=== PATIENT | female | born 1930 | race Hispanic/Latino ===

== ENCOUNTER 2021-02-09 14:31 | Inpatient (IN) | payer MEDICARE ==
--- NOTE | 2021-02-09 15:27 | Emergency Department Report ---
HPI - General Chief Complaint: Dyspnea/Respdistress Time Seen by Provider: 02/09/21 14:58 - HPI HPI: 89-year-old female with past medical history significant for hypertension, diabetes mellitus, CAD, CHF, CKD, and recent pacemaker placement (unknown when), is brought in by EMS from home because she was feeling short of breath today. The patient was recently discharged from rehab and came home. She was prescribed lorazepam which she takes intermittently but today after taking the lorazepam she became very tired and somnolent and reported shortness of breath. The patient claims that she feels short of breath today that there are no aggravating or alleviating factors. She denies cough and says this is her only issue. She is very somnolent although she is arousable to voice and can answer questions appropriately. She is slightly confused but able to participate in the exam and review of systems. Further details of the HPI are limited due to the patient's clinical condition. ED Past Medical Hx - Past Medical History Previous Medical History?: Yes Hx Hypertension: Yes Hx Heart Attack/AMI: Yes Hx Congestive Heart Failure: Yes Hx Diabetes: Yes - Social History Smoking Status: Unknown if ever smoked - Medications Home Medications: Home Medications Medication Instructions Recorded Confirmed Last Taken Type Cyproheptadine HCl 4 mg PO Q8HR 02/09/21 02/09/21 Unknown History Furosemide [Lasix] 20 mg PO QDAY 02/09/21 02/09/21 Unknown History Hydromorphone HCl/0.9% NaCl/Pf 1 mg PO Q2HR PRN 02/09/21 02/09/21 Unknown History [Hydromorphone 1 mg/ml-Ns Syrng] Hyoscyamine Subl [Levsin Sl 0.125 0.125 mg SL Q6HR 02/09/21 02/09/21 Unknown History TAB] LORazepam [Ativan] 0.5 mg PO Q6H PRN 02/09/21 02/09/21 Unknown History Levothyroxine [Synthroid] 100 mcg PO QAM 02/09/21 02/09/21 Unknown History Loratadine 10 mg PO QAM 02/09/21 02/09/21 Unknown History Metoprolol Tartrate [Lopressor] 100 mg PO BID 02/09/21 02/09/21 Unknown History Ondansetron [Zofran Odt] 4 mg PO Q4HR PRN 02/09/21 02/09/21 Unknown History Pantoprazole Sodium 40 mg PO QAM 02/09/21 02/09/21 Unknown History Rivaroxaban [Xarelto] 15 mg PO QHS 02/09/21 02/09/21 Unknown History bisacodyL [Dulcolax suppos] 10 mg NE QDAY 02/09/21 02/09/21 Unknown History busPIRone [Buspar] 5 mg PO BID 02/09/21 02/09/21 Unknown History dilTIAZem CD [Cardizem Cd] 120 mg PO DAILY 02/09/21 02/09/21 Unknown History traMADoL [Ultram] 50 mg PO Q6HR PRN 02/09/21 02/09/21 Unknown History ED Review of Systems ROS: Stated complaint: SOB Other details as noted in HPI Constitutional: denies: chills, fever Eyes: denies: eye pain, vision change ENT: denies: throat pain, congestion Respiratory: shortness of breath. denies: cough, wheezing Cardiovascular: denies: chest pain, palpitations, syncope Gastrointestinal: denies: abdominal pain, nausea, vomiting Genitourinary: denies: dysuria, frequency Musculoskeletal: denies: back pain, myalgia Skin: denies: rash Neurological: denies: headache, weakness, numbness Physical Exam - Physical Exam Physical Exam: GENERAL: Well developed and well nourished. Extremely somnolent but arousable to very loud voice or touch HEENT: Normocephalic. No obvious signs of trauma. Slightly dry mucous memb ranes. Very poor oral dentition without discrete drainable apical abscess EYES: Extraocular movements are intact. Pupils are equal round and reactive to light bilaterally NECK: Supple. Trachea is midline. from LUNGS: Nonlabored breathing. Equal chest rise bilaterally. There are bibasilar rales but the remainder of the lung fallon are clear to auscultation HEART/CARDIOVASCULAR: Slightly tachycardic with regular rhythm. No murmurs or rubs. VASCULAR: Cap refill < 2 seconds. 2+ pitting edema of the bilateral lower extremities ABDOMEN: Abdomen is soft and nondistended. There is no significant tenderness, guarding or rebound. SKIN: Skin is warm and dry NEURO: Patient is extremely somnolent but arousable to loud voice or touch. She is oriented to self, place, and situation but not to time parent partner II-XII grossly intact. No focal deficits. Normal motor and sensory exam throughout. Normal speech. MUSCULOSKELETAL: No obvious deformities. No significant tenderness. Normal ROM throughout. BACK/SPINE: No midline tenderness or step-offs of the C/T/L spine. No costovertebral angle tenderness. ED Medical Decision Making - Lab Data Result diagrams: 02/09/21 15:50 02/09/21 15:50 Lab Results 02/09/21 02/09/21 02/09/21 Range/Units 15:50 15:50 15:50 WBC 10.7 (4.5-11.0) K/mm3 RBC 4.02 (3.65-5.03) M/mm3 Hgb 12.5 (10.1-14.3) gm/dl Hct 37.2 (30.3-42.9) % MCV 93 (79-97) fl MCH 31 (28-32) pg MCHC 34 (30-34) % RDW 20.0 H (13.2-15.2) % Plt Count 196 (140-440) K/mm3 Lymph % (Auto) 15.6 (13.4-35.0) % [place] % (Auto) 11.6 H (0.0-7.3) % Eos % (Auto) 1.4 (0.0-4.3) % Baso % (Auto) 0.4 (0.0-1.8) % Lymph # (Auto) 1.7 (1.2-5.4) K/mm3 [place] # (Auto) 1.2 H (0.0-0.8) K/mm3 Eos # (Auto) 0.1 (0.0-0.4) K/mm3 Baso # (Auto) 0.0 (0.0-0.1) K/mm3 Seg Neutrophils % 71.0 H (40.0-70.0) % Seg Neutrophils # 7.6 (1.8-7.7) K/mm3 PT 37.1 H (12.2-14.9) Sec. INR 3.76 H (0.87-1.13) APTT 41.4 H (24.2-36.6) Sec. Sodium 133 L (137-145) mmol/L Potassium 5.8 H (3.6-5.0) mmol/L Chloride 99.7 (98-107) mmol/L Carbon Dioxide 19 L (22-30) mmol/L Anion Gap 20 mmol/L BUN 72 H (7-17) mg/dL Creatinine 2.2 H (0.6-1.2) mg/dL Estimated GFR 21 ml/min BUN/Creatinine Ratio 33 % Glucose 131 H (65-100) mg/dL Calcium 9.0 (8.4-10.2) mg/dL Magnesium (1.7-2.3) mg/dL Total Bilirubin 1.00 (0.1-1.2) mg/dL AST 36 (5-40) units/L ALT 22 (7-56) units/L Alkaline Phosphatase 71 (35-129) units/L Troponin T 0.012 (0.00-0.029) ng/mL NT-Pro-B Natriuret Pep (0-900) pg/mL Total Protein 7.0 (6.3-8.2) g/dL Albumin 3.2 L (3.9-5) g/dL Albumin/Globulin Ratio 0.8 % 02/09/21 02/09/21 Range/Units 15:50 15:50 WBC (4.5-11.0) K/mm3 RBC (3.65-5.03) M/mm3 Hgb (10.1-14.3) gm/dl Hct (30.3-42.9) % MCV (79-97) fl MCH (28-32) pg MCHC (30-34) % RDW (13.2-15.2) % Plt Count (140-440) K/mm3 Lymph % (Auto) (13.4-35.0) % [place] % (Auto) (0.0-7.3) % Eos % (Auto) (0.0-4.3) % Baso % (Auto) (0.0-1.8) % Lymph # (Auto) (1.2-5.4) K/mm3 [place] # (Auto) (0.0-0.8) K/mm3 Eos # (Auto) (0.0-0.4) K/mm3 Baso # (Auto) (0.0-0.1) K/mm3 Seg Neutrophils % (40.0-70.0) % Seg Neutrophils # (1.8-7.7) K/mm3 PT (12.2-14.9) Sec. INR (0.87-1.13) APTT (24.2-36.6) Sec. Sodium (137-145) mmol/L Potassium (3.6-5.0) mmol/L Chloride (98-107) mmol/L Carbon Dioxide (22-30) mmol/L Anion Gap mmol/L BUN (7-17) mg/dL Creatinine (0.6-1.2) mg/dL Estimated GFR ml/min BUN/Creatinine Ratio % Glucose (65-100) mg/dL Calcium (8.4-10.2) mg/dL Magnesium 2.60 H (1.7-2.3) mg/dL Total Bilirubin (0.1-1.2) mg/dL AST (5-40) units/L ALT (7-56) units/L Alkaline Phosphatase (35-129) units/L Troponin T (0.00-0.029) ng/mL NT-Pro-B Natriuret Pep 25470 H (0-900) pg/mL Total Protein (6.3-8.2) g/dL Albumin (3.9-5) g/dL Albumin/Globulin Ratio % - EKG Data -: EKG Interpreted by Me - EKG Data When compared to previous EKG there are: previous EKG unavailable 02/09/21 16:14 Atrial flutters versus atrial fibrillation without rapid ventricular rate. Left bundle branch block. No Scarbossa criteria - Radiology Data Chest 2 views INDICATION: Dyspnea IMPRESSION: Trace interstitial edema. No pleural effusion. Prior cardiac valvuloplasty. Signer Name: Kishore Guevara MD Signed: 02/09/2021 2:51 PM Workstation Name: [email or web address] CT head/brain wo con INDICATION: AMS. TECHNIQUE: Routine CT head. All CT scans at this location are performed using CT dose reduction for ALARA by means of automated exposure control. COMPARISON: None. FINDINGS: Intracranial: Jaws atrophy. Wallace-white matter differentiation is maintained. No intracranial hemorrhage. No extra axial collection. No hydrocephalus. No herniation. Sinuses: Paranasal sinuses and mastoid air cells are essentially clear. Orbits: Globes are intact. Calvarium: No acute fracture. IMPRESSION: 1. No acute intracranial abnormality. Signer Name: Boris Cruz MD Signed: 02/09/2021 3:55 PM Workstation Name: [id number] CT abdomen pelvis wo con INDICATION: Assess for kisney stone. COMPARISON: None TECHNIQUE: Abdominal and pelvic CT exam performed. All CT scans at this location are performed using CT dose reduction for ALARA by means of automated exposure control. FINDINGS: CT ABDOMEN and PELVIS: Lung Bases: Cardiac silhouette is enlarged. Liver: No significant abnormality. Biliary: No significant abnormality. Spleen: No significant abnormality. Pancreas: No significant abnormality. Adrenals: No significant abnormality. Kidneys: Cortical thinning. No renal stones. No hydronephrosis. Lymphatics: No lymphadenopathy. Vasculature: Severe arterial atherosclerosis. No aneurysm. Bowel: Diverticulosis. Small quantity of fluid along the sigmoid colon. Pelvis: Uterus is surgically absent. Osseous Structures: No aggressive osseous lesion. Mild rightward curvature. Additional Findings: Prior ventral mesh repair IMPRESSION: 1. No stones. 2. Diverticulosis with small quantity of fluid along the sigmoid colon. Findings could be related to diverticulitis. Signer Name: Boris Cruz MD Signed: 02/09/2021 4:20 PM Workstation Name: [id number] - Medical Decision Making 89-year-old female with very complex medical history including CKD, CHF, CAD, and recent pacemaker placement brought in by EMS from home after she was complaining of shortness of breath today. She apparently took lorazepam and became extremely somnolent and was not breathing well and reporting shortness of breath. When EMS arrived, her oxygen saturation was 91% on room air. On my assessment, the patient is extremely somnolent but arousable to loud voice or touch. She has a nonfocal neurologic exam. She has slightly dry mucous membranes. Lung auscultation reveals bibasilar rales. She has 2+ pitting edema the bilateral lower extremities. She is afebrile and with normal vital signs other than mild tachycardia. I suspect that the patient may be experiencing shortness of breath related to hypoventilation from sedation from lorazepam as well as possible worsening of her CHF. Nonetheless, we will perform broad work- up with a full set of labs, EKG, chest x-ray, an oncon CT of the head. We will give supplemental oxygen via nasal cannula only as needed for oxygen saturation less than 92%. We will hold off on IV fluids at this time given the possibility of worsening CHF as the cause which would possibly precipitate further pulmonary edema and worsen her clinical condition. Chest x-ray shows signs of pulmonary edema. At 4 PM, we received a call from the patient's hospice agency. Apparently she was put on hospice recently due to her advanced congestive heart failure. She is also known to have a history of atrial fibrillation, CKD stage III, and advanced CHF. The hospice public service representative stated that although the patient is in hospice she is still full code. The nurse stated that he spoke to the patient's daughter, Rosa Isela who is her power of human resources benefits administrator and she is coming to the hospital now. We will thus discuss the situation with her when she arrives and determine the appropriate disposition and treatment. The patient was assessed and was found to desaturate to 79% on room air. However, with 2 L of supplemental oxygen via nasal cannula the patient's oxygen saturation improved to 96 to 100%. The patient's daughter, Rosa Isela arrived and I discussed the situation with her. She says the patient recently underwent aortic valve replacement at [facility] by Dr. Francisco. She said she was put in rehab after this her condition has declined. She indicates that she wants everything done for work-up and management and she is the patient's healthcare proxy. The patient is with altered mental status and cannot make decisions for herself at this time. I explained that several studies are still in process but I suspect that there is a role of both sedation from diazepam as well as acute exacerbation of her CHF. Labs have resulted and reveal no significant leukocytosis or anemia. Chemistry reveals several electrolyte abnormalities including hyponatremia with sodium 133, elevated potassium of 5.8, creatinine of 2.2 and BUN of 72 which may be at the patient's baseline but these values are not available at the current time. Initial troponin is negative. She is noted to have a supratherapeutic INR of 3.76 the patient's BNP is 18,900. I therefore suspect that the patient's symptoms may be related to CHF with pulmonary edema. I will give 80 mg of IV Lasix. Urinalysis shows evidence of possible UTI given 23 WBCs and 16 RBCs. We will administer IV ceftriaxone and send a urine culture as well as blood cultures. For further assessment of the patient's abdomen for kidney stone I have ordered CT of the abdomen and pelvis. I spoke with Dr. Covington, the on-call hospitalist regarding the case and he accepts patient for admission. He understands that CT of the abdomen and pelvis is still pending. CT reveals no evidence of kidney stones but there are findings which could suggest diverticulitis. I alerted Dr. Covington of these findings and he said that he would take care of it. Critical Care Time: Yes Critical care time in (mins) excluding proc time.: 45 Critical care attestation.: If time is entered above; I have spent that time in minutes in the direct care of this critically ill patient, excluding procedure time. Critical care time was spent in the evaluation/assessment of critical respiratory failure requiring supplemental oxygen, work-up, and management of CH F exacerbation as well as several electrolyte abnormalities ED Disposition Clinical Impression: Respiratory failure with hypoxia, Urinary tract infection, Altered mental state, Acute exacerbation of CHF (congestive heart failure), Supratherapeutic INR, Atrial fibrillation, Hyperkalemia, CKD (chronic kidney disease) Disposition: OP ADMIT IP TO THIS HOSP Is pt being admited?: Yes Condition: Stable
--- NOTE | 2021-02-09 15:56 | XRay Report ---
Chest 2 views INDICATION: Dyspnea IMPRESSION: Trace interstitial edema. No pleural effusion. Prior cardiac valvuloplasty. Signer Name: Kishore Guevara MD Signed: 02/09/2021 3:51 PM Workstation Name: [id number]
[2021-02-09 16:08] LABS: Basophils % (Auto) 0.4 % (0.0-1.8); Eosinophils # (Auto) 0.1 K/mm3 (0.0-0.4); Eosinophils % (Auto) 1.4 % (0.0-4.3); Hematocrit 37.2 % (30.3-42.9); Hemoglobin 12.5 gm/dl (10.1-14.3); Lymphocytes # (Auto) 1.7 K/mm3 (1.2-5.4); Lymphocytes % (Auto) 15.6 % (13.4-35.0); Mean Corpuscular HGB Conc 34 % (30-34); Mean Corpuscular Volume 93 fl (79-97); Monocytes # (Auto) 1.2 K/mm3 (0.0-0.8); Monocytes % (Auto) 11.6 % (0.0-7.3); Platelet Count 196 K/mm3 (140-440); Red Blood Count 4.02 M/mm3 (3.65-5.03)
[2021-02-09 16:20] LABS: INR 3.76 (0.87-1.13); Partial Thromboplastin Time 41.4 Sec. (24.2-36.6)
[2021-02-09 16:26] LABS: Albumin 3.2 g/dL (3.9-5)
[2021-02-09 16:28] LABS: Amphetamine Screen,Urine PRESUMPTIVE NEGATIVE; Benzodiazepines Screen,Urine PRESUMPTIVE NEGATIVE; Cannabinoid Screen,Urine PRESUMPTIVE NEGATIVE; Cocaine Screen,Urine PRESUMPTIVE NEGATIVE; Methadone Screen,Urine PRESUMPTIVE NEGATIVE; Opiate Screen,Urine PRESUMPTIVE NEGATIVE
[2021-02-09 16:38] LABS: Bilirubin,Urine NEG (Negative); Blood,Urine MOD (Negative); Color,Urine Yellow (Yellow); Hyaline Casts,Urine 8 /LPF; Mucus,Urine FEW /HPF; Protein,Urine <15 mg/dL mg/dL (Negative); Urobilinogen,Urine < 2.0 mg/dL (<2.0)
[2021-02-09] MEDS ORDERED: CEFEPIME/NS 2 GM/100 ML 2 GM/100 ML BAG IV ONE (16:50)
[2021-02-09] MEDS ORDERED: FUROSEMIDE 100 MG/10 ML INJ IV ONE (16:54)
--- NOTE | 2021-02-09 16:59 | Cat Scan Report ---
CT head/brain wo con INDICATION: AMS. TECHNIQUE: Routine CT head. All CT scans at this location are performed using CT dose reduction for A IRLANDA by means of automated exposure control. COMPARISON: None. FINDINGS: Intracranial: Jaws atrophy. Wallace-white matter differentiation is maintained. No intracranial hemorrha ge. No extra axial collection. No hydrocephalus. No herniation. Sinuses: Paranasal sinuses and mastoid air cells are essentially clear. Orbits: Globes are intact. Calvarium: No acute fracture. IMPRESSION: 1. No acute intracranial abnormality. Signer Name: Boris Cruz MD Signed: 02/09/2021 4:55 PM Workstation Name: [id number]
--- NOTE | 2021-02-09 17:24 | Cat Scan Report ---
CT abdomen pelvis wo con INDICATION: Assess for kisney stone. COMPARISON: None TECHNIQUE: Abdominal and pelvic CT exam performed. All CT scans at this location are performed using CT dose reduction for ALARA by means of automated exposure control. FINDINGS: CT ABDOMEN and PELVIS: Lung Bases: Cardiac silhouette is enlarged. Liver: No significant abnormality. Biliary: No significant abnormality. Spleen: No significant abnormality. Pancreas: No significant abnormality. Adrenals: No significant abnormality. Kidneys: Cortical thinning. No renal stones. No hydronephrosis. Lymphatics: No lymphadenopathy. Vasculature: Severe arterial atherosclerosis. No aneurysm. Bowel: Diverticulosis. Small quantity of fluid along the sigmoid colon. Pelvis: Uterus is surgically absent. Osseous Structures: No aggressive osseous lesion. Mild rightward curvature. Additional Findings: Prior ventral mesh repair IMPRESSION: 1. No stones. 2. Diverticulosis with small quantity of fluid along the sigmoid colon. Findings could be related to diverticulitis. Signer Name: Boris Cruz MD Signed: 02/09/2021 5:20 PM Workstation Name: [id number]
--- NOTE | 2021-02-09 23:57 | History and Physical Report ---
History of Present Illness Date of examination: 02/09/21 Date of admission: 02/09/21 17:02 Chief complaint: Altered mental state for 1 day History of present illness: 89-year-old female with history of hypertension aortic valve repair and hypothyroidism and recent pacemaker placement brought in by EMS for shortness of breath and altered sensorium. Patient was recently discharged home from a rehab place. Patient is on lorazepam for anxiety. Daughter attributes the altered sensorium to lorazepam. [place] questions briefly and then keeps closing her eyes. Able to recognize her daughter. No fever or chills. The main reason for EMS bringing in the patient is presents with edema and shortness of breath. - Past Medical History Previous Medical History?: Yes Hx Hypertension: Yes Hx Heart Attack/AMI: Yes Hx Congestive Heart Failure: Yes Hx Diabetes: Yes - Social History Smoking Status: Unknown if ever smoked - Medications Home Medications: Home Medications Medication Instructions Recorded Confirmed Last Taken Type Cyproheptadine HCl 4 mg PO Q8HR 02/09/21 02/09/21 Unknown History Furosemide [Lasix] 20 mg PO QDAY 02/09/21 02/09/21 Unknown History Hydromorphone HCl/0.9% NaCl/Pf 1 mg PO Q2HR PRN 02/09/21 02/09/21 Unknown History [Hydromorphone 1 mg/ml-Ns Syrng] Hyoscyamine Subl [Levsin Sl 0.125 0.125 mg SL Q6HR 02/09/21 02/09/21 Unknown History TAB] LORazepam [Ativan] 0.5 mg PO Q6H PRN 02/09/21 02/09/21 Unknown History Levothyroxine [Synthroid] 100 mcg PO QAM 02/09/21 02/09/21 Unknown History Loratadine 10 mg PO QAM 02/09/21 02/09/21 Unknown History Metoprolol Tartrate [Lopressor] 100 mg PO BID 02/09/21 02/09/21 Unknown History Ondansetron [Zofran Odt] 4 mg PO Q4HR PRN 02/09/21 02/09/21 Unknown History Pantoprazole Sodium 40 mg PO QAM 02/09/21 02/09/21 Unknown History Rivaroxaban [Xarelto] 15 mg PO QHS 02/09/21 02/09/21 Unknown History bisacodyL [Dulcolax suppos] 10 mg ND QDAY 02/09/21 02/09/21 Unknown History busPIRone [Buspar] 5 mg PO BID 02/09/21 02/09/21 Unknown History dilTIAZem CD [Cardizem Cd] 120 mg PO DAILY 02/09/21 02/09/21 Unknown History traMADoL [Ultram] 50 mg PO Q6HR PRN 02/09/21 02/09/21 Unknown History Review of Systems ROS: Stated complaint: SOB Other details as noted in HPI Constitutional: denies: chills, fever Eyes: denies: eye pain, vision change ENT: denies: throat pain, congestion Respiratory: shortness of breath. denies: cough, wheezing Cardiovascular: denies: chest pain, palpitations, syncope Gastrointestinal: denies: abdominal pain, nausea, vomiting Genitourinary: denies: dysuria, frequency Musculoskeletal: denies: back pain, myalgia Skin: denies: rash Neurological: denies: headache, weakness, numbness Medications and Allergies Allergies Allergy/AdvReac Type Severity Reaction Status Date / Time codeine Allergy Unknown Verified 02/09/21 16:11 morphine Allergy Unknown Verified 02/09/21 16:11 Sulfa (Sulfonamide Allergy Unknown Verified 02/09/21 16:11 Antibiotics) zolpidem [From Ambien] Allergy Unknown Verified 02/09/21 16:11 Home Medications Medication Instructions Recorded Confirmed Last Taken Type Cyproheptadine HCl 4 mg PO Q8HR 02/09/21 02/09/21 Unknown History Furosemide [Lasix] 20 mg PO QDAY 02/09/21 02/09/21 Unknown History Hydromorphone HCl/0.9% NaCl/Pf 1 mg PO Q2HR PRN 02/09/21 02/09/21 Unknown History [Hydromorphone 1 mg/ml-Ns Syrng] Hyoscyamine Subl [Levsin Sl 0.125 0.125 mg SL Q6HR 02/09/21 02/09/21 Unknown History TAB] LORazepam [Ativan] 0.5 mg PO Q6H PRN 02/09/21 02/09/21 Unknown History Levothyroxine [Synthroid] 100 mcg PO QAM 02/09/21 02/09/21 Unknown History Loratadine 10 mg PO QAM 02/09/21 02/09/21 Unknown History Metoprolol Tartrate [Lopressor] 100 mg PO BID 02/09/21 02/09/21 Unknown History Ondansetron [Zofran Odt] 4 mg PO Q4HR PRN 02/09/21 02/09/21 Unknown History Pantoprazole Sodium 40 mg PO QAM 02/09/21 02/09/21 Unknown History Rivaroxaban [Xarelto] 15 mg PO QHS 02/09/21 02/09/21 Unknown History bisacodyL [Dulcolax suppos] 10 mg ND QDAY 02/09/21 02/09/21 Unknown History busPIRone [Buspar] 5 mg PO BID 02/09/21 02/09/21 Unknown History dilTIAZem CD [Cardizem Cd] 120 mg PO DAILY 02/09/21 02/09/21 Unknown History traMADoL [Ultram] 50 mg PO Q6HR PRN 02/09/21 02/09/21 Unknown History Exam - Constitutional Vitals: Temp Pulse Resp BP Pulse Ox 97.6 F 91 H 18 114/91 89 02/09/21 23:26 02/09/21 23:26 02/09/21 23:26 02/09/21 23:26 02/09/21 23:26 General appearance: Present: no acute distress, well-nourished - EENT Eyes: Present: PERRL ENT: hearing intact, clear oral mucosa - Neck Neck: Present: supple, normal ROM - Respiratory Respiratory effort: normal Respiratory: bilateral: CTA - Cardiovascular Heart rate: 78 Rhythm: regular Heart Sounds: Present: S1 & S2. Absent: rub, click - Extremities Extremities: pulses symmetrical, No edema Peripheral Pulses: within normal limits - Abdominal General gastrointestinal: Present: soft, non-tender, non-distended, normal bowel sounds Female genitourinary: Present: normal - Integumentary Integumentary: Present: clear, warm, dry - Musculoskeletal Musculoskeletal: generalized weakness - Psychiatric Psychiatric: agitated, depressed, other (Altered sensorium) - Neurologic Neurologic: CNII-XII intact, moves all extremities - Allied Health Allied health notes reviewed: nursing, case management HEART Score - HEART Score History: Moderately suspicious Age: > 65 Risk factors: > 3 risk factors or hx of atherosclerotic disease Troponin: Troponin T < 0.010 ng/mL (0.00-0.029) 02/09/21 21:05 Troponin: < normal limit - Critical Actions Critical Actions: 0-3 pts:0.9-1.7%risk of adverse cardiac event.Candidate for discharge Results - Labs CBC & Chem 7: 02/10/21 04:34 02/10/21 04:34 Labs: Laboratory Last Values WBC 10.7 K/mm3 (4.5-11.0) 02/09/21 15:50 RBC 4.02 M/mm3 (3.65-5.03) 02/09/21 15:50 Hgb 12.5 gm/dl (10.1-14.3) 02/09/21 15:50 Hct 37.2 % (30.3-42.9) 02/09/21 15:50 MCV 93 fl (79-97) 02/09/21 15:50 MCH 31 pg (28-32) 02/09/21 15:50 MCHC 34 % (30-34) 02/09/21 15:50 RDW 20.0 % (13.2-15.2) H 02/09/21 15:50 Plt Count 196 K/mm3 (140-440) 02/09/21 15:50 Lymph % (Auto) 15.6 % (13.4-35.0) 02/09/21 15:50 [place] % (Auto) 11.6 % (0.0-7.3) H 02/09/21 15:50 Eos % (Auto) 1.4 % (0.0-4.3) 02/09/21 15:50 Baso % (Auto) 0.4 % (0.0-1.8) 02/09/21 15:50 Lymph # (Auto) 1.7 K/mm3 (1.2-5.4) 02/09/21 15:50 [place] # (Auto) 1.2 K/mm3 (0.0-0.8) H 02/09/21 15:50 Eos # (Auto) 0.1 K/mm3 (0.0-0.4) 02/09/21 15:50 Baso # (Auto) 0.0 K/mm3 (0.0-0.1) 02/09/21 15:50 Seg Neutrophils % 71.0 % (40.0-70.0) H 02/09/21 15:50 Seg Neutrophils # 7.6 K/mm3 (1.8-7.7) 02/09/21 15:50 PT 37.1 Sec. (12.2-14.9) H 02/09/21 15:50 INR 3.76 (0.87-1.13) H 02/09/21 15:50 APTT 41.4 Sec. (24.2-36.6) H 02/09/21 15:50 Sodium 133 mmol/L (137-145) L 02/09/21 15:50 Potassium 5.8 mmol/L (3.6-5.0) H 02/09/21 15:50 Chloride 99.7 mmol/L (98-107) 02/09/21 15:50 Carbon Dioxide 19 mmol/L (22-30) L 02/09/21 15:50 Anion Gap 20 mmol/L 02/09/21 15:50 BUN 72 mg/dL (7-17) H 02/09/21 15:50 Creatinine 2.2 mg/dL (0.6-1.2) H 02/09/21 15:50 Estimated GFR 21 ml/min 02/09/21 15:50 BUN/Creatinine Ratio 33 % 02/09/21 15:50 Glucose 131 mg/dL (65-100) H 02/09/21 15:50 Calcium 9.0 mg/dL (8.4-10.2) 02/09/21 15:50 Magnesium 2.60 mg/dL (1.7-2.3) H 02/09/21 15:50 Total Bilirubin 1.00 mg/dL (0.1-1.2) 02/09/21 15:50 AST 36 units/L (5-40) 02/09/21 15:50 ALT 22 units/L (7-56) 02/09/21 15:50 Alkaline Phosphatase 71 units/L (35-129) 02/09/21 15:50 Ammonia 34.0 umol/L (25-60) 02/09/21 17:20 Troponin T < 0.010 ng/mL (0.00-0.029) 02/09/21 21:05 NT-Pro-B Natriuret Pep 56729 pg/mL (0-900) H 02/09/21 15:50 Total Protein 7.0 g/dL (6.3-8.2) 02/09/21 15:50 Albumin 3.2 g/dL (3.9-5) L 02/09/21 15:50 Albumin/Globulin Ratio 0.8 % 02/09/21 15:50 Urine Color Yellow (Yellow) 02/09/21 Unknown Urine Turbidity Slightly-cloudy (Clear) 02/09/21 Unknown Urine pH 5.0 (5.0-7.0) 02/09/21 Unknown Ur Specific [place] 1.013 (1.003-1.030) 02/09/21 Unknown Urine Protein <15 mg/dl mg/dL (Negative) 02/09/21 Unknown Urine Glucose (UA) Neg mg/dL (Negative) 02/09/21 Unknown Urine Ketones Neg mg/dL (Negative) 02/09/21 Unknown Urine Blood Mod (Negative) 02/09/21 Unknown Urine Nitrite Neg (Negative) 02/09/21 Unknown Urine Bilirubin Neg (Negative) 02/09/21 Unknown Urine Urobilinogen < 2.0 mg/dL (<2.0) 02/09/21 Unknown Ur Leukocyte Esterase Sm (Negative) 02/09/21 Unknown Urine WBC (Auto) 23.0 /HPF (0.0-6.0) H 02/09/21 Unknown Urine RBC (Auto) 16.0 /HPF (0.0-6.0) 02/09/21 Unknown U Epithel Cells (Auto) 3.0 /HPF (0-13.0) 02/09/21 Unknown Urine WBC Clumps 2+ /HPF 02/09/21 Unknown Hyaline Casts 8 /LPF 02/09/21 Unknown Urine Mucus Few /HPF 02/09/21 Unknown Urine Opiates Screen Presumptive negative 02/09/21 Unknown Urine Methadone Screen Presumptive negative 02/09/21 Unknown Ur Barbiturates Screen Presumptive negative 02/09/21 Unknown Ur Phencyclidine Scrn Presumptive negative 02/09/21 Unknown Ur Amphetamines Screen Presumptive negative 02/09/21 Unknown U Benzodiazepines Scrn Presumptive negative 02/09/21 Unknown Urine Cocaine Screen Presumptive negative 02/09/21 Unknown U Marijuana (THC) Screen Presumptive negative 02/09/21 Unknown Drugs of Abuse Note Disclamer 02/09/21 Unknown Microbiology: Microbiology 02/09/21 17:20 Peripheral/Venous Blood Culture - Preliminary Culture in Progress 02/09/21 17:20 Peripheral/Venous Blood Culture - Preliminary Culture in Progress - Imaging and Cardiology Imaging and Cardiology: Chest x-ray Trace interstitial edema. No pleural effusion. Prior cardiac valvuloplasty Abdominal CAT scan No stones Diverticulosis with small quantity of fluid along the sigmoid colon Findings could be related to diverticulitis Head CT No acute intracranial abnormality [place]repo/IV: Voiding Method Bedside Commode Assessment and Plan Advance Directives: Yes (Full code) VTE prophylaxis?: Chemical Plan of care discussed with patient/family: Yes - Patient Problems (1) Acute encephalopathy Current Visit: Yes Status: Acute Plan to address problem: Resolving Etiology may be lorazepam Lorazepam discontinued (2) ARMIDA (acute kidney injury) Current Visit: Yes Status: Acute Plan to address problem: Possible ARMIDA superimposed on chronic kidney disease Nephrology consult requested (3) Acute exacerbation of CHF (congestive heart failure) Current Visit: Yes Status: Acute Qualifiers: Heart failure type: combined systolic and diastolic Qualified Code(s): I50.43 - Acute on chronic combined systolic (congestive) and diastolic (congestive) heart failure Plan to address problem: IV Lasix for now BNP is high--18,914 (4) Hyperkalemia Current Visit: Yes Status: Acute Plan to address problem: Treated Recheck potassium level (5) Hyponatremia Current Visit: Yes Status: Acute Plan to address problem: Mild with sodium of 133 No intervention at this point (6) Hypothyroidism (acquired) Current Visit: Yes Status: Chronic Plan to address problem: Continue Synthroid and check TSH (7) Hypertension Current Visit: Yes Status: Chronic Qualifiers: Hypertension type: primary hypertension Qualified Code(s): I10 - Essential (primary) hypertension Plan to address problem: Continue antihypertensives (8) GERD (gastroesophageal reflux disease) Current Visit: Yes Status: Chronic Qualifiers: Esophagitis presence: with esophagitis Plan to address problem: Continue PPIs (9) DVT prophylaxis Current Visit: Yes Status: Acute Plan to address problem: Patient on Xarelto for valvuloplasty of aortic valve and GI prophylaxis
[2021-02-10] MEDS ORDERED: ONDANSETRON 4 MG ODT TAB PO PRN
[2021-02-10] MEDS ORDERED: traMADol 50 MG TAB PO PRN
[2021-02-10] MEDS ORDERED: MORPHINE 2 MG/1 ML INJ IV PRN (00:03)
[2021-02-10] MEDS ORDERED: ONDANSETRON 4 MG/2 ML INJ IV PRN (00:03)
[2021-02-10] MEDS ORDERED: METOCLOPRAMIDE 10 MG/2 ML INJ IV PRN (00:03)
[2021-02-10] MEDS ORDERED: TAMSULOSIN 0.4 MG CAP PO ONE (02:15)
[2021-02-10] MEDS: METOPROLOL TARTRATE 100 MG TAB PO SCH (02:18)
[2021-02-10] MEDS: SODIUM CHLORIDE 0.9% 1000 ML 1,000 ML IV SCH (02:21)
[2021-02-10 04:57] LABS: Basophils % (Auto) 0.6 % (0.0-1.8); Eosinophils # (Auto) 0.2 K/mm3 (0.0-0.4); Hematocrit 33.8 % (30.3-42.9); Hemoglobin 11.1 gm/dl (10.1-14.3); Lymphocytes # (Auto) 1.4 K/mm3 (1.2-5.4); Lymphocytes % (Auto) 18.4 % (13.4-35.0); Mean Corpuscular HGB Conc 33 % (30-34); Mean Corpuscular Volume 93 fl (79-97); Monocytes # (Auto) 1.1 K/mm3 (0.0-0.8); Monocytes % (Auto) 13.6 % (0.0-7.3); Platelet Count 169 K/mm3 (140-440); Red Blood Count 3.62 M/mm3 (3.65-5.03); Red Cell Distribution Width 19.4 % (13.2-15.2)
[2021-02-10 05:14] LABS: Albumin 3.2 g/dL (3.9-5); Calcium 9.1 mg/dL (8.4-10.2)
[2021-02-10] MEDS: LEVOTHYROXINE 100 MCG TAB PO SCH (05:28)
[2021-02-10] MEDS: HYOSCYAMINE SUBL 0.125 MG TAB SL SCH ×4 (05:28→19:03)
[2021-02-10] MEDS: CYPROHEPTADINE 4 MG TAB PO SCH ×3 (07:48→19:03)
--- NOTE | 2021-02-10 07:59 | Consultation ---
History of Present Illness Consult date: 02/10/21 Reason for Consult: Altered mentation History of present illness: Chief complaint: Altered mental state for 1 day History of present illness: 89-year-old female with history of hypertension aortic valve repair and hypothyroidism and recent pacemaker placement brought in by EMS for shortness of breath and altered sensorium. Patient was recently discharged home from a rehab place. Patient is on lorazepam for anxiety. Daughter attributes the altered sensorium to lorazepam. [place] questions briefly and then keeps closing her eyes. Able to recognize her daughter. No fever or chills. The main reason for EMS bringing in the patient is presents with edema and shortness of breath. today she is alert oriented to place not date , knows her birthdate and name of president knows her condition does not want to go back to a rehabilitation , she is taking her blood thinner Xarelto and ultram for back pain ,she denied anxiety she is using walker at home , complain of intermittent back pain her INR#3.76 ??? - Past Medical History Previous Medical History?: Yes Hx Hypertension: Yes Hx Heart Attack/AMI: Yes Hx Congestive Heart Failure: Yes Hx Diabetes: Yes - Social History Smoking Status: Unknown if ever smoked - Medications Home Medications: Home Medications Medication Instructions Recorded Confirmed Last Taken Type Cyproheptadine HCl 4 mg PO Q8HR 02/09/21 02/09/21 Unknown History Furosemide [Lasix] 20 mg PO QDAY 02/09/21 02/09/21 Unknown History Hydromorphone HCl/0.9% NaCl/Pf 1 mg PO Q2HR PRN 02/09/21 02/09/21 Unknown History [Hydromorphone 1 mg/ml-Ns Syrng] Hyoscyamine Subl [Levsin Sl 0.125 0.125 mg SL Q6HR 02/09/21 02/09/21 Unknown History TAB] LORazepam [Ativan] 0.5 mg PO Q6H PRN 02/09/21 02/09/21 Unknown History Levothyroxine [Synthroid] 100 mcg PO QAM 02/09/21 02/09/21 Unknown History Loratadine 10 mg PO QAM 02/09/21 02/09/21 Unknown History Metoprolol Tartrate [Lopressor] 100 mg PO BID 02/09/21 02/09/21 Unknown History Ondansetron [Zofran Odt] 4 mg PO Q4HR PRN 02/09/21 02/09/21 Unknown History Pantoprazole Sodium 40 mg PO QAM 02/09/21 02/09/21 Unknown History Rivaroxaban [Xarelto] 15 mg PO QHS 02/09/21 02/09/21 Unknown History bisacodyL [Dulcolax suppos] 10 mg FL QDAY 02/09/21 02/09/21 Unknown History busPIRone [Buspar] 5 mg PO BID 02/09/21 02/09/21 Unknown History dilTIAZem CD [Cardizem Cd] 120 mg PO DAILY 02/09/21 02/09/21 Unknown History traMADoL [Ultram] 50 mg PO Q6HR PRN 02/09/21 02/09/21 Unknown History Review of Systems ROS: Stated complaint: SOB Other details as noted in HPI Constitutional: denies: chills, fever Eyes: denies: eye pain, vision change ENT: denies: throat pain, congestion Respiratory: shortness of breath. denies: cough, wheezing Cardiovascular: denies: chest pain, palpitations, syncope Gastrointestinal: denies: abdominal pain, nausea, vomiting Genitourinary: denies: dysuria, frequency Musculoskeletal: denies: back pain, myalgia Skin: denies: rash Neurological: denies: headache, weakness, numbness Medications and Allergies Allergies Allergy/AdvReac Type Severity Reaction Status Date / Time codeine Allergy Unknown Verified 02/09/21 16:11 morphine Allergy Unknown Verified 02/09/21 16:11 Sulfa (Sulfonamide Allergy Unknown Verified 02/09/21 16:11 Antibiotics) zolpidem [From Ambien] Allergy Unknown Verified 02/09/21 16:11 Home Medications Medication Instructions Recorded Confirmed Last Taken Type Cyproheptadine HCl 4 mg PO Q8HR 02/09/21 02/09/21 Unknown History Furosemide [Lasix] 20 mg PO QDAY 02/09/21 02/09/21 Unknown History Hydromorphone HCl/0.9% NaCl/Pf 1 mg PO Q2HR PRN 02/09/21 02/09/21 Unknown History [Hydromorphone 1 mg/ml-Ns Syrng] Hyoscyamine Subl [Levsin Sl 0.125 0.125 mg SL Q6HR 02/09/21 02/09/21 Unknown History TAB] LORazepam [Ativan] 0.5 mg PO Q6H PRN 02/09/21 02/09/21 Unknown History Levothyroxine [Synthroid] 100 mcg PO QAM 02/09/21 02/09/21 Unknown History Loratadine 10 mg PO QAM 02/09/21 02/09/21 Unknown History Metoprolol Tartrate [Lopressor] 100 mg PO BID 02/09/21 02/09/21 Unknown History Ondansetron [Zofran Odt] 4 mg PO Q4HR PRN 02/09/21 02/09/21 Unknown History Pantoprazole Sodium 40 mg PO QAM 02/09/21 02/09/21 Unknown History Rivaroxaban [Xarelto] 15 mg PO QHS 02/09/21 02/09/21 Unknown History bisacodyL [Dulcolax suppos] 10 mg FL QDAY 02/09/21 02/09/21 Unknown History busPIRone [Buspar] 5 mg PO BID 02/09/21 02/09/21 Unknown History dilTIAZem CD [Cardizem Cd] 120 mg PO DAILY 02/09/21 02/09/21 Unknown History traMADoL [Ultram] 50 mg PO Q6HR PRN 02/09/21 02/09/21 Unknown History Medications and Allergies Allergies Allergy/AdvReac Type Severity Reaction Status Date / Time codeine Allergy Unknown Verified 02/09/21 16:11 morphine Allergy Unknown Verified 02/09/21 16:11 Sulfa (Sulfonamide Allergy Unknown Verified 02/09/21 16:11 Antibiotics) zolpidem [From Ambien] Allergy Unknown Verified 02/09/21 16:11 Home Medications Medication Instructions Recorded Confirmed Last Taken Type Cyproheptadine HCl 4 mg PO Q8HR 02/09/21 02/09/21 Unknown History Furosemide [Lasix] 20 mg PO QDAY 02/09/21 02/09/21 Unknown History Hydromorphone HCl/0.9% NaCl/Pf 1 mg PO Q2HR PRN 02/09/21 02/09/21 Unknown History [Hydromorphone 1 mg/ml-Ns Syrng] Hyoscyamine Subl [Levsin Sl 0.125 0.125 mg SL Q6HR 02/09/21 02/09/21 Unknown History TAB] LORazepam [Ativan] 0.5 mg PO Q6H PRN 02/09/21 02/09/21 Unknown History Levothyroxine [Synthroid] 100 mcg PO QAM 02/09/21 02/09/21 Unknown History Loratadine 10 mg PO QAM 02/09/21 02/09/21 Unknown History Metoprolol Tartrate [Lopressor] 100 mg PO BID 02/09/21 02/09/21 Unknown History Ondansetron [Zofran Odt] 4 mg PO Q4HR PRN 02/09/21 02/09/21 Unknown History Pantoprazole Sodium 40 mg PO QAM 02/09/21 02/09/21 Unknown History Rivaroxaban [Xarelto] 15 mg PO QHS 02/09/21 02/09/21 Unknown History bisacodyL [Dulcolax suppos] 10 mg FL QDAY 02/09/21 02/09/21 Unknown History busPIRone [Buspar] 5 mg PO BID 02/09/21 02/09/21 Unknown History dilTIAZem CD [Cardizem Cd] 120 mg PO DAILY 02/09/21 02/09/21 Unknown History traMADoL [Ultram] 50 mg PO Q6HR PRN 02/09/21 02/09/21 Unknown History Active Meds: Active Medications Acetaminophen (Acetaminophen 325 Mg Tab) 650 mg PO Q4H PRN PRN Reason: Pain MILD(1-3)/Fever >100.5/GABRIEL Bisacodyl (Bisacodyl 10 Mg Rect Supp) 10 mg FL QDAY [facility] Buspirone HCl (Buspirone 5 Mg Tab) 5 mg PO BID [facility] Cetirizine HCl (Cetirizine 10 Mg Tab) 10 mg PO QAM [facility] Cyproheptadine HCl (Cyproheptadine 4 Mg Tab) 4 mg PO TIDAC [facility] Diltiazem HCl (Diltiazem Cd 120 Mg Cap) 120 mg PO DAILY [facility] Furosemide (Furosemide 40 Mg/4 Ml Inj) 40 mg IV QDAY [facility] Hydromorphone HCl (Hydromorphone 1 Mg/1 Ml Inj) 0.5 mg IV Q3H PRN PRN Reason: Pain , Severe (7-10) Hyoscyamine (Hyoscyamine Subl 0.125 Mg Tab) 0.125 mg SL Q6HR [facility] Last Admin: 02/10/21 07:35 Dose: Not Given Documented by: Sodium Chloride (Nacl 0.9% 1000 Ml) 1,000 mls @ 75 mls/hr IV DIRECT [facility] Last Admin: 02/10/21 02:21 Dose: 75 mls/hr Documented by: Levothyroxine Sodium (Levothyroxine 100 Mcg Tab) 100 mcg PO QAM@0600 [facility] Last Admin: 02/10/21 05:28 Dose: 100 mcg Documented by: Metoclopramide HCl (Metoclopramide 10 Mg/2 Ml Inj) 5 mg IV Q6H PRN PRN Reason: Nausea And Vomiting Metoprolol Tartrate (Metoprolol Tartrate 100 Mg Tab) 100 mg PO BID@0800,1700 [facility] Last Admin: 02/10/21 02:18 Dose: 100 mg Documented by: Ondansetron HCl (Ondansetron 4 Mg Odt Tab) 4 mg PO Q4H PRN PRN Reason: Nausea Ondansetron HCl (Ondansetron 4 Mg/2 Ml Inj) 4 mg IV Q8H PRN PRN Reason: Nausea And Vomiting Pantoprazole Sodium (Pantoprazole 40 Mg Tab) 40 mg PO QAM [facility] Potassium Chloride (Potassium Chloride Er 20 Meq Tab) 20 meq PO ONCE [facility] Stop: 02/10/21 10:00 Rivaroxaban (Rivaroxaban 15 Mg Tab) 15 mg PO QHS [facility] Sodium Chloride (Sodium Chloride 0.9% 10 Ml Flush Syringe) 10 ml IV BID [facility] Sodium Chloride (Sodium Chloride 0.9% 10 Ml Flush Syringe) 10 ml IV PRN PRN PRN Reason: LINE FLUSH Tramadol HCl (Tramadol 50 Mg Tab) 50 mg PO Q6H PRN PRN Reason: PAIN (4-6) Physical Examination - Vital Signs Vital Signs: Vital Signs Pulse Resp Pulse Ox 73 35 H 97 02/09/21 15:13 02/09/21 15:13 02/09/21 15:13 - Constitutional General appearance: comfortable - EENT EENT: Present: PERRL, mucous membranes moist - Respiratory Respiratory: Present: chest non-tender, lungs clear, rhonchi - Cardiovascular Cardiovascular: Present: regular rate, normal S1, normal S2 Extremities: Present: no peripheral edema bilatateraly, no clubbing, cyanosis - Gastrointestinal Gastrointestinal: Present: normoactive bowel sounds - Integumentary Integumentary: Present: normal - Neurologic Cranial nerve examination: PERRL, EOMI Speech examination: intact Sensorimotor examination: intact Detailed motor examination: grossly full strength in - Psychiatric Psychiatric: Present: other (she is disoriented to date and had difficulty with calculation and abstract thinking ) Results - Laboratory Findings CBC and BMP: 02/10/21 04:34 02/10/21 04:34 Abnormal Lab Findings: Abnormal Labs 02/09/21 02/09/21 02/09/21 15:50 15:50 15:50 RBC RDW 20.0 H [place] % (Auto) 11.6 H [place] # (Auto) 1.2 H Seg Neutrophils % 71.0 H PT 37.1 H INR 3.76 H APTT 41.4 H Sodium 133 L Potassium 5.8 H Carbon Dioxide 19 L BUN 72 H Creatinine 2.2 H Glucose 131 H Magnesium NT-Pro-B Natriuret Pep Total Protein Albumin 3.2 L Urine WBC (Auto) 02/09/21 02/09/21 02/09/21 15:50 15:50 Unknown RBC RDW [place] % (Auto) [place] # (Auto) Seg Neutrophils % PT INR APTT Sodium Potassium Carbon Dioxide BUN Creatinine Glucose Magnesium 2.60 H NT-Pro-B Natriuret Pep 38952 H Total Protein Albumin Urine WBC (Auto) 23.0 H 02/10/21 02/10/21 04:34 04:34 RBC 3.62 L RDW 19.4 H [place] % (Auto) 13.6 H [place] # (Auto) 1.1 H Seg Neutrophils % PT INR APTT Sodium 136 L Potassium Carbon Dioxide BUN 72 H Creatinine 2.2 H Glucose Magnesium NT-Pro-B Natriuret Pep Total Protein 6.2 L Albumin 3.2 L Urine WBC (Auto) Assessment and Plan Assessment and Plan Advance Directives: Yes (Full code) VTE prophylaxis?: Chemical Plan of care discussed with patient/family: Yes - Patient Problems # Acute encephalopathy resolved -Etiology may be lorazepam, she is on periactive,levsin ,ultram all add to her mental ulteraltion !!!! # Underlying dementia - need neurology follow up # ARMIDA (acute kidney injury) -Possible ARMIDA superimposed on chronic kidney disease Nephrology consult requested # Acute exacerbation of CHF (congestive heart failure) -BNP is high--18,914 3Hyperkalemia -Treated -Recheck potassium level # Hyponatremia -Mild with sodium of 133 -No intervention at this point # Hypothyroidism (acquired) -Continue Synthroid and check TSH # Hypertension -Continue antihypertensives # GERD (gastroesophageal reflux disease) -Continue PPIs # DVT prophylaxis -Patient on Xarelto for valvuloplasty of aortic valve??? -her INR is 3.76 ??? !!! no clear etiology - and GI prophylaxis -fall precaution
[2021-02-10] MEDS ORDERED: POTASSIUM CHLORIDE ER 20 MEQ TAB PO SCH (08:00)
[2021-02-10] MEDS ORDERED: FUROSEMIDE 20 MG TAB PO SCH (10:00)
[2021-02-10] MEDS: dilTIAZem CD 120 MG CAP PO SCH (10:33)
[2021-02-10] MEDS: CETIRIZINE 10 MG TAB PO SCH (10:33)
[2021-02-10] MEDS: FUROSEMIDE 40 MG/4 ML INJ IV SCH (10:33)
[2021-02-10] MEDS: PANTOPRAZOLE 40 MG TAB PO SCH (10:33)
[2021-02-10] MEDS: busPIRone 5 MG TAB PO SCH ×2 (10:38→21:31)
[2021-02-10] MEDS: METOPROLOL TARTRATE 50 MG TAB PO SCH ×2 (10:41→21:31)
--- NOTE | 2021-02-10 10:46 | Electrocardiograph Report ---
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 Nonspecific IVCD with LAD ST elevation secondary to atrial flutter No previous ECG available for comparison Electronically Signed On 02-10-2021 10:46:17 EDT by Bud Schmid
--- NOTE | 2021-02-10 10:46 | Consultation ---
History of Present Illness - Reason for Consult Consult date: 02/10/21 acute renal failure - History of Present Illness The patient is an 89 YO female with history significant for Hyper tension, Aortic valve repair, Hypothyroidism and recent pacemaker placement who was brought in by EMS to [facility] ED 02/09 for evaluation of shortness of breath and altered sensorium. Patient was not able to provide any history and there was no family member at the bedside. She was recently discharged home from a rehab place. Patient is on lorazepam for anxiety. No report of fever or chills. CXR showed trace interstitial edema. Labs significant for Creat 2.2, BUN 72, K 5.8 and BNP 64002. Nephrology was consulted for further evaluation and treatment of ARMIDA. Past History Past Medical History: other (See HPI.) Medications and Allergies Allergies Allergy/AdvReac Type Severity Reaction Status Date / Time codeine Allergy Unknown Verified 02/09/21 16:11 morphine Allergy Unknown Verified 02/09/21 16:11 Sulfa (Sulfonamide Allergy Unknown Verified 02/09/21 16:11 Antibiotics) zolpidem [From Ambien] Allergy Unknown Verified 02/09/21 16:11 Home Medications Medication Instructions Recorded Confirmed Last Taken Type Cyproheptadine HCl 4 mg PO Q8HR 02/09/21 02/09/21 Unknown History Furosemide [Lasix] 20 mg PO QDAY 02/09/21 02/09/21 Unknown History Hydromorphone HCl/0.9% NaCl/Pf 1 mg PO Q2HR PRN 02/09/21 02/09/21 Unknown History [Hydromorphone 1 mg/ml-Ns Syrng] Hyoscyamine Subl [Levsin Sl 0.125 0.125 mg SL Q6HR 02/09/21 02/09/21 Unknown History TAB] LORazepam [Ativan] 0.5 mg PO Q6H PRN 02/09/21 02/09/21 Unknown History Levothyroxine [Synthroid] 100 mcg PO QAM 02/09/21 02/09/21 Unknown History Loratadine 10 mg PO QAM 02/09/21 02/09/21 Unknown History Metoprolol Tartrate [Lopressor] 100 mg PO BID 02/09/21 02/09/21 Unknown History Ondansetron [Zofran Odt] 4 mg PO Q4HR PRN 02/09/21 02/09/21 Unknown History Pantoprazole Sodium 40 mg PO QAM 02/09/21 02/09/21 Unknown History Rivaroxaban [Xarelto] 15 mg PO QHS 02/09/21 02/09/21 Unknown History bisacodyL [Dulcolax suppos] 10 mg DE QDAY 02/09/21 02/09/21 Unknown History busPIRone [Buspar] 5 mg PO BID 02/09/21 02/09/21 Unknown History dilTIAZem CD [Cardizem Cd] 120 mg PO DAILY 02/09/21 02/09/21 Unknown History traMADoL [Ultram] 50 mg PO Q6HR PRN 02/09/21 02/09/21 Unknown History Active Meds: Active Medications Acetaminophen (Acetaminophen 325 Mg Tab) 650 mg PO Q4H PRN PRN Reason: Pain MILD(1-3)/Fever >100.5/GABRIEL Bisacodyl (Bisacodyl 10 Mg Rect Supp) 10 mg DE QDAY [facility] Last Admin: 02/10/21 10:33 Dose: Not Given Documented by: Buspirone HCl (Buspirone 5 Mg Tab) 5 mg PO BID [facility] Last Admin: 02/10/21 10:38 Dose: 5 mg Documented by: Cetirizine HCl (Cetirizine 10 Mg Tab) 10 mg PO QAM [facility] Last Admin: 02/10/21 10:33 Dose: 10 mg Documented by: Cyproheptadine HCl (Cyproheptadine 4 Mg Tab) 4 mg PO TIDAC [facility] Last Admin: 02/10/21 07:48 Dose: 4 mg Documented by: Diltiazem HCl (Diltiazem Cd 120 Mg Cap) 120 mg PO DAILY [facility] Last Admin: 02/10/21 10:33 Dose: Not Given Documented by: Furosemide (Furosemide 40 Mg/4 Ml Inj) 40 mg IV QDAY [facility] Last Admin: 02/10/21 10:33 Dose: 40 mg Documented by: Hydromorphone HCl (Hydromorphone 1 Mg/1 Ml Inj) 0.5 mg IV Q3H PRN PRN Reason: Pain , Severe (7-10) Hyoscyamine (Hyoscyamine Subl 0.125 Mg Tab) 0.125 mg SL Q6HR [facility] Last Admin: 02/10/21 07:35 Dose: Not Given Documented by: Sodium Chloride (Nacl 0.9% 1000 Ml) 1,000 mls @ 75 mls/hr IV DIRECT [facility] Last Admin: 02/10/21 02:21 Dose: 75 mls/hr Documented by: Levothyroxine Sodium (Levothyroxine 100 Mcg Tab) 100 mcg PO QAM@0600 [facility] Last Admin: 02/10/21 05:28 Dose: 100 mcg Documented by: Metoclopramide HCl (Metoclopramide 10 Mg/2 Ml Inj) 5 mg IV Q6H PRN PRN Reason: Nausea And Vomiting Metoprolol Tartrate (Metoprolol Tartrate 50 Mg Tab) 50 mg PO BID [facility] Ondansetron HCl (Ondansetron 4 Mg Odt Tab) 4 mg PO Q4H PRN PRN Reason: Nausea Ondansetron HCl (Ondansetron 4 Mg/2 Ml Inj) 4 mg IV Q8H PRN PRN Reason: Nausea And Vomiting Pantoprazole Sodium (Pantoprazole 40 Mg Tab) 40 mg PO QAM [facility] Last Admin: 02/10/21 10:33 Dose: 40 mg Documented by: Rivaroxaban (Rivaroxaban 15 Mg Tab) 15 mg PO QHS [facility] Sodium Chloride (Sodium Chloride 0.9% 10 Ml Flush Syringe) 10 ml IV BID [facility] Last Admin: 02/10/21 10:33 Dose: 10 ml Documented by: Sodium Chloride (Sodium Chloride 0.9% 10 Ml Flush Syringe) 10 ml IV PRN PRN PRN Reason: LINE FLUSH Tramadol HCl (Tramadol 50 Mg Tab) 50 mg PO Q6H PRN PRN Reason: Pain, Moderate (4-6) Review of Systems ROS unobtainable: due to mental status Exam - Vital Signs Vital signs: Vital Signs Pulse Resp Pulse Ox 73 35 H 97 02/09/21 15:13 02/09/21 15:13 02/09/21 15:13 Results - Lab Results 02/10/21 04:34 02/10/21 04:34 Most recent lab results Calcium 9.1 mg/dL (8.4-10.2) 02/10/21 04:34 Magnesium 2.60 mg/dL (1.7-2.3) H 02/09/21 15:50 Assessment and Plan 1. Acute kidney injury: ARMIDA in the setting of CHF. CT abdomen negative for hydro. Urine studies ordered. Baseline renal function is unknown. Monitor renal function. Avoid nephrotoxic agents. Meds dosage based on GFR. 2. FEN: Hyperkalemia, improved, monitor. Volume overload, on Lasix. Monitor lytes. 3. Decompensated CHF: Strict I/O. On Metoprolol. Followed by Cards. 4. Chronic A.fib // PPm // Transaortic valve replacement: On Xarelto. Monitor. 5. Hypertension: BP controlled. Adjust meds as needed. Monitor. Subjective: Patient was seen and examined at the bedside. Examination: General appearance: well-developed, appears stated age, not in distress HEENT: ATNC, pupils equal Neck: supple Respiratory: bibasal diminished breath sounds Cardiology: S1S2, no murmur Gastrointestinal: soft, bowel sounds heard, not tender Integumentary: warm and dry Neurologic: alert, confused, moving extremities Ext: no edema
--- NOTE | 2021-02-10 11:56 | Progress Note ---
Assessment and Plan Assessment and plan: (1) Acute encephalopathy Current Visit: Yes Status: Acute Plan to address problem: Resolving Etiology may be lorazepam Lorazepam discontinued (2) ARMIDA (acute kidney injury) Current Visit: Yes Status: Acute Plan to address problem: Possible ARMIDA superimposed on chronic kidney disease Nephrology consult requested (3) Acute exacerbation of CHF (congestive heart failure) Current Visit: Yes Status: Acute Qualifiers: Heart failure type: combined systolic and diastolic Qualified Code(s): I50. 43 - Acute on chronic combined systolic (congestive) and diastolic (congestive) heart failure Plan to address problem: IV Lasix for now BNP is high--18,914 (4) Hyperkalemia Current Visit: Yes Status: Acute Plan to address problem: Treated Recheck potassium level (5) Hyponatremia Current Visit: Yes Status: Acute Plan to address problem: Mild with sodium of 133 No intervention at this point (6) Hypothyroidism (acquired) Current Visit: Yes Status: Chronic Plan to address problem: Continue Synthroid and check TSH (7) Hypertension Current Visit: Yes Status: Chronic Qualifiers: Hypertension type: primary hypertension Qualified Code(s): I10 - Essential (primary) hypertension Plan to address problem: Continue antihypertensives (8) GERD (gastroesophageal reflux disease) Current Visit: Yes Status: Chronic Qualifiers: Esophagitis presence: with esophagitis Plan to address problem: Continue PPIs (9) DVT prophylaxis Current Visit: Yes Status: Acute Plan to address problem: Patient on Xarelto for valvuloplasty of aortic valve and GI prophylaxis 02/10/2021 -Patient was confused. She states she is unaware she is in the hospital. Neurology and nephrology consult appreciated. Need PT OT evaluation. Ca rdiology consulted. History Interval history: Patient was seen and evaluated this morning Patient was confused Hospitalist Physical - Physical exam Narrative exam: Not in cardiopulmonary distress. The patient appeared well nourished and normally developed. Vital signs as documented. Head exam is unremarkable. No scleral icterus . Neck is without jugular venous distension, thyromegaly, or carotid bruits. Lungs are clear to auscultation. Cardiac exam reveals regular rate and Rhythm. Abdominal exam reveals normal bowel sounds, nontender, no organomegaly. Extremities are nonedematous and both femoral and pedal pulses are normal. [employer] N[employer]SE: Patient was confused - Constitutional Vitals: Temp Pulse Resp BP Pulse Ox 97.6 F 120 H 18 120/66 95 02/09/21 23:26 02/10/21 06:00 02/09/21 23:26 02/10/21 02:18 02/10/21 08:44 General appearance: Present: no acute distress, well-nourished HEART Score - HEART Score Age: > 65 Risk factors: > 3 risk factors or hx of atherosclerotic disease Troponin: Troponin T < 0.010 ng/mL (0.00-0.029) 02/09/21 21:05 Troponin: < normal limit - Critical Actions Critical Actions: 0-3 pts:0.9-1.7%risk of adverse cardiac event.Candidate for discharge Results - Labs CBC & Chem 7: 02/10/21 04:34 02/10/21 04:34 Labs: Laboratory Last Values WBC 7.8 K/mm3 (4.5-11.0) 02/10/21 04:34 RBC 3.62 M/mm3 (3.65-5.03) L 02/10/21 04:34 Hgb 11.1 gm/dl (10.1-14.3) 02/10/21 04:34 Hct 33.8 % (30.3-42.9) 02/10/21 04:34 MCV 93 fl (79-97) 02/10/21 04:34 MCH 31 pg (28-32) 02/10/21 04:34 MCHC 33 % (30-34) 02/10/21 04:34 RDW 19.4 % (13.2-15.2) H 02/10/21 04:34 Plt Count 169 K/mm3 (140-440) 02/10/21 04:34 Lymph % (Auto) 18.4 % (13.4-35.0) 02/10/21 04:34 Williams % (Auto) 13.6 % (0.0-7.3) H 02/10/21 04:34 Eos % (Auto) 2.0 % (0.0-4.3) 02/10/21 04:34 Baso % (Auto) 0.6 % (0.0-1.8) 02/10/21 04:34 Lymph # (Auto) 1.4 K/mm3 (1.2-5.4) 02/10/21 04:34 Williams # (Auto) 1.1 K/mm3 (0.0-0.8) H 02/10/21 04:34 Eos # (Auto) 0.2 K/mm3 (0.0-0.4) 02/10/21 04:34 Baso # (Auto) 0.0 K/mm3 (0.0-0.1) 02/10/21 04:34 Seg Neutrophils % 65.4 % (40.0-70.0) 02/10/21 04:34 Seg Neutrophils # 5.1 K/mm3 (1.8-7.7) 02/10/21 04:34 PT 37.1 Sec. (12.2-14.9) H 02/09/21 15:50 INR 3.76 (0.87-1.13) H 02/09/21 15:50 APTT 41.4 Sec. (24.2-36.6) H 02/09/21 15:50 Sodium 136 mmol/L (137-145) L 02/10/21 04:34 Potassium 5.0 mmol/L (3.6-5.0) 02/10/21 04:34 Chloride 99.5 mmol/L (98-107) 02/10/21 04:34 Carbon Dioxide 24 mmol/L (22-30) 02/10/21 04:34 Anion Gap 18 mmol/L 02/10/21 04:34 BUN 72 mg/dL (7-17) H 02/10/21 04:34 Creatinine 2.2 mg/dL (0.6-1.2) H 02/10/21 04:34 Estimated GFR 21 ml/min 02/10/21 04:34 BUN/Creatinine Ratio 33 % 02/10/21 04:34 Glucose 93 mg/dL (65-100) 02/10/21 04:34 Hemoglobin A1c 5.6 % (4-6) 02/10/21 04:34 Calcium 9.1 mg/dL (8.4-10.2) 02/10/21 04:34 Magnesium 2.60 mg/dL (1.7-2.3) H 02/09/21 15:50 Total Bilirubin 0.90 mg/dL (0.1-1.2) 02/10/21 04:34 AST 35 units/L (5-40) 02/10/21 04:34 ALT 22 units/L (7-56) 02/10/21 04:34 Alkaline Phosphatase 60 units/L (35-129) 02/10/21 04:34 Ammonia 34.0 umol/L (25-60) 02/09/21 17:20 Troponin T < 0.010 ng/mL (0.00-0.029) 02/09/21 21:05 NT-Pro-B Natriuret Pep 61202 pg/mL (0-900) H 02/09/21 15:50 Total Protein 6.2 g/dL (6.3-8.2) L 02/10/21 04:34 Albumin 3.2 g/dL (3.9-5) L 02/10/21 04:34 Albumin/Globulin Ratio 1.1 % 02/10/21 04:34 Urine Color Yellow (Yellow) 02/09/21 Unknown Urine Turbidity Slightly-cloudy (Clear) 02/09/21 Unknown Urine pH 5.0 (5.0-7.0) 02/09/21 Unknown Ur Specific Jackson 1.013 (1.003-1.030) 02/09/21 Unknown Urine Protein <15 mg/dl mg/dL (Negative) 02/09/21 Unknown Urine Glucose (UA) Neg mg/dL (Negative) 02/09/21 Unknown Urine Ketones Neg mg/dL (Negative) 02/09/21 Unknown Urine Blood Mod (Negative) 02/09/21 Unknown Urine Nitrite Neg (Negative) 02/09/21 Unknown Urine Bilirubin Neg (Negative) 02/09/21 Unknown Urine Urobilinogen < 2.0 mg/dL (<2.0) 02/09/21 Unknown Ur Leukocyte Esterase Sm (Negative) 02/09/21 Unknown Urine WBC (Auto) 23.0 /HPF (0.0-6.0) H 02/09/21 Unknown Urine RBC (Auto) 16.0 /HPF (0.0-6.0) 02/09/21 Unknown U Epithel Cells (Auto) 3.0 /HPF (0-13.0) 02/09/21 Unknown Urine WBC Clumps 2+ /HPF 02/09/21 Unknown Hyaline Casts 8 /LPF 02/09/21 Unknown Urine Mucus Few /HPF 02/09/21 Unknown Urine Opiates Screen Presumptive negative 02/09/21 Unknown Urine Methadone Screen Presumptive negative 02/09/21 Unknown Ur Barbiturates Screen Presumptive negative 02/09/21 Unknown Ur Phencyclidine Scrn Presumptive negative 02/09/21 Unknown Ur Amphetamines Screen Presumptive negative 02/09/21 Unknown U Benzodiazepines Scrn Presumptive negative 02/09/21 Unknown Urine Cocaine Screen Presumptive negative 02/09/21 Unknown U Marijuana (THC) Screen Presumptive negative 02/09/21 Unknown Drugs of Abuse Note Disclamer 02/09/21 Unknown Microbiology: Microbiology 02/09/21 Unknown Urine,Clean Catch Urine Culture - Preliminary NO GROWTH AFTER 24 HOURS 02/09/21 17:20 Peripheral/Venous Blood Culture - Preliminary Culture in Progress 02/09/21 17:20 Peripheral/Venous Blood Culture - Preliminary Culture in Progress Restrepo/IV: Voiding Method Bedside Commode Active Medications - Current Medications Current Medications: Generic Name Dose Route Start Last Admin Trade Name Freq PRN Reason Stop Dose Admin Acetaminophen 650 mg 02/10/21 00:03 Acetaminophen 325 Mg Tab PO Q4H PRN Pain MILD(1-3)/Fever >100.5/GABRIEL Bisacodyl 10 mg 02/10/21 10:00 02/10/21 10:33 Bisacodyl 10 Mg Rect Supp IA Not Given QDAY [facility] Buspirone HCl 5 mg 02/10/21 10:00 02/10/21 10:38 Buspirone 5 Mg Tab PO 5 mg BID [facility] Administration Cetirizine HCl 10 mg 02/10/21 10:00 02/10/21 10:33 Cetirizine 10 Mg Tab PO 10 mg QAM [facility] Administration Cyproheptadine HCl 4 mg 02/10/21 07:30 02/10/21 07:48 Cyproheptadine 4 Mg Tab PO 4 mg TIDAC [facility] Administration Diltiazem HCl 120 mg 02/10/21 10:00 02/10/21 10:33 Diltiazem Cd 120 Mg Cap PO Not Given DAILY [facility] Furosemide 40 mg 02/10/21 10:00 02/10/21 10:33 Furosemide 40 Mg/4 Ml Inj IV 40 mg QDAY [facility] Administration Hydromorphone HCl 0.5 mg 02/10/21 00:03 Hydromorphone 1 Mg/1 Ml Inj IV Q3H PRN Pain , Severe (7-10) Hyoscyamine 0.125 mg 02/10/21 00:00 02/10/21 07:35 Hyoscyamine Subl 0.125 Mg Tab SL Not Given Q6HR [facility] Sodium Chloride 1,000 mls @ 75 mls/hr 02/10/21 00:15 02/10/21 02:21 Nacl 0.9% 1000 Ml IV 75 mls/hr DIRECT [facility] Administration Levothyroxine Sodium 100 mcg 02/10/21 06:00 02/10/21 05:28 Levothyroxine 100 Mcg Tab PO 100 mcg QAM@0600 [facility] Administration Metoclopramide HCl 5 mg 02/10/21 00:03 Metoclopramide 10 Mg/2 Ml Inj IV Q6H PRN Nausea And Vomiting Metoprolol Tartrate 50 mg 02/10/21 11:00 02/10/21 10:41 Metoprolol Tartrate 50 Mg Tab PO 50 mg BID [facility]RI Administration Ondansetron HCl 4 mg 02/10/21 00:00 Ondansetron 4 Mg Odt Tab PO Q4H PRN Nausea Ondansetron HCl 4 mg 02/10/21 00:03 Ondansetron 4 Mg/2 Ml Inj IV Q8H PRN Nausea And Vomiting Pantoprazole Sodium 40 mg 02/10/21 10:00 02/10/21 10:33 Pantoprazole 40 Mg Tab PO 40 mg QAM [facility] Administration Rivaroxaban 15 mg 02/10/21 22:00 Rivaroxaban 15 Mg Tab PO QHS [facility] Sodium Chloride 10 ml 02/10/21 10:00 02/10/21 10:33 Sodium Chloride 0.9% 10 Ml Flush Syringe IV 10 ml BID [facility] Administration Sodium Chloride 10 ml 02/10/21 00:03 Sodium Chloride 0.9% 10 Ml Flush Syringe IV PRN PRN LINE FLUSH Tramadol HCl 50 mg 02/10/21 00:00 Tramadol 50 Mg Tab PO Q6H PRN Pain, Moderate (4-6) Nutrition/Malnutrition Assess - Dietary Evaluation Nutrition/Malnutrition Findings: Nutrition Notes Start: 02/10/21 11:29 Freq: Status: Active Protocol: Document 02/10/21 11:30 (Rec: 02/10/21 11:33 [id number]) Nutrition Notes Need for Assessment generated from: grievance coordinator,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 Pt reports no weight loss. Pt ate 75% of breakfast. She seems confused. Nutrition Intervention Follow-Up By: 02/14/21 Additional Comments FU for stable intakes and need for ONS
--- NOTE | 2021-02-10 13:58 | Consultation ---
History of Present Illness Consult date: 02/10/21 Consult reason: congestive heart failure History of present illness: This is a frail, elderly and chronically ill-appearing 89-year-old woman who lives in a longterm. She was brought to the emergency room for evaluation of altered mental status. In addition, she was also described to have had some dyspnea. I spoke with the patient's daughter on the phone who states that she is concerned about the patient having had some sedative agent that caused the current alteration in her mental status. There was no chest pain described, no lower extremity edema. Patient is currently on the telemetry unit, appears somewhat stuporous, but no acute respiratory distress. Patient has apparently long cardiac history, her records are not available in this record for review, but on the chest x-ray she has cardiomegaly, evidence of a transaortic valve replacement, and a pacemaker implant. This pacemaker has a single lead in the anterior cardiac vein, placed through the coronary sinus. The lung fallon are otherwise clear with no edema or heart failure decompensation. EKG shows atrial fibrillation which is probably chronic, with well-controlled ventricular response, and underlying left bundle branch block. Her medications include Xarelto presumably for atrial fibrillation stroke prophylaxis. Abnormal laboratory values include an INR of 3.7, patient on Xarelto, sodium 133, potassium elevated at 5.8 and creatinine elevated at 2.2. The troponin levels were negative. Past History Past Medical History: atrial fib, heart failure Past Surgical History: Other (Cardiac pacemaker, transcutaneous aortic valve replacement) Medications and Allergies Allergies Allergy/AdvReac Type Severity Reaction Status Date / Time codeine Allergy Unknown Verified 02/09/21 16:11 morphine Allergy Unknown Verified 02/09/21 16:11 Sulfa (Sulfonamide Allergy Unknown Verified 02/09/21 16:11 Antibiotics) zolpidem [From Ambien] Allergy Unknown Verified 02/09/21 16:11 Home Medications Medication Instructions Recorded Confirmed Last Taken Type Cyproheptadine HCl 4 mg PO Q8HR 02/09/21 02/09/21 Unknown History Furosemide [Lasix] 20 mg PO QDAY 02/09/21 02/09/21 Unknown History Hydromorphone HCl/0.9% NaCl/Pf 1 mg PO Q2HR PRN 02/09/21 02/09/21 Unknown History [Hydromorphone 1 mg/ml-Ns Syrng] Hyoscyamine Subl [Levsin Sl 0.125 0.125 mg SL Q6HR 02/09/21 02/09/21 Unknown History TAB] LORazepam [Ativan] 0.5 mg PO Q6H PRN 02/09/21 02/09/21 Unknown History Levothyroxine [Synthroid] 100 mcg PO QAM 02/09/21 02/09/21 Unknown History Loratadine 10 mg PO QAM 02/09/21 02/09/21 Unknown History Metoprolol Tartrate [Lopressor] 100 mg PO BID 02/09/21 02/09/21 Unknown History Ondansetron [Zofran Odt] 4 mg PO Q4HR PRN 02/09/21 02/09/21 Unknown History Pantoprazole Sodium 40 mg PO QAM 02/09/21 02/09/21 Unknown History Rivaroxaban [Xarelto] 15 mg PO QHS 02/09/21 02/09/21 Unknown History bisacodyL [Dulcolax suppos] 10 mg [place] QDAY 02/09/21 02/09/21 Unknown History busPIRone [Buspar] 5 mg PO BID 02/09/21 02/09/21 Unknown History dilTIAZem CD [Cardizem Cd] 120 mg PO DAILY 02/09/21 02/09/21 Unknown History traMADoL [Ultram] 50 mg PO Q6HR PRN 02/09/21 02/09/21 Unknown History Active Meds: Active Medications Acetaminophen (Acetaminophen 325 Mg Tab) 650 mg PO Q4H PRN PRN Reason: Pain MILD(1-3)/Fever >100.5/GABRIEL Bisacodyl (Bisacodyl 10 Mg Rect Supp) 10 mg [place] QDAY [facility] Last Admin: 02/10/21 10:33 Dose: Not Given Documented by: Buspirone HCl (Buspirone 5 Mg Tab) 5 mg PO BID [facility] Last Admin: 02/10/21 10:38 Dose: 5 mg Documented by: Cetirizine HCl (Cetirizine 10 Mg Tab) 10 mg PO QAM [facility] Last Admin: 02/10/21 10:33 Dose: 10 mg Documented by: Cyproheptadine HCl (Cyproheptadine 4 Mg Tab) 4 mg PO TIDAC [facility] Last Admin: 02/10/21 07:48 Dose: 4 mg Documented by: Diltiazem HCl (Diltiazem Cd 120 Mg Cap) 120 mg PO DAILY [facility] Last Admin: 02/10/21 10:33 Dose: Not Given Documented by: Furosemide (Furosemide 40 Mg/4 Ml Inj) 40 mg IV QDAY [facility] Last Admin: 02/10/21 10:33 Dose: 40 mg Documented by: Hydromorphone HCl (Hydromorphone 1 Mg/1 Ml Inj) 0.5 mg IV Q3H PRN PRN Reason: Pain , Severe (7-10) Hyoscyamine (Hyoscyamine Subl 0.125 Mg Tab) 0.125 mg SL Q6HR [facility] Last Admin: 02/10/21 07:35 Dose: Not Given Documented by: Sodium Chloride (Nacl 0.9% 1000 Ml) 1,000 mls @ 75 mls/hr IV DIRECT [facility] Last Admin: 02/10/21 02:21 Dose: 75 mls/hr Documented by: Levothyroxine Sodium (Levothyroxine 100 Mcg Tab) 100 mcg PO QAM@0600 [facility] Last Admin: 02/10/21 05:28 Dose: 100 mcg Documented by: Metoclopramide HCl (Metoclopramide 10 Mg/2 Ml Inj) 5 mg IV Q6H PRN PRN Reason: Nausea And Vomiting Metoprolol Tartrate (Metoprolol Tartrate 50 Mg Tab) 50 mg PO BID [facility] Last Admin: 02/10/21 10:41 Dose: 50 mg Documented by: Ondansetron HCl (Ondansetron 4 Mg Odt Tab) 4 mg PO Q4H PRN PRN Reason: Nausea Ondansetron HCl (Ondansetron 4 Mg/2 Ml Inj) 4 mg IV Q8H PRN PRN Reason: Nausea And Vomiting Pantoprazole Sodium (Pantoprazole 40 Mg Tab) 40 mg PO QAM [facility] Last Admin: 02/10/21 10:33 Dose: 40 mg Documented by: Rivaroxaban (Rivaroxaban 15 Mg Tab) 15 mg PO QHS [facility] Sodium Chloride (Sodium Chloride 0.9% 10 Ml Flush Syringe) 10 ml IV BID [facility] Last Admin: 02/10/21 10:33 Dose: 10 ml Documented by: Sodium Chloride (Sodium Chloride 0.9% 10 Ml Flush Syringe) 10 ml IV PRN PRN PRN Reason: LINE FLUSH Tramadol HCl (Tramadol 50 Mg Tab) 50 mg PO Q6H PRN PRN Reason: Pain, Moderate (4-6) Review of Systems ROS unobtainable: due to mental status Physical Examination Vital Signs Pulse Resp Pulse Ox 73 35 H 97 02/09/21 15:13 02/09/21 15:13 02/09/21 15:13 General appearance: other (Patient is frail, elderly, appears stuporous but no acute respiratory distress) HEENT: Positive: PERRL Neck: Positive: neck supple Cardiac: Positive: irregularly irregular Lungs: Positive: Decreased Breath Sounds Neuro: Positive: Weakness Abdomen: Positive: Soft Female genitourinary: deferred Skin: Positive: Clear Extremities: Absent: edema Results 02/10/21 04:34 02/10/21 04:34 Cardiac Enzymes 02/09/21 02/10/21 Range/Units 15:50 04:34 AST 36 35 (5-40) units/L Coagulation 02/09/21 Range/Units 15:50 PT 37.1 H (12.2-14.9) Sec. INR 3.76 H (0.87-1.13) APTT 41.4 H (24.2-36.6) Sec. CBC 02/09/21 02/10/21 Range/Units 15:50 04:34 WBC 10.7 7.8 (4.5-11.0) K/mm3 RBC 4.02 3.62 L (3.65-5.03) M/mm3 Hgb 12.5 11.1 (10.1-14.3) gm/dl Hct 37.2 33.8 (30.3-42.9) % Plt Count 196 169 (140-440) K/mm3 Lymph # (Auto) 1.7 1.4 (1.2-5.4) K/mm3 [place] # (Auto) 1.2 H 1.1 H (0.0-0.8) K/mm3 Eos # (Auto) 0.1 0.2 (0.0-0.4) K/mm3 Baso # (Auto) 0.0 0.0 (0.0-0.1) K/mm3 Comprehensive Metabolic Panel 02/09/21 02/10/21 Range/Units 15:50 04:34 Sodium 133 L 136 L (137-145) mmol/L Potassium 5.8 H 5.0 (3.6-5.0) mmol/L Chloride 99.7 99.5 (98-107) mmol/L Carbon Dioxide 19 L 24 (22-30) mmol/L BUN 72 H 72 H (7-17) mg/dL Creatinine 2.2 H 2.2 H (0.6-1.2) mg/dL Glucose 131 H 93 (65-100) mg/dL Calcium 9.0 9.1 (8.4-10.2) mg/dL AST 36 35 (5-40) units/L ALT 22 22 (7-56) units/L Alkaline Phosphatase 71 60 (35-129) units/L Total Protein 7.0 6.2 L (6.3-8.2) g/dL Albumin 3.2 L 3.2 L (3.9-5) g/dL EKG interpretations - Telemetry EKG Rhythm: Atrial Fibrillation Assessment and Plan - Patient Problems (1) Congestive heart failure Current Visit: Yes Status: Acute Plan to address problem: History of congestive heart failure, chronic atrial fibrillation, pacemaker implant and transaortic valve replacement. Due to patient's advanced age, frailty and multiple comorbidities, she is not a candidate for aggressive cardiac therapies. We will get an echocardiogram on this presentation, and adjust conservative medical therapy as indicated otherwise no acute cardiac issues at this time. We will defer to internal medicine and neurology for further evaluation and management of the patient's presenting mental status alteration. (2) Atrial fibrillation Current Visit: Yes Status: Acute Plan to address problem: Patient apparently has chronic atrial fibrillation, we will continue rate control strategy and oral anticoagulation with Xarelto.
[2021-02-10 19:33] LABS: Bilirubin,Urine NEG (Negative); Blood,Urine SM (Negative); Color,Urine Yellow (Yellow); Hyaline Casts,Urine 7 /LPF; Mucus,Urine FEW /HPF; Protein,Urine <15 mg/dL mg/dL (Negative); Urobilinogen,Urine < 2.0 mg/dL (<2.0)
[2021-02-10] MEDS: RIVAROXABAN 15 MG TAB PO SCH (21:31)
[2021-02-11] MEDS: HYOSCYAMINE SUBL 0.125 MG TAB SL SCH ×3 (01:41→12:54)
[2021-02-11] MEDS: METOPROLOL TARTRATE 100 MG TAB PO SCH (01:45)
[2021-02-11] MEDS: LEVOTHYROXINE 100 MCG TAB PO SCH (05:41)
[2021-02-11 06:32] LABS: Basophils % (Auto) 0.4 % (0.0-1.8); Eosinophils # (Auto) 0.2 K/mm3 (0.0-0.4); Eosinophils % (Auto) 1.9 % (0.0-4.3); Lymphocytes # (Auto) 1.2 K/mm3 (1.2-5.4); Lymphocytes % (Auto) 13.6 % (13.4-35.0); Mean Corpuscular HGB Conc 32 % (30-34); Mean Corpuscular Volume 94 fl (79-97); Monocytes % (Auto) 10.8 % (0.0-7.3); Platelet Count 179 K/mm3 (140-440); Red Blood Count 3.94 M/mm3 (3.65-5.03)
[2021-02-11] MEDS: CYPROHEPTADINE 4 MG TAB PO SCH ×3 (08:30→16:55)
--- NOTE | 2021-02-11 09:38 | Progress Note ---
Assessment and Plan Assessment and plan: (1) Acute encephalopathy Current Visit: Yes Status: Acute Plan to address problem: Resolving Etiology may be lorazepam Lorazepam discontinued (2) ARMIDA (acute kidney injury) Current Visit: Yes Status: Acute Plan to address problem: Possible ARMIDA superimposed on chronic kidney disease Nephrology consult requested (3) Acute exacerbation of CHF (congestive heart failure) Current Visit: Yes Status: Acute Qualifiers: Heart failure type: combined systolic and diastolic Qualified Code(s): I50. 43 - Acute on chronic combined systolic (congestive) and diastolic (congestive) heart failure Plan to address problem: IV Lasix for now BNP is high--18,914 (4) Hyperkalemia Current Visit: Yes Status: Acute Plan to address problem: Treated Recheck potassium level (5) Hyponatremia Current Visit: Yes Status: Acute Plan to address problem: Mild with sodium of 133 No intervention at this point (6) Hypothyroidism (acquired) Current Visit: Yes Status: Chronic Plan to address problem: Continue Synthroid and check TSH (7) Hypertension Current Visit: Yes Status: Chronic Qualifiers: Hypertension type: primary hypertension Qualified Code(s): I10 - Essential (primary) hypertension Plan to address problem: Continue antihypertensives (8) GERD (gastroesophageal reflux disease) Current Visit: Yes Status: Chronic Qualifiers: Esophagitis presence: with esophagitis Plan to address problem: Continue PPIs (9) DVT prophylaxis Current Visit: Yes Status: Acute Plan to address problem: Patient on Xarelto for valvuloplasty of aortic valve and GI prophylaxis 02/10/2021 -Patient was confused. She states she is unaware she is in the hospital. Neurology and nephrology consult appreciated. Need PT OT evaluation. Ca rdiology consulted. 02/11/2021 -Patient was confused and neurology is following. -Patient was seen by cardiology and recommend to continue anticoagulation and medical management. -Patient was seen by nephrology and recommend to continue current management, monitor BMP. -Patient came from snf. -Blood pressure is well controlled. History Interval history: Patient was seen and evaluated this morning Patient was confused Hospitalist Physical - Physical exam Narrative exam: Not in cardiopulmonary distress. The patient appeared well nourished and normally developed. Vital signs as documented. Head exam is unremarkable. No scleral icterus . Neck is without jugular venous distension, thyromegaly, or carotid bruits. Lungs are clear to auscultation. Cardiac exam reveals regular rate and Rhythm. Abdominal exam reveals normal bowel sounds, nontender, no organomegaly. Extremities are nonedematous and both femoral and pedal pulses are normal. [employer] OUTSIDE: Patient was confused - Constitutional Vitals: Temp Pulse Resp BP Pulse Ox 97.3 F L 95 H 20 126/78 97 02/11/21 08:09 02/11/21 08:11 02/11/21 08:09 02/11/21 08:09 02/11/21 09:03 General appearance: Present: other (Patient is frail, elderly, appears stuporous but no acute respiratory distress) HEART Score - HEART Score Age: > 65 Risk factors: > 3 risk factors or hx of atherosclerotic disease Troponin: Troponin T < 0.010 ng/mL (0.00-0.029) 02/09/21 21:05 Troponin: < normal limit - Critical Actions Critical Actions: 0-3 pts:0.9-1.7%risk of adverse cardiac event.Candidate for discharge Results - Labs CBC & Chem 7: 02/11/21 05:51 02/11/21 05:51 Labs: Laboratory Last Values WBC 9.1 K/mm3 (4.5-11.0) 02/11/21 05:51 RBC 3.94 M/mm3 (3.65-5.03) 02/11/21 05:51 Hgb 12.0 gm/dl (10.1-14.3) 02/11/21 05:51 Hct 37.0 % (30.3-42.9) 02/11/21 05:51 MCV 94 fl (79-97) 02/11/21 05:51 MCH 31 pg (28-32) 02/11/21 05:51 MCHC 32 % (30-34) 02/11/21 05:51 RDW 20.0 % (13.2-15.2) H 02/11/21 05:51 Plt Count 179 K/mm3 (140-440) 02/11/21 05:51 Lymph % (Auto) 13.6 % (13.4-35.0) 02/11/21 05:51 [place] % (Auto) 10.8 % (0.0-7.3) H 02/11/21 05:51 Eos % (Auto) 1.9 % (0.0-4.3) 02/11/21 05:51 Baso % (Auto) 0.4 % (0.0-1.8) 02/11/21 05:51 Lymph # (Auto) 1.2 K/mm3 (1.2-5.4) 02/11/21 05:51 [place] # (Auto) 1.0 K/mm3 (0.0-0.8) H 02/11/21 05:51 Eos # (Auto) 0.2 K/mm3 (0.0-0.4) 02/11/21 05:51 Baso # (Auto) 0.0 K/mm3 (0.0-0.1) 02/11/21 05:51 Seg Neutrophils % 73.3 % (40.0-70.0) H 02/11/21 05:51 Seg Neutrophils # 6.6 K/mm3 (1.8-7.7) 02/11/21 05:51 PT 37.1 Sec. (12.2-14.9) H 02/09/21 15:50 INR 3.76 (0.87-1.13) H 02/09/21 15:50 APTT 41.4 Sec. (24.2-36.6) H 02/09/21 15:50 Sodium 131 mmol/L (137-145) L 02/11/21 05:51 Potassium 5.1 mmol/L (3.6-5.0) H 02/11/21 05:51 Chloride 97.2 mmol/L (98-107) L 02/11/21 05:51 Carbon Dioxide 21 mmol/L (22-30) L 02/11/21 05:51 Anion Gap 18 mmol/L 02/11/21 05:51 BUN 71 mg/dL (7-17) H 02/11/21 05:51 Creatinine 2.0 mg/dL (0.6-1.2) H 02/11/21 05:51 Estimated GFR 24 ml/min 02/11/21 05:51 BUN/Creatinine Ratio 36 % 02/11/21 05:51 Glucose 113 mg/dL (65-100) H 02/11/21 05:51 Hemoglobin A1c 5.6 % (4-6) 02/10/21 04:34 Calcium 9.0 mg/dL (8.4-10.2) 02/11/21 05:51 Magnesium 2.60 mg/dL (1.7-2.3) H 02/09/21 15:50 Total Bilirubin 0.90 mg/dL (0.1-1.2) 02/10/21 04:34 AST 35 units/L (5-40) 02/10/21 04:34 ALT 22 units/L (7-56) 02/10/21 04:34 Alkaline Phosphatase 60 units/L (35-129) 02/10/21 04:34 Ammonia 34.0 umol/L (25-60) 02/09/21 17:20 Troponin T < 0.010 ng/mL (0.00-0.029) 02/09/21 21:05 NT-Pro-B Natriuret Pep 96923 pg/mL (0-900) H 02/09/21 15:50 Total Protein 6.2 g/dL (6.3-8.2) L 02/10/21 04:34 Albumin 3.2 g/dL (3.9-5) L 02/10/21 04:34 Albumin/Globulin Ratio 1.1 % 02/10/21 04:34 PTH Intact 75.78 pg/mL (15-65) H 02/11/21 05:51 Urine Color Yellow (Yellow) 02/10/21 19:12 Urine Turbidity Clear (Clear) 02/10/21 19:12 Urine pH 5.0 (5.0-7.0) 02/10/21 19:12 Ur Specific [place] 1.009 (1.003-1.030) 02/10/21 19:12 Urine Protein <15 mg/dl mg/dL (Negative) 02/10/21 19:12 Urine Glucose (UA) Neg mg/dL (Negative) 02/10/21 19:12 Urine Ketones Neg mg/dL (Negative) 02/10/21 19:12 Urine Blood Sm (Negative) 02/10/21 19:12 Urine Nitrite Neg (Negative) 02/10/21 19:12 Urine Bilirubin Neg (Negative) 02/10/21 19:12 Urine Urobilinogen < 2.0 mg/dL (<2.0) 02/10/21 19:12 Ur Leukocyte Esterase Tr (Negative) 02/10/21 19:12 Urine WBC (Auto) 8.0 /HPF (0.0-6.0) H 02/10/21 19:12 Urine RBC (Auto) 4.0 /HPF (0.0-6.0) 02/10/21 19:12 U Epithel Cells (Auto) 4.0 /HPF (0-13.0) 02/10/21 19:12 Urine WBC Clumps 2+ /HPF 02/09/21 Unknown Hyaline Casts 7 /LPF 02/10/21 19:12 Urine Mucus Few /HPF 02/10/21 19:12 Nasal Screen MRSA (PCR) Negative (Negative) 02/10/21 Unknown Urine Opiates Screen Presumptive negative 02/09/21 Unknown Urine Methadone Screen Presumptive negative 02/09/21 Unknown Ur Barbiturates Screen Presumptive negative 02/09/21 Unknown Ur Phencyclidine Scrn Presumptive negative 02/09/21 Unknown Ur Amphetamines Screen Presumptive negative 02/09/21 Unknown U Benzodiazepines Scrn Presumptive negative 02/09/21 Unknown Urine Cocaine Screen Presumptive negative 02/09/21 Unknown U Marijuana (THC) Screen Presumptive negative 02/09/21 Unknown Drugs of Abuse Note Disclamer 02/09/21 Unknown Microbiology: Microbiology 02/09/21 Unknown Urine,Clean Catch Urine Culture - Preliminary NO GROWTH AFTER 24 HOURS 02/09/21 17:20 Peripheral/Venous Blood Culture - Preliminary NO GROWTH AFTER 24 HOURS 02/09/21 17:20 Peripheral/Venous Blood Culture - Preliminary NO GROWTH AFTER 24 HOURS [place]repo/IV: Voiding Method Bedside Commode Active Medications - Current Medications Current Medications: Generic Name Dose Route Start Last Admin Trade Name Freq PRN Reason Stop Dose Admin Acetaminophen 650 mg 02/10/21 00:03 Acetaminophen 325 Mg Tab PO Q4H PRN Pain MILD(1-3)/Fever >100.5/GABRIEL Bisacodyl 10 mg 02/10/21 10:00 02/10/21 10:33 Bisacodyl 10 Mg Rect Supp MO Not Given QDAY GERRI Buspirone HCl 5 mg 02/10/21 10:00 02/10/21 21:31 Buspirone 5 Mg Tab PO 5 mg BID GERRI Administration Cetirizine HCl 10 mg 02/10/21 10:00 02/10/21 10:33 Cetirizine 10 Mg Tab PO 10 mg QAM GERRI Administration Cyproheptadine HCl 4 mg 02/10/21 07:30 02/11/21 08:30 Cyproheptadine 4 Mg Tab PO 4 mg TIDAC [facility]RI Administration Diltiazem HCl 120 mg 02/10/21 10:00 02/10/21 10:33 Diltiazem Cd 120 Mg Cap PO Not Given DAILY G[facility]RI Furosemide 40 mg 02/10/21 10:00 02/10/21 10:33 Furosemide 40 Mg/4 Ml Inj IV 40 mg QDAY [facility]RI Administration Hydromorphone HCl 0.5 mg 02/10/21 00:03 Hydromorphone 1 Mg/1 Ml Inj IV Q3H PRN Pain , Severe (7-10) Hyoscyamine 0.125 mg 02/10/21 00:00 02/11/21 05:41 Hyoscyamine Subl 0.125 Mg Tab SL 0.125 mg Q6HR GERRI Administration Sodium Chloride 1,000 mls @ 75 mls/hr 02/10/21 00:15 02/10/21 02:21 Nacl 0.9% 1000 Ml IV 75 mls/hr DIRECT GERRI Administration Levothyroxine Sodium 100 mcg 02/10/21 06:00 02/11/21 05:41 Levothyroxine 100 Mcg Tab PO 100 mcg QAM@0600 G[facility]RI Administration Metoclopramide HCl 5 mg 02/10/21 00:03 Metoclopramide 10 Mg/2 Ml Inj IV Q6H PRN Nausea And Vomiting Metoprolol Tartrate 50 mg 02/10/21 11:00 02/10/21 21:31 Metoprolol Tartrate 50 Mg Tab PO 50 mg BID GERRI Administration Ondansetron HCl 4 mg 02/10/21 00:00 Ondansetron 4 Mg Odt Tab PO Q4H PRN Nausea Ondansetron HCl 4 mg 02/10/21 00:03 Ondansetron 4 Mg/2 Ml Inj IV Q8H PRN Nausea And Vomiting Pantoprazole Sodium 40 mg 02/10/21 10:00 02/10/21 10:33 Pantoprazole 40 Mg Tab PO 40 mg QAM GERRI Administration Rivaroxaban 15 mg 02/10/21 22:00 02/10/21 21:31 Rivaroxaban 15 Mg Tab PO 15 mg QHS GERRI Administration Sodium Chloride 10 ml 02/10/21 10:00 02/10/21 21:32 Sodium Chloride 0.9% 10 Ml Flush Syringe IV 10 ml BID GERRI Administration Sodium Chloride 10 ml 02/10/21 00:03 Sodium Chloride 0.9% 10 Ml Flush Syringe IV PRN PRN LINE FLUSH Tramadol HCl 50 mg 02/10/21 00:00 02/10/21 21:32 Tramadol 50 Mg Tab PO 50 mg Q6H PRN Administration Pain, Moderate (4-6) Nutrition/Malnutrition Assess - Dietary Evaluation Nutrition/Malnutrition Findings: Nutrition Notes Start: 02/10/21 11:29 Freq: Status: Active Protocol: Document 02/10/21 11:30 (Rec: 02/10/21 11:33 [id number]) Nutrition Notes Need for Assessment generated from: pouncer machine,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 Pt reports no weight loss. Pt ate 75% of breakfast. She seems confused. Nutrition Intervention Follow-Up By: 02/14/21 Additional Comments FU for stable intakes and need for ONS
[2021-02-11] MEDS: dilTIAZem CD 120 MG CAP PO SCH (09:41)
[2021-02-11] MEDS: FUROSEMIDE 40 MG/4 ML INJ IV SCH (09:41)
[2021-02-11] MEDS: PANTOPRAZOLE 40 MG TAB PO SCH (09:41)
[2021-02-11] MEDS: CETIRIZINE 10 MG TAB PO SCH (09:41)
[2021-02-11] MEDS: METOPROLOL TARTRATE 50 MG TAB PO SCH ×2 (09:41→22:23)
[2021-02-11] MEDS: busPIRone 5 MG TAB PO SCH ×2 (09:44→22:23)
--- NOTE | 2021-02-11 10:46 | Progress Note ---
Assessment and Plan 1. Acute kidney injury: ARMIDA in the setting of CHF. CT abdomen negative for hydro. Urine studies ordered. Baseline renal function is unknown. Most likely background CKD. Monitor renal function. Avoid nephrotoxic agents. Meds dosage based on GFR. 2. FEN: Hyperkalemia, Kayexalate ordered, monitor. Pt is on IV fluids. Monitor lytes. 3. Decompensated CHF: Strict I/O. On Metoprolol. Followed by Cards. 4. Chronic A.fib // PPm // Transaortic valve replacement: On Xarelto. Monitor. 5. Hypertension: BP is low intermittently. Hold Lasix. Adjust meds as needed. Monitor. Subjective: Patient was seen and examined at the bedside. Examination: General appearance: well-developed, appears stated age, not in distress HEENT: ATNC, pupils equal Neck: supple Respiratory: bibasal diminished breath sounds Cardiology: S1S2, no murmur Gastrointestinal: soft, bowel sounds heard, not tender Integumentary: warm and dry Neurologic: alert, confused, moving extremities Ext: no edema Subjective Date of service: 02/11/21 Objective - Vital Signs Vital signs: Vital Signs - 12hr 02/10/21 02/11/21 02/11/21 23:59 00:00 03:54 Temperature 97.4 F L 97.6 F Pulse Rate 69 135 H 126 H Respiratory 20 20 Rate Blood Pressure 104/70 93/68 O2 Sat by Pulse 94 92 Oximetry 02/11/21 02/11/21 02/11/21 04:00 08:09 08:11 Temperature 97.3 F L Pulse Rate 129 H 99 H 95 H Respiratory 20 Rate Blood Pressure 126/78 O2 Sat by Pulse 89 Oximetry 02/11/21 02/11/21 09:03 09:41 Temperature Pulse Rate 99 H Respiratory Rate Blood Pressure 126/78 O2 Sat by Pulse 97 Oximetry - Lab 02/11/21 05:51 02/11/21 05:51 Most recent lab results Calcium 9.0 mg/dL (8.4-10.2) 02/11/21 05:51 Magnesium 2.60 mg/dL (1.7-2.3) H 02/09/21 15:50 Medications & Allergies - Medications Allergies/Adverse Reactions: Allergies codeine Allergy (Verified 02/09/21 16:11) Unknown morphine Allergy (Verified 02/09/21 16:11) Unknown Sulfa (Sulfonamide Antibiotics) Allergy (Verified 02/09/21 16:11) Unknown zolpidem [From Ambien] Allergy (Verified 02/09/21 16:11) Unknown Home Medications: Home Medications Medication Instructions Recorded Confirmed Last Taken Type Cyproheptadine HCl 4 mg PO Q8HR 02/09/21 02/09/21 Unknown History Furosemide [Lasix] 20 mg PO QDAY 02/09/21 02/09/21 Unknown History Hydromorphone HCl/0.9% NaCl/Pf 1 mg PO Q2HR PRN 02/09/21 02/09/21 Unknown History [Hydromorphone 1 mg/ml-Ns Syrng] Hyoscyamine Subl [Levsin Sl 0.125 0.125 mg SL Q6HR 02/09/21 02/09/21 Unknown History TAB] LORazepam [Ativan] 0.5 mg PO Q6H PRN 02/09/21 02/09/21 Unknown History Levothyroxine [Synthroid] 100 mcg PO QAM 02/09/21 02/09/21 Unknown History Loratadine 10 mg PO QAM 02/09/21 02/09/21 Unknown History Metoprolol Tartrate [Lopressor] 100 mg PO BID 02/09/21 02/09/21 Unknown History Ondansetron [Zofran Odt] 4 mg PO Q4HR PRN 02/09/21 02/09/21 Unknown History Pantoprazole Sodium 40 mg PO QAM 02/09/21 02/09/21 Unknown History Rivaroxaban [Xarelto] 15 mg PO QHS 02/09/21 02/09/21 Unknown History bisacodyL [Dulcolax suppos] 10 mg [place] QDAY 02/09/21 02/09/21 Unknown History busPIRone [Buspar] 5 mg PO BID 02/09/21 02/09/21 Unknown History dilTIAZem CD [Cardizem Cd] 120 mg PO DAILY 02/09/21 02/09/21 Unknown History traMADoL [Ultram] 50 mg PO Q6HR PRN 02/09/21 02/09/21 Unknown History Active Medications: Generic Name Dose Route Start Last Admin Trade Name Freq PRN Reason Stop Dose Admin Acetaminophen 650 mg 02/10/21 00:03 Acetaminophen 325 Mg Tab PO Q4H PRN Pain MILD(1-3)/Fever >100.5/GABRIEL Bisacodyl 10 mg 02/10/21 10:00 02/11/21 09:42 Bisacodyl 10 Mg Rect Supp [place] 10 mg QDAY GERRI Administration Buspirone HCl 5 mg 02/10/21 10:00 02/11/21 09:44 Buspirone 5 Mg Tab PO 5 mg BID GERRI Administration Cetirizine HCl 10 mg 02/10/21 10:00 02/11/21 09:41 Cetirizine 10 Mg Tab PO 10 mg QAM GERRI Administration Cyproheptadine HCl 4 mg 02/10/21 07:30 02/11/21 08:30 Cyproheptadine 4 Mg Tab PO 4 mg TIDAC GERRI Administration Diltiazem HCl 120 mg 02/10/21 10:00 02/11/21 09:41 Diltiazem Cd 120 Mg Cap PO 120 mg DAILY GERRI Administration Furosemide 40 mg 02/10/21 10:00 02/11/21 09:41 Furosemide 40 Mg/4 Ml Inj IV 40 mg QDAY GERRI Administration Hydromorphone HCl 0.5 mg 02/10/21 00:03 Hydromorphone 1 Mg/1 Ml Inj IV Q3H PRN Pain , Severe (7-10) Hyoscyamine 0.125 mg 02/10/21 00:00 02/11/21 05:41 Hyoscyamine Subl 0.125 Mg Tab SL 0.125 mg Q6HR GERRI Administration Sodium Chloride 1,000 mls @ 75 mls/hr 02/10/21 00:15 02/10/21 02:21 Nacl 0.9% 1000 Ml IV 75 mls/hr DIRECT GERRI Administration Levothyroxine Sodium 100 mcg 02/10/21 06:00 02/11/21 05:41 Levothyroxine 100 Mcg Tab PO 100 mcg QAM@0600 GERRI Administration Metoclopramide HCl 5 mg 02/10/21 00:03 Metoclopramide 10 Mg/2 Ml Inj IV Q6H PRN Nausea And Vomiting Metoprolol Tartrate 50 mg 02/10/21 11:00 02/11/21 09:41 Metoprolol Tartrate 50 Mg Tab PO 50 mg BID GERRI Administration Ondansetron HCl 4 mg 02/10/21 00:00 Ondansetron 4 Mg Odt Tab PO Q4H PRN Nausea Ondansetron HCl 4 mg 02/10/21 00:03 Ondansetron 4 Mg/2 Ml Inj IV Q8H PRN Nausea And Vomiting Pantoprazole Sodium 40 mg 02/10/21 10:00 02/11/21 09:41 Pantoprazole 40 Mg Tab PO 40 mg QAM GERRI Administration Rivaroxaban 15 mg 02/10/21 22:00 02/10/21 21:31 Rivaroxaban 15 Mg Tab PO 15 mg QHS GERRI Administration Sodium Chloride 10 ml 02/10/21 10:00 02/11/21 09:42 Sodium Chloride 0.9% 10 Ml Flush Syringe IV 10 ml BID GERRI Administration Sodium Chloride 10 ml 02/10/21 00:03 Sodium Chloride 0.9% 10 Ml Flush Syringe IV PRN PRN LINE FLUSH Tramadol HCl 50 mg 02/10/21 00:00 02/10/21 21:32 Tramadol 50 Mg Tab PO 50 mg Q6H PRN Administration Pain, Moderate (4-6)
[2021-02-11] MEDS ORDERED: SODIUM POLYSTYRENE 15 GM/60 ML ORAL LIQD PO SCH (11:00)
--- NOTE | 2021-02-11 13:10 | Progress Note ---
Assessment and Plan Assessment and Plan Advance Directives: Yes (Full code) VTE prophylaxis?: Chemical Plan of care discussed with patient/family: Yes - Patient Problems # Acute encephalopathy resolved -Etiology may be lorazepam, she is on periactive,levsin ,ultram all add to her mental ulteraltion ! -stop Ultram -try neurontine 100 mg bid!!! # Underlying dementia - need neurology follow up # ARMIDA (acute kidney injury) -Possible ARMIDA superimposed on chronic kidney disease Nephrology consult requested # Acute exacerbation of CHF (congestive heart failure) -BNP is high--18,914 # AF -On Xarelto -Echo is pending _cardiology evaluated #Hyperkalemia -Treated -Recheck potassium level # Hyponatremia -Mild with sodium of 133 -No intervention at this point # Hypothyroidism (acquired) -Continue Synthroid and check TSH # Hypertension -Continue antihypertensives # GERD (gastroesophageal reflux disease) -Continue PPIs # DVT prophylaxis -Patient on Xarelto for AF -valvuloplasty For aortic valve??? -her INR is 3.76 ??? !!! no clear etiology will repeat - and GI prophylaxis -fall precaution -Xry lumber region -Neurontine 100 mg bid -STOP Ultram and Sedative , Hypnotic medication will follow Subjective Date of service: 02/11/21 Principal diagnosis: encephalopathy Interval history: still with lumber pain according to her at time she take 2 ultram in the same time to get pain relief Objective - Vital Sign Vital Signs - 12hr 02/11/21 02/11/21 02/11/21 03:54 04:00 08:09 Temperature 97.6 F 97.3 F L Pulse Rate 126 H 129 H 99 H Respiratory 20 20 Rate Blood Pressure 93/68 126/78 O2 Sat by Pulse 92 89 Oximetry 02/11/21 02/11/21 02/11/21 08:11 09:03 09:41 Temperature Pulse Rate 95 H 99 H Respiratory Rate Blood Pressure 126/78 O2 Sat by Pulse 97 Oximetry - General Apperance Constitutional: comfortable - EENT EENT: PERRL, mucous membranes moist - Respiratory Respiratory: chest non-tender, lungs clear, rhonchi - Cardiovascular Cardiovascular: other (irregular) Extremities: no peripheral edema bilat, no clubbing, cyanosis - Gastrointestinal Gastrointestinal: normoactive bowel sounds - Integumentary Integumentary: normal - Neurologic Cranial nerve examination: PERRL, EOMI, intact Speech examination: intact Detailed motor examination: grossly full strength in - Laboratory Findings CBC and BMP: 02/11/21 05:51 02/11/21 05:51 Abnormal Lab Findings: Abnormal Labs 02/09/21 02/09/21 02/09/21 15:50 15:50 15:50 RBC RDW 20.0 H [place] % (Auto) 11.6 H [place] # (Auto) 1.2 H Seg Neutrophils % 71.0 H PT 37.1 H INR 3.76 H APTT 41.4 H Sodium 133 L Potassium 5.8 H Chloride Carbon Dioxide 19 L BUN 72 H Creatinine 2.2 H Glucose 131 H Magnesium NT-Pro-B Natriuret Pep Total Protein Albumin 3.2 L PTH Intact Urine WBC (Auto) 02/09/21 02/09/21 02/09/21 15:50 15:50 Unknown RBC RDW [place] % (Auto) [place] # (Auto) Seg Neutrophils % PT INR APTT Sodium Potassium Chloride Carbon Dioxide BUN Creatinine Glucose Magnesium 2.60 H NT-Pro-B Natriuret Pep 79695 H Total Protein Albumin PTH Intact Urine WBC (Auto) 23.0 H 02/10/21 02/10/21 02/10/21 04:34 04:34 19:12 RBC 3.62 L RDW 19.4 H [place] % (Auto) 13.6 H [place] # (Auto) 1.1 H Seg Neutrophils % PT INR APTT Sodium 136 L Potassium Chloride Carbon Dioxide BUN 72 H Creatinine 2.2 H Glucose Magnesium NT-Pro-B Natriuret Pep Total Protein 6.2 L Albumin 3.2 L PTH Intact Urine WBC (Auto) 8.0 H 02/11/21 02/11/21 02/11/21 05:51 05:51 05:51 RBC RDW 20.0 H [place] % (Auto) 10.8 H [place] # (Auto) 1.0 H Seg Neutrophils % 73.3 H PT INR APTT Sodium 131 L Potassium 5.1 H Chloride 97.2 L Carbon Dioxide 21 L BUN 71 H Creatinine 2.0 H Glucose 113 H Magnesium NT-Pro-B Natriuret Pep Total Protein Albumin PTH Intact 75.78 H Urine WBC (Auto)
--- NOTE | 2021-02-11 13:33 | Progress Note ---
Assessment and Plan - Patient Problems (1) Congestive heart failure Current Visit: Yes Status: Acute Plan to address problem: Continue medical therapy as previously outlined. Echocardiogram is pending for reassessment of left ventricular ejection fraction. (2) Atrial fibrillation Current Visit: Yes Status: Acute Plan to address problem: Continue rate control and oral anticoagulation strategy of chronic atrial fibrillation. Subjective Date of service: 02/11/21 Principal diagnosis: encephalopathy Interval history: Patient appears more rested today, laying down in bed, in no acute respiratory distress. Objective Vital Signs Temp Pulse Resp BP BP Pulse Ox 02/11/21 09:41 99 H 126/78 02/11/21 09:03 97 02/11/21 08:11 95 H 02/11/21 08:09 97.3 F L 99 H 20 126/78 89 02/11/21 04:00 129 H 02/11/21 03:54 97.6 F 126 H 20 93/68 92 02/11/21 00:00 135 H 02/10/21 23:59 97.4 F L 69 20 104/70 94 02/10/21 21:31 73 110/66 02/10/21 20:36 97.5 F L 73 20 110/66 90 02/10/21 20:00 99 H 02/10/21 17:44 97.8 F 57 L 19 116/60 99 - Physical Examination General: No Apparent Distress HEENT: Positive: PERRL Neck: Positive: neck supple Cardiac: Positive: irregularly irregular Lungs: Positive: Decreased Breath Sounds Neuro: Positive: Weakness Abdomen: Positive: Soft Skin: Positive: Clear Extremities: Absent: edema - Labs and Meds CBC 02/11/21 Range/Units 05:51 WBC 9.1 (4.5-11.0) K/mm3 RBC 3.94 (3.65-5.03) M/mm3 Hgb 12.0 (10.1-14.3) gm/dl Hct 37.0 (30.3-42.9) % Plt Count 179 (140-440) K/mm3 Lymph # (Auto) 1.2 (1.2-5.4) K/mm3 [place] # (Auto) 1.0 H (0.0-0.8) K/mm3 Eos # (Auto) 0.2 (0.0-0.4) K/mm3 Baso # (Auto) 0.0 (0.0-0.1) K/mm3 Comprehensive Metabolic Panel 02/11/21 Range/Units 05:51 Sodium 131 L (137-145) mmol/L Potassium 5.1 H (3.6-5.0) mmol/L Chloride 97.2 L (98-107) mmol/L Carbon Dioxide 21 L (22-30) mmol/L BUN 71 H (7-17) mg/dL Creatinine 2.0 H (0.6-1.2) mg/dL Glucose 113 H (65-100) mg/dL Calcium 9.0 (8.4-10.2) mg/dL
[2021-02-11] MEDS: GABAPENTIN 100 MG CAP PO SCH ×2 (14:57→22:23)
[2021-02-11 16:28] LABS: INR 2.74 (0.87-1.13)
[2021-02-11 16:29] LABS: Partial Thromboplastin Time 40.7 Sec. (24.2-36.6)
[2021-02-11] MEDS: RIVAROXABAN 15 MG TAB PO SCH (22:23)
[2021-02-11] MEDS: ACETAMINOPHEN 325 MG TAB PO PRN (22:23)
[2021-02-12] MEDS: HYOSCYAMINE SUBL 0.125 MG TAB SL SCH ×5 (00:20→19:14)
[2021-02-12] MEDS: LEVOTHYROXINE 100 MCG TAB PO SCH (06:14)
[2021-02-12] MEDS: CYPROHEPTADINE 4 MG TAB PO SCH ×3 (08:09→16:05)
[2021-02-12 08:30] LABS: Calcium 9.2 mg/dL (8.4-10.2)
--- NOTE | 2021-02-12 09:45 | Progress Note ---
Assessment and Plan 1. Acute kidney injury: ARMIDA in the setting of CHF. CT abdomen negative for hydro. Urine studies ordered. Baseline renal function is unknown. Most likely background CKD. Monitor renal function. Creatinine level is improving. Avoid nephrotoxic agents. Meds dosage based on GFR. 2. FEN: Hyperkalemia, Kayexalate as needed, monitor. Pt is on IV fluids. Monitor lytes. 3. Decompensated CHF: Strict I/O. On Metoprolol. Followed by Cards. 4. Chronic A.fib // PPm // Transaortic valve replacement: On Xarelto. Monitor. 5. Hypertension: BP is low intermittently. Hold Lasix. Adjust meds as needed. Monitor. Subjective: Patient was seen and examined at the bedside. Examination: General appearance: well-developed, appears stated age, not in distress HEENT: ATNC, pupils equal Neck: supple Respiratory: bibasal diminished breath sounds Cardiology: S1S2, no murmur Gastrointestinal: soft, bowel sounds heard, not tender Integumentary: warm and dry Neurologic: alert, confused, moving extremities Ext: no edema Subjective Date of service: 02/12/21 Principal diagnosis: encephalopathy Objective - Vital Signs Vital signs: Vital Signs - 12hr 02/11/21 02/12/21 02/12/21 22:21 01:06 09:33 Temperature 97.4 F L 98.5 F Pulse Rate 59 L 96 H Respiratory 18 20 Rate Blood Pressure 107/73 111/71 O2 Sat by Pulse 93 58 L 95 Oximetry - Lab 02/11/21 05:51 02/12/21 07:38 Most recent lab results Calcium 9.2 mg/dL (8.4-10.2) 02/12/21 07:38 Magnesium 2.60 mg/dL (1.7-2.3) H 02/09/21 15:50 Medications & Allergies - Medications Allergies/Adverse Reactions: Allergies codeine Allergy (Verified 02/09/21 16:11) Unknown morphine Allergy (Verified 02/09/21 16:11) Unknown Sulfa (Sulfonamide Antibiotics) Allergy (Verified 02/09/21 16:11) Unknown zolpidem [From Ambien] Allergy (Verified 02/09/21 16:11) Unknown Home Medications: Home Medications Medication Instructions Recorded Confirmed Last Taken Type Cyproheptadine HCl 4 mg PO Q8HR 02/09/21 02/09/21 Unknown History Furosemide [Lasix] 20 mg PO QDAY 02/09/21 02/09/21 Unknown History Hydromorphone HCl/0.9% NaCl/Pf 1 mg PO Q2HR PRN 02/09/21 02/09/21 Unknown History [Hydromorphone 1 mg/ml-Ns Syrng] Hyoscyamine Subl [Levsin Sl 0.125 0.125 mg SL Q6HR 02/09/21 02/09/21 Unknown History TAB] LORazepam [Ativan] 0.5 mg PO Q6H PRN 02/09/21 02/09/21 Unknown History Levothyroxine [Synthroid] 100 mcg PO QAM 02/09/21 02/09/21 Unknown History Loratadine 10 mg PO QAM 02/09/21 02/09/21 Unknown History Metoprolol Tartrate [Lopressor] 100 mg PO BID 02/09/21 02/09/21 Unknown History Ondansetron [Zofran Odt] 4 mg PO Q4HR PRN 02/09/21 02/09/21 Unknown History Pantoprazole Sodium 40 mg PO QAM 02/09/21 02/09/21 Unknown History Rivaroxaban [Xarelto] 15 mg PO QHS 02/09/21 02/09/21 Unknown History bisacodyL [Dulcolax suppos] 10 mg [place] QDAY 02/09/21 02/09/21 Unknown History busPIRone [Buspar] 5 mg PO BID 02/09/21 02/09/21 Unknown History dilTIAZem CD [Cardizem Cd] 120 mg PO DAILY 02/09/21 02/09/21 Unknown History traMADoL [Ultram] 50 mg PO Q6HR PRN 02/09/21 02/09/21 Unknown History Active Medications: Generic Name Dose Route Start Last Admin Trade Name Freq PRN Reason Stop Dose Admin Acetaminophen 650 mg 02/10/21 00:03 02/11/21 22:23 Acetaminophen 325 Mg Tab PO 650 mg Q4H PRN Administration Pain MILD(1-3)/Fever >100.5/GABRIEL Bisacodyl 10 mg 02/10/21 10:00 02/11/21 09:42 Bisacodyl 10 Mg Rect Supp [place] 10 mg QDAY GERRI Administration Buspirone HCl 5 mg 02/10/21 10:00 02/11/21 22:23 Buspirone 5 Mg Tab PO 5 mg BID GERRI Administration Cetirizine HCl 10 mg 02/10/21 10:00 02/11/21 09:41 Cetirizine 10 Mg Tab PO 10 mg QAM GERRI Administration Cyproheptadine HCl 4 mg 02/10/21 07:30 02/12/21 08:09 Cyproheptadine 4 Mg Tab PO 4 mg TIDAC GERRI Administration Diltiazem HCl 120 mg 02/10/21 10:00 02/11/21 09:41 Diltiazem Cd 120 Mg Cap PO 120 mg DAILY GERRI Administration Gabapentin 100 mg 02/11/21 14:00 02/11/21 22:23 Gabapentin 100 Mg Cap PO 100 mg BID GERRI Administration Hydromorphone HCl 0.5 mg 02/10/21 00:03 Hydromorphone 1 Mg/1 Ml Inj IV Q3H PRN Pain , Severe (7-10) Hyoscyamine 0.125 mg 02/10/21 00:00 02/12/21 06:18 Hyoscyamine Subl 0.125 Mg Tab SL 0.125 mg Q6HR GERRI Administration Sodium Chloride 1,000 mls @ 75 mls/hr 02/10/21 00:15 02/10/21 02:21 Nacl 0.9% 1000 Ml IV 75 mls/hr DIRECT GERRI Administration Levothyroxine Sodium 100 mcg 02/10/21 06:00 02/12/21 06:14 Levothyroxine 100 Mcg Tab PO 100 mcg QAM@0600 GERRI Administration Metoclopramide HCl 5 mg 02/10/21 00:03 Metoclopramide 10 Mg/2 Ml Inj IV Q6H PRN Nausea And Vomiting Metoprolol Tartrate 50 mg 02/10/21 11:00 02/11/21 22:23 Metoprolol Tartrate 50 Mg Tab PO 50 mg BID GERRI Administration Ondansetron HCl 4 mg 02/10/21 00:00 Ondansetron 4 Mg Odt Tab PO Q4H PRN Nausea Ondansetron HCl 4 mg 02/10/21 00:03 Ondansetron 4 Mg/2 Ml Inj IV Q8H PRN Nausea And Vomiting Pantoprazole Sodium 40 mg 02/10/21 10:00 02/11/21 09:41 Pantoprazole 40 Mg Tab PO 40 mg QAM GERRI Administration Rivaroxaban 15 mg 02/10/21 22:00 02/11/21 22:23 Rivaroxaban 15 Mg Tab PO 15 mg QHS GERRI Administration Sodium Chloride 10 ml 02/10/21 10:00 02/11/21 22:24 Sodium Chloride 0.9% 10 Ml Flush Syringe IV 10 ml BID GERRI Administration Sodium Chloride 10 ml 02/10/21 00:03 Sodium Chloride 0.9% 10 Ml Flush Syringe IV PRN PRN LINE FLUSH
[2021-02-12] MEDS: dilTIAZem CD 120 MG CAP PO SCH (10:04)
[2021-02-12] MEDS: METOPROLOL TARTRATE 50 MG TAB PO SCH ×2 (10:04→21:42)
[2021-02-12] MEDS: GABAPENTIN 100 MG CAP PO SCH ×2 (10:05→21:42)
[2021-02-12] MEDS: busPIRone 5 MG TAB PO SCH ×2 (10:05→21:42)
[2021-02-12] MEDS: PANTOPRAZOLE 40 MG TAB PO SCH (10:05)
[2021-02-12] MEDS: CETIRIZINE 10 MG TAB PO SCH (10:05)
--- NOTE | 2021-02-12 13:07 | Progress Note ---
Assessment and Plan - Patient Problems (1) Congestive heart failure Current Visit: Yes Status: Acute Plan to address problem: Continue medical therapy as previously outlined. Echocardiogram is pending for reassessment of left ventricular ejection fraction. (2) Atrial fibrillation Current Visit: Yes Status: Acute Plan to address problem: Continue rate control and oral anticoagulation strategy of chronic atrial fibrillation. Subjective Date of service: 02/12/21 Principal diagnosis: encephalopathy Interval history: Patient is comfortable, appears mildly confused, but no acute distress. No cardiac complaints reported. Objective Vital Signs Temp Pulse Resp BP BP Pulse Ox 02/12/21 10:33 98 F 103 H 18 123/77 94 02/12/21 10:04 96 H 111/71 02/12/21 10:00 105 H 97 02/12/21 09:33 98.5 F 96 H 20 111/71 95 02/12/21 01:06 97.4 F L 59 L 18 107/73 58 L 02/11/21 22:21 93 02/11/21 20:56 98.1 F 105 H 18 123/86 96 02/11/21 16:08 98.3 F 22 93/60 02/11/21 13:51 97.3 F L 84 91/64 94 02/11/21 13:10 98.5 F 109/55 - Physical Examination General: No Apparent Distress HEENT: Positive: PERRL Neck: Positive: neck supple Cardiac: Positive: irregularly irregular Lungs: Positive: Decreased Breath Sounds Neuro: Positive: Weakness Abdomen: Positive: Soft Skin: Positive: Clear Extremities: Absent: edema - Labs and Meds Coagulation 02/11/21 Range/Units 15:24 PT 29.2 H (12.2-14.9) Sec. INR 2.74 H (0.87-1.13) APTT 40.7 H (24.2-36.6) Sec. Comprehensive Metabolic Panel 02/12/21 Range/Units 07:38 Sodium 135 L (137-145) mmol/L Potassium 5.0 (3.6-5.0) mmol/L Chloride 97.5 L (98-107) mmol/L Carbon Dioxide 24 (22-30) mmol/L BUN 58 H (7-17) mg/dL Creatinine 1.7 H (0.6-1.2) mg/dL Glucose 79 (65-100) mg/dL Calcium 9.2 (8.4-10.2) mg/dL
--- NOTE | 2021-02-12 13:33 | Progress Note ---
Assessment and Plan Assessment and plan: 1) Acute encephalopathy Current Visit: Yes Status: Acute Plan to address problem: Resolving Etiology may be lorazepam Lorazepam discontinued (2) ARMIDA (acute kidney injury) Current Visit: Yes Status: Acute Plan to address problem: Possible ARMIDA superimposed on chronic kidney disease Nephrology consult requested (3) Acute exacerbation of CHF (congestive heart failure) Current Visit: Yes Status: Acute Qualifiers: Heart failure type: combined systolic and diastolic Qualified Code(s): I50.43 - Acute on chronic combined systolic (congestive) and diastolic (congestive) heart failure Plan to address problem: IV Lasix for now BNP is high--18,914 (4) Hyperkalemia Current Visit: Yes Status: Acute Plan to address problem: Treated Recheck potassium level (5) Hyponatremia Current Visit: Yes Status: Acute Plan to address problem: Mild with sodium of 133 No intervention at this point (6) Hypothyroidism (acquired) Current Visit: Yes Status: Chronic Plan to address problem: Continue Synthroid and check TSH (7) Hypertension Current Visit: Yes Status: Chronic Qualifiers: Hypertension type: primary hypertension Qualified Code(s): I10 - Essential (primary) hypertension Plan to address problem: Continue antihypertensives (8) GERD (gastroesophageal reflux disease) Current Visit: Yes Status: Chronic Qualifiers: Esophagitis presence: with esophagitis Plan to address problem: Continue PPIs (9) DVT prophylaxis Current Visit: Yes Status: Acute Plan to address problem: Patient on Xarelto for valvuloplasty of aortic valve and GI prophylaxis 02/10/2021 -Patient was confused. She states she is unaware she is in the hospital. Neurology and nephrology consult appreciated. Need PT OT evaluation. Cardiology consulted. 02/11/2021 -Patient was confused and neurology is following. -Patient was seen by cardiology and recommend to continue anticoagulation and medical management. -Patient was seen by nephrology and recommend to continue current management, monitor BMP. -Patient came from group home. -Blood pressure is well controlled. 02/16/2021 -Patient with ARMIDA, CHF. She is still confused. ARMIDA improving. Cr 1.7 today. She is followed by Nephrology and Cardiology. Continue Xarelto for aortic valve valvulopolasty. Follopw labs in am History Interval history: Patient confused. Cannot give a history Hospitalist Physical - Physical exam Narrative exam: Not in cardiopulmonary distress. The patient appeared well nourished and normally developed. Vital signs as documented. Head exam is unremarkable. No scleral icterus . Neck is without jugular venous distension, thyromegaly, or carotid bruits. Lungs are clear to auscultation. Cardiac exam reveals regular rate and Rhythm. Abdominal exam reveals normal bowel sounds, nontender, no organomegaly. Extremities are nonedematous and both femoral and pedal pulses are normal. 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: Patient confused - Constitutional Vitals: Temp Pulse Resp BP Pulse Ox 98 F 103 H 18 123/77 94 02/12/21 10:33 02/12/21 10:33 02/12/21 10:33 02/12/21 10:33 02/12/21 10:33 General appearance: Present: other (Patient is frail, elderly, appears stuporous but no acute respiratory distress) HEART Score - HEART Score Age: > 65 Risk factors: > 3 risk factors or hx of atherosclerotic disease Troponin: Troponin T < 0.010 ng/mL (0.00-0.029) 02/09/21 21:05 Troponin: < normal limit - Critical Actions Critical Actions: 0-3 pts:0.9-1.7%risk of adverse cardiac event.Candidate for discharge Results - Labs CBC & Chem 7: 02/11/21 05:51 02/12/21 07:38 Labs: Laboratory Last Values WBC 9.1 K/mm3 (4.5-11.0) 02/11/21 05:51 RBC 3.94 M/mm3 (3.65-5.03) 02/11/21 05:51 Hgb 12.0 gm/dl (10.1-14.3) 02/11/21 05:51 Hct 37.0 % (30.3-42.9) 02/11/21 05:51 MCV 94 fl (79-97) 02/11/21 05:51 MCH 31 pg (28-32) 02/11/21 05:51 MCHC 32 % (30-34) 02/11/21 05:51 RDW 20.0 % (13.2-15.2) H 02/11/21 05:51 Plt Count 179 K/mm3 (140-440) 02/11/21 05:51 Lymph % (Auto) 13.6 % (13.4-35.0) 02/11/21 05:51 [place] % (Auto) 10.8 % (0.0-7.3) H 02/11/21 05:51 Eos % (Auto) 1.9 % (0.0-4.3) 02/11/21 05:51 Baso % (Auto) 0.4 % (0.0-1.8) 02/11/21 05:51 Lymph # (Auto) 1.2 K/mm3 (1.2-5.4) 02/11/21 05:51 [place] # (Auto) 1.0 K/mm3 (0.0-0.8) H 02/11/21 05:51 Eos # (Auto) 0.2 K/mm3 (0.0-0.4) 02/11/21 05:51 Baso # (Auto) 0.0 K/mm3 (0.0-0.1) 02/11/21 05:51 Seg Neutrophils % 73.3 % (40.0-70.0) H 02/11/21 05:51 Seg Neutrophils # 6.6 K/mm3 (1.8-7.7) 02/11/21 05:51 PT 29.2 Sec. (12.2-14.9) H 02/11/21 15:24 INR 2.74 (0.87-1.13) H 02/11/21 15:24 APTT 40.7 Sec. (24.2-36.6) H 02/11/21 15:24 Sodium 135 mmol/L (137-145) L 02/12/21 07:38 Potassium 5.0 mmol/L (3.6-5.0) 02/12/21 07:38 Chloride 97.5 mmol/L (98-107) L 02/12/21 07:38 Carbon Dioxide 24 mmol/L (22-30) 02/12/21 07:38 Anion Gap 19 mmol/L 02/12/21 07:38 BUN 58 mg/dL (7-17) H 02/12/21 07:38 Creatinine 1.7 mg/dL (0.6-1.2) H 02/12/21 07:38 Estimated GFR 28 ml/min 02/12/21 07:38 BUN/Creatinine Ratio 34 % 02/12/21 07:38 Glucose 79 mg/dL (65-100) 02/12/21 07:38 Hemoglobin A1c 5.6 % (4-6) 02/10/21 04:34 Calcium 9.2 mg/dL (8.4-10.2) 02/12/21 07:38 Magnesium 2.60 mg/dL (1.7-2.3) H 02/09/21 15:50 Total Bilirubin 0.90 mg/dL (0.1-1.2) 02/10/21 04:34 AST 35 units/L (5-40) 02/10/21 04:34 ALT 22 units/L (7-56) 02/10/21 04:34 Alkaline Phosphatase 60 units/L (35-129) 02/10/21 04:34 Ammonia 34.0 umol/L (25-60) 02/09/21 17:20 Troponin T < 0.010 ng/mL (0.00-0.029) 02/09/21 21:05 NT-Pro-B Natriuret Pep 97501 pg/mL (0-900) H 02/09/21 15:50 Total Protein 6.2 g/dL (6.3-8.2) L 02/10/21 04:34 Albumin 3.2 g/dL (3.9-5) L 02/10/21 04:34 Albumin/Globulin Ratio 1.1 % 02/10/21 04:34 PTH Intact 75.78 pg/mL (15-65) H 02/11/21 05:51 Urine Color Yellow (Yellow) 02/10/21 19:12 Urine Turbidity Clear (Clear) 02/10/21 19:12 Urine pH 5.0 (5.0-7.0) 02/10/21 19:12 Ur Specific [place] 1.009 (1.003-1.030) 02/10/21 19:12 Urine Protein <15 mg/dl mg/dL (Negative) 02/10/21 19:12 Urine Glucose (UA) Neg mg/dL (Negative) 02/10/21 19:12 Urine Ketones Neg mg/dL (Negative) 02/10/21 19:12 Urine Blood Sm (Negative) 02/10/21 19:12 Urine Nitrite Neg (Negative) 02/10/21 19:12 Urine Bilirubin Neg (Negative) 02/10/21 19:12 Urine Urobilinogen < 2.0 mg/dL (<2.0) 02/10/21 19:12 Ur Leukocyte Esterase Tr (Negative) 02/10/21 19:12 Urine WBC (Auto) 8.0 /HPF (0.0-6.0) H 02/10/21 19:12 Urine RBC (Auto) 4.0 /HPF (0.0-6.0) 02/10/21 19:12 U Epithel Cells (Auto) 4.0 /HPF (0-13.0) 02/10/21 19:12 Urine WBC Clumps 2+ /HPF 02/09/21 Unknown Hyaline Casts 7 /LPF 02/10/21 19:12 Urine Mucus Few /HPF 02/10/21 19:12 Nasal Screen MRSA (PCR) Negative (Negative) 02/10/21 Unknown Urine Opiates Screen Presumptive negative 02/09/21 Unknown Urine Methadone Screen Presumptive negative 02/09/21 Unknown Ur Barbiturates Screen Presumptive negative 02/09/21 Unknown Ur Phencyclidine Scrn Presumptive negative 02/09/21 Unknown Ur Amphetamines Screen Presumptive negative 02/09/21 Unknown U Benzodiazepines Scrn Presumptive negative 02/09/21 Unknown Urine Cocaine Screen Presumptive negative 02/09/21 Unknown U Marijuana (THC) Screen Presumptive negative 02/09/21 Unknown Drugs of Abuse Note Disclamer 02/09/21 Unknown Microbiology: Microbiology 02/09/21 17:20 Peripheral/Venous Blood Culture - Preliminary NO GROWTH AFTER 48 HOURS 02/09/21 17:20 Peripheral/Venous Blood Culture - Preliminary NO GROWTH AFTER 48 HOURS 02/09/21 Unknown Urine,Clean Catch Urine Culture - Final NO GROWTH AFTER 48 HOURS Restrepo/IV: Voiding Method Indwelling Catheter Active Medications - Current Medications Current Medications: Generic Name Dose Route Start Last Admin Trade Name Freq PRN Reason Stop Dose Admin Acetaminophen 650 mg 02/10/21 00:03 02/11/21 22:23 Acetaminophen 325 Mg Tab PO 650 mg Q4H PRN Administration Pain MILD(1-3)/Fever >100.5/GABRIEL Bisacodyl 10 mg 02/10/21 10:00 02/12/21 10:05 Bisacodyl 10 Mg Rect Supp [place] 10 mg QDAY GERRI Administration Buspirone HCl 5 mg 02/10/21 10:00 02/12/21 10:05 Buspirone 5 Mg Tab PO 5 mg BID GERRI Administration Cetirizine HCl 10 mg 07/15/21 10:00 02/12/21 10:05 Cetirizine 10 Mg Tab PO 10 mg QAM GERRI Administration Cyproheptadine HCl 4 mg 02/10/21 07:30 02/12/21 11:07 Cyproheptadine 4 Mg Tab PO 4 mg TIDAC GERRI Administration Diltiazem HCl 120 mg 02/10/21 10:00 02/12/21 10:04 Diltiazem Cd 120 Mg Cap PO 120 mg DAILY GERRI Administration Gabapentin 100 mg 02/11/21 14:00 02/12/21 10:05 Gabapentin 100 Mg Cap PO 100 mg BID GERRI Administration Hydromorphone HCl 0.5 mg 02/10/21 00:03 Hydromorphone 1 Mg/1 Ml Inj IV Q3H PRN Pain , Severe (7-10) Hyoscyamine 0.125 mg 02/10/21 00:00 02/12/21 11:07 Hyoscyamine Subl 0.125 Mg Tab SL 0.125 mg Q6HR GERRI Administration Sodium Chloride 1,000 mls @ 75 mls/hr 02/10/21 00:15 02/10/21 02:21 Nacl 0.9% 1000 Ml IV 75 mls/hr DIRECT GERRI Administration Levothyroxine Sodium 100 mcg 02/10/21 06:00 02/12/21 06:14 Levothyroxine 100 Mcg Tab PO 100 mcg QAM@0600 GERRI Administration Metoclopramide HCl 5 mg 02/10/21 00:03 Metoclopramide 10 Mg/2 Ml Inj IV Q6H PRN Nausea And Vomiting Metoprolol Tartrate 50 mg 02/10/21 11:00 02/12/21 10:04 Metoprolol Tartrate 50 Mg Tab PO 50 mg BID GERRI Administration Ondansetron HCl 4 mg 02/10/21 00:00 Ondansetron 4 Mg Odt Tab PO Q4H PRN Nausea Ondansetron HCl 4 mg 02/10/21 00:03 Ondansetron 4 Mg/2 Ml Inj IV Q8H PRN Nausea And Vomiting Pantoprazole Sodium 40 mg 02/10/21 10:00 02/12/21 10:05 Pantoprazole 40 Mg Tab PO 40 mg QAM GERRI Administration Rivaroxaban 15 mg 02/10/21 22:00 02/11/21 22:23 Rivaroxaban 15 Mg Tab PO 15 mg QHS GERRI Administration Sodium Chloride 10 ml 02/10/21 10:00 02/12/21 10:05 Sodium Chloride 0.9% 10 Ml Flush Syringe IV 10 ml BID GERRI Administration Sodium Chloride 10 ml 02/10/21 00:03 Sodium Chloride 0.9% 10 Ml Flush Syringe IV PRN PRN LINE FLUSH Nutrition/Malnutrition Assess - Dietary Evaluation Nutrition/Malnutrition Findings: Nutrition Notes Start: 02/10/21 11:29 Freq: Status: Active Protocol: Document 02/10/21 11:30 (Rec: 02/10/21 11:33 [id number]) Nutrition Notes Need for 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 Pt reports no weight loss. Pt ate 75% of breakfast. She seems confused. Nutrition Intervention Follow-Up By: 02/14/21 Additional Comments FU for stable intakes and need for ONS
[2021-02-12] MEDS: SODIUM CHLORIDE 0.9% 1000 ML 1,000 ML IV SCH (19:13)
[2021-02-12] MEDS: RIVAROXABAN 15 MG TAB PO SCH (21:42)
[2021-02-13] MEDS: LEVOTHYROXINE 100 MCG TAB PO SCH (05:13)
[2021-02-13] MEDS: HYOSCYAMINE SUBL 0.125 MG TAB SL SCH ×4 (05:13→17:54)
[2021-02-13 07:07] LABS: Calcium 9.2 mg/dL (8.4-10.2)
[2021-02-13] MEDS: CYPROHEPTADINE 4 MG TAB PO SCH ×3 (07:26→17:54)
--- NOTE | 2021-02-13 09:59 | Progress Note ---
Assessment and Plan 1. Acute kidney injury: ARMIDA in the setting of CHF. CT abdomen negative for hydro. Urine studies ordered. Baseline renal function is unknown. Most likely background CKD. Monitor renal function. Creatinine level is improving. Avoid nephrotoxic agents. Meds dosage based on GFR. 2. FEN: Hyperkalemia, Kayexalate as needed, monitor. Monitor lytes. 3. Decompensated CHF: Strict I/O. On Metoprolol. Followed by Cards. 4. Chronic A.fib // PPm // Transaortic valve replacement: On Xarelto. Monitor. 5. Hypertension: BP is low intermittently. Adjust meds as needed. Monitor. Subjective: Patient was seen and examined at the bedside. Examination: General appearance: well-developed, appears stated age, not in distress HEENT: ATNC, pupils equal Neck: supple Respiratory: bibasal diminished breath sounds Cardiology: S1S2, no murmur Gastrointestinal: soft, bowel sounds heard, not tender Integumentary: warm and dry Neurologic: alert, confused, moving extremities Ext: no edema Subjective Date of service: 02/13/21 Principal diagnosis: encephalopathy Objective - Vital Signs Vital signs: Vital Signs - 12hr 02/13/21 02/13/21 02/13/21 00:40 03:40 07:20 Temperature 97.6 F 97.7 F 98.1 F Pulse Rate 126 H 110 H Respiratory 20 20 22 Rate Blood Pressure 122/68 Blood Pressure 121/78 115/86 [Left] O2 Sat by Pulse 95 91 99 Oximetry - Lab 02/11/21 05:51 02/14/21 03:44 Most recent lab results Calcium 9.2 mg/dL (8.4-10.2) 02/13/21 05:21 Magnesium 2.60 mg/dL (1.7-2.3) H 02/09/21 15:50 Medications & Allergies - Medications Allergies/Adverse Reactions: Allergies codeine Allergy (Verified 02/09/21 16:11) Unknown morphine Allergy (Verified 02/09/21 16:11) Unknown Sulfa (Sulfonamide Antibiotics) Allergy (Verified 02/09/21 16:11) Unknown zolpidem [From Ambien] Allergy (Verified 02/09/21 16:11) Unknown Home Medications: Home Medications Medication Instructions Recorded Confirmed Last Taken Type Cyproheptadine HCl 4 mg PO Q8HR 02/09/21 02/09/21 Unknown History Furosemide [Lasix] 20 mg PO QDAY 02/09/21 02/09/21 Unknown History Hydromorphone HCl/0.9% NaCl/Pf 1 mg PO Q2HR PRN 02/09/21 02/09/21 Unknown History [Hydromorphone 1 mg/ml-Ns Syrng] Hyoscyamine Subl [Levsin Sl 0.125 0.125 mg SL Q6HR 02/09/21 02/09/21 Unknown History TAB] LORazepam [Ativan] 0.5 mg PO Q6H PRN 02/09/21 02/09/21 Unknown History Levothyroxine [Synthroid] 100 mcg PO QAM 02/09/21 02/09/21 Unknown History Loratadine 10 mg PO QAM 02/09/21 02/09/21 Unknown History Metoprolol Tartrate [Lopressor] 100 mg PO BID 02/09/21 02/09/21 Unknown History Ondansetron [Zofran Odt] 4 mg PO Q4HR PRN 02/09/21 02/09/21 Unknown History Pantoprazole Sodium 40 mg PO QAM 02/09/21 02/09/21 Unknown History Rivaroxaban [Xarelto] 15 mg PO QHS 02/09/21 02/09/21 Unknown History bisacodyL [Dulcolax suppos] 10 mg [place] QDAY 02/09/21 02/09/21 Unknown History busPIRone [Buspar] 5 mg PO BID 02/09/21 02/09/21 Unknown History dilTIAZem CD [Cardizem Cd] 120 mg PO DAILY 02/09/21 02/09/21 Unknown History traMADoL [Ultram] 50 mg PO Q6HR PRN 02/09/21 02/09/21 Unknown History Active Medications: Generic Name Dose Route Start Last Admin Trade Name Freq PRN Reason Stop Dose Admin Acetaminophen 650 mg 02/10/21 00:03 02/11/21 22:23 Acetaminophen 325 Mg Tab PO 650 mg Q4H PRN Administration Pain MILD(1-3)/Fever >100.5/GABRIEL Bisacodyl 10 mg 02/10/21 10:00 02/12/21 10:05 Bisacodyl 10 Mg Rect Supp [place] 10 mg QDAY GERRI Administration Buspirone HCl 5 mg 02/10/21 10:00 02/12/21 21:42 Buspirone 5 Mg Tab PO 5 mg BID GERRI Administration Cetirizine HCl 10 mg 02/10/21 10:00 02/12/21 10:05 Cetirizine 10 Mg Tab PO 10 mg QAM GERRI Administration Cyproheptadine HCl 4 mg 02/10/21 07:30 02/13/21 07:26 Cyproheptadine 4 Mg Tab PO 4 mg TIDAC GERRI Administration Diltiazem HCl 120 mg 02/10/21 10:00 02/12/21 10:04 Diltiazem Cd 120 Mg Cap PO 120 mg DAILY GERRI Administration Gabapentin 100 mg 02/11/21 14:00 02/12/21 21:42 Gabapentin 100 Mg Cap PO 100 mg BID GERRI Administration Hydromorphone HCl 0.5 mg 02/10/21 00:03 Hydromorphone 1 Mg/1 Ml Inj IV Q3H PRN Pain , Severe (7-10) Hyoscyamine 0.125 mg 02/10/21 00:00 02/13/21 05:13 Hyoscyamine Subl 0.125 Mg Tab SL 0.125 mg Q6HR GERRI Administration Sodium Chloride 1,000 mls @ 75 mls/hr 02/10/21 00:15 02/12/21 19:13 Nacl 0.9% 1000 Ml IV 75 mls/hr DIRECT GRERI Administration Levothyroxine Sodium 100 mcg 02/10/21 06:00 02/13/21 05:13 Levothyroxine 100 Mcg Tab PO 100 mcg QAM@0600 GERRI Administration Metoclopramide HCl 5 mg 02/10/21 00:03 Metoclopramide 10 Mg/2 Ml Inj IV Q6H PRN Nausea And Vomiting Metoprolol Tartrate 50 mg 02/10/21 11:00 02/12/21 21:42 Metoprolol Tartrate 50 Mg Tab PO 50 mg BID GERRI Administration Ondansetron HCl 4 mg 02/10/21 00:00 Ondansetron 4 Mg Odt Tab PO Q4H PRN Nausea Ondansetron HCl 4 mg 02/10/21 00:03 Ondansetron 4 Mg/2 Ml Inj IV Q8H PRN Nausea And Vomiting Pantoprazole Sodium 40 mg 02/10/21 10:00 02/12/21 10:05 Pantoprazole 40 Mg Tab PO 40 mg QAM GERRI Administration Rivaroxaban 15 mg 02/10/21 22:00 02/12/21 21:42 Rivaroxaban 15 Mg Tab PO 15 mg QHS GERRI Administration Sodium Chloride 10 ml 02/10/21 10:00 02/12/21 21:42 Sodium Chloride 0.9% 10 Ml Flush Syringe IV 10 ml BID GERRI Administration Sodium Chloride 10 ml 02/10/21 00:03 Sodium Chloride 0.9% 10 Ml Flush Syringe IV PRN PRN LINE FLUSH
[2021-02-13] MEDS: PANTOPRAZOLE 40 MG TAB PO SCH (10:32)
[2021-02-13] MEDS: dilTIAZem CD 120 MG CAP PO SCH (10:32)
[2021-02-13] MEDS: busPIRone 5 MG TAB PO SCH ×2 (10:32→21:56)
[2021-02-13] MEDS: GABAPENTIN 100 MG CAP PO SCH ×2 (10:33→21:57)
[2021-02-13] MEDS: CETIRIZINE 10 MG TAB PO SCH (10:33)
[2021-02-13] MEDS: METOPROLOL TARTRATE 50 MG TAB PO SCH ×2 (10:33→21:12)
[2021-02-13] MEDS ORDERED: SODIUM POLYSTYRENE 15 GM/60 ML ORAL LIQD PO ONE (11:00)
--- NOTE | 2021-02-13 11:40 | Progress Note ---
Assessment and Plan Assessment and plan: 1) Acute encephalopathy Current Visit: Yes Status: Acute Plan to address problem: Resolving Etiology may be lorazepam Lorazepam discontinued (2) ARMIDA (acute kidney injury) Current Visit: Yes Status: Acute Plan to address problem: Possible ARMIDA superimposed on chronic kidney disease Nephrology consult requested (3) Acute exacerbation of CHF (congestive heart failure) Current Visit: Yes Status: Acute Qualifiers: Heart failure type: combined systolic and diastolic Qualified Code(s): I50.43 - Acute on chronic combined systolic (congestive) and diastolic (congestive) heart failure Plan to address problem: IV Lasix for now BNP is high--18,914 (4) Hyperkalemia Current Visit: Yes Status: Acute Plan to address problem: Treated Recheck potassium level (5) Hyponatremia Current Visit: Yes Status: Acute Plan to address problem: Mild with sodium of 133 No intervention at this point (6) Hypothyroidism (acquired) Current Visit: Yes Status: Chronic Plan to address problem: Continue Synthroid and check TSH (7) Hypertension Current Visit: Yes Status: Chronic Qualifiers: Hypertension type: primary hypertension Qualified Code(s): I10 - Essential (primary) hypertension Plan to address problem: Continue antihypertensives (8) GERD (gastroesophageal reflux disease) Current Visit: Yes Status: Chronic Qualifiers: Esophagitis presence: with esophagitis Plan to address problem: Continue PPIs (9) DVT prophylaxis Current Visit: Yes Status: Acute Plan to address problem: Patient on Xarelto for valvuloplasty of aortic valve and GI prophylaxis 02/10/2021 -Patient was confused. She states she is unaware she is in the hospital. Neurology and nephrology consult appreciated. Need PT OT evaluation. Cardiology consulted. 02/11/2021 -Patient was confused and neurology is following. -Patient was seen by cardiology and recommend to continue anticoagulation and medical management. -Patient was seen by nephrology and recommend to continue current management, monitor BMP. -Patient came from group home. -Blood pressure is well controlled. 02/12/2021 -Patient with ARMIDA, CHF. She is still confused. ARMIDA improving. Cr 1.7 today. She is followed by Nephrology and Cardiology. Continue Xarelto for aortic valve valvulopolasty. Follow labs in am 02/13/21 Patient with acute kidney injury, CHF. Cr improving 1.4 today. However she has mild hyperkalemia with Potassium 5.1. Nephrology following. Will repeat labs in am. Continue Xarelto. Cardiology following too. History Interval history: Patient confused. Cannot give a history Hospitalist Physical - Physical exam Narrative exam: Not in cardiopulmonary distress. The patient appeared well nourished and normally developed. Vital signs as documented. Head exam is unremarkable. No scleral icterus . Neck is without jugular venous distension, thyromegaly, or carotid bruits. Lungs are clear to auscultation. Cardiac exam reveals regular rate and Rhythm. Abdominal exam reveals normal bowel sounds, nontender, no organomegaly. Extremities are nonedematous and both femoral and pedal pulses are normal. 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 - Constitutional Vitals: Temp Pulse Resp BP Pulse Ox 98.1 F 110 H 22 115/86 100 02/13/21 07:20 02/13/21 10:33 02/13/21 07:20 02/13/21 10:33 02/13/21 09:59 General appearance: Present: other (Patient is frail, elderly, appears stuporous but no acute respiratory distress) HEART Score - HEART Score Age: > 65 Risk factors: > 3 risk factors or hx of atherosclerotic disease Troponin: Troponin T < 0.010 ng/mL (0.00-0.029) 02/09/21 21:05 Troponin: < normal limit - Critical Actions Critical Actions: 0-3 pts:0.9-1.7%risk of adverse cardiac event.Candidate for discharge Results - Labs CBC & Chem 7: 02/11/21 05:51 02/13/21 05:21 Labs: Laboratory Last Values WBC 9.1 K/mm3 (4.5-11.0) 02/11/21 05:51 RBC 3.94 M/mm3 (3.65-5.03) 02/11/21 05:51 Hgb 12.0 gm/dl (10.1-14.3) 02/11/21 05:51 Hct 37.0 % (30.3-42.9) 02/11/21 05:51 MCV 94 fl (79-97) 02/11/21 05:51 MCH 31 pg (28-32) 02/11/21 05:51 MCHC 32 % (30-34) 02/11/21 05:51 RDW 20.0 % (13.2-15.2) H 02/11/21 05:51 Plt Count 179 K/mm3 (140-440) 02/11/21 05:51 Lymph % (Auto) 13.6 % (13.4-35.0) 02/11/21 05:51 [place] % (Auto) 10.8 % (0.0-7.3) H 02/11/21 05:51 Eos % (Auto) 1.9 % (0.0-4.3) 02/11/21 05:51 Baso % (Auto) 0.4 % (0.0-1.8) 02/11/21 05:51 Lymph # (Auto) 1.2 K/mm3 (1.2-5.4) 02/11/21 05:51 [place] # (Auto) 1.0 K/mm3 (0.0-0.8) H 02/11/21 05:51 Eos # (Auto) 0.2 K/mm3 (0.0-0.4) 02/11/21 05:51 Baso # (Auto) 0.0 K/mm3 (0.0-0.1) 02/11/21 05:51 Seg Neutrophils % 73.3 % (40.0-70.0) H 02/11/21 05:51 Seg Neutrophils # 6.6 K/mm3 (1.8-7.7) 02/11/21 05:51 PT 29.2 Sec. (12.2-14.9) H 02/11/21 15:24 INR 2.74 (0.87-1.13) H 02/11/21 15:24 APTT 40.7 Sec. (24.2-36.6) H 02/11/21 15:24 Sodium 134 mmol/L (137-145) L 02/13/21 05:21 Potassium 5.1 mmol/L (3.6-5.0) H 02/13/21 05:21 Chloride 101.0 mmol/L (98-107) 02/13/21 05:21 Carbon Dioxide 24 mmol/L (22-30) 02/13/21 05:21 Anion Gap 14 mmol/L 02/13/21 05:21 BUN 45 mg/dL (7-17) H 02/13/21 05:21 Creatinine 1.4 mg/dL (0.6-1.2) H 02/13/21 05:21 Estimated GFR 35 ml/min 02/13/21 05:21 BUN/Creatinine Ratio 32 % 02/13/21 05:21 Glucose 100 mg/dL (65-100) 02/13/21 05:21 POC Glucose 139 mg/dL (70-105) H 02/12/21 16:35 Hemoglobin A1c 5.6 % (4-6) 02/10/21 04:34 Calcium 9.2 mg/dL (8.4-10.2) 02/13/21 05:21 Magnesium 2.60 mg/dL (1.7-2.3) H 02/09/21 15:50 Total Bilirubin 0.90 mg/dL (0.1-1.2) 02/10/21 04:34 AST 35 units/L (5-40) 02/10/21 04:34 ALT 22 units/L (7-56) 02/10/21 04:34 Alkaline Phosphatase 60 units/L (35-129) 02/10/21 04:34 Ammonia 34.0 umol/L (25-60) 02/09/21 17:20 Troponin T < 0.010 ng/mL (0.00-0.029) 02/09/21 21:05 NT-Pro-B Natriuret Pep 71707 pg/mL (0-900) H 02/09/21 15:50 Total Protein 6.2 g/dL (6.3-8.2) L 02/10/21 04:34 Albumin 3.2 g/dL (3.9-5) L 02/10/21 04:34 Albumin/Globulin Ratio 1.1 % 02/10/21 04:34 PTH Intact 75.78 pg/mL (15-65) H 02/11/21 05:51 Urine Color Yellow (Yellow) 02/10/21 19:12 Urine Turbidity Clear (Clear) 02/10/21 19:12 Urine pH 5.0 (5.0-7.0) 02/10/21 19:12 Ur Specific [place] 1.009 (1.003-1.030) 02/10/21 19:12 Urine Protein <15 mg/dl mg/dL (Negative) 02/10/21 19:12 Urine Glucose (UA) Neg mg/dL (Negative) 02/10/21 19:12 Urine Ketones Neg mg/dL (Negative) 02/10/21 19:12 Urine Blood Sm (Negative) 02/10/21 19:12 Urine Nitrite Neg (Negative) 02/10/21 19:12 Urine Bilirubin Neg (Negative) 02/10/21 19:12 Urine Urobilinogen < 2.0 mg/dL (<2.0) 02/10/21 19:12 Ur Leukocyte Esterase Tr (Negative) 02/10/21 19:12 Urine WBC (Auto) 8.0 /HPF (0.0-6.0) H 02/10/21 19:12 Urine RBC (Auto) 4.0 /HPF (0.0-6.0) 02/10/21 19:12 U Epithel Cells (Auto) 4.0 /HPF (0-13.0) 02/10/21 19:12 Urine WBC Clumps 2+ /HPF 02/09/21 Unknown Hyaline Casts 7 /LPF 02/10/21 19:12 Urine Mucus Few /HPF 02/10/21 19:12 Nasal Screen MRSA (PCR) Negative (Negative) 02/10/21 Unknown Urine Opiates Screen Presumptive negative 02/09/21 Unknown Urine Methadone Screen Presumptive negative 02/09/21 Unknown Ur Barbiturates Screen Presumptive negative 02/09/21 Unknown Ur Phencyclidine Scrn Presumptive negative 02/09/21 Unknown Ur Amphetamines Screen Presumptive negative 02/09/21 Unknown U Benzodiazepines Scrn Presumptive negative 02/09/21 Unknown Urine Cocaine Screen Presumptive negative 02/09/21 Unknown U Marijuana (THC) Screen Presumptive negative 02/09/21 Unknown Drugs of Abuse Note Disclamer 02/09/21 Unknown Coronavirus (PCR) Negative (Negative) 02/11/21 Unknown Microbiology: Microbiology 02/09/21 17:20 Peripheral/Venous Blood Culture - Preliminary NO GROWTH AFTER 72 HOURS 02/09/21 17:20 Peripheral/Venous Blood Culture - Preliminary NO GROWTH AFTER 72 HOURS Restrepo/IV: Voiding Method Incontinent Active Medications - Current Medications Current Medications: Generic Name Dose Route Start Last Admin Trade Name Freq PRN Reason Stop Dose Admin Acetaminophen 650 mg 02/10/21 00:03 02/11/21 22:23 Acetaminophen 325 Mg Tab PO 650 mg Q4H PRN Administration Pain MILD(1-3)/Fever >100.5/GABRIEL Bisacodyl 10 mg 02/10/21 10:00 02/13/21 10:33 Bisacodyl 10 Mg Rect Supp OR Not Given QDAY GERRI Buspirone HCl 5 mg 02/10/21 10:00 02/13/21 10:32 Buspirone 5 Mg Tab PO 5 mg BID GERRI Administration Cetirizine HCl 10 mg 02/10/21 10:00 02/13/21 10:33 Cetirizine 10 Mg Tab PO 10 mg QAM GERRI Administration Cyproheptadine HCl 4 mg 02/10/21 07:30 02/13/21 07:26 Cyproheptadine 4 Mg Tab PO 4 mg TIDAC GERRI Administration Diltiazem HCl 120 mg 02/10/21 10:00 02/13/21 10:32 Diltiazem Cd 120 Mg Cap PO 120 mg DAILY GERRI Administration Gabapentin 100 mg 02/11/21 14:00 02/13/21 10:33 Gabapentin 100 Mg Cap PO 100 mg BID GERRI Administration Hydromorphone HCl 0.5 mg 02/10/21 00:03 Hydromorphone 1 Mg/1 Ml Inj IV Q3H PRN Pain , Severe (7-10) Hyoscyamine 0.125 mg 02/10/21 00:00 02/13/21 05:13 Hyoscyamine Subl 0.125 Mg Tab SL 0.125 mg Q6HR GERRI Administration Sodium Chloride 1,000 mls @ 75 mls/hr 02/10/21 00:15 02/12/21 19:13 Nacl 0.9% 1000 Ml IV 75 mls/hr DIRECT GERRI Administration Levothyroxine Sodium 100 mcg 02/10/21 06:00 02/13/21 05:13 Levothyroxine 100 Mcg Tab PO 100 mcg QAM@0600 GERRI Administration Metoclopramide HCl 5 mg 02/10/21 00:03 Metoclopramide 10 Mg/2 Ml Inj IV Q6H PRN Nausea And Vomiting Metoprolol Tartrate 50 mg 02/10/21 11:00 02/13/21 10:33 Metoprolol Tartrate 50 Mg Tab PO 50 mg BID GERRI Administration Ondansetron HCl 4 mg 02/10/21 00:00 Ondansetron 4 Mg Odt Tab PO Q4H PRN Nausea Ondansetron HCl 4 mg 02/10/21 00:03 Ondansetron 4 Mg/2 Ml Inj IV Q8H PRN Nausea And Vomiting Pantoprazole Sodium 40 mg 02/10/21 10:00 02/13/21 10:32 Pantoprazole 40 Mg Tab PO 40 mg QAM EGRRI Administration Rivaroxaban 15 mg 02/10/21 22:00 02/12/21 21:42 Rivaroxaban 15 Mg Tab PO 15 mg QHS GERRI Administration Sodium Chloride 10 ml 02/10/21 10:00 02/13/21 10:34 Sodium Chloride 0.9% 10 Ml Flush Syringe IV 10 ml BID GERRI Administration Sodium Chloride 10 ml 02/10/21 00:03 Sodium Chloride 0.9% 10 Ml Flush Syringe IV PRN PRN LINE FLUSH Nutrition/Malnutrition Assess - Dietary Evaluation Nutrition/Malnutrition Findings: Nutrition Notes Start: 02/10/21 11:29 Freq: Status: Active Protocol: Document 02/10/21 11:30 (Rec: 02/10/21 11:33 [email or web address]) Nutrition Notes Need for 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 Pt reports no weight loss. Pt ate 75% of breakfast. She seems confused. Nutrition Intervention Follow-Up By: 02/14/21 Additional Comments FU for stable intakes and need for ONS
[2021-02-13] MEDS: SODIUM CHLORIDE 0.9% 1000 ML 1,000 ML IV SCH (13:02)
--- NOTE | 2021-02-13 13:46 | Progress Note ---
Assessment and Plan - Patient Problems (1) Congestive heart failure Current Visit: Yes Status: Acute Plan to address problem: Continue medical therapy as previously outlined. Echocardiogram is pending for reassessment of left ventricular ejection fraction. (2) Atrial fibrillation Current Visit: Yes Status: Acute Plan to address problem: Continue rate control and oral anticoagulation strategy of chronic atrial fibrillation. Subjective Date of service: 02/13/21 Principal diagnosis: encephalopathy Interval history: Patient is comfortable, no acute distress, no new cardiac complaints. Objective Vital Signs Temp Pulse Resp BP BP Pulse Ox 02/13/21 13:04 97.1 F L 105 H 18 121/85 96 02/13/21 10:33 110 H 115/86 02/13/21 10:32 110 H 115/86 02/13/21 10:13 110 H 02/13/21 09:59 100 02/13/21 07:20 98.1 F 22 115/86 99 02/13/21 03:40 97.7 F 110 H 20 121/78 91 02/13/21 00:40 97.6 F 126 H 20 122/68 95 02/12/21 20:24 93 02/12/21 20:00 111 H 02/12/21 19:37 97.4 F L 73 18 127/67 91 02/12/21 18:00 89 02/12/21 16:36 98.2 F 84 20 120/57 95 - Physical Examination General: No Apparent Distress HEENT: Positive: PERRL Neck: Positive: neck supple Cardiac: Positive: irregularly irregular Lungs: Positive: Decreased Breath Sounds Neuro: Positive: Weakness Abdomen: Positive: Soft Skin: Positive: Clear Extremities: Absent: edema - Labs and Meds Comprehensive Metabolic Panel 02/13/21 Range/Units 05:21 Sodium 134 L (137-145) mmol/L Potassium 5.1 H (3.6-5.0) mmol/L Chloride 101.0 (98-107) mmol/L Carbon Dioxide 24 (22-30) mmol/L BUN 45 H (7-17) mg/dL Creatinine 1.4 H (0.6-1.2) mg/dL Glucose 100 (65-100) mg/dL Calcium 9.2 (8.4-10.2) mg/dL
[2021-02-13] MEDS: cefTRIAXone/NS 1 GM/50 ML 1 GM/50 ML BAG IV SCH (20:59)
[2021-02-13] MEDS: RIVAROXABAN 15 MG TAB PO SCH (21:57)
[2021-02-13] MEDS: ACETAMINOPHEN 325 MG TAB PO PRN (22:06)
[2021-02-13] MEDS: NYSTATIN POWDER 15 GM TP SCH (22:55)
[2021-02-14] MEDS ORDERED: diphenhydrAMINE 50 MG/ML VIAL IV ONE (01:02)
[2021-02-14] MEDS: HYOSCYAMINE SUBL 0.125 MG TAB SL SCH ×4 (01:15→18:11)
[2021-02-14] MEDS: SODIUM CHLORIDE 0.9% 1000 ML 1,000 ML IV SCH ×2 (01:17→10:04)
[2021-02-14 04:42] LABS: Calcium 8.9 mg/dL (8.4-10.2)
[2021-02-14] MEDS: LEVOTHYROXINE 100 MCG TAB PO SCH (06:05)
[2021-02-14] MEDS: NYSTATIN POWDER 15 GM TP SCH ×2 (09:26→22:38)
[2021-02-14] MEDS: busPIRone 5 MG TAB PO SCH ×2 (09:27→22:37)
[2021-02-14] MEDS: CYPROHEPTADINE 4 MG TAB PO SCH ×3 (09:27→18:11)
[2021-02-14] MEDS: GABAPENTIN 100 MG CAP PO SCH ×2 (09:27→22:37)
[2021-02-14] MEDS: SODIUM POLYSTYRENE 15 GM/60 ML ORAL LIQD PO SCH ×2 (09:27→12:03)
[2021-02-14] MEDS: METOPROLOL TARTRATE 50 MG TAB PO SCH ×2 (09:28→22:36)
[2021-02-14] MEDS: PANTOPRAZOLE 40 MG TAB PO SCH (09:28)
[2021-02-14] MEDS: CETIRIZINE 10 MG TAB PO SCH (09:28)
[2021-02-14] MEDS: dilTIAZem CD 120 MG CAP PO SCH (09:31)
--- NOTE | 2021-02-14 10:27 | Progress Note ---
Assessment and Plan 1. Acute kidney injury: ARMIDA in the setting of CHF. CT abdomen negative for hydro. Urine studies ordered. Baseline renal function is unknown. Most likely background CKD. Monitor renal function. Creatinine level is improving. Avoid nephrotoxic agents. Meds dosage based on GFR. 2. FEN: Hyperkalemia, Kayexalate ordered, monitor. Started on PO Lasix. Monitor lytes. 3. Decompensated CHF: Strict I/O. On Metoprolol. Followed by Cards. 4. Chronic A.fib // PPm // Transaortic valve replacement: On Cardizem, Metoprolol and Xarelto. Monitor. 5. Hypertension: BP is low intermittently. Adjust meds as needed. Monitor. Subjective: Patient was seen and examined at the bedside. Examination: General appearance: well-developed, appears stated age, slight tachypnea HEENT: ATNC, pupils equal Neck: supple Respiratory: bibasal diminished breath sounds, ?rales Cardiology: S1S2, no murmur Gastrointestinal: soft, bowel sounds heard, not tender Integumentary: warm and dry Neurologic: alert, confused, moving extremities Ext: no edema Subjective Date of service: 02/14/21 Principal diagnosis: encephalopathy Objective - Vital Signs Vital signs: Vital Signs - 12hr 02/13/21 02/14/21 02/14/21 23:27 01:00 03:50 Temperature 97.5 F L 97.3 F L Pulse Rate 103 H 110 H 80 Respiratory 20 20 Rate Blood Pressure 122/73 134/64 O2 Sat by Pulse 93 98 Oximetry 02/14/21 02/14/21 02/14/21 07:42 08:01 09:28 Temperature 97.8 F Pulse Rate 69 69 Respiratory 18 Rate Blood Pressure 116/82 116/82 O2 Sat by Pulse 97 91 Oximetry 02/14/21 09:31 Temperature Pulse Rate 69 Respiratory Rate Blood Pressure 116/82 O2 Sat by Pulse Oximetry - Lab 02/11/21 05:51 02/14/21 03:44 Most recent lab results Calcium 8.9 mg/dL (8.4-10.2) 02/14/21 03:44 Magnesium 2.60 mg/dL (1.7-2.3) H 02/09/21 15:50 Medications & Allergies - Medications Allergies/Adverse Reactions: Allergies codeine Allergy (Verified 02/09/21 16:11) Unknown morphine Allergy (Verified 02/09/21 16:11) Unknown Sulfa (Sulfonamide Antibiotics) Allergy (Verified 02/09/21 16:11) Unknown zolpidem [From Ambien] Allergy (Verified 02/09/21 16:11) Unknown Home Medications: Home Medications Medication Instructions Recorded Confirmed Last Taken Type Cyproheptadine HCl 4 mg PO Q8HR 02/09/21 02/09/21 Unknown History Furosemide [Lasix] 20 mg PO QDAY 02/09/21 02/09/21 Unknown History Hydromorphone HCl/0.9% NaCl/Pf 1 mg PO Q2HR PRN 02/09/21 02/09/21 Unknown History [Hydromorphone 1 mg/ml-Ns Syrng] Hyoscyamine Subl [Levsin Sl 0.125 0.125 mg SL Q6HR 02/09/21 02/09/21 Unknown History TAB] LORazepam [Ativan] 0.5 mg PO Q6H PRN 02/09/21 02/09/21 Unknown History Levothyroxine [Synthroid] 100 mcg PO QAM 02/09/21 02/09/21 Unknown History Loratadine 10 mg PO QAM 02/09/21 02/09/21 Unknown History Metoprolol Tartrate [Lopressor] 100 mg PO BID 02/09/21 02/09/21 Unknown History Ondansetron [Zofran Odt] 4 mg PO Q4HR PRN 02/09/21 02/09/21 Unknown History Pantoprazole Sodium 40 mg PO QAM 02/09/21 02/09/21 Unknown History Rivaroxaban [Xarelto] 15 mg PO QHS 02/09/21 02/09/21 Unknown History bisacodyL [Dulcolax suppos] 10 mg [place] QDAY 02/09/21 02/09/21 Unknown History busPIRone [Buspar] 5 mg PO BID 02/09/21 02/09/21 Unknown History dilTIAZem CD [Cardizem Cd] 120 mg PO DAILY 02/09/21 02/09/21 Unknown History traMADoL [Ultram] 50 mg PO Q6HR PRN 02/09/21 02/09/21 Unknown History Active Medications: Generic Name Dose Route Start Last Admin Trade Name Freq PRN Reason Stop Dose Admin Acetaminophen 650 mg 02/10/21 00:03 02/13/21 22:06 Acetaminophen 325 Mg Tab PO 650 mg Q4H PRN Administration Pain MILD(1-3)/Fever >100.5/GABRIEL Bisacodyl 10 mg 02/10/21 10:00 02/14/21 09:27 Bisacodyl 10 Mg Rect Supp [place] 10 mg QDAY GERRI Administration Buspirone HCl 5 mg 02/10/21 10:00 02/14/21 09:27 Buspirone 5 Mg Tab PO 5 mg BID GERRI Administration Cetirizine HCl 10 mg 02/10/21 10:00 02/14/21 09:28 Cetirizine 10 Mg Tab PO 10 mg QAM GERRI Administration Cyproheptadine HCl 4 mg 02/10/21 07:30 02/14/21 09:27 Cyproheptadine 4 Mg Tab PO 4 mg TIDAC GERRI Administration Diltiazem HCl 120 mg 02/10/21 10:00 02/14/21 09:31 Diltiazem Cd 120 Mg Cap PO 120 mg DAILY GERRI Administration Furosemide 40 mg 02/14/21 11:00 Furosemide 40 Mg Tab PO QDAY GERRI Gabapentin 100 mg 02/11/21 14:00 02/14/21 09:27 Gabapentin 100 Mg Cap PO 100 mg BID GERRI Administration Hydromorphone HCl 0.5 mg 02/10/21 00:03 Hydromorphone 1 Mg/1 Ml Inj IV Q3H PRN Pain , Severe (7-10) Hyoscyamine 0.125 mg 02/10/21 00:00 02/14/21 06:05 Hyoscyamine Subl 0.125 Mg Tab SL 0.125 mg Q6HR GERRI Administration Sodium Chloride 1,000 mls @ 75 mls/hr 02/10/21 00:15 02/14/21 10:04 Nacl 0.9% 1000 Ml IV 75 mls/hr DIRECT GERRI Administration Ceftriaxone Sodium 1 gm in 50 mls @ 100 mls/hr 02/13/21 19:30 02/13/21 21:57 Rocephin/Ns 1 Gm/50 Ml IV Infused Q24H GERRI Infusion Protocol Levothyroxine Sodium 100 mcg 02/10/21 06:00 02/14/21 06:05 Levothyroxine 100 Mcg Tab PO 100 mcg QAM@0600 GERRI Administration Metoclopramide HCl 5 mg 02/10/21 00:03 Metoclopramide 10 Mg/2 Ml Inj IV Q6H PRN Nausea And Vomiting Metoprolol Tartrate 50 mg 02/10/21 11:00 02/14/21 09:28 Metoprolol Tartrate 50 Mg Tab PO 50 mg BID GERRI Administration Nystatin 1 applic 02/13/21 22:00 02/14/21 09:26 Nystatin Powder 15 Gm TP 1 applic BID GERRI Administration Ondansetron HCl 4 mg 02/10/21 00:00 Ondansetron 4 Mg Odt Tab PO Q4H PRN Nausea Ondansetron HCl 4 mg 02/10/21 00:03 Ondansetron 4 Mg/2 Ml Inj IV Q8H PRN Nausea And Vomiting Pantoprazole Sodium 40 mg 02/10/21 10:00 02/14/21 09:28 Pantoprazole 40 Mg Tab PO 40 mg QAM GERRI Administration Rivaroxaban 15 mg 02/10/21 22:00 02/13/21 21:57 Rivaroxaban 15 Mg Tab PO 15 mg QHS GERRI Administration Sodium Chloride 10 ml 02/10/21 10:00 02/14/21 09:32 Sodium Chloride 0.9% 10 Ml Flush Syringe IV 10 ml BID GERRI Administration Sodium Chloride 10 ml 02/10/21 00:03 Sodium Chloride 0.9% 10 Ml Flush Syringe IV PRN PRN LINE FLUSH Sodium Polystyrene Sulfonate 30 gm 02/14/21 08:30 02/14/21 09:27 Sodium Polystyrene 15 Gm/60 Ml Oral Liqd PO 02/14/21 12:01 30 gm Q6HR GERRI Administration
--- NOTE | 2021-02-14 10:55 | Progress Note ---
Assessment and Plan - Patient Problems (1) Congestive heart failure Current Visit: Yes Status: Acute Plan to address problem: Continue medical therapy as previously outlined. Echocardiogram is pending for reassessment of left ventricular ejection fraction. (2) Atrial fibrillation Current Visit: Yes Status: Acute Plan to address problem: Continue rate control and oral anticoagulation strategy of chronic atrial fibrillation. Subjective Date of service: 02/14/21 Principal diagnosis: encephalopathy Interval history: Patient is comfortable, no acute distress. No new cardiac complaints reported. Objective Vital Signs Temp Pulse Resp BP BP Pulse Ox 02/14/21 09:31 69 116/82 02/14/21 09:28 69 116/82 02/14/21 08:01 91 02/14/21 07:42 97.8 F 69 18 116/82 97 02/14/21 03:50 97.3 F L 80 20 134/64 98 02/14/21 01:00 110 H 02/13/21 23:27 97.5 F L 103 H 20 122/73 93 02/13/21 20:43 100 02/13/21 19:22 97.2 F L 124 H 20 123/79 96 02/13/21 17:00 112 H 02/13/21 14:33 55 L 93 02/13/21 14:32 130/73 02/13/21 13:45 130 H 02/13/21 13:05 70 121/85 96 02/13/21 13:04 97.1 F L 105 H 18 121/85 96 - Physical Examination General: No Apparent Distress HEENT: Positive: PERRL Neck: Positive: neck supple Cardiac: Positive: irregularly irregular Lungs: Positive: Decreased Breath Sounds Neuro: Positive: Weakness Abdomen: Positive: Soft Skin: Positive: Clear Extremities: Absent: edema - Labs and Meds Comprehensive Metabolic Panel 02/14/21 Range/Units 03:44 Sodium 138 (137-145) mmol/L Potassium 5.5 H (3.6-5.0) mmol/L Chloride 106.5 (98-107) mmol/L Carbon Dioxide 21 L (22-30) mmol/L BUN 39 H (7-17) mg/dL Creatinine 1.3 H (0.6-1.2) mg/dL Glucose 83 (65-100) mg/dL Calcium 8.9 (8.4-10.2) mg/dL
[2021-02-14] MEDS: FUROSEMIDE 40 MG TAB PO SCH (12:02)
--- NOTE | 2021-02-14 13:48 | Progress Note ---
Assessment and Plan Assessment and plan: 1) Acute encephalopathy Current Visit: Yes Status: Acute Plan to address problem: Resolving Etiology may be lorazepam Lorazepam discontinued (2) ARMIDA (acute kidney injury) Current Visit: Yes Status: Acute Plan to address problem: Possible ARMIDA superimposed on chronic kidney disease Nephrology consult requested (3) Acute exacerbation of CHF (congestive heart failure) Current Visit: Yes Status: Acute Qualifiers: Heart failure type: combined systolic and diastolic Qualified Code(s): I50.43 - Acute on chronic combined systolic (congestive) and diastolic (congestive) heart failure Plan to address problem: IV Lasix for now BNP is high--18,914 (4) Hyperkalemia Current Visit: Yes Status: Acute Plan to address problem: Treated Recheck potassium level (5) Hyponatremia Current Visit: Yes Status: Acute Plan to address problem: Mild with sodium of 133 No intervention at this point (6) Hypothyroidism (acquired) Current Visit: Yes Status: Chronic Plan to address problem: Continue Synthroid and check TSH (7) Hypertension Current Visit: Yes Status: Chronic Qualifiers: Hypertension type: primary hypertension Qualified Code(s): I10 - Essential (primary) hypertension Plan to address problem: Continue antihypertensives (8) GERD (gastroesophageal reflux disease) Current Visit: Yes Status: Chronic Qualifiers: Esophagitis presence: with esophagitis Plan to address problem: Continue PPIs (9) DVT prophylaxis Current Visit: Yes Status: Acute Plan to address problem: Patient on Xarelto for valvuloplasty of aortic valve and GI prophylaxis 02/10/2021 -Patient was confused. She states she is unaware she is in the hospital. Neurology and nephrology consult appreciated. Need PT OT evaluation. Cardiology consulted. 02/11/2021 -Patient was confused and neurology is following. -Patient was seen by cardiology and recommend to continue anticoagulation and medical management. -Patient was seen by nephrology and recommend to continue current management, monitor BMP. -Patient came from [facility]. -Blood pressure is well controlled. 02/12/2021 -Patient with ARMIDA, CHF. She is still confused. ARMIDA improving. Cr 1.7 today. She is followed by Nephrology and Cardiology. Continue Xarelto for aortic valve valvulopolasty. Follow labs in am 02/13/21 Patient with acute kidney injury, CHF. Cr improving 1.4 today. However she has mild hyperkalemia with Potassium 5.1. Nephrology following. Will repeat labs in am. Continue Xarelto. Cardiology following too. 02/14/21 Patient with acute kidney injury, congestive heart failure. She is followed by nephrology, Cardiology. Potassium 5.5 today, so Kayexalate ordered Cr 1.3 today improving On Xarelto for valvuloplasty of aortic valve SOB today Chest X ray ordered , pending History Interval history: Patient confused. Cannot give a history Hospitalist Physical - Physical exam Narrative exam: Not in cardiopulmonary distress. The patient appeared well nourished and normally developed. Vital signs as documented. Head exam is unremarkable. No scleral icterus . Neck is without jugular venous distension, thyromegaly, or carotid bruits. Lungs are clear to auscultation. Cardiac exam reveals regular rate and Rhythm. Abdominal exam reveals normal bowel sounds, nontender, no organomegaly. Extremities are nonedematous and both femoral and pedal pulses are normal. 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 - Constitutional Vitals: Temp Pulse Resp BP Pulse Ox 97.8 F 149 H 18 133/91 84 02/14/21 11:28 02/14/21 12:40 02/14/21 11:28 02/14/21 11:28 02/14/21 11:28 General appearance: Present: other (Patient is frail, elderly, appears stuporous but no acute respiratory distress) HEART Score - HEART Score Age: > 65 Risk factors: > 3 risk factors or hx of atherosclerotic disease Troponin: Troponin T < 0.010 ng/mL (0.00-0.029) 02/09/21 21:05 Troponin: < normal limit - Critical Actions Critical Actions: 0-3 pts:0.9-1.7%risk of adverse cardiac event.Candidate for discharge Results - Labs CBC & Chem 7: 02/11/21 05:51 02/14/21 03:44 Labs: Laboratory Last Values WBC 9.1 K/mm3 (4.5-11.0) 02/11/21 05:51 RBC 3.94 M/mm3 (3.65-5.03) 02/11/21 05:51 Hgb 12.0 gm/dl (10.1-14.3) 02/11/21 05:51 Hct 37.0 % (30.3-42.9) 02/11/21 05:51 MCV 94 fl (79-97) 02/11/21 05:51 MCH 31 pg (28-32) 02/11/21 05:51 MCHC 32 % (30-34) 02/11/21 05:51 RDW 20.0 % (13.2-15.2) H 02/11/21 05:51 Plt Count 179 K/mm3 (140-440) 02/11/21 05:51 Lymph % (Auto) 13.6 % (13.4-35.0) 02/11/21 05:51 [place] % (Auto) 10.8 % (0.0-7.3) H 02/11/21 05:51 Eos % (Auto) 1.9 % (0.0-4.3) 02/11/21 05:51 Baso % (Auto) 0.4 % (0.0-1.8) 02/11/21 05:51 Lymph # (Auto) 1.2 K/mm3 (1.2-5.4) 02/11/21 05:51 [place] # (Auto) 1.0 K/mm3 (0.0-0.8) H 02/11/21 05:51 Eos # (Auto) 0.2 K/mm3 (0.0-0.4) 02/11/21 05:51 Baso # (Auto) 0.0 K/mm3 (0.0-0.1) 02/11/21 05:51 Seg Neutrophils % 73.3 % (40.0-70.0) H 02/11/21 05:51 Seg Neutrophils # 6.6 K/mm3 (1.8-7.7) 02/11/21 05:51 PT 29.2 Sec. (12.2-14.9) H 02/11/21 15:24 INR 2.74 (0.87-1.13) H 02/11/21 15:24 APTT 40.7 Sec. (24.2-36.6) H 02/11/21 15:24 Sodium 138 mmol/L (137-145) 02/14/21 03:44 Potassium 5.5 mmol/L (3.6-5.0) H 02/14/21 03:44 Chloride 106.5 mmol/L (98-107) 02/14/21 03:44 Carbon Dioxide 21 mmol/L (22-30) L 02/14/21 03:44 Anion Gap 16 mmol/L 02/14/21 03:44 BUN 39 mg/dL (7-17) H 02/14/21 03:44 Creatinine 1.3 mg/dL (0.6-1.2) H 02/14/21 03:44 Estimated GFR 39 ml/min 02/14/21 03:44 BUN/Creatinine Ratio 30 % 02/14/21 03:44 Glucose 83 mg/dL (65-100) 02/14/21 03:44 POC Glucose 112 mg/dL (70-105) H 02/13/21 20:50 Hemoglobin A1c 5.6 % (4-6) 02/10/21 04:34 Calcium 8.9 mg/dL (8.4-10.2) 02/14/21 03:44 Magnesium 2.60 mg/dL (1.7-2.3) H 02/09/21 15:50 Total Bilirubin 0.90 mg/dL (0.1-1.2) 02/10/21 04:34 AST 35 units/L (5-40) 02/10/21 04:34 ALT 22 units/L (7-56) 02/10/21 04:34 Alkaline Phosphatase 60 units/L (35-129) 02/10/21 04:34 Ammonia 34.0 umol/L (25-60) 02/09/21 17:20 Troponin T < 0.010 ng/mL (0.00-0.029) 02/09/21 21:05 NT-Pro-B Natriuret Pep 11087 pg/mL (0-900) H 02/09/21 15:50 Total Protein 6.2 g/dL (6.3-8.2) L 02/10/21 04:34 Albumin 3.2 g/dL (3.9-5) L 02/10/21 04:34 Albumin/Globulin Ratio 1.1 % 02/10/21 04:34 PTH Intact 75.78 pg/mL (15-65) H 02/11/21 05:51 Urine Color Yellow (Yellow) 02/10/21 19:12 Urine Turbidity Clear (Clear) 02/10/21 19:12 Urine pH 5.0 (5.0-7.0) 02/10/21 19:12 Ur Specific [place] 1.009 (1.003-1.030) 02/10/21 19:12 Urine Protein <15 mg/dl mg/dL (Negative) 02/10/21 19:12 Urine Glucose (UA) Neg mg/dL (Negative) 02/10/21 19:12 Urine Ketones Neg mg/dL (Negative) 02/10/21 19:12 Urine Blood Sm (Negative) 02/10/21 19:12 Urine Nitrite Neg (Negative) 02/10/21 19:12 Urine Bilirubin Neg (Negative) 02/10/21 19:12 Urine Urobilinogen < 2.0 mg/dL (<2.0) 02/10/21 19:12 Ur Leukocyte Esterase Tr (Negative) 02/10/21 19:12 Urine WBC (Auto) 8.0 /HPF (0.0-6.0) H 02/10/21 19:12 Urine RBC (Auto) 4.0 /HPF (0.0-6.0) 02/10/21 19:12 U Epithel Cells (Auto) 4.0 /HPF (0-13.0) 02/10/21 19:12 Urine WBC Clumps 2+ /HPF 02/09/21 Unknown Hyaline Casts 7 /LPF 02/10/21 19:12 Urine Mucus Few /HPF 02/10/21 19:12 Nasal Screen MRSA (PCR) Negative (Negative) 02/10/21 Unknown Urine Opiates Screen Presumptive negative 02/09/21 Unknown Urine Methadone Screen Presumptive negative 02/09/21 Unknown Ur Barbiturates Screen Presumptive negative 02/09/21 Unknown Ur Phencyclidine Scrn Presumptive negative 02/09/21 Unknown Ur Amphetamines Screen Presumptive negative 02/09/21 Unknown U Benzodiazepines Scrn Presumptive negative 02/09/21 Unknown Urine Cocaine Screen Presumptive negative 02/09/21 Unknown U Marijuana (THC) Screen Presumptive negative 02/09/21 Unknown Drugs of Abuse Note Disclamer 02/09/21 Unknown Coronavirus (PCR) Negative (Negative) 02/11/21 Unknown Microbiology: Microbiology 02/09/21 17:20 Peripheral/Venous Blood Culture - Preliminary NO GROWTH AFTER 4 DAYS 02/09/21 17:20 Peripheral/Venous Blood Culture - Preliminary NO GROWTH AFTER 4 DAYS Rest[place]/IV: Voiding Method Incontinent Active Medications - Current Medications Current Medications: Generic Name Dose Route Start Last Admin Trade Name Freq PRN Reason Stop Dose Admin Acetaminophen 650 mg 02/10/21 00:03 02/13/21 22:06 Acetaminophen 325 Mg Tab PO 650 mg Q4H PRN Administration Pain MILD(1-3)/Fever >100.5/GABRIEL Bisacodyl 10 mg 02/10/21 10:00 02/14/21 09:27 Bisacodyl 10 Mg Rect Supp [place] 10 mg QDAY GERRI Administration Buspirone HCl 5 mg 02/10/21 10:00 02/14/21 09:27 Buspirone 5 Mg Tab PO 5 mg BID GERRI Administration Cetirizine HCl 10 mg 02/10/21 10:00 02/14/21 09:28 Cetirizine 10 Mg Tab PO 10 mg QAM GERRI Administration Cyproheptadine HCl 4 mg 02/10/21 07:30 02/14/21 12:02 Cyproheptadine 4 Mg Tab PO 4 mg TIDAC GERRI Administration Diltiazem HCl 120 mg 02/10/21 10:00 02/14/21 09:31 Diltiazem Cd 120 Mg Cap PO 120 mg DAILY GERRI Administration Furosemide 40 mg 02/14/21 11:00 02/14/21 12:02 Furosemide 40 Mg Tab PO 40 mg QDAY GERRI Administration Gabapentin 100 mg 02/11/21 14:00 02/14/21 09:27 Gabapentin 100 Mg Cap PO 100 mg BID GERRI Administration Hydromorphone HCl 0.5 mg 02/10/21 00:03 Hydromorphone 1 Mg/1 Ml Inj IV Q3H PRN Pain , Severe (7-10) Hyoscyamine 0.125 mg 02/10/21 00:00 02/14/21 12:02 Hyoscyamine Subl 0.125 Mg Tab SL 0.125 mg Q6HR GERRI Administration Sodium Chloride 1,000 mls @ 75 mls/hr 02/10/21 00:15 02/14/21 10:04 Nacl 0.9% 1000 Ml IV 75 mls/hr DIRECT GERRI Administration Ceftriaxone Sodium 1 gm in 50 mls @ 100 mls/hr 02/13/21 19:30 02/13/21 21:57 Rocephin/Ns 1 Gm/50 Ml IV Infused Q24H GERRI Infusion Protocol Levothyroxine Sodium 100 mcg 02/10/21 06:00 02/14/21 06:05 Levothyroxine 100 Mcg Tab PO 100 mcg QAM@0600 GERRI Administration Metoclopramide HCl 5 mg 02/10/21 00:03 Metoclopramide 10 Mg/2 Ml Inj IV Q6H PRN Nausea And Vomiting Metoprolol Tartrate 50 mg 02/10/21 11:00 02/14/21 09:28 Metoprolol Tartrate 50 Mg Tab PO 50 mg BID GERRI Administration Nystatin 1 applic 02/13/21 22:00 02/14/21 09:26 Nystatin Powder 15 Gm TP 1 applic BID GERRI Administration Ondansetron HCl 4 mg 02/10/21 00:00 Ondansetron 4 Mg Odt Tab PO Q4H PRN Nausea Ondansetron HCl 4 mg 02/10/21 00:03 Ondansetron 4 Mg/2 Ml Inj IV Q8H PRN Nausea And Vomiting Pantoprazole Sodium 40 mg 02/10/21 10:00 02/14/21 09:28 Pantoprazole 40 Mg Tab PO 40 mg QAM GERRI Administration Rivaroxaban 15 mg 02/10/21 22:00 02/13/21 21:57 Rivaroxaban 15 Mg Tab PO 15 mg QHS GERRI Administration Sodium Chloride 10 ml 02/10/21 10:00 02/14/21 09:32 Sodium Chloride 0.9% 10 Ml Flush Syringe IV 10 ml BID GERRI Administration Sodium Chloride 10 ml 02/10/21 00:03 Sodium Chloride 0.9% 10 Ml Flush Syringe IV PRN PRN LINE FLUSH Nutrition/Malnutrition Assess - Dietary Evaluation Nutrition/Malnutrition Findings: Nutrition Notes Start: 02/10/21 11:29 Freq: Status: Active Protocol: Document 02/14/21 12:17 [facility] (Rec: 02/14/21 12:21 [facility] [id number]) Nutrition Notes Initial or Follow up Brief Note Current Diet Cardiac Labs/Tests K 5.5 BUN 39 Cr 1.3 Pertinent Medications Kionex q6h Height 5 ft 7 in Weight 68.8 kg [place] Body Weight (kg) 61.36 BMI 23.7 Subjective/Other Information Pt has consumed 60% of meals since last assessment. She remains confused. Percent of energy/protein needs met: 96% energy 93% pro Minimum of two criteria No Is patient on ventilator? No Is Patient Ambulatory and/or Out of Bed No REE-([place]-confined to bed) 2968.376 Calculation Used for Recommendations Kcal/kg Additional Notes Pro needs 0.8-1.2g/k-83g/ day Fluid needs 1ml/kcal Nutrition Intervention Revisit per MD consult or patient Sign Off request:
--- NOTE | 2021-02-14 13:51 | XRay Report ---
CHEST 1 VIEW INDICATION: Oxygen desat. COMPARISON: 02/09/2021 FINDINGS: Support devices: Stable positioning of the pacemaker device Heart: Stable borderline heart size with previous valvuloplasty. Lungs/Pleura: The interstitium remains slightly prominent. There is minor airspace opacity at the lef t lung base which could represent atelectasis or less likely early infiltrate. Otherwise the lungs ar e generally clear. No large pleural effusion or pneumothorax. Additional findings: None. IMPRESSION: Chronic interstitial changes. Minor airspace opacity at the left lung base which probably represents atelectatic changes. No overwhelming change since 02/09/2021. Signer Name: Marvin Garcia Jr, MD Signed: 02/14/2021 1:47 PM Workstation Name: [id number]
[2021-02-14] MEDS: cefTRIAXone/NS 1 GM/50 ML 1 GM/50 ML BAG IV SCH (21:25)
[2021-02-14] MEDS: RIVAROXABAN 15 MG TAB PO SCH (22:37)
[2021-02-15] MEDS: HYOSCYAMINE SUBL 0.125 MG TAB SL SCH ×4 (00:25→17:48)
[2021-02-15 05:56] LABS: Hematocrit 39.1 % (30.3-42.9); Hemoglobin 12.5 gm/dl (10.1-14.3); Mean Corpuscular HGB Conc 32 % (30-34); Mean Corpuscular Volume 97 fl (79-97); Platelet Count 163 K/mm3 (140-440); Red Blood Count 4.04 M/mm3 (3.65-5.03)
[2021-02-15 06:08] LABS: Red Cell Distribution Width 20.4 % (13.2-15.2)
[2021-02-15 06:19] LABS: Calcium 8.4 mg/dL (8.4-10.2)
[2021-02-15] MEDS: LEVOTHYROXINE 100 MCG TAB PO SCH (06:34)
[2021-02-15] MEDS ORDERED: SODIUM BICARBONATE 100 MEQ in DEXTROSE 5% IN WATER 1,000 ML IV SCH (08:00)
[2021-02-15] MEDS: CYPROHEPTADINE 4 MG TAB PO SCH ×3 (08:40→17:48)
--- NOTE | 2021-02-15 08:53 | Progress Note ---
Assessment and Plan 1. Acute kidney injury: RAMIDA in the setting of CHF. CT abdomen negative for hydro. Urine studies ordered. Baseline renal function is unknown. Most likely background CKD. Monitor renal function. Creatinine level is improving. Avoid nephrotoxic agents. Meds dosage based on GFR. 2. FEN: Metabolic acidosis, started on bicarb drip, monitor. Hyperkalemia, improved, monitor. Monitor lytes. 3. Decompensated CHF: Strict I/O. On Metoprolol. Followed by Cards. 4. Chronic A.fib // PPM // Transaortic valve replacement: On Cardizem, Metoprolol and Xarelto. Monitor. 5. Hypertension: BP is controlled. Adjust meds as needed. Monitor. Subjective: Patient was seen and examined at the bedside. Examination: General appearance: well-developed, appears stated age, not in distress HEENT: ATNC, pupils equal Neck: supple Respiratory: ctab Cardiology: S1S2, no murmur Gastrointestinal: soft, bowel sounds heard, not tender Integumentary: warm and dry Neurologic: alert, confused, moving extremities Ext: no edema Subjective Date of service: 02/15/21 Principal diagnosis: encephalopathy Objective - Vital Signs Vital signs: Vital Signs - 12hr 02/14/21 02/14/21 02/14/21 21:46 22:00 22:36 Temperature Pulse Rate 98 H Respiratory 18 Rate Blood Pressure 154/91 O2 Sat by Pulse 97 95 Oximetry 02/14/21 02/15/21 02/15/21 23:12 03:54 04:00 Temperature 97.6 F Pulse Rate 87 62 78 Respiratory 20 Rate Blood Pressure 131/102 149/108 O2 Sat by Pulse 100 100 Oximetry 02/15/21 08:12 Temperature 97.4 F L Pulse Rate 82 Respiratory 18 Rate Blood Pressure 139/120 O2 Sat by Pulse 90 Oximetry - Lab 02/15/21 05:40 02/15/21 05:40 Most recent lab results Calcium 8.4 mg/dL (8.4-10.2) 02/15/21 05:40 Magnesium 2.60 mg/dL (1.7-2.3) H 02/09/21 15:50 Medications & Allergies - Medications Allergies/Adverse Reactions: Allergies codeine Allergy (Verified 02/09/21 16:11) Unknown morphine Allergy (Verified 02/09/21 16:11) Unknown Sulfa (Sulfonamide Antibiotics) Allergy (Verified 02/09/21 16:11) Unknown zolpidem [From Ambien] Allergy (Verified 02/09/21 16:11) Unknown Home Medications: Home Medications Medication Instructions Recorded Confirmed Last Taken Type Cyproheptadine HCl 4 mg PO Q8HR 02/09/21 02/09/21 Unknown History Furosemide [Lasix] 20 mg PO QDAY 02/09/21 02/09/21 Unknown History Hydromorphone HCl/0.9% NaCl/Pf 1 mg PO Q2HR PRN 02/09/21 02/09/21 Unknown History [Hydromorphone 1 mg/ml-Ns Syrng] Hyoscyamine Subl [Levsin Sl 0.125 0.125 mg SL Q6HR 02/09/21 02/09/21 Unknown History TAB] LORazepam [Ativan] 0.5 mg PO Q6H PRN 02/09/21 02/09/21 Unknown History Levothyroxine [Synthroid] 100 mcg PO QAM 02/09/21 02/09/21 Unknown History Loratadine 10 mg PO QAM 02/09/21 02/09/21 Unknown History Metoprolol Tartrate [Lopressor] 100 mg PO BID 02/09/21 02/09/21 Unknown History Ondansetron [Zofran Odt] 4 mg PO Q4HR PRN 02/09/21 02/09/21 Unknown History Pantoprazole Sodium 40 mg PO QAM 02/09/21 02/09/21 Unknown History Rivaroxaban [Xarelto] 15 mg PO QHS 02/09/21 02/09/21 Unknown History bisacodyL [Dulcolax suppos] 10 mg [place] QDAY 02/09/21 02/09/21 Unknown History busPIRone [Buspar] 5 mg PO BID 02/09/21 02/09/21 Unknown History dilTIAZem CD [Cardizem Cd] 120 mg PO DAILY 02/09/21 02/09/21 Unknown History traMADoL [Ultram] 50 mg PO Q6HR PRN 02/09/21 02/09/21 Unknown History Active Medications: Generic Name Dose Route Start Last Admin Trade Name Freq PRN Reason Stop Dose Admin Acetaminophen 650 mg 02/10/21 00:03 02/13/21 22:06 Acetaminophen 325 Mg Tab PO 650 mg Q4H PRN Administration Pain MILD(1-3)/Fever >100.5/GABRIEL Bisacodyl 10 mg 02/10/21 10:00 02/14/21 10:12 Bisacodyl 10 Mg Rect Supp [place] Not Given QDAY GERRI Buspirone HCl 5 mg 02/10/21 10:00 02/14/21 22:37 Buspirone 5 Mg Tab PO 5 mg BID GERRI Administration Cetirizine HCl 10 mg 02/10/21 10:00 02/14/21 09:28 Cetirizine 10 Mg Tab PO 10 mg QAM GERRI Administration Cyproheptadine HCl 4 mg 02/10/21 07:30 02/14/21 18:11 Cyproheptadine 4 Mg Tab PO 4 mg TIDAC GERRI Administration Diltiazem HCl 120 mg 02/10/21 10:00 02/14/21 09:31 Diltiazem Cd 120 Mg Cap PO 120 mg DAILY GERRI Administration Furosemide 40 mg 02/14/21 11:00 02/14/21 12:02 Furosemide 40 Mg Tab PO 40 mg QDAY GERRI Administration Gabapentin 100 mg 02/11/21 14:00 02/14/21 22:37 Gabapentin 100 Mg Cap PO 100 mg BID GERRI Administration Hydromorphone HCl 0.5 mg 02/10/21 00:03 Hydromorphone 1 Mg/1 Ml Inj IV Q3H PRN Pain , Severe (7-10) Hyoscyamine 0.125 mg 02/10/21 00:00 02/15/21 06:34 Hyoscyamine Subl 0.125 Mg Tab SL 0.125 mg Q6HR GERRI Administration Ceftriaxone Sodium 1 gm in 50 mls @ 100 mls/hr 02/13/21 19:30 02/14/21 21:25 Rocephin/Ns 1 Gm/50 Ml IV 100 mls/hr Q24H GERRI Administration Protocol Sodium Bicarbonate 100 meq/ 1,100 mls @ 60 mls/hr 02/15/21 08:00 02/15/21 08:30 Dextrose IV 60 mls/hr DIRECT GERRI Administration Levothyroxine Sodium 100 mcg 02/10/21 06:00 02/15/21 06:34 Levothyroxine 100 Mcg Tab PO 100 mcg QAM@0600 GERRI Administration Metoclopramide HCl 5 mg 02/10/21 00:03 Metoclopramide 10 Mg/2 Ml Inj IV Q6H PRN Nausea And Vomiting Metoprolol Tartrate 50 mg 02/10/21 11:00 02/14/21 22:36 Metoprolol Tartrate 50 Mg Tab PO 50 mg BID GERRI Administration Nystatin 1 applic 02/13/21 22:00 02/14/21 22:38 Nystatin Powder 15 Gm TP 1 applic BID GERRI Administration Ondansetron HCl 4 mg 02/10/21 00:00 Ondansetron 4 Mg Odt Tab PO Q4H PRN Nausea Ondansetron HCl 4 mg 02/10/21 00:03 Ondansetron 4 Mg/2 Ml Inj IV Q8H PRN Nausea And Vomiting Pantoprazole Sodium 40 mg 02/10/21 10:00 02/14/21 09:28 Pantoprazole 40 Mg Tab PO 40 mg QAM GERRI Administration Rivaroxaban 15 mg 02/10/21 22:00 02/14/21 22:37 Rivaroxaban 15 Mg Tab PO 15 mg QHS GERRI Administration Sodium Chloride 10 ml 02/10/21 10:00 02/14/21 22:38 Sodium Chloride 0.9% 10 Ml Flush Syringe IV 10 ml BID GERRI Administration Sodium Chloride 10 ml 02/10/21 00:03 Sodium Chloride 0.9% 10 Ml Flush Syringe IV PRN PRN LINE FLUSH
[2021-02-15] MEDS: dilTIAZem CD 120 MG CAP PO SCH (09:39)
[2021-02-15] MEDS: CETIRIZINE 10 MG TAB PO SCH (09:40)
[2021-02-15] MEDS: busPIRone 5 MG TAB PO SCH ×2 (09:40→22:19)
[2021-02-15] MEDS: GABAPENTIN 100 MG CAP PO SCH ×2 (09:40→22:19)
[2021-02-15] MEDS: PANTOPRAZOLE 40 MG TAB PO SCH (09:40)
[2021-02-15] MEDS: FUROSEMIDE 40 MG TAB PO SCH (09:41)
[2021-02-15] MEDS: METOPROLOL TARTRATE 50 MG TAB PO SCH ×2 (09:41→22:19)
[2021-02-15] MEDS: NYSTATIN POWDER 15 GM TP SCH ×2 (09:42→22:22)
--- NOTE | 2021-02-15 11:43 | Progress Note ---
Assessment and Plan - Patient Problems (1) Congestive heart failure Current Visit: Yes Status: Acute Plan to address problem: Echocardiogram shows only mild left ventricular systolic dysfunction with ejection fraction 45 to 50%. The most significant abnormalities on echo is marked dilatation of both left and right atria, consistent with the chronic atrial fibrillation. The right ventricle is also dilated and hypocontractile, with at least moderate pulmonary hypertension with pulmonary artery systolic pressure of 52, suggestive of cor pulmonale. Continue conservative cardiac management, rate control strategy of chronic atrial fibrillation, oral anticoagulation. (2) Atrial fibrillation Current Visit: Yes Status: Acute Subjective Date of service: 02/15/21 Principal diagnosis: encephalopathy Interval history: Patient is comfortable on bedrest, no acute distress. No new cardiac complaints have been reported. Objective Vital Signs Temp Pulse Resp BP Pulse Ox 02/15/21 11:32 94 02/15/21 09:41 82 140/92 02/15/21 09:39 112 H 140/98 02/15/21 08:12 97.4 F L 82 18 139/120 90 02/15/21 04:00 78 02/15/21 03:54 62 149/108 100 02/14/21 23:12 97.6 F 87 20 131/102 100 02/14/21 22:36 98 H 154/91 02/14/21 22:00 18 95 02/14/21 21:46 97 02/14/21 19:37 97.3 F L 98 H 20 154/91 86 02/14/21 15:49 97.4 F L 68 18 148/97 92 02/14/21 12:40 149 H - Physical Examination General: No Apparent Distress HEENT: Positive: PERRL Neck: Positive: neck supple Cardiac: Positive: irregularly irregular Lungs: Positive: Decreased Breath Sounds Neuro: Positive: Weakness Abdomen: Positive: Soft Skin: Positive: Clear Extremities: Absent: edema - Labs and Meds CBC 02/15/21 Range/Units 05:40 WBC 10.5 (4.5-11.0) K/mm3 RBC 4.04 (3.65-5.03) M/mm3 Hgb 12.5 (10.1-14.3) gm/dl Hct 39.1 (30.3-42.9) % Plt Count 163 (140-440) K/mm3 Comprehensive Metabolic Panel 07/20/21 Range/Units 05:40 Sodium 140 (137-145) mmol/L Potassium 5.0 (3.6-5.0) mmol/L Chloride 110.7 H (98-107) mmol/L Carbon Dioxide 13 L D (22-30) mmol/L BUN 33 H (7-17) mg/dL Creatinine 1.4 H (0.6-1.2) mg/dL Glucose 99 (65-100) mg/dL Calcium 8.4 (8.4-10.2) mg/dL
--- NOTE | 2021-02-15 14:55 | Progress Note ---
Assessment and Plan The patient is an 89 YO female with history significant for Hypertension, Aortic valve repair, Hypothyroidism and recent pacemaker placement who was brought in by EMS to [facility] ED 02/09 for evaluation of shortness of breath and altered sensorium. 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, pulmonary consulted --Acute respiratory failure, patient on supplemental O2 likely due to pulmonary hypertension, tricuspid valve regurgitation and underlying CHF Continue supplemental O2 as tolerated and Lasix as needed -- Acute encephalopathy Etiology may be lorazepam Lorazepam discontinued Patient also has underlying dementia CT head is unremarkable --History of dementia, continue supportive care and follow clinically -- ARMIDA (acute kidney injury) Possible ARMIDA superimposed on chronic kidney disease Nephrology consult requested, Cr stable -- Hyperkalemia Treated and now normal -- Hyponatremia Mild with sodium of 133 and improved --Hypothyroidism (acquired) Continue Synthroid -- Hypertension, chronic Continue antihypertensives and adjust BP meds as needed -- GERD (gastroesophageal reflux disease) Continue PPIs -- DVT prophylaxis Patient on Xarelto for valvuloplasty of aortic valve and GI prophylaxis Daily clinical course: 02/10/2021 -Patient was confused. She states she is unaware she is in the hospital. Neurology and nephrology consult appreciated. Need PT OT evaluation. Cardiology consulted. 02/11/2021 -Patient was confused and neurology is following. -Patient was seen by cardiology and recommend to continue anticoagulation and medical management. -Patient was seen by nephrology and recommend to continue current management, monitor BMP. -[facility]. -Blood pressure is well controlled. 02/12/2021 -Patient with ARMIDA, CHF. She is still confused. ARMIDA improving. Cr 1.7 today. She is followed by Nephrology and Cardiology. Continue Xarelto for aortic valve valvulopolasty. Follow labs in am 02/13/21 Patient with acute kidney injury, CHF. Cr improving 1.4 today. However she has mild hyperkalemia with Potassium 5.1. Nephrology following. Will repeat labs in am. Continue Xarelto. Cardiology following too. 02/14/21 Patient with acute kidney injury, congestive heart failure. She is followed by nephrology, Cardiology. Potassium 5.5 today, so Kayexalate ordered Cr 1.3 today improving On Xarelto for valvuloplasty of aortic valve SOB today Chest X ray ordered , pending 02/15/21; chest x-ray yesterday showed bibasilar atelectasis and chronic interstitial changes. 2D EHO SHOWED EF 40-45% with moderate to severe PHTN. lasix on hold as pt euvolumic. consult pulmonary for PHTN. discussed with patient's daughter at the bedside. Subjective Date of service: 02/15/21 Principal diagnosis: encephalopathy Interval history: Patient seen and examined. Medical records and medication list reviewed. No acute event overnight noted by the RN. Patient remains confused but able to follow command. Patient is tolerating diet but appetite is poor. Discussed plan of care at bedside with patient;s RN and CM. Objective - Exam Narrative Exam: GENERAL: well-developed and well-nourished elderly white female lying on bed HEENT: Normocephalic. Atraumatic. No conjunctival congestion or icterus. Patient has moist mucous membranes. NECK: Supple. Trachea midline. CHEST/LUNGS: Patient on nasal cannula O2, did not appreciate any crackles, positive for few rhonchi HEART/CARDIOVASCULAR: Regular in rate and rhythm. S1 and S2 positive. ABDOMEN: Abdomen is soft, nontender. Patient has normal bowel sounds. SKIN: There is no rash. Warm and dry. NEURO: No focal motor deficit. Follows command but patient is pleasantly confused. MUSCULOSKELETAL: No joint effusion or tenderness. EXTRIMITY: No edema, no cyanosis or clubbing. PSYCH: Cooperative. - Constitutional Vitals: Vital Signs - 12hr 02/15/21 02/15/21 02/15/21 03:54 04:00 08:12 Temperature 97.4 F L Pulse Rate 62 78 82 Respiratory 18 Rate Blood Pressure 149/108 139/120 O2 Sat by Pulse 100 90 Oximetry 02/15/21 02/15/21 02/15/21 09:39 09:41 10:00 Temperature Pulse Rate 112 H 82 Respiratory 18 Rate Blood Pressure 140/98 140/92 O2 Sat by Pulse 94 Oximetry 02/15/21 02/15/21 11:10 11:32 Temperature 97.4 F L Pulse Rate 84 Respiratory 18 Rate Blood Pressure 134/61 O2 Sat by Pulse 92 94 Oximetry - Labs CBC & Chem 7: 02/15/21 05:40 02/22/21 05:09 Labs: Abnormal lab results 02/15/21 02/15/21 02/15/21 Range/Units 05:40 05:40 08:07 RDW 20.4 H (13.2-15.2) % Chloride 110.7 H (98-107) mmol/L Carbon Dioxide 13 L D (22-30) mmol/L BUN 33 H (7-17) mg/dL Creatinine 1.4 H (0.6-1.2) mg/dL POC Glucose 124 H (70-105) mg/dL 02/15/21 Range/Units 11:41 RDW (13.2-15.2) % Chloride (98-107) mmol/L Carbon Dioxide (22-30) mmol/L BUN (7-17) mg/dL Creatinine (0.6-1.2) mg/dL POC Glucose 142 H (70-105) mg/dL HEART Score - HEART Score Age: > 65 Risk factors: > 3 risk factors or hx of atherosclerotic disease Troponin: Troponin T < 0.010 ng/mL (0.00-0.029) 02/09/21 21:05 Troponin: < normal limit - Critical Actions Critical Actions: 0-3 pts:0.9-1.7%risk of adverse cardiac event.Candidate for discharge
[2021-02-15] MEDS: cefTRIAXone/NS 1 GM/50 ML 1 GM/50 ML BAG IV SCH (20:25)
[2021-02-15] MEDS: RIVAROXABAN 15 MG TAB PO SCH (22:19)
[2021-02-16] MEDS: HYOSCYAMINE SUBL 0.125 MG TAB SL SCH ×4 (00:45→17:49)
[2021-02-16] MEDS: LEVOTHYROXINE 100 MCG TAB PO SCH (06:29)
[2021-02-16] MEDS: CYPROHEPTADINE 4 MG TAB PO SCH ×3 (09:10→17:50)
--- NOTE | 2021-02-16 09:26 | Cat Scan Report ---
CT HEAD WITHOUT CONTRAST HISTORY: Altered Mental Status. TECHNIQUE: Axial imaging performed from the skull apex through the skull base without the use of con trast. All CT scans at this location are performed using CT dose reduction for ALARA by means of aut omated exposure control. COMPARISON: 02/09/2021 FINDINGS: Parenchyma: No acute intracranial hemorrhage or parenchymal abnormality. Stable moderate diffuse vol ume loss. Stable moderate hypoattenuation throughout the white matter is noted and consistent with ch ronic microvascular ischemic disease. No chronic infarct. No extra-axial fluid collection. Ventricles: There is mild diffuse brain atrophy with commensurate ventricular enlargement which is l ikely age appropriate. Soft tissues: Soft tissues including the orbits appear normal. Bones: No acute osseous abnormality. Sinuses: Mild mucosal thickening and moderate fluid in the left sphenoid sinus has developed. The re maining visualized paranasal sinuses and mastoid air cells are clear. IMPRESSION: No acute intracranial abnormality. Advanced age-related changes as described which appear stable sinc e 02/09/2021. Left sphenoid sinus disease has developed since the previous exam, correlate for acute sphenoid sinus itis. Signer Name: Marvin Garcia Jr, MD Signed: 02/16/2021 9:21 AM Workstation Name: [id number]
[2021-02-16] MEDS: HYDROmorphone 1 MG/1 ML INJ IV PRN ×2 (09:30→19:05)
--- NOTE | 2021-02-16 09:51 | Progress Note ---
Assessment and Plan - Patient Problems (1) Acute exacerbation of CHF (congestive heart failure) Current Visit: Yes Status: Acute Qualifiers: Qualified Code(s): I50.43 - Acute on chronic combined systolic (congestive) and diastolic (congestive) heart failure Plan to address problem: Echocardiogram shows only mild left ventricular systolic dysfunction with ejection fraction 45 to 50%. The most significant abnormalities on echo is marked dilatation of both left and right atria, consistent with the chronic atrial fibrillation. The right ventricle is also dilated and hypocontractile, with at least moderate pulmonary hypertension with pulmonary artery systolic pressure of 52, suggestive of cor pulmonale. Continue conservative cardiac management. (2) Atrial fibrillation Current Visit: Yes Status: Acute Plan to address problem: Continue rate controlling agents and oral anticoagulation. Subjective Date of service: 02/16/21 Principal diagnosis: encephalopathy Interval history: No cardiac complaints. Objective Vital Signs Temp Pulse Resp BP Pulse Ox 02/16/21 09:20 44 L 92 02/16/21 05:48 97.9 F 119 H 18 136/95 96 02/16/21 04:00 123 H 02/15/21 22:00 18 95 02/15/21 21:53 97 02/15/21 16:29 98.7 F 111 H 18 126/79 94 02/15/21 12:00 112 H 02/15/21 11:32 94 02/15/21 11:10 97.4 F L 84 18 134/61 92 02/15/21 10:00 18 94 - Physical Examination General: No Apparent Distress HEENT: Positive: PERRL Neck: Positive: neck supple Cardiac: Positive: irregularly irregular Lungs: Positive: Decreased Breath Sounds Neuro: Positive: Weakness Extremities: Absent: edema
[2021-02-16] MEDS: dilTIAZem CD 120 MG CAP PO SCH (10:11)
[2021-02-16] MEDS: busPIRone 5 MG TAB PO SCH ×2 (10:11→21:35)
[2021-02-16] MEDS: FUROSEMIDE 40 MG TAB PO SCH (10:11)
[2021-02-16] MEDS: METOPROLOL TARTRATE 50 MG TAB PO SCH ×2 (10:11→21:35)
[2021-02-16] MEDS: PANTOPRAZOLE 40 MG TAB PO SCH (10:11)
[2021-02-16] MEDS: CETIRIZINE 10 MG TAB PO SCH (10:11)
[2021-02-16] MEDS: NYSTATIN POWDER 15 GM TP SCH ×2 (10:14→21:41)
[2021-02-16] MEDS: GABAPENTIN 100 MG CAP PO SCH ×2 (10:20→21:41)
--- NOTE | 2021-02-16 11:32 | Progress Note ---
Assessment and Plan 1. Acute kidney injury: ARMIDA in the setting of CHF. CT abdomen negative for hydro. Urine studies ordered. Baseline renal function is unknown. Most likely background CKD. Monitor renal function. Creatinine level is improving. Avoid nephrotoxic agents. Meds dosage based on GFR. 2. FEN: Metabolic acidosis, continue bicarb drip, monitor. Hyperkalemia, improved, monitor. Monitor lytes. 3. Decompensated CHF: Strict I/O. On Metoprolol. Followed by Cards. 4. Chronic A.fib // PPM // Transaortic valve replacement: On Cardizem, Metoprolol and Xarelto. Monitor. 5. Hypertension: BP is controlled. Adjust meds as needed. Monitor. Subjective: Patient was seen and examined at the bedside. Examination: General appearance: well-developed, appears stated age, not in distress HEENT: ATNC, pupils equal Neck: Trachea midline Respiratory: ctab Cardiology: S1S2, no murmur Gastrointestinal: soft, bowel sounds heard, not tender Integumentary: warm and dry Neurologic: lethargic, opens eyes Ext: no edema Subjective Date of service: 02/16/21 Principal diagnosis: encephalopathy Objective - Vital Signs Vital signs: Vital Signs - 12hr 02/16/21 02/16/21 02/16/21 04:00 05:48 09:20 Temperature 97.9 F Pulse Rate 123 H 119 H 44 L Respiratory 18 Rate Blood Pressure 136/95 O2 Sat by Pulse 96 92 Oximetry - Lab 02/15/21 05:40 02/16/21 14:44 Most recent lab results Calcium 8.4 mg/dL (8.4-10.2) 02/15/21 05:40 Magnesium 2.60 mg/dL (1.7-2.3) H 02/09/21 15:50 Medications & Allergies - Medications Allergies/Adverse Reactions: Allergies codeine Allergy (Verified 02/09/21 16:11) Unknown morphine Allergy (Verified 02/09/21 16:11) Unknown Sulfa (Sulfonamide Antibiotics) Allergy (Verified 02/09/21 16:11) Unknown zolpidem [From Ambien] Allergy (Verified 02/09/21 16:11) Unknown Home Medications: Home Medications Medication Instructions Recorded Confirmed Last Taken Type Cyproheptadine HCl 4 mg PO Q8HR 02/09/21 02/09/21 Unknown History Furosemide [Lasix] 20 mg PO QDAY 02/09/21 02/09/21 Unknown History Hydromorphone HCl/0.9% NaCl/Pf 1 mg PO Q2HR PRN 02/09/21 02/09/21 Unknown History [Hydromorphone 1 mg/ml-Ns Syrng] Hyoscyamine Subl [Levsin Sl 0.125 0.125 mg SL Q6HR 02/09/21 02/09/21 Unknown History TAB] LORazepam [Ativan] 0.5 mg PO Q6H PRN 02/09/21 02/09/21 Unknown History Levothyroxine [Synthroid] 100 mcg PO QAM 02/09/21 02/09/21 Unknown History Loratadine 10 mg PO QAM 02/09/21 02/09/21 Unknown History Metoprolol Tartrate [Lopressor] 100 mg PO BID 02/09/21 02/09/21 Unknown History Ondansetron [Zofran Odt] 4 mg PO Q4HR PRN 02/09/21 02/09/21 Unknown History Pantoprazole Sodium 40 mg PO QAM 02/09/21 02/09/21 Unknown History Rivaroxaban [Xarelto] 15 mg PO QHS 02/09/21 02/09/21 Unknown History bisacodyL [Dulcolax suppos] 10 mg [place] QDAY 02/09/21 02/09/21 Unknown History busPIRone [Buspar] 5 mg PO BID 02/09/21 02/09/21 Unknown History dilTIAZem CD [Cardizem Cd] 120 mg PO DAILY 02/09/21 02/09/21 Unknown History traMADoL [Ultram] 50 mg PO Q6HR PRN 02/09/21 02/09/21 Unknown History Active Medications: Generic Name Dose Route Start Last Admin Trade Name Freq PRN Reason Stop Dose Admin Acetaminophen 650 mg 02/10/21 00:03 02/13/21 22:06 Acetaminophen 325 Mg Tab PO 650 mg Q4H PRN Administration Pain MILD(1-3)/Fever >100.5/GABRIEL Bisacodyl 10 mg 02/10/21 10:00 02/16/21 10:20 Bisacodyl 10 Mg Rect Supp [place] Not Given QDAY GERRI Buspirone HCl 5 mg 02/10/21 10:00 02/16/21 10:11 Buspirone 5 Mg Tab PO 5 mg BID GERRI Administration Cetirizine HCl 10 mg 02/10/21 10:00 02/16/21 10:11 Cetirizine 10 Mg Tab PO 10 mg QAM GERRI Administration Cyproheptadine HCl 4 mg 02/10/21 07:30 02/16/21 09:10 Cyproheptadine 4 Mg Tab PO 4 mg TIDAC GERRI Administration Diltiazem HCl 120 mg 02/10/21 10:00 02/16/21 10:11 Diltiazem Cd 120 Mg Cap PO 120 mg DAILY GERRI Administration Furosemide 40 mg 02/14/21 11:00 02/16/21 10:11 Furosemide 40 Mg Tab PO 40 mg QDAY GERRI Administration Gabapentin 100 mg 02/11/21 14:00 02/16/21 10:20 Gabapentin 100 Mg Cap PO 100 mg BID GERRI Administration Hydromorphone HCl 0.5 mg 02/10/21 00:03 Hydromorphone 1 Mg/1 Ml Inj IV Q3H PRN Pain , Severe (7-10) Hyoscyamine 0.125 mg 02/10/21 00:00 02/16/21 06:29 Hyoscyamine Subl 0.125 Mg Tab SL 0.125 mg Q6HR GERRI Administration Ceftriaxone Sodium 1 gm in 50 mls @ 100 mls/hr 02/13/21 19:30 02/15/21 20:25 Rocephin/Ns 1 Gm/50 Ml IV 02/17/21 19:59 100 mls/hr Q24H GERRI Administration Protocol Sodium Bicarbonate 100 meq/ 1,100 mls @ 60 mls/hr 02/15/21 08:00 02/15/21 08:30 Dextrose IV 60 mls/hr DIRECT GERRI Administration Levothyroxine Sodium 100 mcg 02/10/21 06:00 02/16/21 06:29 Levothyroxine 100 Mcg Tab PO 100 mcg QAM@0600 GERRI Administration Metoclopramide HCl 5 mg 02/10/21 00:03 Metoclopramide 10 Mg/2 Ml Inj IV Q6H PRN Nausea And Vomiting Metoprolol Tartrate 50 mg 02/10/21 11:00 02/16/21 10:11 Metoprolol Tartrate 50 Mg Tab PO 50 mg BID GERRI Administration Nystatin 1 applic 02/13/21 22:00 02/16/21 10:14 Nystatin Powder 15 Gm TP 1 applic BID GERRI Administration Ondansetron HCl 4 mg 02/10/21 00:00 Ondansetron 4 Mg Odt Tab PO Q4H PRN Nausea Ondansetron HCl 4 mg 02/10/21 00:03 Ondansetron 4 Mg/2 Ml Inj IV Q8H PRN Nausea And Vomiting Pantoprazole Sodium 40 mg 02/10/21 10:00 02/16/21 10:11 Pantoprazole 40 Mg Tab PO 40 mg QAM GERRI Administration Rivaroxaban 15 mg 02/10/21 22:00 02/15/21 22:19 Rivaroxaban 15 Mg Tab PO 15 mg QHS GERRI Administration Sodium Chloride 10 ml 02/10/21 10:00 02/16/21 10:13 Sodium Chloride 0.9% 10 Ml Flush Syringe IV 10 ml BID GERRI Administration Sodium Chloride 10 ml 02/10/21 00:03 Sodium Chloride 0.9% 10 Ml Flush Syringe IV PRN PRN LINE FLUSH
--- NOTE | 2021-02-16 13:23 | Consultation ---
History of Present Illness Consult date: 02/16/21 Reason for consult: dyspnea, hypoxemia History of present illness: 89-year-old female with past medical history significant for hypertension, georgette betes mellitus, CAD, CHF, CKD, and recent pacemaker placement (unknown when), is brought in by EMS from home because she was feeling short of breath . The patient was recently discharged from rehab and came home. She was prescribed lorazepam which she takes intermittently but today after taking the lorazepam she became very tired and somnolent and reported shortness of breath. The patient claims that she feels short of breath today that there are no aggravating or alleviating factors. She denies cough She is very somnolent although she is arousable to voice . She is confused Patient sleepy but arousable. Patient confused unable to give the history. Patient is on 4 litres O2. O2 saturation 92%. Patient afebrile. No leukocytosis. Chest xray done 02/14/21 reported Chronic interstitial changes. Minor airspace opacity at the left lung base which probably represents atelectatic changes. Patient is on Ceftriaxone , Rivaroxaban, Protonix and Buspar. Past History Past Medical History: CAD, diabetes, hypertension, hypothyroidism Past Surgical History: Other (Cardiac pacemaker, transcutaneous aortic valve replacement) Medications and Allergies Allergies Allergy/AdvReac Type Severity Reaction Status Date / Time codeine Allergy Unknown Verified 02/09/21 16:11 morphine Allergy Unknown Verified 02/09/21 16:11 Sulfa (Sulfonamide Allergy Unknown Verified 02/09/21 16:11 Antibiotics) zolpidem [From Ambien] Allergy Unknown Verified 02/09/21 16:11 Home Medications Medication Instructions Recorded Confirmed Last Taken Type Cyproheptadine HCl 4 mg PO Q8HR 02/09/21 02/09/21 Unknown History Furosemide [Lasix] 20 mg PO QDAY 02/09/21 02/09/21 Unknown History Hydromorphone HCl/0.9% NaCl/Pf 1 mg PO Q2HR PRN 02/09/21 02/09/21 Unknown History [Hydromorphone 1 mg/ml-Ns Syrng] Hyoscyamine Subl [Levsin Sl 0.125 0.125 mg SL Q6HR 02/09/21 02/09/21 Unknown History TAB] LORazepam [Ativan] 0.5 mg PO Q6H PRN 02/09/21 02/09/21 Unknown History Levothyroxine [Synthroid] 100 mcg PO QAM 02/09/21 02/09/21 Unknown History Loratadine 10 mg PO QAM 02/09/21 02/09/21 Unknown History Metoprolol Tartrate [Lopressor] 100 mg PO BID 02/09/21 02/09/21 Unknown History Ondansetron [Zofran Odt] 4 mg PO Q4HR PRN 02/09/21 02/09/21 Unknown History Pantoprazole Sodium 40 mg PO QAM 02/09/21 02/09/21 Unknown History Rivaroxaban [Xarelto] 15 mg PO QHS 02/09/21 02/09/21 Unknown History bisacodyL [Dulcolax suppos] 10 mg NE QDAY 02/09/21 02/09/21 Unknown History busPIRone [Buspar] 5 mg PO BID 02/09/21 02/09/21 Unknown History dilTIAZem CD [Cardizem Cd] 120 mg PO DAILY 02/09/21 02/09/21 Unknown History traMADoL [Ultram] 50 mg PO Q6HR PRN 02/09/21 02/09/21 Unknown History Active Meds: Active Medications Acetaminophen (Acetaminophen 325 Mg Tab) 650 mg PO Q4H PRN PRN Reason: Pain MILD(1-3)/Fever >100.5/GABRIEL Last Admin: 02/13/21 22:06 Dose: 650 mg Documented by: Bisacodyl (Bisacodyl 10 Mg Rect Supp) 10 mg NE QDAY [facility] Last Admin: 02/16/21 10:20 Dose: Not Given Documented by: Buspirone HCl (Buspirone 5 Mg Tab) 5 mg PO BID [facility] Last Admin: 02/16/21 10:11 Dose: 5 mg Documented by: Cetirizine HCl (Cetirizine 10 Mg Tab) 10 mg PO QAM [facility] Last Admin: 02/16/21 10:11 Dose: 10 mg Documented by: Cyproheptadine HCl (Cyproheptadine 4 Mg Tab) 4 mg PO TIDAC [facility] Last Admin: 02/16/21 09:10 Dose: 4 mg Documented by: Diltiazem HCl (Diltiazem Cd 120 Mg Cap) 120 mg PO DAILY [facility] Last Admin: 02/16/21 10:11 Dose: 120 mg Documented by: Furosemide (Furosemide 40 Mg Tab) 40 mg PO QDAY [facility] Last Admin: 02/16/21 10:11 Dose: 40 mg Documented by: Gabapentin (Gabapentin 100 Mg Cap) 100 mg PO BID [facility] Last Admin: 02/16/21 10:20 Dose: 100 mg Documented by: Hydromorphone HCl (Hydromorphone 1 Mg/1 Ml Inj) 0.5 mg IV Q3H PRN PRN Reason: Pain , Severe (7-10) Hyoscyamine (Hyoscyamine Subl 0.125 Mg Tab) 0.125 mg SL Q6HR [facility] Last Admin: 02/16/21 06:29 Dose: 0.125 mg Documented by: Ceftriaxone Sodium (Rocephin/Ns 1 Gm/50 Ml) 1 gm in 50 mls @ 100 mls/hr IV Q24H [facility]; Protocol Stop: 02/17/21 19:59 Last Admin: 02/15/21 20:25 Dose: 100 mls/hr Documented by: Sodium Bicarbonate 100 meq/ (Dextrose) 1,100 mls @ 60 mls/hr IV DIRECT [facility] Last Admin: 02/15/21 08:30 Dose: 60 mls/hr Documented by: Levothyroxine Sodium (Levothyroxine 100 Mcg Tab) 100 mcg PO QAM@0600 [facility] Last Admin: 02/16/21 06:29 Dose: 100 mcg Documented by: Metoclopramide HCl (Metoclopramide 10 Mg/2 Ml Inj) 5 mg IV Q6H PRN PRN Reason: Nausea And Vomiting Metoprolol Tartrate (Metoprolol Tartrate 50 Mg Tab) 50 mg PO BID [facility] Last Admin: 02/16/21 10:11 Dose: 50 mg Documented by: Nystatin (Nystatin Powder 15 Gm) 1 applic TP BID [facility] Last Admin: 02/16/21 10:14 Dose: 1 applic Documented by: Ondansetron HCl (Ondansetron 4 Mg Odt Tab) 4 mg PO Q4H PRN PRN Reason: Nausea Ondansetron HCl (Ondansetron 4 Mg/2 Ml Inj) 4 mg IV Q8H PRN PRN Reason: Nausea And Vomiting Pantoprazole Sodium (Pantoprazole 40 Mg Tab) 40 mg PO QAM [facility] Last Admin: 02/16/21 10:11 Dose: 40 mg Documented by: Rivaroxaban (Rivaroxaban 15 Mg Tab) 15 mg PO QHS [facility] Last Admin: 02/15/21 22:19 Dose: 15 mg Documented by: Sodium Chloride (Sodium Chloride 0.9% 10 Ml Flush Syringe) 10 ml IV BID [facility] Last Admin: 02/16/21 10:13 Dose: 10 ml Documented by: Sodium Chloride (Sodium Chloride 0.9% 10 Ml Flush Syringe) 10 ml IV PRN PRN PRN Reason: LINE FLUSH Review of Systems All systems: negative Physical Examination Vital signs: Vital Signs Pulse Resp Pulse Ox 73 35 H 97 02/09/21 15:13 02/09/21 15:13 02/09/21 15:13 General appearance: asleep, appears uncomfortable Eyes: non-icteric ENT: oropharynx moist Neck: supple, no JVD Ascultation: Bilateral: rales Cardiovascular: irregular rhythm Gastrointestinal: normoactive bowel sounds Integumentary: other (Some Echimoses.) Extremities: no cyanosis, no edema Musculoskeletal: no deformities Gait: other (Unable to evaluate. Patient lying in bed.) non-focal exam, pupils equal and round depressed Results - Laboratory Findings CBC and BMP: 02/15/21 05:40 02/15/21 05:40 PT/INR, D-dimer PT 29.2 Sec. (12.2-14.9) H 02/11/21 15:24 INR 2.74 (0.87-1.13) H 02/11/21 15:24 Abnormal lab findings: Abnormal Labs 02/09/21 02/09/21 02/09/21 15:50 15:50 15:50 RBC RDW 20.0 H [place] % (Auto) 11.6 H [place] # (Auto) 1.2 H Seg Neutrophils % 71.0 H PT 37.1 H INR 3.76 H APTT 41.4 H Sodium 133 L Potassium 5.8 H Chloride Carbon Dioxide 19 L BUN 72 H Creatinine 2.2 H Glucose 131 H POC Glucose Magnesium NT-Pro-B Natriuret Pep Total Protein Albumin 3.2 L PTH Intact Urine WBC (Auto) 02/09/21 02/09/21 02/09/21 15:50 15:50 Unknown RBC RDW [place] % (Auto) [place] # (Auto) Seg Neutrophils % PT INR APTT Sodium Potassium Chloride Carbon Dioxide BUN Creatinine Glucose POC Glucose Magnesium 2.60 H NT-Pro-B Natriuret Pep 97353 H Total Protein Albumin PTH Intact Urine WBC (Auto) 23.0 H 02/10/21 02/10/21 02/10/21 04:34 04:34 19:12 RBC 3.62 L RDW 19.4 H [place] % (Auto) 13.6 H [place] # (Auto) 1.1 H Seg Neutrophils % PT INR APTT Sodium 136 L Potassium Chloride Carbon Dioxide BUN 72 H Creatinine 2.2 H Glucose POC Glucose Magnesium NT-Pro-B Natriuret Pep Total Protein 6.2 L Albumin 3.2 L PTH Intact Urine WBC (Auto) 8.0 H 02/11/21 02/11/21 02/11/21 05:51 05:51 05:51 RBC RDW 20.0 H [place] % (Auto) 10.8 H [place] # (Auto) 1.0 H Seg Neutrophils % 73.3 H PT INR APTT Sodium 131 L Potassium 5.1 H Chloride 97.2 L Carbon Dioxide 21 L BUN 71 H Creatinine 2.0 H Glucose 113 H POC Glucose Magnesium NT-Pro-B Natriuret Pep Total Protein Albumin PTH Intact 75.78 H Urine WBC (Auto) 02/11/21 02/12/21 02/12/21 15:24 07:38 16:35 RBC RDW [place] % (Auto) [place] # (Auto) Seg Neutrophils % PT 29.2 H INR 2.74 H APTT 40.7 H Sodium 135 L Potassium Chloride 97.5 L Carbon Dioxide BUN 58 H Creatinine 1.7 H Glucose POC Glucose 139 H Magnesium NT-Pro-B Natriuret Pep Total Protein Albumin PTH Intact Urine WBC (Auto) 02/13/21 02/13/21 02/14/21 05:21 20:50 03:44 RBC RDW [place] % (Auto) [place] # (Auto) Seg Neutrophils % PT INR APTT Sodium 134 L Potassium 5.1 H 5.5 H Chloride Carbon Dioxide 21 L BUN 45 H 39 H Creatinine 1.4 H 1.3 H Glucose POC Glucose 112 H Magnesium NT-Pro-B Natriuret Pep Total Protein Albumin PTH Intact Urine WBC (Auto) 02/15/21 02/15/21 02/15/21 05:40 05:40 08:07 RBC RDW 20.4 H [place] % (Auto) [place] # (Auto) Seg Neutrophils % PT INR APTT Sodium Potassium Chloride 110.7 H Carbon Dioxide 13 L D BUN 33 H Creatinine 1.4 H Glucose POC Glucose 124 H Magnesium NT-Pro-B Natriuret Pep Total Protein Albumin PTH Intact Urine WBC (Auto) 02/15/21 02/15/21 11:41 15:50 RBC RDW [place] % (Auto) [place] # (Auto) Seg Neutrophils % PT INR APTT Sodium Potassium Chloride Carbon Dioxide BUN Creatinine Glucose POC Glucose 142 H 118 H Magnesium NT-Pro-B Natriuret Pep Total Protein Albumin PTH Intact Urine WBC (Auto) - Diagnostic Findings Chest x-ray: report reviewed, image reviewed Additional studies: CHEST 1 VIEW 02/14/21 INDICATION: Oxygen desat. COMPARISON: 02/09/2021 FINDINGS: Support devices: Stable positioning of the pacemaker device Heart: Stable borderline heart size with previous valvuloplasty. Lungs/Pleura: The interstitium remains slightly prominent. There is minor airspace opacity at the left lung base which could represent atelectasis or less likely early infiltrate. Otherwise the lungs are generally clear. No large pleural effusion or pneumothorax. Additional findings: None. IMPRESSION: Chronic interstitial changes. Minor airspace opacity at the left lung base which probably represents atelectatic changes. No overwhelming change since 02/09/2021. Assessment and Plan 89-year-old female with past medical history significant for hypertension, diabetes mellitus, CAD, CHF, CKD, and recent pacemaker placement (unknown when), is brought in by EMS from home because she was feeling short of breath . The patient was recently discharged from rehab and came home. She was prescribed l orazepam which she takes intermittently but today after taking the lorazepam she became very tired and somnolent and reported shortness of breath. The patient claims that she feels short of breath today that there are no aggravating or alleviating factors. She denies cough She is very somnolent although she is arousable to voice . She is confused Patient sleepy but arousable. Patient confused unable to give the history. Patient is on 4 litres O2. O2 saturation 92%. Patient afebrile. No leukocytosis. Chest xray done 02/14/21 reported Chronic interstitial changes. Minor airspace opacity at the left lung base which probably represents atelectatic changes. Patient is on Ceftriaxone , Rivaroxaban, Protonix and Buspar. - Patient Problems (1) Respiratory failure with hypoxia Current Visit: Yes Status: Acute Plan to address problem: O2 4 litres via nasal canula. (2) Acute exacerbation of CHF (congestive heart failure) Current Visit: Yes Status: Acute Qualifiers: Heart failure type: combined systolic and diastolic Qualified Code(s): I50.43 - Acute on chronic combined systolic (congestive) and diastolic (congestive) heart failure Plan to address problem: Management as per cardiology. (3) ARMIDA (acute kidney injury) Current Visit: Yes Status: Acute Plan to address problem: Management as per nephrology. (4) Acute encephalopathy Current Visit: Yes Status: Acute Plan to address problem: Management as per primary care and neurology. (5) GERD (gastroesophageal reflux disease) Current Visit: Yes Status: Chronic Qualifiers: Esophagitis presence: with esophagitis Plan to address problem: Continue Protonix. (6) Hypertension Current Visit: Yes Status: Chronic Qualifiers: Hypertension type: primary hypertension Qualified Code(s): I10 - Essential (primary) hypertension Plan to address problem: Management as per primary care. (7) Hypothyroidism (acquired) Current Visit: Yes Status: Chronic Plan to address problem: Patient is on Levothuroxine. Management as per primary care.
--- NOTE | 2021-02-16 15:22 | Progress Note ---
Assessment and Plan The patient is an 89 YO female with history significant for Hypertension, Aortic valve repair, Hypothyroidism and recent pacemaker placement who was brought in by EMS to [facility] ED 02/09 for evaluation of shortness of breath and altered sensorium. 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, pulmonary consulted --Acute respiratory failure, patient on supplemental O2 likely due to pulmonary hypertension, tricuspid valve regurgitation and underlying CHF Continue supplemental O2 as tolerated and Lasix as needed -- Acute encephalopathy Etiology may be lorazepam Lorazepam discontinued Patient also has underlying dementia CT head is unremarkable --History of dementia, continue supportive care and follow clinically -- ARMIDA (acute kidney injury) Possible ARMIDA superimposed on chronic kidney disease Nephrology consult requested, Cr stable -- Hyperkalemia Treated and now normal -- Hyponatremia Mild with sodium of 133 and improved --Hypothyroidism (acquired) Continue Synthroid -- Hypertension, chronic Continue antihypertensives and adjust BP meds as needed -- GERD (gastroesophageal reflux disease) Continue PPIs -- DVT prophylaxis Patient on Xarelto for valvuloplasty of aortic valve and GI prophylaxis Daily clinical course: 02/10/2021 -Patient was confused. She states she is unaware she is in the hospital. Neurology and nephrology consult appreciated. Need PT OT evaluation. Cardiology consulted. 02/11/2021 -Patient was confused and neurology is following. -Patient was seen by cardiology and recommend to continue anticoagulation and medical management. -Patient was seen by nephrology and recommend to continue current management, monitor BMP. -Patient came from intermediate. -Blood pressure is well controlled. 02/12/2021 -Patient with ARMIDA, CHF. She is still confused. ARMIDA improving. Cr 1.7 today. She is followed by Nephrology and Cardiology. Continue Xarelto for aortic valve valvulopolasty. Follow labs in am 02/13/21 Patient with acute kidney injury, CHF. Cr improving 1.4 today. However she has mild hyperkalemia with Potassium 5.1. Nephrology following. Will repeat labs in am. Continue Xarelto. Cardiology following too. 02/14/21 Patient with acute kidney injury, congestive heart failure. She is followed by nephrology, Cardiology. Potassium 5.5 today, so Kayexalate ordered Cr 1.3 today improving On Xarelto for valvuloplasty of aortic valve SOB today Chest X ray ordered , pending 02/15/21; chest x-ray yesterday showed bibasilar atelectasis and chronic interstitial changes. 2D EHO SHOWED EF 40-45% with moderate to severe PHTN. lasix on hold as pt euvolumic. consult pulmonary for PHTN. discussed with patient's daughter at the bedside. 02/16/21: Repeat CT head obtained this morning showed no acute interval change. Patient remains intermittently confused with poor oral intake. Appreciate pulmonary recommendation. Renal function stable. Order for repeat speech eval, continue D5 normal saline. Need placement Subjective Date of service: 02/16/21 Principal diagnosis: encephalopathy Interval history: Patient seen and examined. Medical records and medication list reviewed. No acute event overnight noted by the RN. Patient remains confused but able to follow command. Patient is tolerating diet but appetite is poor. Discussed plan of care at bedside with patient;s RN and CM. Objective - Exam Narrative Exam: GENERAL: well-developed and well-nourished elderly white female lying on bed HEENT: Normocephalic. Atraumatic. No conjunctival congestion or icterus. Patient has moist mucous membranes. NECK: Supple. Trachea midline. CHEST/LUNGS: Patient on nasal cannula O2, did not appreciate any crackles, positive for few rhonchi HEART/CARDIOVASCULAR: Regular in rate and rhythm. S1 and S2 positive. ABDOMEN: Abdomen is soft, nontender. Patient has normal bowel sounds. SKIN: There is no rash. Warm and dry. NEURO: No focal motor deficit. Follows command but patient is pleasantly c onfused. MUSCULOSKELETAL: No joint effusion or tenderness. EXTRIMITY: No edema, no cyanosis or clubbing. PSYCH: Cooperative. - Constitutional Vitals: Vital Signs - 12hr 02/16/21 02/16/21 02/16/21 04:00 05:48 09:20 Temperature 97.9 F Pulse Rate 123 H 119 H 44 L Respiratory 18 Rate Blood Pressure 136/95 O2 Sat by Pulse 96 92 Oximetry 02/16/21 02/16/21 10:00 12:00 Temperature Pulse Rate 44 L Respiratory 18 Rate Blood Pressure O2 Sat by Pulse 95 Oximetry - Labs CBC & Chem 7: 02/15/21 05:40 02/22/21 05:09 Labs: Abnormal lab results 02/15/21 Range/Units 15:50 POC Glucose 118 H (70-105) mg/dL HEART Score - HEART Score Age: > 65 Risk factors: > 3 risk factors or hx of atherosclerotic disease Troponin: Troponin T < 0.010 ng/mL (0.00-0.029) 02/09/21 21:05 Troponin: < normal limit - Critical Actions Critical Actions: 0-3 pts:0.9-1.7%risk of adverse cardiac event.Candidate for discharge
[2021-02-16 15:41] LABS: Calcium 8.9 mg/dL (8.4-10.2)
[2021-02-16] MEDS: D5W/0.9% NACL 1,000 ML IV SCH (17:51)
[2021-02-16] MEDS: MEGESTROL 400 MG/10 ML ORAL LIQD PO SCH (18:08)
[2021-02-16] MEDS: cefTRIAXone/NS 1 GM/50 ML 1 GM/50 ML BAG IV SCH (19:08)
[2021-02-16] MEDS: RIVAROXABAN 15 MG TAB PO SCH (21:35)
[2021-02-17] MEDS: HYOSCYAMINE SUBL 0.125 MG TAB SL SCH ×5 (00:45→23:42)
[2021-02-17] MEDS: LEVOTHYROXINE 100 MCG TAB PO SCH (06:32)
[2021-02-17] MEDS: HYDROmorphone 1 MG/1 ML INJ IV PRN ×3 (08:30→18:10)
[2021-02-17] MEDS: CYPROHEPTADINE 4 MG TAB PO SCH ×3 (08:53→17:30)
[2021-02-17] MEDS: METOPROLOL TARTRATE 50 MG TAB PO SCH ×2 (09:06→22:05)
[2021-02-17] MEDS: CETIRIZINE 10 MG TAB PO SCH (09:06)
[2021-02-17] MEDS: FUROSEMIDE 40 MG TAB PO SCH (09:06)
[2021-02-17] MEDS: busPIRone 5 MG TAB PO SCH ×2 (09:06→22:06)
[2021-02-17] MEDS: dilTIAZem CD 120 MG CAP PO SCH (09:06)
[2021-02-17] MEDS: PANTOPRAZOLE 40 MG TAB PO SCH (09:06)
[2021-02-17] MEDS: MEGESTROL 400 MG/10 ML ORAL LIQD PO SCH (09:06)
[2021-02-17] MEDS: GABAPENTIN 100 MG CAP PO SCH ×2 (09:06→22:20)
[2021-02-17] MEDS: NYSTATIN POWDER 15 GM TP SCH ×2 (09:07→22:06)
--- NOTE | 2021-02-17 09:14 | Progress Note ---
Assessment and Plan - Patient Problems (1) Acute exacerbation of CHF (congestive heart failure) Current Visit: Yes Status: Acute Qualifiers: Qualified Code(s): I50.43 - Acute on chronic combined systolic (congestive) and diastolic (congestive) heart failure Plan to address problem: Echocardiogram shows only mild left ventricular systolic dysfunction with ejection fraction 45 to 50%. The most significant abnormalities on echo is marked dilatation of both left and right atria, consistent with the chronic atrial fibrillation. The right ventricle is also dilated and hypocontractile, with at least moderate pulmonary hypertension with pulmonary artery systolic pressure of 52, suggestive of cor pulmonale. Continue conservative cardiac management. (2) Atrial fibrillation Current Visit: Yes Status: Acute Plan to address problem: Continue rate controlling agents and oral anticoagulation. Conservative cardiac management. Subjective Date of service: 02/17/21 Principal diagnosis: encephalopathy Interval history: No cardiac complaints. Resting in bed comfortably. Objective Vital Signs Temp Pulse Resp BP Pulse Ox 02/17/21 08:40 97.4 F L 113 H 18 134/72 98 02/17/21 04:18 97.6 F 130 H 19 120/64 98 02/17/21 04:00 101 H 02/16/21 22:33 98.3 F 93 H 19 101/55 94 02/16/21 22:00 18 95 02/16/21 21:35 141 H 130/72 02/16/21 21:06 96 02/16/21 20:00 135 H 02/16/21 19:39 98.0 F 141 H 22 130/72 97 02/16/21 16:46 98.2 F 125 H 18 149/69 97 02/16/21 12:00 44 L 02/16/21 10:00 18 95 02/16/21 09:20 44 L 92 - Physical Examination General: No Apparent Distress HEENT: Positive: PERRL Neck: Positive: neck supple Cardiac: Positive: irregularly irregular Lungs: Positive: Decreased Breath Sounds Neuro: Positive: Weakness Extremities: Absent: edema - Labs and Meds Comprehensive Metabolic Panel 02/16/21 Range/Units 14:44 Sodium 144 (137-145) mmol/L Potassium 4.4 (3.6-5.0) mmol/L Chloride 106.5 (98-107) mmol/L Carbon Dioxide 25 D (22-30) mmol/L BUN 27 H (7-17) mg/dL Creatinine 1.2 (0.6-1.2) mg/dL Glucose 117 H (65-100) mg/dL Calcium 8.9 (8.4-10.2) mg/dL
--- NOTE | 2021-02-17 09:15 | Progress Note ---
Assessment and Plan 1. Acute kidney injury: ARMIDA in the setting of CHF. CT abdomen negative for hydro. Urine studies ordered. Baseline renal function is unknown. Most likely background CKD. Monitor renal function. Creatinine level is improving. Avoid nephrotoxic agents. Meds dosage based on GFR. No labs from today. 2. FEN: Metabolic acidosis, improved, monitor. Hyperkalemia, improved, monitor. Monitor lytes. 3. Decompensated CHF: Strict I/O. On Metoprolol. Followed by Cards. 4. Chronic A.fib // PPM // Transaortic valve replacement: On Cardizem, Metoprolol and Xarelto. Monitor. 5. Hypertension: BP is controlled. Adjust meds as needed. Monitor. Subjective: Patient was seen and examined at the bedside. Examination: General appearance: well-developed, appears stated age, not in distress HEENT: ATNC, pupils equal Neck: Trachea midline Respiratory: ctab Cardiology: S1S2, no murmur Gastrointestinal: soft, bowel sounds heard, not tender Integumentary: warm and dry Neurologic: alert, confused Ext: no edema Subjective Date of service: 02/17/21 Principal diagnosis: encephalopathy Objective - Vital Signs Vital signs: Vital Signs - 12hr 02/16/21 02/16/21 02/16/21 21:35 22:00 22:33 Temperature 98.3 F Pulse Rate 141 H 93 H Respiratory 18 19 Rate Blood Pressure 130/72 101/55 O2 Sat by Pulse 95 94 Oximetry 02/17/21 02/17/21 02/17/21 04:00 04:18 08:40 Temperature 97.6 F 97.4 F L Pulse Rate 101 H 130 H 113 H Respiratory 19 18 Rate Blood Pressure 120/64 134/72 O2 Sat by Pulse 98 98 Oximetry - Lab 02/15/21 05:40 02/16/21 14:44 Most recent lab results Calcium 8.9 mg/dL (8.4-10.2) 02/16/21 14:44 Magnesium 2.60 mg/dL (1.7-2.3) H 02/09/21 15:50 Medications & Allergies - Medications Allergies/Adverse Reactions: Allergies codeine Allergy (Verified 02/09/21 16:11) Unknown morphine Allergy (Verified 02/09/21 16:11) Unknown Sulfa (Sulfonamide Antibiotics) Allergy (Verified 02/09/21 16:11) Unknown zolpidem [From Ambien] Allergy (Verified 02/09/21 16:11) Unknown Home Medications: Home Medications Medication Instructions Recorded Confirmed Last Taken Type Cyproheptadine HCl 4 mg PO Q8HR 02/09/21 02/09/21 Unknown History Furosemide [Lasix] 20 mg PO QDAY 02/09/21 02/09/21 Unknown History Hydromorphone HCl/0.9% NaCl/Pf 1 mg PO Q2HR PRN 02/09/21 02/09/21 Unknown History [Hydromorphone 1 mg/ml-Ns Syrng] Hyoscyamine Subl [Levsin Sl 0.125 0.125 mg SL Q6HR 02/09/21 02/09/21 Unknown History TAB] LORazepam [Ativan] 0.5 mg PO Q6H PRN 02/09/21 02/09/21 Unknown History Levothyroxine [Synthroid] 100 mcg PO QAM 02/09/21 02/09/21 Unknown History Loratadine 10 mg PO QAM 02/09/21 02/09/21 Unknown History Metoprolol Tartrate [Lopressor] 100 mg PO BID 02/09/21 02/09/21 Unknown History Ondansetron [Zofran Odt] 4 mg PO Q4HR PRN 02/09/21 02/09/21 Unknown History Pantoprazole Sodium 40 mg PO QAM 02/09/21 02/09/21 Unknown History Rivaroxaban [Xarelto] 15 mg PO QHS 02/09/21 02/09/21 Unknown History bisacodyL [Dulcolax suppos] 10 mg [place] QDAY 02/09/21 02/09/21 Unknown History busPIRone [Buspar] 5 mg PO BID 02/09/21 02/09/21 Unknown History dilTIAZem CD [Cardizem Cd] 120 mg PO DAILY 02/09/21 02/09/21 Unknown History traMADoL [Ultram] 50 mg PO Q6HR PRN 02/09/21 02/09/21 Unknown History Active Medications: Generic Name Dose Route Start Last Admin Trade Name Freq PRN Reason Stop Dose Admin Acetaminophen 650 mg 02/10/21 00:03 02/13/21 22:06 Acetaminophen 325 Mg Tab PO 650 mg Q4H PRN Administration Pain MILD(1-3)/Fever >100.5/GABRIEL Bisacodyl 10 mg 02/10/21 10:00 02/17/21 09:07 Bisacodyl 10 Mg Rect Supp OH Not Given QDAY GERRI Buspirone HCl 5 mg 02/10/21 10:00 02/17/21 09:06 Buspirone 5 Mg Tab PO 5 mg BID GERRI Administration Cetirizine HCl 10 mg 02/10/21 10:00 02/17/21 09:06 Cetirizine 10 Mg Tab PO 10 mg QAM GERRI Administration Cyproheptadine HCl 4 mg 02/10/21 07:30 02/17/21 08:53 Cyproheptadine 4 Mg Tab PO 4 mg TIDAC GERRI Administration Diltiazem HCl 120 mg 02/10/21 10:00 02/17/21 09:06 Diltiazem Cd 120 Mg Cap PO 120 mg DAILY GERRI Administration Furosemide 40 mg 02/14/21 11:00 02/17/21 09:06 Furosemide 40 Mg Tab PO 40 mg QDAY GERRI Administration Gabapentin 100 mg 02/11/21 14:00 02/17/21 09:06 Gabapentin 100 Mg Cap PO 100 mg BID GERRI Administration Hydromorphone HCl 0.5 mg 02/10/21 00:03 02/16/21 19:05 Hydromorphone 1 Mg/1 Ml Inj IV 0.5 mg Q3H PRN Administration Pain , Severe (7-10) Hyoscyamine 0.125 mg 02/10/21 00:00 02/17/21 06:32 Hyoscyamine Subl 0.125 Mg Tab SL 0.125 mg Q6HR GERRI Administration Ceftriaxone Sodium 1 gm in 50 mls @ 100 mls/hr 02/13/21 19:30 02/16/21 19:08 Rocephin/Ns 1 Gm/50 Ml IV 02/17/21 19:59 100 mls/hr Q24H GERRI Administration Protocol Dextrose/Sodium Chloride 1,000 mls @ 42 mls/hr 02/16/21 16:00 02/16/21 17:51 D5ns IV 42 mls/hr DIRECT GERRI Administration Levothyroxine Sodium 100 mcg 02/10/21 06:00 02/17/21 06:32 Levothyroxine 100 Mcg Tab PO 100 mcg QAM@0600 GERRI Administration Megestrol Acetate 400 mg 02/16/21 16:00 02/17/21 09:06 Megestrol 400 Mg/10 Ml Oral Liqd PO 400 mg QDAY GERRI Administration Metoclopramide HCl 5 mg 02/10/21 00:03 Metoclopramide 10 Mg/2 Ml Inj IV Q6H PRN Nausea And Vomiting Metoprolol Tartrate 50 mg 02/10/21 11:00 02/17/21 09:06 Metoprolol Tartrate 50 Mg Tab PO 50 mg BID EGRRI Administration Nystatin 1 applic 02/13/21 22:00 02/17/21 09:07 Nystatin Powder 15 Gm TP 1 applic BID GERRI Administration Ondansetron HCl 4 mg 02/10/21 00:00 Ondansetron 4 Mg Odt Tab PO Q4H PRN Nausea Ondansetron HCl 4 mg 02/10/21 00:03 Ondansetron 4 Mg/2 Ml Inj IV Q8H PRN Nausea And Vomiting Pantoprazole Sodium 40 mg 02/10/21 10:00 02/17/21 09:06 Pantoprazole 40 Mg Tab PO 40 mg QAM GERRI Administration Rivaroxaban 15 mg 02/10/21 22:00 02/16/21 21:35 Rivaroxaban 15 Mg Tab PO 15 mg QHS GERRI Administration Sodium Chloride 10 ml 02/10/21 10:00 02/16/21 21:36 Sodium Chloride 0.9% 10 Ml Flush Syringe IV 10 ml BID GERRI Administration Sodium Chloride 10 ml 02/10/21 00:03 Sodium Chloride 0.9% 10 Ml Flush Syringe IV PRN PRN LINE FLUSH
--- NOTE | 2021-02-17 14:52 | Progress Note ---
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 - optimize cardiac function per cardiology team - continue rate control with toprol - avoid hypoxemia; continue supplemental oxygen to keep O2 sats > 90% - prn bronchodilators (BRY) with pulm hygiene per RT - continue to avoid nephrotoxins, renally dose all medications - mobility protocols to prevent pressure ulcers - PT/OT as tolerated - prn analgesia per pain score - Wound care per RN/WCT - accuchecks with glycemic control per SSI for target blood glucose < 180 mg/dL - home oxygen evaluation at discharge - GI & VTE prophylaxis - Flu & pneumovax per protocol - Pulmonary out patient follow up for PFTs and optimization of respiratory status - continue other care per attending / other consultants ... re-evaluate in am & prn Subjective Date of service: 02/17/21 Principal diagnosis: AE-CHF; Pulmonary HTN; Acute encephalopathy; ARMIDA; Hypothyroidism; HTN Interval history: Patient is seen today for: AE-CHF; Pulmonary HTN; Acute encephalopathy; ARMIDA; Hypothyroidism; HTN Seen and examined at bedside; 24hour events reviewed; nursing and respiratory care staff consulted; no adverse overnight events reported to me; resting in bed; her daughter is in room; remains on supplemental oxygen at 3L flow; per daughter still a little confused but better than at presentation; No N/V/F/C and denies chest pains or palpitations Objective Vital Signs - 12hr 02/17/21 02/17/21 02/17/21 04:00 04:18 08:40 Temperature 97.6 F 97.4 F L Pulse Rate 101 H 130 H 113 H Respiratory 19 18 Rate Blood Pressure 120/64 134/72 O2 Sat by Pulse 98 98 Oximetry 02/17/21 10:00 Temperature Pulse Rate Respiratory Rate Blood Pressure O2 Sat by Pulse 97 Oximetry Constitutional: no acute distress, other (elderly female with mildly increased respiratory effort at rest) Eyes: non-icteric ENT: oropharynx moist Neck: supple, no JVD Effort: mildly labored Ascultation: Bilateral: diminished breath sounds, rales (bases) Percussion: Bilateral: not dull Cardiovascular: irregular rhythm, other (rate controlled) Gastrointestinal: normoactive bowel sounds, soft, non-tender, non-distended Integumentary: other (poor turgor; some Ecchymosis) Extremities: no cyanosis, no edema, pulses normal, no ischemia or petechiae Neurologic: non-focal exam (grossly), pupils equal and round, CN II-XII normal, motor strength normal and Psychiatric: mood appropriate, affect normal, other (poor insight and judgment) CBC and BMP: 02/15/21 05:40 02/16/21 14:44 ABG, PT/INR, D-dimer: PT/INR, D-dimer PT 29.2 Sec. (12.2-14.9) H 02/11/21 15:24 INR 2.74 (0.87-1.13) H 02/11/21 15:24 Abnormal lab findings: Abnormal Labs 02/09/21 02/09/21 02/09/21 15:50 15:50 15:50 RBC RDW 20.0 H [place] % (Auto) 11.6 H [place] # (Auto) 1.2 H Seg Neutrophils % 71.0 H PT 37.1 H INR 3.76 H APTT 41.4 H Sodium 133 L Potassium 5.8 H Chloride Carbon Dioxide 19 L BUN 72 H Creatinine 2.2 H Glucose 131 H POC Glucose Magnesium NT-Pro-B Natriuret Pep Total Protein Albumin 3.2 L PTH Intact Urine WBC (Auto) 02/09/21 02/09/21 02/09/21 15:50 15:50 Unknown RBC RDW [place] % (Auto) [place] # (Auto) Seg Neutrophils % PT INR APTT Sodium Potassium Chloride Carbon Dioxide BUN Creatinine Glucose POC Glucose Magnesium 2.60 H NT-Pro-B Natriuret Pep 52428 H Total Protein Albumin PTH Intact Urine WBC (Auto) 23.0 H 02/10/21 02/10/21 02/10/21 04:34 04:34 19:12 RBC 3.62 L RDW 19.4 H [place] % (Auto) 13.6 H [place] # (Auto) 1.1 H Seg Neutrophils % PT INR APTT Sodium 136 L Potassium Chloride Carbon Dioxide BUN 72 H Creatinine 2.2 H Glucose POC Glucose Magnesium NT-Pro-B Natriuret Pep Total Protein 6.2 L Albumin 3.2 L PTH Intact Urine WBC (Auto) 8.0 H 02/11/21 02/11/21 02/11/21 05:51 05:51 05:51 RBC RDW 20.0 H [place] % (Auto) 10.8 H [place] # (Auto) 1.0 H Seg Neutrophils % 73.3 H PT INR APTT Sodium 131 L Potassium 5.1 H Chloride 97.2 L Carbon Dioxide 21 L BUN 71 H Creatinine 2.0 H Glucose 113 H POC Glucose Magnesium NT-Pro-B Natriuret Pep Total Protein Albumin PTH Intact 75.78 H Urine WBC (Auto) 02/11/21 02/12/21 02/12/21 15:24 07:38 16:35 RBC RDW [place] % (Auto) [place] # (Auto) Seg Neutrophils % PT 29.2 H INR 2.74 H APTT 40.7 H Sodium 135 L Potassium Chloride 97.5 L Carbon Dioxide BUN 58 H Creatinine 1.7 H Glucose POC Glucose 139 H Magnesium NT-Pro-B Natriuret Pep Total Protein Albumin PTH Intact Urine WBC (Auto) 02/13/21 02/13/21 02/14/21 05:21 20:50 03:44 RBC RDW [place] % (Auto) [place] # (Auto) Seg Neutrophils % PT INR APTT Sodium 134 L Potassium 5.1 H 5.5 H Chloride Carbon Dioxide 21 L BUN 45 H 39 H Creatinine 1.4 H 1.3 H Glucose POC Glucose 112 H Magnesium NT-Pro-B Natriuret Pep Total Protein Albumin PTH Intact Urine WBC (Auto) 02/15/21 02/15/21 02/15/21 05:40 05:40 08:07 RBC RDW 20.4 H [place] % (Auto) [place] # (Auto) Seg Neutrophils % PT INR APTT Sodium Potassium Chloride 110.7 H Carbon Dioxide 13 L D BUN 33 H Creatinine 1.4 H Glucose POC Glucose 124 H Magnesium NT-Pro-B Natriuret Pep Total Protein Albumin PTH Intact Urine WBC (Auto) 02/15/21 02/15/21 02/16/21 11:41 15:50 14:44 RBC RDW [place] % (Auto) [place] # (Auto) Seg Neutrophils % PT INR APTT Sodium Potassium Chloride Carbon Dioxide BUN 27 H Creatinine Glucose 117 H POC Glucose 142 H 118 H Magnesium NT-Pro-B Natriuret Pep Total Protein Albumin PTH Intact Urine WBC (Auto) Chest x-ray: image reviewed (cardiomegaly; AICD; mild interstitial edema; prior valvuloplasty) Additional Studies: repeat CT head with new onset sinusitis Allied health notes reviewed: nursing
--- NOTE | 2021-02-17 15:39 | Progress Note ---
Assessment and Plan The patient is an 89 YO female with history significant for Hypertension, Aortic valve repair, Hypothyroidism and recent pacemaker placement who was brought in by EMS to [facility] ED 02/09 for evaluation of shortness of breath and altered sensorium. 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, pulmonary consulted --Acute respiratory failure, patient on supplemental O2 likely due to pulmonary hypertension, tricuspid valve regurgitation and underlying CHF Continue supplemental O2 as tolerated and Lasix as needed -- Acute encephalopathy Etiology may be lorazepam Lorazepam discontinued Patient also has underlying dementia CT head is unremarkable --History of dementia, continue supportive care and follow clinically -- ARMIDA (acute kidney injury) Possible ARMIDA superimposed on chronic kidney disease Nephrology consult requested, Cr stable -- Hyperkalemia Treated and now normal -- Hyponatremia Mild with sodium of 133 and improved --Hypothyroidism (acquired) Continue Synthroid -- Hypertension, chronic Continue antihypertensives and adjust BP meds as needed -- GERD (gastroesophageal reflux disease) Continue PPIs -- DVT prophylaxis Patient on Xarelto for valvuloplasty of aortic valve and GI prophylaxis Daily clinical course: 02/10/2021 -Patient was confused. She states she is unaware she is in the hospital. Neurology and nephrology consult appreciated. Need PT OT evaluation. Cardiology consulted. 02/11/2021 -Patient was confused and neurology is following. -Patient was seen by cardiology and recommend to continue anticoagulation and medical management. -Patient was seen by nephrology and recommend to continue current management, monitor BMP. -Patient came from [facility]. -Blood pressure is well controlled. 02/12/2021 -Patient with ARMIDA, CHF. She is still confused. ARMIDA improving. Cr 1.7 today. She is followed by Nephrology and Cardiology. Continue Xarelto for aortic valve valvulopolasty. Follow labs in am 02/13/21 Patient with acute kidney injury, CHF. Cr improving 1.4 today. However she has mild hyperkalemia with Potassium 5.1. Nephrology following. Will repeat labs in am. Continue Xarelto. Cardiology following too. 02/14/21 Patient with acute kidney injury, congestive heart failure. She is followed by nephrology, Cardiology. Potassium 5.5 today, so Kayexalate ordered Cr 1.3 today improving On Xarelto for valvuloplasty of aortic valve SOB today Chest X ray ordered , pending 02/15/21; chest x-ray yesterday showed bibasilar atelectasis and chronic interstitial changes. 2D EHO SHOWED EF 40-45% with moderate to severe PHTN. lasix on hold as pt euvolumic. consult pulmonary for PHTN. discussed with patient's daughter at the bedside. 02/16/21: Repeat CT head obtained this morning showed no acute interval change. Patient remains intermittently confused with poor oral intake. Appreciate pulmonary recommendation. Renal function stable. Order for repeat speech eval, continue D5 normal saline. Need placement 02/17/21: Had repeat speech eval today and recommended to continue pured diet. Clinically remains unchanged with intermittent confusion and poor oral intake. Discussed with RN to assess patient during mealtime to improve oral intake. Pending placement. Subjective Date of service: 02/17/21 Principal diagnosis: AE-CHF; Pulmonary HTN; Acute encephalopathy; ARMIDA; Hypothyroidism; HTN Interval history: Patient seen and examined. Medical records and medication list reviewed. No acute event overnight noted by the RN. Patient remains confused but able to follow command. Patient is tolerating diet but appetite is poor. Discussed plan of care at bedside with patient;s RN and CM. Objective - Exam Narrative Exam: GENERAL: well-developed and well-nourished elderly white female lying on bed HEENT: Normocephalic. Atraumatic. No conjunctival congestion or icterus. Patient has moist mucous membranes. NECK: Supple. Trachea midline. CHEST/LUNGS: Patient on nasal cannula O2, did not appreciate any crackles, positive for few rhonchi HEART/CARDIOVASCULAR: Regular in rate and rhythm. S1 and S2 positive. ABDOMEN: Abdomen is soft, nontender. Patient has normal bowel sounds. SKIN: There is no rash. Warm and dry. NEURO: No focal motor deficit. Follows command but patient is pleasantly confused. MUSCULOSKELETAL: No joint effusion or tenderness. EXTRIMITY: No edema, no cyanosis or clubbing. PSYCH: Cooperative. - Constitutional Vitals: Vital Signs - 12hr 02/17/21 02/17/21 02/17/21 04:00 04:18 08:40 Temperature 97.6 F 97.4 F L Pulse Rate 101 H 130 H 113 H Respiratory 19 18 Rate Blood Pressure 120/64 134/72 O2 Sat by Pulse 98 98 Oximetry 02/17/21 10:00 Temperature Pulse Rate Respiratory Rate Blood Pressure O2 Sat by Pulse 97 Oximetry - Labs CBC & Chem 7: 02/15/21 05:40 02/22/21 05:09 Labs: Abnormal lab results 02/16/21 Range/Units 14:44 BUN 27 H (7-17) mg/dL Glucose 117 H (65-100) mg/dL HEART Score - HEART Score Age: > 65 Risk factors: > 3 risk factors or hx of atherosclerotic disease Troponin: Troponin T < 0.010 ng/mL (0.00-0.029) 02/09/21 21:05 Troponin: < normal limit - Critical Actions Critical Actions: 0-3 pts:0.9-1.7%risk of adverse cardiac event.Candidate for cesar fernandez
[2021-02-17] MEDS: cefTRIAXone/NS 1 GM/50 ML 1 GM/50 ML BAG IV SCH (18:42)
[2021-02-17] MEDS: D5W/0.9% NACL 1,000 ML IV SCH (18:43)
[2021-02-17] MEDS: SERTRALINE 25 MG TAB PO SCH (22:04)
[2021-02-17] MEDS: RIVAROXABAN 15 MG TAB PO SCH (22:04)
[2021-02-17] MEDS: FLUTICASONE PROPIONATE NASAL SPRAY 16 GM NS SCH (22:04)
[2021-02-18] MEDS: HYOSCYAMINE SUBL 0.125 MG TAB SL SCH ×3 (05:21→17:59)
[2021-02-18] MEDS: LEVOTHYROXINE 100 MCG TAB PO SCH (05:21)
[2021-02-18 06:09] LABS: Calcium 8.3 mg/dL (8.4-10.2)
--- NOTE | 2021-02-18 08:39 | Progress Note ---
Assessment and Plan 1. Acute kidney injury: ARMIDA in the setting of CHF. CT abdomen negative for hydro. Urine studies ordered. Baseline renal function is unknown. Most likely background CKD. Monitor renal function. Creatinine level is better. Avoid nephrotoxic agents. Meds dosage based on GFR. 2. FEN: Metabolic acidosis, improved, monitor. Hyperkalemia, improved, monitor. Replete K. Monitor lytes. 3. Decompensated CHF: Strict I/O. On Metoprolol. Followed by Cards. 4. Chronic A.fib // PPM // Transaortic valve replacement: On Cardizem, Metoprolol and Xarelto. Monitor. 5. Hypertension: BP is controlled. Adjust meds as needed. Monitor. Subjective: Patient was seen and examined at the bedside. Examination: General appearance: well-developed, appears stated age, not in distress HEENT: ATNC, pupils equal Neck: Trachea midline Respiratory: ctab Cardiology: S1S2, no murmur Gastrointestinal: soft, bowel sounds heard, not tender Integumentary: warm and dry Neurologic: lethargicExt: no edema Subjective Date of service: 02/18/21 Principal diagnosis: encephalopathy Objective - Vital Signs Vital signs: Vital Signs - 12hr 02/17/21 02/17/21 02/17/21 20:45 22:00 22:05 Temperature Pulse Rate 119 H Respiratory 18 Rate Blood Pressure 136/80 Blood Pressure [Left] O2 Sat by Pulse 94 Oximetry 02/17/21 02/17/21 02/18/21 23:00 23:29 03:12 Temperature 97.9 F 98.0 F Pulse Rate 127 H 146 H 102 H Respiratory 19 18 Rate Blood Pressure 129/70 118/101 Blood Pressure [Left] O2 Sat by Pulse 94 93 Oximetry 02/18/21 02/18/21 07:00 08:34 Temperature Pulse Rate 136 H 110 H Respiratory 20 Rate Blood Pressure Blood Pressure 140/74 [Left] O2 Sat by Pulse 98 Oximetry - Lab 02/15/21 05:40 02/18/21 05:12 Most recent lab results Calcium 8.3 mg/dL (8.4-10.2) L 02/18/21 05:12 Magnesium 2.60 mg/dL (1.7-2.3) H 02/09/21 15:50 Medications & Allergies - Medications Allergies/Adverse Reactions: Allergies codeine Allergy (Verified 02/09/21 16:11) Unknown morphine Allergy (Verified 02/09/21 16:11) Unknown Sulfa (Sulfonamide Antibiotics) Allergy (Verified 02/09/21 16:11) Unknown zolpidem [From Ambien] Allergy (Verified 02/09/21 16:11) Unknown Home Medications: Home Medications Medication Instructions Recorded Confirmed Last Taken Type Cyproheptadine HCl 4 mg PO Q8HR 02/09/21 02/09/21 Unknown History Furosemide [Lasix] 20 mg PO QDAY 02/09/21 02/09/21 Unknown History Hydromorphone HCl/0.9% NaCl/Pf 1 mg PO Q2HR PRN 02/09/21 02/09/21 Unknown History [Hydromorphone 1 mg/ml-Ns Syrng] Hyoscyamine Subl [Levsin Sl 0.125 0.125 mg SL Q6HR 02/09/21 02/09/21 Unknown History TAB] LORazepam [Ativan] 0.5 mg PO Q6H PRN 02/09/21 02/09/21 Unknown History Levothyroxine [Synthroid] 100 mcg PO QAM 02/09/21 02/09/21 Unknown History Loratadine 10 mg PO QAM 02/09/21 02/09/21 Unknown History Metoprolol Tartrate [Lopressor] 100 mg PO BID 02/09/21 02/09/21 Unknown History Ondansetron [Zofran Odt] 4 mg PO Q4HR PRN 02/09/21 02/09/21 Unknown History Pantoprazole Sodium 40 mg PO QAM 02/09/21 02/09/21 Unknown History Rivaroxaban [Xarelto] 15 mg PO QHS 02/09/21 02/09/21 Unknown History bisacodyL [Dulcolax suppos] 10 mg [place] QDAY 02/09/21 02/09/21 Unknown History busPIRone [Buspar] 5 mg PO BID 02/09/21 02/09/21 Unknown History dilTIAZem CD [Cardizem Cd] 120 mg PO DAILY 02/09/21 02/09/21 Unknown History traMADoL [Ultram] 50 mg PO Q6HR PRN 02/09/21 02/09/21 Unknown History Active Medications: Generic Name Dose Route Start Last Admin Trade Name Freq PRN Reason Stop Dose Admin Acetaminophen 650 mg 02/10/21 00:03 02/13/21 22:06 Acetaminophen 325 Mg Tab PO 650 mg Q4H PRN Administration Pain MILD(1-3)/Fever >100.5/GABRIEL Bisacodyl 10 mg 02/10/21 10:00 02/17/21 09:07 Bisacodyl 10 Mg Rect Supp [place] Not Given QDAY GERRI Buspirone HCl 5 mg 02/10/21 10:00 02/17/21 22:06 Buspirone 5 Mg Tab PO 5 mg BID GERRI Administration Cetirizine HCl 10 mg 02/10/21 10:00 02/17/21 09:06 Cetirizine 10 Mg Tab PO 10 mg QAM GERRI Administration Cyproheptadine HCl 4 mg 02/10/21 07:30 02/17/21 17:30 Cyproheptadine 4 Mg Tab PO 4 mg TIDAC GERRI Administration Diltiazem HCl 120 mg 02/10/21 10:00 02/17/21 09:06 Diltiazem Cd 120 Mg Cap PO 120 mg DAILY GERRI Administration Fluticasone Propionate 50 mcg 02/17/21 22:00 02/17/21 22:04 Fluticasone Propionate Nasal [place] 16 Gm NS 50 mcg BID GERRI Administration Furosemide 40 mg 02/14/21 11:00 02/17/21 09:06 Furosemide 40 Mg Tab PO 40 mg QDAY GERRI Administration Gabapentin 100 mg 02/11/21 14:00 02/17/21 22:20 Gabapentin 100 Mg Cap PO 100 mg BID GERRI Administration Hydromorphone HCl 0.5 mg 02/10/21 00:03 02/17/21 18:10 Hydromorphone 1 Mg/1 Ml Inj IV 0.5 mg Q3H PRN Administration Pain , Severe (7-10) Hyoscyamine 0.125 mg 02/10/21 00:00 02/18/21 05:21 Hyoscyamine Subl 0.125 Mg Tab SL 0.125 mg Q6HR GERRI Administration Dextrose/Sodium Chloride 1,000 mls @ 42 mls/hr 02/16/21 16:00 02/17/21 18:43 D5ns IV 42 mls/hr DIRECT GERRI Administration Levothyroxine Sodium 100 mcg 02/10/21 06:00 02/18/21 05:21 Levothyroxine 100 Mcg Tab PO 100 mcg QAM@0600 GERRI Administration Megestrol Acetate 400 mg 02/16/21 16:00 02/17/21 09:06 Megestrol 400 Mg/10 Ml Oral Liqd PO 400 mg QDAY GERRI Administration Metoclopramide HCl 5 mg 02/10/21 00:03 Metoclopramide 10 Mg/2 Ml Inj IV Q6H PRN Nausea And Vomiting Metoprolol Tartrate 50 mg 02/10/21 11:00 02/17/21 22:05 Metoprolol Tartrate 50 Mg Tab PO 50 mg BID GERRI Administration Nystatin 1 applic 02/13/21 22:00 02/17/21 22:06 Nystatin Powder 15 Gm TP 1 applic BID GERRI Administration Ondansetron HCl 4 mg 02/10/21 00:00 Ondansetron 4 Mg Odt Tab PO Q4H PRN Nausea Ondansetron HCl 4 mg 02/10/21 00:03 Ondansetron 4 Mg/2 Ml Inj IV Q8H PRN Nausea And Vomiting Pantoprazole Sodium 40 mg 02/10/21 10:00 02/17/21 09:06 Pantoprazole 40 Mg Tab PO 40 mg QAM GERRI Administration Rivaroxaban 15 mg 02/10/21 22:00 02/17/21 22:04 Rivaroxaban 15 Mg Tab PO 15 mg QHS GERRI Administration Sertraline HCl 12.5 mg 02/17/21 22:00 02/17/21 22:04 Sertraline 25 Mg Tab PO 12.5 mg QHS GERRI Administration Sodium Chloride 10 ml 02/10/21 10:00 02/17/21 22:06 Sodium Chloride 0.9% 10 Ml Flush Syringe IV 10 ml BID GERRI Administration Sodium Chloride 10 ml 02/10/21 00:03 Sodium Chloride 0.9% 10 Ml Flush Syringe IV PRN PRN LINE FLUSH
[2021-02-18] MEDS ORDERED: POTASSIUM CHLORIDE ER 20 MEQ TAB PO NR (08:40)
--- NOTE | 2021-02-18 09:34 | Progress Note ---
Assessment and Plan - Patient Problems (1) Acute exacerbation of CHF (congestive heart failure) Current Visit: Yes Status: Acute Qualifiers: Qualified Code(s): I50.43 - Acute on chronic combined systolic (congestive) and diastolic (congestive) heart failure Plan to address problem: Echocardiogram shows only mild left ventricular systolic dysfunction with ejection fraction 45 to 50%. The most significant abnormalities on echo is marked dilatation of both left and right atria, consistent with the chronic atrial fibrillation. The right ventricle is also dilated and hypocontractile, with at least moderate pulmonary hypertension with pulmonary artery systolic pressure of 52, suggestive of cor pulmonale. Continue conservative cardiac management. (2) Atrial fibrillation Current Visit: Yes Status: Acute Plan to address problem: Continue rate controlling agents and oral anticoagulation. Conservative cardiac management. Subjective Date of service: 02/18/21 Principal diagnosis: encephalopathy Interval history: No cardiac changes. Objective Vital Signs Temp Pulse Resp BP BP Pulse Ox 02/18/21 08:34 110 H 20 140/74 98 02/18/21 07:00 136 H 02/18/21 03:12 98.0 F 102 H 18 118/101 93 02/17/21 23:29 97.9 F 146 H 19 129/70 94 02/17/21 23:00 127 H 02/17/21 22:05 119 H 136/80 02/17/21 22:00 18 02/17/21 20:45 94 02/17/21 19:17 97.5 F L 119 H 20 136/80 93 02/17/21 16:30 97.7 F 120 H 18 119/65 94 02/17/21 15:50 113 H 02/17/21 10:00 18 97 - Physical Examination General: No Apparent Distress HEENT: Positive: PERRL Neck: Positive: neck supple Cardiac: Positive: irregularly irregular Lungs: Positive: Decreased Breath Sounds Neuro: Positive: Weakness Extremities: Absent: edema - Labs and Meds Comprehensive Metabolic Panel 02/18/21 Range/Units 05:12 Sodium 145 (137-145) mmol/L Potassium 3.1 L D (3.6-5.0) mmol/L Chloride 106.5 (98-107) mmol/L Carbon Dioxide 27 (22-30) mmol/L BUN 32 H (7-17) mg/dL Creatinine 1.3 H (0.6-1.2) mg/dL Glucose 117 H (65-100) mg/dL Calcium 8.3 L (8.4-10.2) mg/dL - Allied health notes Allied health notes reviewed: nursing
[2021-02-18] MEDS: D5W/0.9% NACL 1,000 ML IV SCH ×2 (10:51→18:00)
[2021-02-18] MEDS: GABAPENTIN 100 MG CAP PO SCH ×2 (10:52→21:41)
[2021-02-18] MEDS: METOPROLOL TARTRATE 50 MG TAB PO SCH ×2 (10:52→21:41)
[2021-02-18] MEDS: MEGESTROL 400 MG/10 ML ORAL LIQD PO SCH (10:52)
[2021-02-18] MEDS: CYPROHEPTADINE 4 MG TAB PO SCH ×3 (10:52→17:59)
[2021-02-18] MEDS: busPIRone 5 MG TAB PO SCH ×2 (10:52→21:41)
[2021-02-18] MEDS: CETIRIZINE 10 MG TAB PO SCH (10:52)
[2021-02-18] MEDS: dilTIAZem CD 120 MG CAP PO SCH (10:52)
[2021-02-18] MEDS: PANTOPRAZOLE 40 MG TAB PO SCH (10:52)
[2021-02-18] MEDS: NYSTATIN POWDER 15 GM TP SCH ×2 (10:53→21:46)
[2021-02-18] MEDS: FLUTICASONE PROPIONATE NASAL SPRAY 16 GM NS SCH ×2 (10:53→21:45)
[2021-02-18] MEDS: ACETAMINOPHEN 325 MG TAB PO PRN (10:58)
--- NOTE | 2021-02-18 14:15 | Progress Note ---
Assessment and Plan The patient is an 89 YO female with history significant for Hypertension, Aortic valve repair, Hypothyroidism and recent pacemaker placement who was brought in by EMS to [facility] ED 02/09 for evaluation of shortness of breath and altered sensorium. 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, pulmonary consulted --Acute respiratory failure, patient on supplemental O2 likely due to pulmonary hypertension, tricuspid valve regurgitation and underlying CHF Continue supplemental O2 as tolerated and Lasix as needed -- Acute encephalopathy Etiology may be lorazepam Lorazepam discontinued Patient also has underlying dementia CT head is unremarkable --History of dementia, continue supportive care and follow clinically -- ARMIDA (acute kidney injury) Possible ARMIDA superimposed on chronic kidney disease Nephrology consult requested, Cr stable -- Hyperkalemia Treated and now normal -- Hyponatremia Mild with sodium of 133 and improved --Hypothyroidism (acquired) Continue Synthroid -- Hypertension, chronic Continue antihypertensives and adjust BP meds as needed -- GERD (gastroesophageal reflux disease) Continue PPIs -- DVT prophylaxis Patient on Xarelto for valvuloplasty of aortic valve and GI prophylaxis Daily clinical course: 02/10/2021 -Patient was confused. She states she is unaware she is in the hospital. Neurology and nephrology consult appreciated. Need PT OT evaluation. Cardiology consulted. 02/11/2021 -Patient was confused and neurology is following. -Patient was seen by cardiology and recommend to continue anticoagulation and medical management. -Patient was seen by nephrology and recommend to continue current management, monitor BMP. -[facility] -Blood pressure is well controlled. 02/12/2021 -Patient with ARMIDA, CHF. She is still confused. ARMIDA improving. Cr 1.7 today. She is followed by Nephrology and Cardiology. Continue Xarelto for aortic valve valvulopolasty. Follow labs in am 02/13/21 Patient with acute kidney injury, CHF. Cr improving 1.4 today. However she has mild hyperkalemia with Potassium 5.1. Nephrology following. Will repeat labs in am. Continue Xarelto. Cardiology following too. 02/14/21 Patient with acute kidney injury, congestive heart failure. She is followed by nephrology, Cardiology. Potassium 5.5 today, so Kayexalate ordered Cr 1.3 today improving On Xarelto for valvuloplasty of aortic valve SOB today Chest X ray ordered , pending 02/15/21; chest x-ray yesterday showed bibasilar atelectasis and chronic interstitial changes. 2D EHO SHOWED EF 40-45% with moderate to severe PHTN. lasix on hold as pt euvolumic. consult pulmonary for PHTN. discussed with patient's daughter at the bedside. 02/16/21: Repeat CT head obtained this morning showed no acute interval change. Patient remains intermittently confused with poor oral intake. Appreciate pulmonary recommendation. Renal function stable. Order for repeat speech eval, continue D5 normal saline. Need placement 02/17/21: Had repeat speech eval today and recommended to continue pured diet. Clinically remains unchanged with intermittent confusion and poor oral intake. Discussed with RN to assess patient during mealtime to improve oral intake. Pending placement. 02/18/21: Clinically unchanged, intermittently been confused but follow command. Tolerating pured diet. Pending placement Subjective Date of service: 02/18/21 Principal diagnosis: encephalopathy Interval history: Patient seen and examined. Medical records and medication list reviewed. No acute event overnight noted by the RN. Patient remains confused but able to follow command. Patient is tolerating diet but appetite is poor. Discussed plan of care at bedside with patient;s RN and CM. Objective - Exam Narrative Exam: GENERAL: well-developed and well-nourished elderly white female lying on bed HEENT: Normocephalic. Atraumatic. No conjunctival congestion or icterus. Patient has moist mucous membranes. NECK: Supple. Trachea midline. CHEST/LUNGS: Patient on nasal cannula O2, did not appreciate any crackles, pos itive for few rhonchi HEART/CARDIOVASCULAR: Regular in rate and rhythm. S1 and S2 positive. ABDOMEN: Abdomen is soft, nontender. Patient has normal bowel sounds. SKIN: There is no rash. Warm and dry. NEURO: No focal motor deficit. Follows command but patient is pleasantly confused. MUSCULOSKELETAL: No joint effusion or tenderness. EXTRIMITY: No edema, no cyanosis or clubbing. PSYCH: Cooperative. - Constitutional Vitals: Vital Signs - 12hr 02/18/21 02/18/21 02/18/21 03:12 07:00 08:34 Temperature 98.0 F Pulse Rate 102 H 136 H 110 H Respiratory 18 20 Rate Blood Pressure 118/101 Blood Pressure 140/74 [Left] O2 Sat by Pulse 93 98 Oximetry 02/18/21 09:46 Temperature Pulse Rate Respiratory Rate Blood Pressure Blood Pressure [Left] O2 Sat by Pulse 94 Oximetry - Labs CBC & Chem 7: 02/15/21 05:40 02/22/21 05:09 Labs: Abnormal lab results 02/18/21 Range/Units 05:12 Potassium 3.1 L D (3.6-5.0) mmol/L BUN 32 H (7-17) mg/dL Creatinine 1.3 H (0.6-1.2) mg/dL Glucose 117 H (65-100) mg/dL Calcium 8.3 L (8.4-10.2) mg/dL HEART Score - HEART Score Age: > 65 Risk factors: > 3 risk factors or hx of atherosclerotic disease Troponin: Troponin T < 0.010 ng/mL (0.00-0.029) 02/09/21 21:05 Troponin: < normal limit - Critical Actions Critical Actions: 0-3 pts:0.9-1.7%risk of adverse cardiac event.Candidate for discharge
--- NOTE | 2021-02-18 16:47 | Progress Note ---
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 - optimize cardiac function per cardiology team - continue rate control with toprol - avoid hypoxemia; continue supplemental oxygen to keep O2 sats > 90% - prn bronchodilators (BRY) with pulm hygiene per RT - continue to avoid nephrotoxins, renally dose all medications - mobility protocols to prevent pressure ulcers - PT/OT as tolerated - prn analgesia per pain score - Wound care per RN/WCT - accuchecks with glycemic control per SSI for target blood glucose < 180 mg/dL - home oxygen evaluation at discharge - GI & VTE prophylaxis - Flu & pneumovax per protocol - Pulmonary out patient follow up for PFTs and optimization of respiratory status - continue other care per attending / other consultants ... re-evaluate in am & prn Subjective Date of service: 02/18/21 Principal diagnosis: AE-CHF; Pulmonary HTN; Acute encephalopathy; ARMIDA; Hypothyroidism; HTN Interval history: Patient is seen today for: AE-CHF; Pulmonary HTN; Acute encephalopathy; ARMIDA; Hypothyroidism; HTN Seen and examined at bedside; 24hour events reviewed; nursing and respiratory care staff consulted; no adverse overnight events reported to me; resting in bed; remains on supplemental oxygen; no emesis or overt aspiration Objective Vital Signs - 12hr 02/18/21 02/18/21 02/18/21 07:00 08:34 09:46 Pulse Rate 136 H 110 H Respiratory 20 Rate Blood Pressure 140/74 [Left] O2 Sat by Pulse 98 94 Oximetry Constitutional: no acute distress, other (elderly female with mildly increased respiratory effort at rest) Eyes: non-icteric ENT: oropharynx moist Neck: supple, no JVD Effort: mildly labored Ascultation: Bilateral: diminished breath sounds, rales (bases) Percussion: Bilateral: not dull Cardiovascular: irregular rhythm, other (rate controlled) Gastrointestinal: normoactive bowel sounds, soft, non-tender, non-distended Integumentary: other (poor turgor; some Ecchymosis) Extremities: no cyanosis, no edema, pulses normal, no ischemia or petechiae Neurologic: non-focal exam (grossly), pupils equal and round, CN II-XII normal, motor strength normal and Psychiatric: mood appropriate, affect normal, other (poor insight and judgment) CBC and BMP: 02/15/21 05:40 02/20/21 05:07 ABG, PT/INR, D-dimer: PT/INR, D-dimer PT 29.2 Sec. (12.2-14.9) H 02/11/21 15:24 INR 2.74 (0.87-1.13) H 02/11/21 15:24 Abnormal lab findings: Abnormal Labs 02/09/21 02/09/21 02/09/21 15:50 15:50 15:50 RBC RDW 20.0 H Braxton % (Auto) 11.6 H Braxton # (Auto) 1.2 H Seg Neutrophils % 71.0 H PT 37.1 H INR 3.76 H APTT 41.4 H Sodium 133 L Potassium 5.8 H Chloride Carbon Dioxide 19 L BUN 72 H Creatinine 2.2 H Glucose 131 H POC Glucose Calcium Magnesium NT-Pro-B Natriuret Pep Total Protein Albumin 3.2 L PTH Intact Urine WBC (Auto) 02/09/21 02/09/21 02/09/21 15:50 15:50 Unknown RBC RDW Braxton % (Auto) Braxton # (Auto) Seg Neutrophils % PT INR APTT Sodium Potassium Chloride Carbon Dioxide BUN Creatinine Glucose POC Glucose Calcium Magnesium 2.60 H NT-Pro-B Natriuret Pep 23952 H Total Protein Albumin PTH Intact Urine WBC (Auto) 23.0 H 02/10/21 02/10/21 02/10/21 04:34 04:34 19:12 RBC 3.62 L RDW 19.4 H Braxton % (Auto) 13.6 H Braxton # (Auto) 1.1 H Seg Neutrophils % PT INR APTT Sodium 136 L Potassium Chloride Carbon Dioxide BUN 72 H Creatinine 2.2 H Glucose POC Glucose Calcium Magnesium NT-Pro-B Natriuret Pep Total Protein 6.2 L Albumin 3.2 L PTH Intact Urine WBC (Auto) 8.0 H 02/11/21 02/11/21 02/11/21 05:51 05:51 05:51 RBC RDW 20.0 H Braxton % (Auto) 10.8 H Braxton # (Auto) 1.0 H Seg Neutrophils % 73.3 H PT INR APTT Sodium 131 L Potassium 5.1 H Chloride 97.2 L Carbon Dioxide 21 L BUN 71 H Creatinine 2.0 H Glucose 113 H POC Glucose Calcium Magnesium NT-Pro-B Natriuret Pep Total Protein Albumin PTH Intact 75.78 H Urine WBC (Auto) 02/11/21 02/12/21 02/12/21 15:24 07:38 16:35 RBC RDW Braxton % (Auto) Braxton # (Auto) Seg Neutrophils % PT 29.2 H INR 2.74 H APTT 40.7 H Sodium 135 L Potassium Chloride 97.5 L Carbon Dioxide BUN 58 H Creatinine 1.7 H Glucose POC Glucose 139 H Calcium Magnesium NT-Pro-B Natriuret Pep Total Protein Albumin PTH Intact Urine WBC (Auto) 02/13/21 02/13/21 02/14/21 05:21 20:50 03:44 RBC RDW Braxton % (Auto) Braxton # (Auto) Seg Neutrophils % PT INR APTT Sodium 134 L Potassium 5.1 H 5.5 H Chloride Carbon Dioxide 21 L BUN 45 H 39 H Creatinine 1.4 H 1.3 H Glucose POC Glucose 112 H Calcium Magnesium NT-Pro-B Natriuret Pep Total Protein Albumin PTH Intact Urine WBC (Auto) 02/15/21 02/15/21 02/15/21 05:40 05:40 08:07 RBC RDW 20.4 H Braxton % (Auto) Braxton # (Auto) Seg Neutrophils % PT INR APTT Sodium Potassium Chloride 110.7 H Carbon Dioxide 13 L D BUN 33 H Creatinine 1.4 H Glucose POC Glucose 124 H Calcium Magnesium NT-Pro-B Natriuret Pep Total Protein Albumin PTH Intact Urine WBC (Auto) 02/15/21 02/15/21 02/16/21 11:41 15:50 14:44 RBC RDW Braxton % (Auto) Braxton # (Auto) Seg Neutrophils % PT INR APTT Sodium Potassium Chloride Carbon Dioxide BUN 27 H Creatinine Glucose 117 H POC Glucose 142 H 118 H Calcium Magnesium NT-Pro-B Natriuret Pep Total Protein Albumin PTH Intact Urine WBC (Auto) 02/18/21 05:12 RBC RDW Braxton % (Auto) Braxton # (Auto) Seg Neutrophils % PT INR APTT Sodium Potassium 3.1 L D Chloride Carbon Dioxide BUN 32 H Creatinine 1.3 H Glucose 117 H POC Glucose Calcium 8.3 L Magnesium NT-Pro-B Natriuret Pep Total Protein Albumin PTH Intact Urine WBC (Auto) Allied health notes reviewed: nursing
[2021-02-18] MEDS: RIVAROXABAN 15 MG TAB PO SCH (21:41)
[2021-02-18] MEDS: SERTRALINE 25 MG TAB PO SCH (21:44)
[2021-02-19] MEDS: HYOSCYAMINE SUBL 0.125 MG TAB SL SCH ×4 (05:19→18:14)
[2021-02-19] MEDS: LEVOTHYROXINE 100 MCG TAB PO SCH (06:16)
[2021-02-19 07:13] LABS: Calcium 8.5 mg/dL (8.4-10.2)
--- NOTE | 2021-02-19 10:10 | Progress Note ---
Assessment and Plan #Acute HFFrEF #Persistent AF #Biatrial dilatation #Moderate pHTN #S/p pacemaker - appears to have only LV lead per CXR -Continue (1) Acute exacerbation of CHF (congestive heart failure) Current Visit: Yes Status: Acute Qualifiers: Qualified Code(s): I50.43 - Acute on chronic combined systolic (congestive) and diastolic (congestive) heart failure Plan to address problem: Echocardiogram shows only mild left ventricular systolic dysfunction with ejection fraction 45 to 50%. The most significant abnormalities on echo is marked dilatation of both left and right atria, consistent with the chronic atrial fibrillation. The right ventricle is also dilated and hypocontractile, with at least moderate pulmonary hypertension with pulmonary artery systolic pressure of 52, suggestive of cor pulmonale. Will switch to metoprolol XL given cardiomyopathy. Continue conservative cardiac management. (2) Atrial fibrillation Current Visit: Yes Status: Acute Plan to address problem: Ventricular rates intermittently fast. Will increase BB as above. Continue diltiazem. Continue oral anticoagulation with xarelto. Conservative cardiac management. Subjective Date of service: 02/19/21 Principal diagnosis: encephalopathy Interval history: Confused. Not able to communicate coherently. Appears comfortable. 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 Objective Vital Signs Temp Pulse Resp BP BP Pulse Ox 02/19/21 08:28 98.6 F 114 H 18 121/91 90 02/18/21 23:35 98.4 F 106 H 20 132/50 90 02/18/21 21:41 104 H 120/84 02/18/21 20:10 97.9 F 102 H 20 120/84 95 02/18/21 17:59 120/69 02/18/21 15:00 122 H - Physical Examination General: No Apparent Distress HEENT: Positive: PERRL Neck: Positive: neck supple Cardiac: Positive: irregularly irregular, Tachycardia, Other (Left chest pacemaker site is well healed) Neuro: Positive: Weakness Abdomen: Positive: Soft Skin: Positive: Clear Extremities: Absent: edema - Labs and Meds Comprehensive Metabolic Panel 02/19/21 Range/Units 05:50 Sodium 143 (137-145) mmol/L Potassium 5.4 H D (3.6-5.0) mmol/L Chloride 108.1 H (98-107) mmol/L Carbon Dioxide 22 (22-30) mmol/L BUN 33 H (7-17) mg/dL Creatinine 1.4 H (0.6-1.2) mg/dL Glucose 90 (65-100) mg/dL Calcium 8.5 (8.4-10.2) mg/dL - Allied health notes Allied health notes reviewed: nursing
[2021-02-19] MEDS ORDERED: METOPROLOL SUCCINATE XL 50 MG TAB PO SCH (10:30)
[2021-02-19] MEDS: MEGESTROL 400 MG/10 ML ORAL LIQD PO SCH (10:41)
[2021-02-19] MEDS: GABAPENTIN 100 MG CAP PO SCH ×2 (10:41→21:50)
[2021-02-19] MEDS: dilTIAZem CD 120 MG CAP PO SCH (10:42)
[2021-02-19] MEDS: CYPROHEPTADINE 4 MG TAB PO SCH ×3 (10:42→18:14)
[2021-02-19] MEDS: FLUTICASONE PROPIONATE NASAL SPRAY 16 GM NS SCH ×2 (10:42→21:51)
[2021-02-19] MEDS: PANTOPRAZOLE 40 MG TAB PO SCH (10:42)
[2021-02-19] MEDS: busPIRone 5 MG TAB PO SCH ×2 (10:42→21:51)
[2021-02-19] MEDS: CETIRIZINE 10 MG TAB PO SCH (10:42)
[2021-02-19] MEDS: NYSTATIN POWDER 15 GM TP SCH ×2 (10:43→21:52)
--- NOTE | 2021-02-19 11:18 | Progress Note ---
Assessment and Plan 1. Acute kidney injury: ARMIDA in the setting of CHF. CT abdomen negative for hydro. Urine studies ordered. Baseline renal function is unknown. Most likely background CKD. Monitor renal function. Slight increase in the Creatinine level over the past 2 days. Avoid nephrotoxic agents. Meds dosage based on GFR. 2. FEN: Metabolic acidosis, improved, monitor. Hyperkalemia, kayexalate ordered, monitor. Monitor lytes. 3. CHF: On Metoprolol. Followed by Cards. 4. Chronic A.fib // PPM // Transaortic valve replacement: On Cardizem, Metoprolol and Xarelto. Monitor. 5. Hypertension: BP is controlled. Adjust meds as needed. Monitor. Subjective: Patient was seen and examined at the bedside. Examination: General appearance: well-developed, appears stated age, not in distress HEENT: ATNC, pupils equal Neck: Trachea midline Respiratory: ctab Cardiology: S1S2, no murmur Gastrointestinal: soft, bowel sounds heard, not tender Integumentary: warm and dry Neurologic: alert, confused, able to move extremities Ext: no edema Subjective Date of service: 02/19/21 Principal diagnosis: encephalopathy Objective - Vital Signs Vital signs: Vital Signs - 12hr 02/18/21 02/19/21 23:35 08:28 Temperature 98.4 F 98.6 F Pulse Rate 106 H 114 H Respiratory 20 18 Rate Blood Pressure 132/50 Blood Pressure 121/91 [Left] O2 Sat by Pulse 90 90 Oximetry - Lab 02/15/21 05:40 02/19/21 05:50 Most recent lab results Calcium 8.5 mg/dL (8.4-10.2) 02/19/21 05:50 Magnesium 2.60 mg/dL (1.7-2.3) H 02/09/21 15:50 Medications & Allergies - Medications Allergies/Adverse Reactions: Allergies codeine Allergy (Verified 02/09/21 16:11) Unknown morphine Allergy (Verified 02/09/21 16:11) Unknown Sulfa (Sulfonamide Antibiotics) Allergy (Verified 02/09/21 16:11) Unknown zolpidem [From Ambien] Allergy (Verified 02/09/21 16:11) Unknown Home Medications: Home Medications Medication Instructions Recorded Confirmed Last Taken Type Cyproheptadine HCl 4 mg PO Q8HR 02/09/21 02/09/21 Unknown History Furosemide [Lasix] 20 mg PO QDAY 02/09/21 02/09/21 Unknown History Hydromorphone HCl/0.9% NaCl/Pf 1 mg PO Q2HR PRN 02/09/21 02/09/21 Unknown History [Hydromorphone 1 mg/ml-Ns Syrng] Hyoscyamine Subl [Levsin Sl 0.125 0.125 mg SL Q6HR 02/09/21 02/09/21 Unknown History TAB] LORazepam [Ativan] 0.5 mg PO Q6H PRN 02/09/21 02/09/21 Unknown History Levothyroxine [Synthroid] 100 mcg PO QAM 02/09/21 02/09/21 Unknown History Loratadine 10 mg PO QAM 02/09/21 02/09/21 Unknown History Metoprolol Tartrate [Lopressor] 100 mg PO BID 02/09/21 02/09/21 Unknown History Ondansetron [Zofran Odt] 4 mg PO Q4HR PRN 02/09/21 02/09/21 Unknown History Pantoprazole Sodium 40 mg PO QAM 02/09/21 02/09/21 Unknown History Rivaroxaban [Xarelto] 15 mg PO QHS 02/09/21 02/09/21 Unknown History bisacodyL [Dulcolax suppos] 10 mg CO QDAY 02/09/21 02/09/21 Unknown History busPIRone [Buspar] 5 mg PO BID 02/09/21 02/09/21 Unknown History dilTIAZem CD [Cardizem Cd] 120 mg PO DAILY 02/09/21 02/09/21 Unknown History traMADoL [Ultram] 50 mg PO Q6HR PRN 02/09/21 02/09/21 Unknown History Active Medications: Generic Name Dose Route Start Last Admin Trade Name Freq PRN Reason Stop Dose Admin Acetaminophen 650 mg 02/10/21 00:03 02/18/21 10:58 Acetaminophen 325 Mg Tab PO 650 mg Q4H PRN Administration Pain MILD(1-3)/Fever >100.5/GABRIEL Bisacodyl 10 mg 02/10/21 10:00 02/19/21 10:42 Bisacodyl 10 Mg Rect Supp CO 10 mg QDAY GERRI Administration Buspirone HCl 5 mg 02/10/21 10:00 02/19/21 10:42 Buspirone 5 Mg Tab PO 5 mg BID GERRI Administration Cetirizine HCl 10 mg 02/10/21 10:00 02/19/21 10:42 Cetirizine 10 Mg Tab PO 10 mg QAM GERRI Administration Cyproheptadine HCl 4 mg 02/10/21 07:30 02/19/21 10:42 Cyproheptadine 4 Mg Tab PO 4 mg TIDAC GERRI Administration Diltiazem HCl 120 mg 02/10/21 10:00 02/19/21 10:42 Diltiazem Cd 120 Mg Cap PO 120 mg DAILY GERRI Administration Fluticasone Propionate 50 mcg 02/17/21 22:00 02/19/21 10:42 Fluticasone Propionate Nasal [place] 16 Gm NS 50 mcg BID GERRI Administration Gabapentin 100 mg 02/11/21 14:00 02/19/21 10:41 Gabapentin 100 Mg Cap PO 100 mg BID GERRI Administration Hyoscyamine 0.125 mg 02/10/21 00:00 02/19/21 06:16 Hyoscyamine Subl 0.125 Mg Tab SL 0.125 mg Q6HR GERRI Administration Dextrose/Sodium Chloride 1,000 mls @ 60 mls/hr 02/18/21 10:00 02/18/21 18:00 D5ns IV 60 mls/hr DIRECT GERRI Administration Levothyroxine Sodium 100 mcg 02/10/21 06:00 02/19/21 06:16 Levothyroxine 100 Mcg Tab PO 100 mcg QAM@0600 GERRI Administration Megestrol Acetate 400 mg 02/16/21 16:00 02/19/21 10:41 Megestrol 400 Mg/10 Ml Oral Liqd PO 400 mg QDAY GERRI Administration Metoclopramide HCl 5 mg 02/10/21 00:03 Metoclopramide 10 Mg/2 Ml Inj IV Q6H PRN Nausea And Vomiting Metoprolol Succinate 75 mg 02/19/21 10:30 02/19/21 10:42 Metoprolol Succinate Xl 50 Mg Tab PO 75 mg BID GERRI Administration Nystatin 1 applic 02/13/21 22:00 02/19/21 10:43 Nystatin Powder 15 Gm TP 1 applic BID GERRI Administration Ondansetron HCl 4 mg 02/10/21 00:00 Ondansetron 4 Mg Odt Tab PO Q4H PRN Nausea Ondansetron HCl 4 mg 02/10/21 00:03 Ondansetron 4 Mg/2 Ml Inj IV Q8H PRN Nausea And Vomiting Pantoprazole Sodium 40 mg 02/10/21 10:00 02/19/21 10:42 Pantoprazole 40 Mg Tab PO 40 mg QAM GERRI Administration Rivaroxaban 15 mg 02/10/21 22:00 02/18/21 21:41 Rivaroxaban 15 Mg Tab PO 15 mg QHS GERRI Administration Sertraline HCl 12.5 mg 02/17/21 22:00 02/18/21 21:44 Sertraline 25 Mg Tab PO 12.5 mg QHS GERRI Administration Sodium Chloride 10 ml 02/10/21 10:00 02/19/21 10:42 Sodium Chloride 0.9% 10 Ml Flush Syringe IV 10 ml BID GERRI Administration Sodium Chloride 10 ml 02/10/21 00:03 Sodium Chloride 0.9% 10 Ml Flush Syringe IV PRN PRN LINE FLUSH
[2021-02-19] MEDS ORDERED: SODIUM POLYSTYRENE 15 GM/60 ML ORAL LIQD PO ONE (12:21)
[2021-02-19] MEDS ORDERED: METOPROLOL SUCCINATE XL 25 MG TAB PO ONE (13:00)
--- NOTE | 2021-02-19 14:26 | Progress Note ---
Assessment and Plan The patient is an 89 YO female with history significant for Hypertension, Aortic valve repair, Hypothyroidism and recent pacemaker placement who was brought in by EMS to [facility] ED 02/09 for evaluation of shortness of breath and altered sensorium. 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, pulmonary consulted --Acute respiratory failure, patient on supplemental O2 likely due to pulmonary hypertension, tricuspid valve regurgitation and underlying CHF: Corpulmonale Continue supplemental O2 as tolerated and Lasix as needed Pulmonary consulted and following -- Acute encephalopathy Etiology may be lorazepam Lorazepam discontinued Patient also has underlying dementia CT head is unremarkable --History of dementia, continue supportive care and follow clinically --Atrial fibrillation, chronic Cardiology following, patient on Xarelto -- ARMIDA (acute kidney injury) Possible ARMIDA superimposed on chronic kidney disease Nephrology consult requested, Cr stable -- Hyperkalemia, Continue to treat per protocol and follow BMP -- Hyponatremia Mild with sodium of 133 and improved --Hypothyroidism (acquired) Continue Synthroid -- Hypertension, chronic Continue antihypertensives and adjust BP meds as needed -- GERD (gastroesophageal reflux disease) Continue PPIs -- DVT prophylaxis Patient on Xarelto for valvuloplasty of aortic valve and GI prophylaxis Daily clinical course: 02/10/2021 -Patient was confused. She states she is unaware she is in the hospital. Neurology and nephrology consult appreciated. Need PT OT evaluation. Cardiology consulted. 02/11/2021 -Patient was confused and neurology is following. -Patient was seen by cardiology and recommend to continue anticoagulation and medical management. -Patient was seen by nephrology and recommend to continue current management, monitor BMP. -Patient came from [facility]. -Blood pressure is well controlled. 02/12/2021 -Patient with ARMIDA, CHF. She is still confused. ARMIDA improving. Cr 1.7 today. She is followed by Nephrology and Cardiology. Continue Xarelto for aortic valve valvulopolasty. Follow labs in am 02/13/21 Patient with acute kidney injury, CHF. Cr improving 1.4 today. However she has mild hyperkalemia with Potassium 5.1. Nephrology following. Will repeat labs in am. Continue Xarelto. Cardiology following too. 02/14/21 Patient with acute kidney injury, congestive heart failure. She is followed by nephrology, Cardiology. Potassium 5.5 today, so Kayexalate ordered Cr 1.3 today improving On Xarelto for valvuloplasty of aortic valve SOB today Chest X ray ordered , pending 02/15/21; chest x-ray yesterday showed bibasilar atelectasis and chronic interstitial changes. 2D EHO SHOWED EF 40-45% with moderate to severe PHTN. lasix on hold as pt euvolumic. consult pulmonary for PHTN. discussed with patient's daughter at the bedside. 02/16/21: Repeat CT head obtained this morning showed no acute interval change. Patient remains intermittently confused with poor oral intake. Appreciate pulmonary recommendation. Renal function stable. Order for repeat speech eval, continue D5 normal saline. Need placement 02/17/21: Had repeat speech eval today and recommended to continue pured diet. Clinically remains unchanged with intermittent confusion and poor oral intake. Discussed with RN to assess patient during mealtime to improve oral intake. Pending placement. 02/18/21: Clinically unchanged, intermittently been confused but follow command. Tolerating pured diet. Pending placement 02/19/21; K elevated today, treat per protocol, follow BMP, pending placement. Patient remains on supplemental O2. Updated daughter with all clinical details. Subjective Date of service: 02/19/21 Principal diagnosis: encephalopathy Interval history: Patient seen and examined. Medical records and medication list reviewed. No acute event overnight noted by the RN. Patient remains confused but able to follow command. Patient is tolerating diet but appetite is poor. Discussed plan of care at bedside with patient;s RN and CM. Objective - Exam Narrative Exam: GENERAL: well-developed and well-nourished elderly white female lying on bed HEENT: Normocephalic. Atraumatic. No conjunctival congestion or icterus. Patient has moist mucous membranes. NECK: Supple. Trachea midline. CHEST/LUNGS: Patient on nasal cannula O2, did not appreciate any crackles, positive for few rhonchi HEART/CARDIOVASCULAR: Regular in rate and rhythm. S1 and S2 positive. ABDOMEN: Abdomen is soft, nontender. Patient has normal bowel sounds. SKIN: There is no rash. Warm and dry. NEURO: No focal motor deficit. Follows command but patient is pleasantly confused. MUSCULOSKELETAL: No joint effusion or tenderness. EXTRIMITY: No edema, no cyanosis or clubbing. PSYCH: Cooperative. - Constitutional Vitals: Vital Signs - 12hr 02/19/21 02/19/21 08:28 11:36 Temperature 98.6 F 98.6 F Pulse Rate 114 H 126 H Respiratory 18 18 Rate Blood Pressure 138/67 Blood Pressure 121/91 [Left] O2 Sat by Pulse 90 93 Oximetry - Labs CBC & Chem 7: 02/15/21 05:40 02/22/21 05:09 Labs: Abnormal lab results 02/19/21 02/19/21 Range/Units 05:50 11:33 Potassium 5.4 H D (3.6-5.0) mmol/L Chloride 108.1 H (98-107) mmol/L BUN 33 H (7-17) mg/dL Creatinine 1.4 H (0.6-1.2) mg/dL POC Glucose 133 H (70-105) mg/dL HEART Score - HEART Score Age: > 65 Risk factors: > 3 risk factors or hx of atherosclerotic disease Troponin: Troponin T < 0.010 ng/mL (0.00-0.029) 02/09/21 21:05 Troponin: < normal limit - Critical Actions Critical Actions: 0-3 pts:0.9-1.7%risk of adverse cardiac event.Candidate for discharge
--- NOTE | 2021-02-19 17:37 | Progress Note ---
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 - optimize cardiac function per cardiology team - continue rate control with toprol - avoid hypoxemia; continue supplemental oxygen to keep O2 sats > 90% - prn bronchodilators (BRY) with pulm hygiene per RT - continue to avoid nephrotoxins, renally dose all medications - mobility protocols to prevent pressure ulcers - PT/OT as tolerated - prn analgesia per pain score - Wound care per RN/WCT - accuchecks with glycemic control per SSI for target blood glucose < 180 mg/dL - home oxygen evaluation at discharge - GI & VTE prophylaxis - Flu & pneumovax per protocol - Pulmonary out patient follow up for PFTs and optimization of respiratory status - continue other care per attending / other consultants ... re-evaluate in am & prn Subjective Date of service: 02/19/21 Principal diagnosis: AE-CHF; Pulmonary HTN; Acute encephalopathy; ARMIDA; Hyp othyroidism; HTN Interval history: Patient is seen today for: AE-CHF; Pulmonary HTN; Acute encephalopathy; ARMIDA; Hypothyroidism; HTN Seen and examined at bedside; 24hour events reviewed; nursing and respiratory care staff consulted; no adverse overnight events reported to me; resting in bed; now on room air; no emesis or overt aspiration Objective Vital Signs - 12hr 02/19/21 02/19/21 02/19/21 08:28 11:36 16:28 Temperature 98.6 F 98.6 F 98.4 F Pulse Rate 114 H 126 H 16 L Respiratory 18 18 16 Rate Blood Pressure 138/67 Blood Pressure 121/91 136/69 [Left] O2 Sat by Pulse 90 93 96 Oximetry Constitutional: no acute distress, other (elderly female without increased respiratory effort at rest) Eyes: non-icteric ENT: oropharynx moist Neck: supple, no JVD Effort: normal Ascultation: Bilateral: diminished breath sounds, rales (bases) Percussion: Bilateral: not dull Cardiovascular: irregular rhythm, other (rate controlled) Gastrointestinal: normoactive bowel sounds, soft, non-tender, non-distended Integumentary: other (poor turgor; some Ecchymosis) Extremities: no cyanosis, no edema, pulses normal, no ischemia or petechiae Neurologic: non-focal exam (grossly), pupils equal and round, CN II-XII normal, motor strength normal and Psychiatric: mood appropriate, affect normal, other (poor insight and judgment) CBC and BMP: 02/15/21 05:40 02/20/21 05:07 ABG, PT/INR, D-dimer: PT/INR, D-dimer PT 29.2 Sec. (12.2-14.9) H 02/11/21 15:24 INR 2.74 (0.87-1.13) H 02/11/21 15:24 Abnormal lab findings: Abnormal Labs 02/09/21 02/09/21 02/09/21 15:50 15:50 15:50 RBC RDW 20.0 H [place] % (Auto) 11.6 H [place] # (Auto) 1.2 H Seg Neutrophils % 71.0 H PT 37.1 H INR 3.76 H APTT 41.4 H Sodium 133 L Potassium 5.8 H Chloride Carbon Dioxide 19 L BUN 72 H Creatinine 2.2 H Glucose 131 H POC Glucose Calcium Magnesium NT-Pro-B Natriuret Pep Total Protein Albumin 3.2 L PTH Intact Urine WBC (Auto) 02/09/21 02/09/21 02/09/21 15:50 15:50 Unknown RBC RDW [place] % (Auto) [place] # (Auto) Seg Neutrophils % PT INR APTT Sodium Potassium Chloride Carbon Dioxide BUN Creatinine Glucose POC Glucose Calcium Magnesium 2.60 H NT-Pro-B Natriuret Pep 57428 H Total Protein Albumin PTH Intact Urine WBC (Auto) 23.0 H 02/10/21 02/10/21 02/10/21 04:34 04:34 19:12 RBC 3.62 L RDW 19.4 H [place] % (Auto) 13.6 H [place] # (Auto) 1.1 H Seg Neutrophils % PT INR APTT Sodium 136 L Potassium Chloride Carbon Dioxide BUN 72 H Creatinine 2.2 H Glucose POC Glucose Calcium Magnesium NT-Pro-B Natriuret Pep Total Protein 6.2 L Albumin 3.2 L PTH Intact Urine WBC (Auto) 8.0 H 02/11/21 02/11/21 02/11/21 05:51 05:51 05:51 RBC RDW 20.0 H [place] % (Auto) 10.8 H [place] # (Auto) 1.0 H Seg Neutrophils % 73.3 H PT INR APTT Sodium 131 L Potassium 5.1 H Chloride 97.2 L Carbon Dioxide 21 L BUN 71 H Creatinine 2.0 H Glucose 113 H POC Glucose Calcium Magnesium NT-Pro-B Natriuret Pep Total Protein Albumin PTH Intact 75.78 H Urine WBC (Auto) 02/11/21 02/12/21 02/12/21 15:24 07:38 16:35 RBC RDW [place] % (Auto) [place] # (Auto) Seg Neutrophils % PT 29.2 H INR 2.74 H APTT 40.7 H Sodium 135 L Potassium Chloride 97.5 L Carbon Dioxide BUN 58 H Creatinine 1.7 H Glucose POC Glucose 139 H Calcium Magnesium NT-Pro-B Natriuret Pep Total Protein Albumin PTH Intact Urine WBC (Auto) 02/13/21 02/13/21 02/14/21 05:21 20:50 03:44 RBC RDW [place] % (Auto) [place] # (Auto) Seg Neutrophils % PT INR APTT Sodium 134 L Potassium 5.1 H 5.5 H Chloride Carbon Dioxide 21 L BUN 45 H 39 H Creatinine 1.4 H 1.3 H Glucose POC Glucose 112 H Calcium Magnesium NT-Pro-B Natriuret Pep Total Protein Albumin PTH Intact Urine WBC (Auto) 02/15/21 02/15/21 02/15/21 05:40 05:40 08:07 RBC RDW 20.4 H [place] % (Auto) [place] # (Auto) Seg Neutrophils % PT INR APTT Sodium Potassium Chloride 110.7 H Carbon Dioxide 13 L D BUN 33 H Creatinine 1.4 H Glucose POC Glucose 124 H Calcium Magnesium NT-Pro-B Natriuret Pep Total Protein Albumin PTH Intact Urine WBC (Auto) 02/15/21 02/15/21 02/16/21 11:41 15:50 14:44 RBC RDW [place] % (Auto) [place] # (Auto) Seg Neutrophils % PT INR APTT Sodium Potassium Chloride Carbon Dioxide BUN 27 H Creatinine Glucose 117 H POC Glucose 142 H 118 H Calcium Magnesium NT-Pro-B Natriuret Pep Total Protein Albumin PTH Intact Urine WBC (Auto) 02/18/21 02/19/21 02/19/21 05:12 05:50 11:33 RBC RDW [place] % (Auto) [place] # (Auto) Seg Neutrophils % PT INR APTT Sodium Potassium 3.1 L D 5.4 H D Chloride 108.1 H Carbon Dioxide BUN 32 H 33 H Creatinine 1.3 H 1.4 H Glucose 117 H POC Glucose 133 H Calcium 8.3 L Magnesium NT-Pro-B Natriuret Pep Total Protein Albumin PTH Intact Urine WBC (Auto) Chest x-ray: pending Allied health notes reviewed: nursing
[2021-02-19] MEDS: METOPROLOL TARTRATE 50 MG TAB PO SCH (18:15)
[2021-02-19] MEDS: RIVAROXABAN 15 MG TAB PO SCH (21:50)
[2021-02-19] MEDS: SERTRALINE 25 MG TAB PO SCH (21:50)
[2021-02-20] MEDS: HYOSCYAMINE SUBL 0.125 MG TAB SL SCH ×5 (00:27→23:09)
[2021-02-20] MEDS: LEVOTHYROXINE 100 MCG TAB PO SCH (05:38)
[2021-02-20 06:09] LABS: Calcium 9.4 mg/dL (8.4-10.2)
[2021-02-20] MEDS: CYPROHEPTADINE 4 MG TAB PO SCH ×3 (08:54→17:15)
[2021-02-20] MEDS: dilTIAZem CD 120 MG CAP PO SCH (08:59)
[2021-02-20] MEDS: PANTOPRAZOLE 40 MG TAB PO SCH (08:59)
[2021-02-20] MEDS: busPIRone 5 MG TAB PO SCH ×2 (08:59→22:50)
[2021-02-20] MEDS: CETIRIZINE 10 MG TAB PO SCH (09:00)
[2021-02-20] MEDS: FLUTICASONE PROPIONATE NASAL SPRAY 16 GM NS SCH ×2 (09:00→22:51)
[2021-02-20] MEDS: GABAPENTIN 100 MG CAP PO SCH ×2 (09:01→22:50)
[2021-02-20] MEDS: MEGESTROL 400 MG/10 ML ORAL LIQD PO SCH (09:02)
[2021-02-20] MEDS: NYSTATIN POWDER 15 GM TP SCH ×2 (09:03→22:51)
--- NOTE | 2021-02-20 09:26 | Progress Note ---
Assessment and Plan 1. Acute kidney injury: ARMIDA in the setting of CHF. CT abdomen negative for hydro. Urine studies ordered. Baseline renal function is unknown. Most likely background CKD. Monitor renal function. Creatinine level appears stable. Avoid nephrotoxic agents. Meds dosage based on GFR. 2. FEN: Metabolic acidosis, improved, monitor. Hyperkalemia, improved, monitor. Monitor lytes. 3. CHF: On Metoprolol. Followed by Cards. 4. Chronic A.fib // PPM // Transaortic valve replacement: On Metoprolol and Xarelto. Monitor. 5. Hypertension: BP is controlled. Adjust meds as needed. Monitor. Subjective: Patient was was not examined today. However the examination findings from other providers noted. The current and previous medical records are reviewed in detail as are laboratory and imaging data reviewed when appropriate. Medications being given are also reviewed. In addition the case has been discussed with the attending hospitalist and the nurse when needed. New renal recommendations as above. Examination: Subjective Date of service: 02/20/21 Principal diagnosis: encephalopathy Objective - Vital Signs Vital signs: Vital Signs - 12hr 02/20/21 02/20/21 02/20/21 00:21 04:09 08:56 Temperature 97.2 F L 97.3 F L 98.4 F Pulse Rate 102 H 115 H 90 Respiratory 18 22 18 Rate Blood Pressure 132/100 Blood Pressure 126/72 129/70 [Left] O2 Sat by Pulse 93 92 96 Oximetry 02/20/21 02/20/21 08:59 09:02 Temperature Pulse Rate 110 H 100 H Respiratory Rate Blood Pressure 129/70 129/70 Blood Pressure [Left] O2 Sat by Pulse Oximetry - Lab 02/15/21 05:40 02/20/21 05:07 Most recent lab results Calcium 9.4 mg/dL (8.4-10.2) 02/20/21 05:07 Magnesium 2.60 mg/dL (1.7-2.3) H 02/09/21 15:50 Medications & Allergies - Medications Allergies/Adverse Reactions: Allergies codeine Allergy (Verified 02/09/21 16:11) Unknown morphine Allergy (Verified 02/09/21 16:11) Unknown Sulfa (Sulfonamide Antibiotics) Allergy (Verified 02/09/21 16:11) Unknown zolpidem [From Ambien] Allergy (Verified 02/09/21 16:11) Unknown Home Medications: Home Medications Medication Instructions Recorded Confirmed Last Taken Type Cyproheptadine HCl 4 mg PO Q8HR 02/09/21 02/09/21 Unknown History Furosemide [Lasix] 20 mg PO QDAY 02/09/21 02/09/21 Unknown History Hydromorphone HCl/0.9% NaCl/Pf 1 mg PO Q2HR PRN 02/09/21 02/09/21 Unknown History [Hydromorphone 1 mg/ml-Ns Syrng] Hyoscyamine Subl [Levsin Sl 0.125 0.125 mg SL Q6HR 02/09/21 02/09/21 Unknown History TAB] LORazepam [Ativan] 0.5 mg PO Q6H PRN 02/09/21 02/09/21 Unknown History Levothyroxine [Synthroid] 100 mcg PO QAM 02/09/21 02/09/21 Unknown History Loratadine 10 mg PO QAM 02/09/21 02/09/21 Unknown History Metoprolol Tartrate [Lopressor] 100 mg PO BID 02/09/21 02/09/21 Unknown History Ondansetron [Zofran Odt] 4 mg PO Q4HR PRN 02/09/21 02/09/21 Unknown History Pantoprazole Sodium 40 mg PO QAM 02/09/21 02/09/21 Unknown History Rivaroxaban [Xarelto] 15 mg PO QHS 02/09/21 02/09/21 Unknown History bisacodyL [Dulcolax suppos] 10 mg NC QDAY 02/09/21 02/09/21 Unknown History busPIRone [Buspar] 5 mg PO BID 02/09/21 02/09/21 Unknown History dilTIAZem CD [Cardizem Cd] 120 mg PO DAILY 02/09/21 02/09/21 Unknown History traMADoL [Ultram] 50 mg PO Q6HR PRN 02/09/21 02/09/21 Unknown History Active Medications: Generic Name Dose Route Start Last Admin Trade Name Freq PRN Reason Stop Dose Admin Acetaminophen 650 mg 02/10/21 00:03 02/18/21 10:58 Acetaminophen 325 Mg Tab PO 650 mg Q4H PRN Administration Pain MILD(1-3)/Fever >100.5/GABRIEL Bisacodyl 10 mg 02/10/21 10:00 02/20/21 09:00 Bisacodyl 10 Mg Rect Supp NC 10 mg QDAY GERRI Administration Buspirone HCl 5 mg 02/10/21 10:00 02/20/21 08:59 Buspirone 5 Mg Tab PO 5 mg BID GERRI Administration Cetirizine HCl 10 mg 02/10/21 10:00 02/20/21 09:00 Cetirizine 10 Mg Tab PO 10 mg QAM GERRI Administration Cyproheptadine HCl 4 mg 02/10/21 07:30 02/20/21 08:54 Cyproheptadine 4 Mg Tab PO 4 mg TIDAC GERRI Administration Diltiazem HCl 120 mg 02/10/21 10:00 02/20/21 08:59 Diltiazem Cd 120 Mg Cap PO 120 mg DAILY GERRI Administration Fluticasone Propionate 50 mcg 02/17/21 22:00 02/20/21 09:00 Fluticasone Propionate Nasal [place] 16 Gm NS 50 mcg BID GERRI Administration Gabapentin 100 mg 02/11/21 14:00 02/20/21 09:01 Gabapentin 100 Mg Cap PO 100 mg BID GERRI Administration Hyoscyamine 0.125 mg 02/10/21 00:00 02/20/21 05:38 Hyoscyamine Subl 0.125 Mg Tab SL 0.125 mg Q6HR GERRI Administration Dextrose/Sodium Chloride 1,000 mls @ 60 mls/hr 02/18/21 10:00 02/18/21 18:00 D5ns IV 60 mls/hr DIRECT GERRI Administration Levothyroxine Sodium 100 mcg 02/10/21 06:00 02/20/21 05:38 Levothyroxine 100 Mcg Tab PO 100 mcg QAM@0600 GERRI Administration Megestrol Acetate 400 mg 02/16/21 16:00 02/20/21 09:02 Megestrol 400 Mg/10 Ml Oral Liqd PO 400 mg QDAY GERRI Administration Metoclopramide HCl 5 mg 02/10/21 00:03 Metoclopramide 10 Mg/2 Ml Inj IV Q6H PRN Nausea And Vomiting Metoprolol Succinate 150 mg 02/20/21 10:00 02/20/21 09:02 Metoprolol Succinate Xl 50 Mg Tab PO 150 mg QDAY GERRI Administration Nystatin 1 applic 02/13/21 22:00 02/20/21 09:03 Nystatin Powder 15 Gm TP 1 applic BID GERRI Administration Ondansetron HCl 4 mg 02/10/21 00:00 Ondansetron 4 Mg Odt Tab PO Q4H PRN Nausea Ondansetron HCl 4 mg 02/10/21 00:03 Ondansetron 4 Mg/2 Ml Inj IV Q8H PRN Nausea And Vomiting Pantoprazole Sodium 40 mg 02/10/21 10:00 02/20/21 08:59 Pantoprazole 40 Mg Tab PO 40 mg QAM GERRI Administration Potassium Chloride 20 meq 02/20/21 09:30 Potassium Chloride Er 20 Meq Tab PO 02/20/21 09:31 ONCE ONE Rivaroxaban 15 mg 02/10/21 22:00 02/19/21 21:50 Rivaroxaban 15 Mg Tab PO 15 mg QHS GERRI Administration Sertraline HCl 12.5 mg 02/17/21 22:00 02/19/21 21:50 Sertraline 25 Mg Tab PO 12.5 mg QHS GERRI Administration Sodium Chloride 10 ml 02/10/21 10:00 02/20/21 09:03 Sodium Chloride 0.9% 10 Ml Flush Syringe IV Not Given BID GERRI Sodium Chloride 10 ml 02/10/21 00:03 Sodium Chloride 0.9% 10 Ml Flush Syringe IV PRN PRN LINE FLUSH
[2021-02-20] MEDS ORDERED: POTASSIUM CHLORIDE ER 20 MEQ TAB PO ONE (09:30)
[2021-02-20] MEDS ORDERED: METOPROLOL SUCCINATE XL 50 MG TAB PO SCH ×2 (10:00→11:30)
--- NOTE | 2021-02-20 10:46 | Progress Note ---
Assessment and Plan #Acute HFFrEF #Persistent AF #Biatrial dilatation #Moderate pHTN #S/p pacemaker - appears to have only LV lead per CXR (1) Acute exacerbation of CHF (congestive heart failure) Current Visit: Yes Status: Acute Qualifiers: Qualified Code(s): I50.43 - Acute on chronic combined systolic (congestive) and diastolic (congestive) heart failure Plan to address problem: Echocardiogram shows only mild left ventricular systolic dysfunction with ejection fraction 45 to 50%. The most significant abnormalities on echo is marked dilatation of both left and right atria, consistent with the chronic atrial fibrillation. The right ventricle is also dilated and hypocontractile, with at least moderate pulmonary hypertension with pulmonary artery systolic pressure of 52, suggestive of cor pulmonale. Continue metoprolol XL. Continue conservative cardiac management. (2) Atrial fibrillation Current Visit: Yes Status: Acute Plan to address problem: Ventricular rates remain uncontrolled. Will increase metoprolol XL to 200mg PO daily (extra 50mg x1 today). Continue diltiazem for now as she is not in decompensated HF (but ideally would prefer to avoid given cardiomyopathy). Not good candidate for digoxin given elevated Cr. Continue oral anticoagulation with xarelto. Conservative cardiac management. Subjective Date of service: 02/20/21 Principal diagnosis: encephalopathy Interval history: Sleeping. Confused when she was woken up. Not able to communicate coherently. Telemetry - AF 110-140s, intermittent SCHEDULE CLERK Objective Vital Signs Temp Pulse Resp BP BP Pulse Ox 02/20/21 09:02 100 H 129/70 02/20/21 08:59 110 H 129/70 02/20/21 08:56 98.4 F 90 18 129/70 96 02/20/21 04:09 97.3 F L 115 H 22 132/100 92 02/20/21 00:21 97.2 F L 102 H 18 126/72 93 02/19/21 19:43 97.3 F L 142 H 22 128/76 91 02/19/21 16:28 98.4 F 16 L 16 136/69 96 02/19/21 11:36 98.6 F 126 H 18 138/67 93 - Physical Examination General: No Apparent Distress, Other (confused) HEENT: Positive: PERRL Neck: Positive: neck supple Neuro: Positive: Weakness Abdomen: Positive: Soft Skin: Positive: Clear Extremities: Absent: edema - Labs and Meds Comprehensive Metabolic Panel 02/20/21 Range/Units 05:07 Sodium 145 (137-145) mmol/L Potassium 3.4 L D (3.6-5.0) mmol/L Chloride 106.1 (98-107) mmol/L Carbon Dioxide 27 (22-30) mmol/L BUN 36 H (7-17) mg/dL Creatinine 1.3 H (0.6-1.2) mg/dL Glucose 113 H (65-100) mg/dL Calcium 9.4 (8.4-10.2) mg/dL - Allied health notes Allied health notes reviewed: nursing
[2021-02-20] MEDS ORDERED: POTASSIUM CHLORIDE ER 20 MEQ TAB PO NR (13:00)
--- NOTE | 2021-02-20 15:18 | Progress Note ---
Assessment and Plan The patient is an 89 YO female with history significant for Hypertension, Aortic valve repair, Hypothyroidism and recent pacemaker placement who was brought in by EMS to [facility] ED 02/09 for evaluation of shortness of breath and altered sensorium. 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, pulmonary consulted --Acute respiratory failure, patient on supplemental O2 likely due to pulmonary hypertension, tricuspid valve regurgitation and underlying CHF: Corpulmonale Continue supplemental O2 as tolerated and Lasix as needed Pulmonary consulted and following -- Acute encephalopathy Etiology may be lorazepam Lorazepam discontinued Patient also has underlying dementia CT head is unremarkable --History of dementia, continue supportive care and follow clinically --Atrial fibrillation, chronic Cardiology following, patient on Xarelto -- ARMIDA (acute kidney injury) Possible ARMIDA superimposed on chronic kidney disease Nephrology consult requested, Cr stable -- Hyperkalemia, Continue to treat per protocol and follow BMP -- Hyponatremia Mild with sodium of 133 and improved --Hypothyroidism (acquired) Continue Synthroid -- Hypertension, chronic Continue antihypertensives and adjust BP meds as needed -- GERD (gastroesophageal reflux disease) Continue PPIs -- DVT prophylaxis Patient on Xarelto for valvuloplasty of aortic valve and GI prophylaxis Daily clinical course: 02/10/2021 -Patient was confused. She states she is unaware she is in the hospital. Neurology and nephrology consult appreciated. Need PT OT evaluation. Cardiology consulted. 02/11/2021 -Patient was confused and neurology is following. -Patient was seen by cardiology and recommend to continue anticoagulation and medical management. -Patient was seen by nephrology and recommend to continue current management, monitor BMP. -Patient came from [facility]. -Blood pressure is well controlled. 02/12/2021 -Patient with ARMIDA, CHF. She is still confused. ARMIDA improving. Cr 1.7 today. She is followed by Nephrology and Cardiology. Continue Xarelto for aortic valve valvulopolasty. Follow labs in am 02/13/21 Patient with acute kidney injury, CHF. Cr improving 1.4 today. However she has mild hyperkalemia with Potassium 5.1. Nephrology following. Will repeat labs in am. Continue Xarelto. Cardiology following too. 02/14/21 Patient with acute kidney injury, congestive heart failure. She is followed by nephrology, Cardiology. Potassium 5.5 today, so Kayexalate ordered Cr 1.3 today improving On Xarelto for valvuloplasty of aortic valve SOB today Chest X ray ordered , pending 02/15/21; chest x-ray yesterday showed bibasilar atelectasis and chronic interstitial changes. 2D EHO SHOWED EF 40-45% with moderate to severe PHTN. lasix on hold as pt euvolumic. consult pulmonary for PHTN. discussed with patient's daughter at the bedside. 02/16/21: Repeat CT head obtained this morning showed no acute interval change. Patient remains intermittently confused with poor oral intake. Appreciate pulmonary recommendation. Renal function stable. Order for repeat speech eval, continue D5 normal saline. Need placement 02/17/21: Had repeat speech eval today and recommended to continue pured diet. Clinically remains unchanged with intermittent confusion and poor oral intake. Discussed with RN to assess patient during mealtime to improve oral intake. Pending placement. 02/18/21: Clinically unchanged, intermittently been confused but follow command. Tolerating pured diet. Pending placement 02/19/21; K elevated today, treat per protocol, follow BMP, pending placement. Patient remains on supplemental O2. Updated daughter with all clinical details. 02/20/21: Potassium 3.4 today, continue to follow BMP, creatinine 1.3. Patient remains on supplemental O2, pending placement. Subjective Date of service: 02/20/21 Principal diagnosis: encephalopathy Interval history: Patient seen and examined. Medical records and medication list reviewed. No acute event overnight noted by the RN. Patient remains confused but able to follow command. Patient is tolerating diet but appetite is poor. Discussed plan of care at bedside with patient;s RN and CM. Objective - Exam Narrative Exam: GENERAL: well-developed and well-nourished elderly white female lying on bed HEENT: Normocephalic. Atraumatic. No conjunctival congestion or icterus. Patient has moist mucous membranes. NECK: Supple. Trachea midline. CHEST/LUNGS: Patient on nasal cannula O2, did not appreciate any crackles, positive for few rhonchi HEART/CARDIOVASCULAR: Regular in rate and rhythm. S1 and S2 positive. ABDOMEN: Abdomen is soft, nontender. Patient has normal bowel sounds. SKIN: There is no rash. Warm and dry. NEURO: No focal motor deficit. Follows command but patient is pleasantly confused. MUSCULOSKELETAL: No joint effusion or tenderness. EXTRIMITY: No edema, no cyanosis or clubbing. PSYCH: Cooperative. - Constitutional Vitals: Vital Signs - 12hr 02/20/21 02/20/21 02/20/21 04:09 07:55 08:56 Temperature 97.3 F L 98.4 F Pulse Rate 115 H 122 H 90 Respiratory 22 18 Rate Blood Pressure 132/100 Blood Pressure 129/70 [Left] O2 Sat by Pulse 92 96 Oximetry 02/20/21 02/20/21 02/20/21 08:59 09:02 10:00 Temperature Pulse Rate 110 H 100 H Respiratory 18 Rate Blood Pressure 129/70 129/70 Blood Pressure [Left] O2 Sat by Pulse 97 Oximetry 02/20/21 02/20/21 02/20/21 12:03 12:39 13:01 Temperature 97.9 F Pulse Rate 108 H 108 H Respiratory 18 Rate Blood Pressure 157/88 157/88 Blood Pressure [Left] O2 Sat by Pulse 94 92 Oximetry - Labs CBC & Chem 7: 02/15/21 05:40 02/22/21 05:09 Labs: Abnormal lab results 02/20/21 02/20/21 Range/Units 05:07 11:54 Potassium 3.4 L D (3.6-5.0) mmol/L BUN 36 H (7-17) mg/dL Creatinine 1.3 H (0.6-1.2) mg/dL Glucose 113 H (65-100) mg/dL POC Glucose 148 H (70-105) mg/dL HEART Score - HEART Score Age: > 65 Risk factors: > 3 risk factors or hx of atherosclerotic disease Troponin: Troponin T < 0.010 ng/mL (0.00-0.029) 02/09/21 21:05 Troponin: < normal limit - Critical Actions Critical Actions: 0-3 pts:0.9-1.7%risk of adverse cardiac event.Candidate for discharge
--- NOTE | 2021-02-20 16:40 | Progress Note ---
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 - optimize cardiac function per cardiology team - continue rate control with toprol - avoid hypoxemia; continue supplemental oxygen to keep O2 sats > 90% - prn bronchodilators (BRY) with pulm hygiene per RT - continue to avoid nephrotoxins, renally dose all medications - mobility protocols to prevent pressure ulcers - PT/OT as tolerated - prn analgesia per pain score - Wound care per RN/WCT - accuchecks with glycemic control per SSI for target blood glucose < 180 mg/dL - home oxygen evaluation at discharge - GI & VTE prophylaxis - Flu & pneumovax per protocol - Pulmonary out patient follow up for PFTs and optimization of respiratory status - continue other care per attending / other consultants ... re-evaluate in am & prn Subjective Date of service: 02/20/21 Principal diagnosis: AE-CHF; Pulmonary HTN; Acute encephalopathy; ARMIDA; Hyp othyroidism; HTN Interval history: Patient is seen today for: AE-CHF; Pulmonary HTN; Acute encephalopathy; ARMIDA; Hypothyroidism; HTN Seen and examined at bedside; 24hour events reviewed; nursing and respiratory care staff consulted; no adverse overnight events reported to me; resting in bed; no gross bleeding Objective Vital Signs - 12hr 02/20/21 02/20/21 02/20/21 07:55 08:56 08:59 Temperature 98.4 F Pulse Rate 122 H 90 110 H Respiratory 18 Rate Blood Pressure 129/70 Blood Pressure 129/70 [Left] O2 Sat by Pulse 96 Oximetry 02/20/21 02/20/21 02/20/21 09:02 10:00 12:03 Temperature 97.9 F Pulse Rate 100 H 108 H Respiratory 18 18 Rate Blood Pressure 129/70 157/88 Blood Pressure [Left] O2 Sat by Pulse 97 94 Oximetry 02/20/21 02/20/21 12:39 13:01 Temperature Pulse Rate 108 H Respiratory Rate Blood Pressure 157/88 Blood Pressure [Left] O2 Sat by Pulse 92 Oximetry Constitutional: no acute distress, other (elderly female without increased respiratory effort at rest) Eyes: non-icteric ENT: oropharynx moist Neck: supple, no JVD Effort: normal Ascultation: Bilateral: diminished breath sounds, rales (bases) Percussion: Bilateral: not dull Cardiovascular: irregular rhythm, other (rate controlled) Gastrointestinal: normoactive bowel sounds, soft, non-tender, non-distended Integumentary: other (poor turgor; some Ecchymosis) Extremities: no cyanosis, no edema, pulses normal, no ischemia or petechiae Neurologic: non-focal exam (grossly), pupils equal and round, CN II-XII normal, motor strength normal and Psychiatric: mood appropriate, affect normal, other (poor insight and judgment) CBC and BMP: 02/15/21 05:40 02/22/21 05:09 ABG, PT/INR, D-dimer: PT/INR, D-dimer PT 29.2 Sec. (12.2-14.9) H 02/11/21 15:24 INR 2.74 (0.87-1.13) H 02/11/21 15:24 Abnormal lab findings: Abnormal Labs 02/09/21 02/09/21 02/09/21 15:50 15:50 15:50 RBC RDW 20.0 H Charlton % (Auto) 11.6 H Charlton # (Auto) 1.2 H Seg Neutrophils % 71.0 H PT 37.1 H INR 3.76 H APTT 41.4 H Sodium 133 L Potassium 5.8 H Chloride Carbon Dioxide 19 L BUN 72 H Creatinine 2.2 H Glucose 131 H POC Glucose Calcium Magnesium NT-Pro-B Natriuret Pep Total Protein Albumin 3.2 L PTH Intact Urine WBC (Auto) 02/09/21 02/09/21 02/09/21 15:50 15:50 Unknown RBC RDW Charlton % (Auto) Charlton # (Auto) Seg Neutrophils % PT INR APTT Sodium Potassium Chloride Carbon Dioxide BUN Creatinine Glucose POC Glucose Calcium Magnesium 2.60 H NT-Pro-B Natriuret Pep 47253 H Total Protein Albumin PTH Intact Urine WBC (Auto) 23.0 H 02/10/21 02/10/21 02/10/21 04:34 04:34 19:12 RBC 3.62 L RDW 19.4 H Charlton % (Auto) 13.6 H Charlton # (Auto) 1.1 H Seg Neutrophils % PT INR APTT Sodium 136 L Potassium Chloride Carbon Dioxide BUN 72 H Creatinine 2.2 H Glucose POC Glucose Calcium Magnesium NT-Pro-B Natriuret Pep Total Protein 6.2 L Albumin 3.2 L PTH Intact Urine WBC (Auto) 8.0 H 02/11/21 02/11/21 02/11/21 05:51 05:51 05:51 RBC RDW 20.0 H Charlton % (Auto) 10.8 H Charlton # (Auto) 1.0 H Seg Neutrophils % 73.3 H PT INR APTT Sodium 131 L Potassium 5.1 H Chloride 97.2 L Carbon Dioxide 21 L BUN 71 H Creatinine 2.0 H Glucose 113 H POC Glucose Calcium Magnesium NT-Pro-B Natriuret Pep Total Protein Albumin PTH Intact 75.78 H Urine WBC (Auto) 02/11/21 02/12/21 02/12/21 15:24 07:38 16:35 RBC RDW Charlton % (Auto) Charlton # (Auto) Seg Neutrophils % PT 29.2 H INR 2.74 H APTT 40.7 H Sodium 135 L Potassium Chloride 97.5 L Carbon Dioxide BUN 58 H Creatinine 1.7 H Glucose POC Glucose 139 H Calcium Magnesium NT-Pro-B Natriuret Pep Total Protein Albumin PTH Intact Urine WBC (Auto) 02/13/21 02/13/21 02/14/21 05:21 20:50 03:44 RBC RDW Charlton % (Auto) Charlton # (Auto) Seg Neutrophils % PT INR APTT Sodium 134 L Potassium 5.1 H 5.5 H Chloride Carbon Dioxide 21 L BUN 45 H 39 H Creatinine 1.4 H 1.3 H Glucose POC Glucose 112 H Calcium Magnesium NT-Pro-B Natriuret Pep Total Protein Albumin PTH Intact Urine WBC (Auto) 02/15/21 02/15/21 02/15/21 05:40 05:40 08:07 RBC RDW 20.4 H Charlton % (Auto) Charlton # (Auto) Seg Neutrophils % PT INR APTT Sodium Potassium Chloride 110.7 H Carbon Dioxide 13 L D BUN 33 H Creatinine 1.4 H Glucose POC Glucose 124 H Calcium Magnesium NT-Pro-B Natriuret Pep Total Protein Albumin PTH Intact Urine WBC (Auto) 02/15/21 02/15/21 02/16/21 11:41 15:50 14:44 RBC RDW Charlton % (Auto) Charlton # (Auto) Seg Neutrophils % PT INR APTT Sodium Potassium Chloride Carbon Dioxide BUN 27 H Creatinine Glucose 117 H POC Glucose 142 H 118 H Calcium Magnesium NT-Pro-B Natriuret Pep Total Protein Albumin PTH Intact Urine WBC (Auto) 02/18/21 02/19/21 02/19/21 05:12 05:50 11:33 RBC RDW Charlton % (Auto) Charlton # (Auto) Seg Neutrophils % PT INR APTT Sodium Potassium 3.1 L D 5.4 H D Chloride 108.1 H Carbon Dioxide BUN 32 H 33 H Creatinine 1.3 H 1.4 H Glucose 117 H POC Glucose 133 H Calcium 8.3 L Magnesium NT-Pro-B Natriuret Pep Total Protein Albumin PTH Intact Urine WBC (Auto) 02/20/21 02/20/21 02/20/21 05:07 11:54 16:33 RBC RDW Charlton % (Auto) Charlton # (Auto) Seg Neutrophils % PT INR APTT Sodium Potassium 3.4 L D Chloride Carbon Dioxide BUN 36 H Creatinine 1.3 H Glucose 113 H POC Glucose 148 H 132 H Calcium Magnesium NT-Pro-B Natriuret Pep Total Protein Albumin PTH Intact Urine WBC (Auto) Allied health notes reviewed: nursing
[2021-02-20] MEDS: RIVAROXABAN 15 MG TAB PO SCH (22:50)
[2021-02-20] MEDS: SERTRALINE 25 MG TAB PO SCH (22:50)
[2021-02-21] MEDS: HYOSCYAMINE SUBL 0.125 MG TAB SL SCH ×3 (05:26→18:24)
[2021-02-21] MEDS: LEVOTHYROXINE 100 MCG TAB PO SCH (05:26)
[2021-02-21 05:27] LABS: Calcium 8.8 mg/dL (8.4-10.2)
[2021-02-21] MEDS: D5W/0.9% NACL 1,000 ML IV SCH ×2 (05:35→21:09)
--- NOTE | 2021-02-21 10:36 | Progress Note ---
Assessment and Plan 1. Acute kidney injury: ARMIDA in the setting of CHF. CT abdomen negative for hydro. Urine studies ordered. Baseline renal function is unknown. Most likely background CKD. Monitor renal function. Creatinine level is now increasing. Avoid nephrotoxic agents. Meds dosage based on GFR. 2. FEN: Metabolic acidosis, improved, monitor. Hyperkalemia, improved, monitor. Monitor lytes. 3. CHF: On Metoprolol. Followed by Cards. 4. Chronic A.fib // PPM // Transaortic valve replacement: On Metoprolol and Xarelto. Monitor. 5. Hypertension: BP is controlled. Adjust meds as needed. Monitor. Subjective: Patient was seen and examined at the bedside. Examination: General appearance: well-developed, appears stated age, not in distress HEENT: ATNC, pupils equal Neck: Trachea midline Respiratory: ctab Cardiology: S1S2, no murmur Gastrointestinal: soft, bowel sounds heard, not tender Integumentary: warm and dry Neurologic: alert, confused, able to move extremities Ext: no edema Subjective Date of service: 02/21/21 Principal diagnosis: encephalopathy Objective - Vital Signs Vital signs: Vital Signs - 12hr 02/21/21 02/21/21 05:11 08:18 Temperature 98.6 F 98.3 F Pulse Rate 108 H 90 Respiratory 18 20 Rate Blood Pressure 109/70 115/37 O2 Sat by Pulse 92 91 Oximetry - Lab 02/15/21 05:40 02/21/21 04:39 Most recent lab results Calcium 8.8 mg/dL (8.4-10.2) 02/21/21 04:39 Magnesium 2.60 mg/dL (1.7-2.3) H 02/09/21 15:50 Medications & Allergies - Medications Allergies/Adverse Reactions: Allergies codeine Allergy (Verified 02/09/21 16:11) Unknown morphine Allergy (Verified 02/09/21 16:11) Unknown Sulfa (Sulfonamide Antibiotics) Allergy (Verified 02/09/21 16:11) Unknown zolpidem [From Ambien] Allergy (Verified 02/09/21 16:11) Unknown Home Medications: Home Medications Medication Instructions Recorded Confirmed Last Taken Type Cyproheptadine HCl 4 mg PO Q8HR 02/09/21 02/09/21 Unknown History Furosemide [Lasix] 20 mg PO QDAY 02/09/21 02/09/21 Unknown History Hydromorphone HCl/0.9% NaCl/Pf 1 mg PO Q2HR PRN 02/09/21 02/09/21 Unknown History [Hydromorphone 1 mg/ml-Ns Syrng] Hyoscyamine Subl [Levsin Sl 0.125 0.125 mg SL Q6HR 02/09/21 02/09/21 Unknown History TAB] LORazepam [Ativan] 0.5 mg PO Q6H PRN 02/09/21 02/09/21 Unknown History Levothyroxine [Synthroid] 100 mcg PO QAM 02/09/21 02/09/21 Unknown History Loratadine 10 mg PO QAM 02/09/21 02/09/21 Unknown History Metoprolol Tartrate [Lopressor] 100 mg PO BID 02/09/21 02/09/21 Unknown History Ondansetron [Zofran Odt] 4 mg PO Q4HR PRN 02/09/21 02/09/21 Unknown History Pantoprazole Sodium 40 mg PO QAM 02/09/21 02/09/21 Unknown History Rivaroxaban [Xarelto] 15 mg PO QHS 02/09/21 02/09/21 Unknown History bisacodyL [Dulcolax suppos] 10 mg OH QDAY 02/09/21 02/09/21 Unknown History busPIRone [Buspar] 5 mg PO BID 02/09/21 02/09/21 Unknown History dilTIAZem CD [Cardizem Cd] 120 mg PO DAILY 02/09/21 02/09/21 Unknown History traMADoL [Ultram] 50 mg PO Q6HR PRN 02/09/21 02/09/21 Unknown History Active Medications: Generic Name Dose Route Start Last Admin Trade Name Freq PRN Reason Stop Dose Admin Acetaminophen 650 mg 02/10/21 00:03 02/18/21 10:58 Acetaminophen 325 Mg Tab PO 650 mg Q4H PRN Administration Pain MILD(1-3)/Fever >100.5/GABRIEL Bisacodyl 10 mg 02/10/21 10:00 02/20/21 09:00 Bisacodyl 10 Mg Rect Supp OH 10 mg QDAY GERRI Administration Buspirone HCl 5 mg 02/10/21 10:00 02/20/21 22:50 Buspirone 5 Mg Tab PO 5 mg BID GERRI Administration Cetirizine HCl 10 mg 02/10/21 10:00 02/20/21 09:00 Cetirizine 10 Mg Tab PO 10 mg QAM GERRI Administration Cyproheptadine HCl 4 mg 02/10/21 07:30 02/20/21 17:15 Cyproheptadine 4 Mg Tab PO 4 mg TIDAC GERRI Administration Fluticasone Propionate 50 mcg 02/17/21 22:00 02/20/21 22:51 Fluticasone Propionate Nasal Forbes 16 Gm NS 50 mcg BID GERRI Administration Gabapentin 100 mg 02/11/21 14:00 02/20/21 22:50 Gabapentin 100 Mg Cap PO 100 mg BID GERRI Administration Hyoscyamine 0.125 mg 02/10/21 00:00 02/21/21 05:26 Hyoscyamine Subl 0.125 Mg Tab SL 0.125 mg Q6HR GERRI Administration Dextrose/Sodium Chloride 1,000 mls @ 60 mls/hr 02/18/21 10:00 02/21/21 05:35 D5ns IV 60 mls/hr DIRECT GERRI Administration Levothyroxine Sodium 100 mcg 02/10/21 06:00 02/21/21 05:26 Levothyroxine 100 Mcg Tab PO 100 mcg QAM@0600 GERRI Administration Megestrol Acetate 400 mg 02/16/21 16:00 02/20/21 09:02 Megestrol 400 Mg/10 Ml Oral Liqd PO 400 mg QDAY GERRI Administration Metoclopramide HCl 5 mg 02/10/21 00:03 Metoclopramide 10 Mg/2 Ml Inj IV Q6H PRN Nausea And Vomiting Metoprolol Succinate 200 mg 02/21/21 10:00 Metoprolol Succinate Xl 100 Mg Tab PO QDAY GERRI Nystatin 1 applic 02/13/21 22:00 02/20/21 22:51 Nystatin Powder 15 Gm TP 1 applic BID GERRI Administration Ondansetron HCl 4 mg 02/10/21 00:00 Ondansetron 4 Mg Odt Tab PO Q4H PRN Nausea Ondansetron HCl 4 mg 02/10/21 00:03 Ondansetron 4 Mg/2 Ml Inj IV Q8H PRN Nausea And Vomiting Pantoprazole Sodium 40 mg 02/10/21 10:00 02/20/21 08:59 Pantoprazole 40 Mg Tab PO 40 mg QAM GERRI Administration Rivaroxaban 15 mg 02/10/21 22:00 02/20/21 22:50 Rivaroxaban 15 Mg Tab PO 15 mg QHS GERRI Administration Sertraline HCl 12.5 mg 02/17/21 22:00 02/20/21 22:50 Sertraline 25 Mg Tab PO 12.5 mg QHS GERRI Administration Sodium Chloride 10 ml 02/10/21 10:00 02/20/21 22:52 Sodium Chloride 0.9% 10 Ml Flush Syringe IV 10 ml BID GERRI Administration Sodium Chloride 10 ml 02/10/21 00:03 Sodium Chloride 0.9% 10 Ml Flush Syringe IV PRN PRN LINE FLUSH
--- NOTE | 2021-02-21 12:32 | Progress Note ---
Assessment and Plan - Patient Problems (1) Congestive heart failure Current Visit: Yes Status: Acute Plan to address problem: Continue guideline directed medical therapy for chronic systolic left ventricular failure. (2) Atrial fibrillation Current Visit: Yes Status: Acute Plan to address problem: Continue rate management strategy of chronic atrial fibrillation, and oral anticoagulation for CVA prophylaxis. Subjective Date of service: 02/21/21 Principal diagnosis: encephalopathy Interval history: Patient is comfortable in no acute distress, no new cardiac complaints. Objective Vital Signs Temp Pulse Resp BP BP Pulse Ox 02/21/21 12:11 98.0 F 117 H 20 122/68 90 02/21/21 08:18 98.3 F 90 20 115/37 91 02/21/21 05:11 98.6 F 108 H 18 109/70 92 02/20/21 21:33 98.9 F 77 18 125/52 94 02/20/21 17:08 98.6 F 50 L 18 126/62 95 02/20/21 13:01 92 02/20/21 12:39 108 H 157/88 - Physical Examination General: No Apparent Distress, Other (confused) HEENT: Positive: PERRL Neck: Positive: neck supple Cardiac: Positive: irregularly irregular Lungs: Positive: Decreased Breath Sounds Neuro: Positive: Weakness Abdomen: Positive: Soft Skin: Positive: Clear Extremities: Absent: edema - Labs and Meds Comprehensive Metabolic Panel 02/21/21 Range/Units 04:39 Sodium 145 (137-145) mmol/L Potassium 3.7 (3.6-5.0) mmol/L Chloride 108.3 H (98-107) mmol/L Carbon Dioxide 24 (22-30) mmol/L BUN 40 H (7-17) mg/dL Creatinine 1.7 H (0.6-1.2) mg/dL Glucose 148 H (65-100) mg/dL Calcium 8.8 (8.4-10.2) mg/dL - Allied health notes Allied health notes reviewed: nursing
[2021-02-21] MEDS: CETIRIZINE 10 MG TAB PO SCH (12:58)
[2021-02-21] MEDS: MEGESTROL 400 MG/10 ML ORAL LIQD PO SCH (12:58)
[2021-02-21] MEDS: METOPROLOL SUCCINATE XL 100 MG TAB PO SCH (12:58)
[2021-02-21] MEDS: busPIRone 5 MG TAB PO SCH ×2 (12:58→21:11)
[2021-02-21] MEDS: GABAPENTIN 100 MG CAP PO SCH ×2 (12:58→21:11)
[2021-02-21] MEDS: PANTOPRAZOLE 40 MG TAB PO SCH (12:58)
[2021-02-21] MEDS: CYPROHEPTADINE 4 MG TAB PO SCH ×3 (12:59→18:25)
[2021-02-21] MEDS: NYSTATIN POWDER 15 GM TP SCH ×2 (13:01→21:11)
[2021-02-21] MEDS: FLUTICASONE PROPIONATE NASAL SPRAY 16 GM NS SCH ×2 (13:01→21:11)
--- NOTE | 2021-02-21 14:43 | Progress Note ---
Assessment and Plan 89-year-old female with past medical history significant for hypertension, diabetes mellitus, CAD, CHF, CKD, and recent pacemaker placement (unknown when), is brought in by EMS from home because she was feeling short of breath . The patient was recently discharged from rehab and came home. She was prescribed lorazepam which she takes intermittently but today after taking the lorazepam she became very tired and somnolent and reported shortness of breath. The patient claims that she feels short of breath today that there are no aggr avating or alleviating factors. She denies cough She is very somnolent although she is arousable to voice . She is confused Patient sleeping. Not responding to verbal stimuli. Patient is on 3 litres O2. O2 saturation 95%. Patient afebrile. No leukocytosis. Chest xray done 02/14/21 reported Chronic interstitial changes. Minor airspace opacity at the left lung base which probably represents atelectatic changes. Patient is on Rivaroxaban, Protonix and Buspar. - Patient Problems (1) Respiratory failure with hypoxia Current Visit: Yes Status: Acute Plan to address problem: O2 3 litres via nasal canula. (2) Acute exacerbation of CHF (congestive heart failure) Current Visit: Yes Status: Acute Qualifiers: Heart failure type: combined systolic and diastolic Qualified Code(s): I50.43 - Acute on chronic combined systolic (congestive) and diastolic (congestive) heart failure Plan to address problem: Management as per cardiology. (3) ARMIDA (acute kidney injury) Current Visit: Yes Status: Acute Plan to address problem: Management as per nephrology. (4) Acute encephalopathy Current Visit: Yes Status: Acute Plan to address problem: Management as per primary care and neurology. (5) GERD (gastroesophageal reflux disease) Current Visit: Yes Status: Chronic Qualifiers: Esophagitis presence: with esophagitis Plan to address problem: Continue Protonix. (6) Hypertension Current Visit: Yes Status: Chronic Qualifiers: Hypertension type: primary hypertension Qualified Code(s): I10 - Essential (primary) hypertension Plan to address problem: Management as per primary care. (7) Hypothyroidism (acquired) Current Visit: Yes Status: Chronic Plan to address problem: Patient is on Levothuroxine. Management as per primary care. Subjective Date of service: 02/21/21 Principal diagnosis: encephalopathy Interval history: 89-year-old female with past medical history significant for hypertension, diabetes mellitus, CAD, CHF, CKD, and recent pacemaker placement (unknown when), is brought in by EMS from home because she was feeling short of breath . The patient was recently discharged from rehab and came home. She was prescribed lorazepam which she takes intermittently but today after taking the lorazepam she became very tired and somnolent and reported shortness of breath. The patient claims that she feels short of breath today that there are no aggravating or alleviating factors. She denies cough She is very somnolent although she is arousable to voice . She is confused Patient sleeping. Not responding to verbal stimuli. Patient is on 3 litres O2. O2 saturation 95%. Patient afebrile. No leukocytosis. Chest xray done 02/14/21 reported Chronic interstitial changes. Minor airspace opacity at the left lung base which probably represents atelectatic changes. Patient is on Rivaroxaban, Protonix and Buspar. Objective Vital Signs - 12hr 02/21/21 02/21/21 02/21/21 05:11 08:18 12:11 Temperature 98.6 F 98.3 F 98.0 F Pulse Rate 108 H 90 117 H Respiratory 18 20 20 Rate Blood Pressure 109/70 115/37 122/68 O2 Sat by Pulse 92 91 90 Oximetry Constitutional: no acute distress, asleep, other (elderly female without increased respiratory effort at rest) Eyes: non-icteric ENT: oropharynx moist Neck: supple, no JVD Effort: normal Ascultation: Bilateral: diminished breath sounds, rales (bases) Percussion: Bilateral: not dull Cardiovascular: irregular rhythm, other (rate controlled) Gastrointestinal: normoactive bowel sounds, soft, non-tender, non-distended Integumentary: other (poor turgor; some Ecchymosis) Extremities: no cyanosis, no edema, pulses normal, no ischemia or petechiae Neurologic: non-focal exam (grossly), pupils equal and round, CN II-XII normal, motor strength normal and Psychiatric: other (Patient sleeping.) CBC and BMP: 02/15/21 05:40 02/22/21 05:09 ABG, PT/INR, D-dimer: PT/INR, D-dimer PT 29.2 Sec. (12.2-14.9) H 02/11/21 15:24 INR 2.74 (0.87-1.13) H 02/11/21 15:24 Abnormal lab findings: Abnormal Labs 02/09/21 02/09/21 02/09/21 15:50 15:50 15:50 RBC RDW 20.0 H [place] % (Auto) 11.6 H [place] # (Auto) 1.2 H Seg Neutrophils % 71.0 H PT 37.1 H INR 3.76 H APTT 41.4 H Sodium 133 L Potassium 5.8 H Chloride Carbon Dioxide 19 L BUN 72 H Creatinine 2.2 H Glucose 131 H POC Glucose Calcium Magnesium NT-Pro-B Natriuret Pep Total Protein Albumin 3.2 L PTH Intact Urine WBC (Auto) 02/09/21 02/09/21 02/09/21 15:50 15:50 Unknown RBC RDW [place] % (Auto) [place] # (Auto) Seg Neutrophils % PT INR APTT Sodium Potassium Chloride Carbon Dioxide BUN Creatinine Glucose POC Glucose Calcium Magnesium 2.60 H NT-Pro-B Natriuret Pep [id number] H Total Protein Albumin PTH Intact Urine WBC (Auto) 23.0 H 02/10/21 02/10/21 02/10/21 04:34 04:34 19:12 RBC 3.62 L RDW 19.4 H [place] % (Auto) 13.6 H [place] # (Auto) 1.1 H Seg Neutrophils % PT INR APTT Sodium 136 L Potassium Chloride Carbon Dioxide BUN 72 H Creatinine 2.2 H Glucose POC Glucose Calcium Magnesium NT-Pro-B Natriuret Pep Total Protein 6.2 L Albumin 3.2 L PTH Intact Urine WBC (Auto) 8.0 H 02/11/21 02/11/21 02/11/21 05:51 05:51 05:51 RBC RDW 20.0 H [place] % (Auto) 10.8 H [place] # (Auto) 1.0 H Seg Neutrophils % 73.3 H PT INR APTT Sodium 131 L Potassium 5.1 H Chloride 97.2 L Carbon Dioxide 21 L BUN 71 H Creatinine 2.0 H Glucose 113 H POC Glucose Calcium Magnesium NT-Pro-B Natriuret Pep Total Protein Albumin PTH Intact 75.78 H Urine WBC (Auto) 02/11/21 02/12/21 02/12/21 15:24 07:38 16:35 RBC RDW [place] % (Auto) [place] # (Auto) Seg Neutrophils % PT 29.2 H INR 2.74 H APTT 40.7 H Sodium 135 L Potassium Chloride 97.5 L Carbon Dioxide BUN 58 H Creatinine 1.7 H Glucose POC Glucose 139 H Calcium Magnesium NT-Pro-B Natriuret Pep Total Protein Albumin PTH Intact Urine WBC (Auto) 02/13/21 02/13/21 02/14/21 05:21 20:50 03:44 RBC RDW [place] % (Auto) [place] # (Auto) Seg Neutrophils % PT INR APTT Sodium 134 L Potassium 5.1 H 5.5 H Chloride Carbon Dioxide 21 L BUN 45 H 39 H Creatinine 1.4 H 1.3 H Glucose POC Glucose 112 H Calcium Magnesium NT-Pro-B Natriuret Pep Total Protein Albumin PTH Intact Urine WBC (Auto) 02/15/21 02/15/21 02/15/21 05:40 05:40 08:07 RBC RDW 20.4 H [place] % (Auto) [place] # (Auto) Seg Neutrophils % PT INR APTT Sodium Potassium Chloride 110.7 H Carbon Dioxide 13 L D BUN 33 H Creatinine 1.4 H Glucose POC Glucose 124 H Calcium Magnesium NT-Pro-B Natriuret Pep Total Protein Albumin PTH Intact Urine WBC (Auto) 02/15/21 02/15/21 02/16/21 11:41 15:50 14:44 RBC RDW [place] % (Auto) [place] # (Auto) Seg Neutrophils % PT INR APTT Sodium Potassium Chloride Carbon Dioxide BUN 27 H Creatinine Glucose 117 H POC Glucose 142 H 118 H Calcium Magnesium NT-Pro-B Natriuret Pep Total Protein Albumin PTH Intact Urine WBC (Auto) 02/18/21 02/19/21 02/19/21 05:12 05:50 11:33 RBC RDW [place] % (Auto) [place] # (Auto) Seg Neutrophils % PT INR APTT Sodium Potassium 3.1 L D 5.4 H D Chloride 108.1 H Carbon Dioxide BUN 32 H 33 H Creatinine 1.3 H 1.4 H Glucose 117 H POC Glucose 133 H Calcium 8.3 L Magnesium NT-Pro-B Natriuret Pep Total Protein Albumin PTH Intact Urine WBC (Auto) 02/20/21 02/20/21 02/20/21 05:07 11:54 16:33 RBC RDW [place] % (Auto) [place] # (Auto) Seg Neutrophils % PT INR APTT Sodium Potassium 3.4 L D Chloride Carbon Dioxide BUN 36 H Creatinine 1.3 H Glucose 113 H POC Glucose 148 H 132 H Calcium Magnesium NT-Pro-B Natriuret Pep Total Protein Albumin PTH Intact Urine WBC (Auto) 02/21/21 02/21/21 04:39 12:19 RBC RDW [place] % (Auto) [place] # (Auto) Seg Neutrophils % PT INR APTT Sodium Potassium Chloride 108.3 H Carbon Dioxide BUN 40 H Creatinine 1.7 H Glucose 148 H POC Glucose 180 H Calcium Magnesium NT-Pro-B Natriuret Pep Total Protein Albumin PTH Intact Urine WBC (Auto) Allied health notes reviewed: nursing
--- NOTE | 2021-02-21 15:09 | Progress Note ---
Assessment and Plan The patient is an 89 YO female with history significant for Hypertension, Aortic valve repair, Hypothyroidism and recent pacemaker placement who was brought in by EMS to [facility] ED 02/09 for evaluation of shortness of breath and altered sensorium. 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, pulmonary consulted --Acute respiratory failure, patient on supplemental O2 likely due to pulmonary hypertension, tricuspid valve regurgitation and underlying CHF: Corpulmonale Continue supplemental O2 as tolerated and Lasix as needed Pulmonary consulted and following -- Acute encephalopathy Etiology may be lorazepam Lorazepam discontinued Patient also has underlying dementia CT head is unremarkable --History of dementia, continue supportive care and follow clinically --Atrial fibrillation, chronic Cardiology following, patient on Xarelto -- ARMIDA (acute kidney injury) Possible ARMIDA superimposed on chronic kidney disease Nephrology consult requested, follow BMP -- Hyperkalemia, Continue to treat per protocol and follow BMP -- Hyponatremia Mild with sodium of 133 and improved --Hypothyroidism (acquired) Continue Synthroid -- Hypertension, chronic Continue antihypertensives and adjust BP meds as needed -- GERD (gastroesophageal reflux disease) Continue PPIs -- DVT prophylaxis Patient on Xarelto for valvuloplasty of aortic valve and GI prophylaxis Daily clinical course: 02/10/2021 -Patient was confused. She states she is unaware she is in the hospital. Neurology and nephrology consult appreciated. Need PT OT evaluation. Cardiology consulted. 02/11/2021 -Patient was confused and neurology is following. -Patient was seen by cardiology and recommend to continue anticoagulation and medical management. -Patient was seen by nephrology and recommend to continue current management, monitor BMP. -Patient came from correction. -Blood pressure is well controlled. 02/12/2021 -Patient with ARMIDA, CHF. She is still confused. ARMIDA improving. Cr 1.7 today. She is followed by Nephrology and Cardiology. Continue Xarelto for aortic valve valvulopolasty. Follow labs in am 02/13/21 Patient with acute kidney injury, CHF. Cr improving 1.4 today. However she has mild hyperkalemia with Potassium 5.1. Nephrology following. Will repeat labs in am. Continue Xarelto. Cardiology following too. 02/14/21 Patient with acute kidney injury, congestive heart failure. She is followed by nephrology, Cardiology. Potassium 5.5 today, so Kayexalate ordered Cr 1.3 today improving On Xarelto for valvuloplasty of aortic valve SOB today Chest X ray ordered , pending 02/15/21; chest x-ray yesterday showed bibasilar atelectasis and chronic interstitial changes. 2D EHO SHOWED EF 40-45% with moderate to severe PHTN. lasix on hold as pt euvolumic. consult pulmonary for PHTN. discussed with patient's daughter at the bedside. 02/16/21: Repeat CT head obtained this morning showed no acute interval change. Patient remains intermittently confused with poor oral intake. Appreciate pulmonary recommendation. Renal function stable. Order for repeat speech eval, continue D5 normal saline. Need placement 02/17/21: Had repeat speech eval today and recommended to continue pured diet. Clinically remains unchanged with intermittent confusion and poor oral intake. Discussed with RN to assess patient during mealtime to improve oral intake. Pending placement. 02/18/21: Clinically unchanged, intermittently been confused but follow command. Tolerating pured diet. Pending placement 02/19/21; K elevated today, treat per protocol, follow BMP, pending placement. Patient remains on supplemental O2. Updated daughter with all clinical details. 02/20/21: Potassium 3.4 today, continue to follow BMP, creatinine 1.3. Patient remains on supplemental O2, pending placement. 02/21/21: Patient clinically remains unchanged, creatinine slightly trended up today -1.7. Remains on supplemental O2. Tolerating pured diet. Pending placement. Follow BMP. Nephrology following. Updated daughter and answered al l questions. Subjective Date of service: 02/21/21 Principal diagnosis: encephalopathy Interval history: Patient seen and examined. Medical records and medication list reviewed. No acute event overnight noted by the RN. Patient remains confused but able to follow command. Patient is tolerating diet but appetite is poor. Discussed plan of care at bedside with patient;s RN and CM. Objective - Exam Narrative Exam: GENERAL: well-developed and well-nourished elderly white female lying on bed HEENT: Normocephalic. Atraumatic. No conjunctival congestion or icterus. Patient has moist mucous membranes. NECK: Supple. Trachea midline. CHEST/LUNGS: Patient on nasal cannula O2, did not appreciate any crackles, positive for few rhonchi HEART/CARDIOVASCULAR: Regular in rate and rhythm. S1 and S2 positive. ABDOMEN: Abdomen is soft, nontender. Patient has normal bowel sounds. SKIN: There is no rash. Warm and dry. NEURO: No focal motor deficit. Follows command but patient is pleasantly confused. MUSCULOSKELETAL: No joint effusion or tenderness. EXTRIMITY: No edema, no cyanosis or clubbing. PSYCH: Cooperative. - Constitutional Vitals: Vital Signs - 12hr 02/21/21 02/21/21 02/21/21 05:11 08:18 12:11 Temperature 98.6 F 98.3 F 98.0 F Pulse Rate 108 H 90 117 H Respiratory 18 20 20 Rate Blood Pressure 109/70 115/37 122/68 O2 Sat by Pulse 92 91 90 Oximetry - Labs CBC & Chem 7: 02/15/21 05:40 02/22/21 05:09 Labs: Abnormal lab results 02/20/21 02/21/21 02/21/21 Range/Units 16:33 04:39 12:19 Chloride 108.3 H (98-107) mmol/L BUN 40 H (7-17) mg/dL Creatinine 1.7 H (0.6-1.2) mg/dL Glucose 148 H (65-100) mg/dL POC Glucose 132 H 180 H (70-105) mg/dL HEART Score - HEART Score Age: > 65 Risk factors: > 3 risk factors or hx of atherosclerotic disease Troponin: Troponin T < 0.010 ng/mL (0.00-0.029) 02/09/21 21:05 Troponin: < normal limit - Critical Actions Critical Actions: 0-3 pts:0.9-1.7%risk of adverse cardiac event.Candidate for discharge
[2021-02-21] MEDS: RIVAROXABAN 15 MG TAB PO SCH (21:11)
[2021-02-21] MEDS: SERTRALINE 25 MG TAB PO SCH (21:11)
[2021-02-22] MEDS: HYOSCYAMINE SUBL 0.125 MG TAB SL SCH ×4 (00:20→17:41)
[2021-02-22] MEDS: LEVOTHYROXINE 100 MCG TAB PO SCH (06:39)
[2021-02-22 07:14] LABS: Calcium 8.8 mg/dL (8.4-10.2)
--- NOTE | 2021-02-22 07:52 | Cat Scan Report ---
CT LUMBAR SPINE WITHOUT CONTRAST INDICATION: recurrent lumber pain. TECHNIQUE: Axial imaging performed through the lumbar spine without the use of contrast. Sagittal a nd coronal reconstructed images were also reviewed. All CT scans at this location are performed usin g CT dose reduction for ALARA by means of automated exposure control. COMPARISON: None FINDINGS: Alignment: There is minimal to mild lumbar scoliosis. There is minimal dextrocurvature of the upper lumbar spine and mild levocurvature of the lower lumbar spine. No evidence for subluxation. Bones: Moderate to severe osteopenia is suspected. 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 There is multilevel advanced disc space narrowing, marginal ost eophytosis and vacuum phenomenon. L2-3 appears to be the most affected level where there is suggestio n of mild central canal stenosis and moderate to severe left neural foraminal narrowing. Moderate dif fuse facet arthropathy is also evident. L4-5 are the most affected facet joints. There are moderate s ymmetric degenerative changes at the visualized SI joints. Soft tissues: Paraspinal musculature is unremarkable. There are diffuse atherosclerotic plaques thro ughout the abdominal aorta and major branches. 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 Diverticulosis o f the distal colon is also noted. IMPRESSION: No acute injury to the lumbar spine is appreciated. No bone lesion. Mild lumbar scoliosis. Moderate to severe multilevel degenerative changes as described. Signer Name: Marvin Garcia Jr, MD Signed: 02/22/2021 7:48 AM Workstation Name: [id number]
[2021-02-22] MEDS: CYPROHEPTADINE 4 MG TAB PO SCH ×3 (08:57→17:41)
[2021-02-22] MEDS: METOPROLOL SUCCINATE XL 100 MG TAB PO SCH (08:59)
[2021-02-22] MEDS: MEGESTROL 400 MG/10 ML ORAL LIQD PO SCH (08:59)
[2021-02-22] MEDS: busPIRone 5 MG TAB PO SCH (08:59)
[2021-02-22] MEDS: PANTOPRAZOLE 40 MG TAB PO SCH (08:59)
[2021-02-22] MEDS: CETIRIZINE 10 MG TAB PO SCH (08:59)
[2021-02-22] MEDS: GABAPENTIN 100 MG CAP PO SCH (08:59)
[2021-02-22] MEDS: NYSTATIN POWDER 15 GM TP SCH (09:00)
[2021-02-22] MEDS: FLUTICASONE PROPIONATE NASAL SPRAY 16 GM NS SCH (09:01)
--- NOTE | 2021-02-22 10:59 | Progress Note ---
Assessment and Plan - Patient Problems (1) Acute exacerbation of CHF (congestive heart failure) Current Visit: Yes Status: Acute Qualifiers: Qualified Code(s): I50.43 - Acute on chronic combined systolic (congestive) and diastolic (congestive) heart failure Plan to address problem: Echocardiogram shows only mild left ventricular systolic dysfunction with ejection fraction 45 to 50%. The most significant abnormalities on echo is marked dilatation of both left and right atria, consistent with the chronic atrial fibrillation. The right ventricle is also dilated and hypocontractile, with at least moderate pulmonary hypertension with pulmonary artery systolic pressure of 52, suggestive of cor pulmonale. Continue conservative cardiac management. (2) Atrial fibrillation Current Visit: Yes Status: Acute Plan to address problem: Continue rate control with Toprol XL and oral anticoagulation. Conservative cardiac management. Subjective Date of service: 02/22/21 Principal diagnosis: encephalopathy Interval history: Resting in bed and appears comfortable. Atrial fibrillation with a well controlled ventricular rate on telemetry. Objective Vital Signs Temp Pulse Resp BP Pulse Ox 02/22/21 09:12 94 02/22/21 08:59 88 125/73 02/22/21 08:08 98.2 F 57 L 20 125/73 88 02/22/21 03:30 98.0 F 66 18 131/71 79 L 02/21/21 23:17 98.0 F 73 18 139/91 89 02/21/21 23:02 20 97 02/21/21 20:37 96 02/21/21 20:00 60 02/21/21 18:57 98.0 F 60 18 88/58 87 02/21/21 15:32 97.8 F 104 H 20 109/48 95 02/21/21 12:29 97.2 F L 20 144/99 02/21/21 12:11 98.0 F 117 H 20 122/68 90 - Physical Examination General: No Apparent Distress, Other (confused) HEENT: Positive: PERRL Neck: Positive: neck supple Cardiac: Positive: irregularly irregular Lungs: Positive: Decreased Breath Sounds - Labs and Meds Comprehensive Metabolic Panel 02/22/21 Range/Units 05:09 Sodium 144 (137-145) mmol/L Potassium 4.5 D (3.6-5.0) mmol/L Chloride 110.0 H (98-107) mmol/L Carbon Dioxide 18 L (22-30) mmol/L BUN 43 H (7-17) mg/dL Creatinine 1.9 H (0.6-1.2) mg/dL Glucose 94 (65-100) mg/dL Calcium 8.8 (8.4-10.2) mg/dL - Allied health notes Allied health notes reviewed: nursing
--- NOTE | 2021-02-22 12:06 | Progress Note ---
Assessment and Plan 89-year-old female with past medical history significant for hypertension, diabetes mellitus, CAD, CHF, CKD, and recent pacemaker placement (unknown when), is brought in by EMS from home because she was feeling short of breath . The patient was recently discharged from rehab and came home. She was prescribed lorazepam which she takes intermittently but today after taking the lorazepam she became very tired and somnolent and reported shortness of breath. The patient claims that she feels short of breath today that there are no aggr avating or alleviating factors. She denies cough She is very somnolent although she is arousable to voice . She is confused Patient sleeping. Not responding to verbal stimuli. Patient is on 6 litres O2. O2 saturation 94%. Patient afebrile. No leukocytosis. Chest xray done 02/14/21 reported Chronic interstitial changes. Minor airspace opacity at the left lung base which probably represents atelectatic changes. Patient is on Rivaroxaban, Protonix and Buspar. - Patient Problems (1) Respiratory failure with hypoxia Status: Acute Plan to address problem: O2 6 litres via nasal canula. 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 (3) ARMIDA (acute kidney injury) Status: Acute Plan to address problem: Management as per nephrology. (4) Acute encephalopathy Status: Acute Plan to address problem: Management as per primary care and neurology. (5) GERD (gastroesophageal reflux disease) Status: Chronic Qualifiers: Esophagitis presence: with esophagitis Plan to address problem: Continue Protonix. (6) Hypertension Status: Chronic Qualifiers: Hypertension type: primary hypertension Qualified Code(s): I10 - Essential (primary) hypertension Plan to address problem: Management as per primary care. (7) Hypothyroidism (acquired) Status: Chronic Plan to address problem: Patient is on Levothuroxine. Management as per primary care. Subjective Date of service: 02/22/21 Principal diagnosis: encephalopathy Interval history: 89-year-old female with past medical history significant for hypertension, diab etes mellitus, CAD, CHF, CKD, and recent pacemaker placement (unknown when), is brought in by EMS from home because she was feeling short of breath . The patient was recently discharged from rehab and came home. She was prescribed lorazepam which she takes intermittently but today after taking the lorazepam she became very tired and somnolent and reported shortness of breath. The patient claims that she feels short of breath today that there are no aggravating or alleviating factors. She denies cough She is very somnolent although she is arousable to voice . She is confused Patient sleeping. Not responding to verbal stimuli. Patient is on 6 litres O2. O2 saturation 94%. Patient afebrile. No leukocytosis. Chest xray done 02/14/21 reported Chronic interstitial changes. Minor airspace opacity at the left lung base which probably represents atelectatic changes. Patient is on Rivaroxaban, Protonix and Buspar. Objective Vital Signs - 12hr 02/22/21 02/22/21 02/22/21 03:30 08:08 08:59 Temperature 98.0 F 98.2 F Pulse Rate 66 57 L 88 Respiratory 18 20 Rate Blood Pressure 131/71 125/73 125/73 O2 Sat by Pulse 79 L 88 Oximetry 02/22/21 02/22/21 09:12 11:00 Temperature Pulse Rate Respiratory 20 Rate Blood Pressure O2 Sat by Pulse 94 97 Oximetry Constitutional: no acute distress, asleep, other (elderly female without increased respiratory effort at rest) Eyes: non-icteric ENT: oropharynx moist Neck: supple, no JVD Effort: normal Ascultation: Bilateral: diminished breath sounds, rales (bases) Percussion: Bilateral: not dull Cardiovascular: irregular rhythm, other (rate controlled) Gastrointestinal: normoactive bowel sounds, soft, non-tender, non-distended Integumentary: other (poor turgor; some Ecchymosis) Extremities: no cyanosis, no edema, pulses normal, no ischemia or petechiae Neurologic: non-focal exam (grossly), pupils equal and round, CN II-XII normal, motor strength normal and Psychiatric: other (Patient sleeping.) CBC and BMP: 02/15/21 05:40 02/22/21 05:09 ABG, PT/INR, D-dimer: PT/INR, D-dimer PT 29.2 Sec. (12.2-14.9) H 02/11/21 15:24 INR 2.74 (0.87-1.13) H 02/11/21 15:24 Abnormal lab findings: Abnormal Labs 02/09/21 02/09/21 02/09/21 15:50 15:50 15:50 RBC RDW 20.0 H Metcalfe % (Auto) 11.6 H Metcalfe # (Auto) 1.2 H Seg Neutrophils % 71.0 H PT 37.1 H INR 3.76 H APTT 41.4 H Sodium 133 L Potassium 5.8 H Chloride Carbon Dioxide 19 L BUN 72 H Creatinine 2.2 H Glucose 131 H POC Glucose Calcium Magnesium NT-Pro-B Natriuret Pep Total Protein Albumin 3.2 L PTH Intact Urine WBC (Auto) 02/09/21 02/09/21 02/09/21 15:50 15:50 Unknown RBC RDW Metcalfe % (Auto) Metcalfe # (Auto) Seg Neutrophils % PT INR APTT Sodium Potassium Chloride Carbon Dioxide BUN Creatinine Glucose POC Glucose Calcium Magnesium 2.60 H NT-Pro-B Natriuret Pep 41028 H Total Protein Albumin PTH Intact Urine WBC (Auto) 23.0 H 02/10/21 02/10/21 02/10/21 04:34 04:34 19:12 RBC 3.62 L RDW 19.4 H Metcalfe % (Auto) 13.6 H Metcalfe # (Auto) 1.1 H Seg Neutrophils % PT INR APTT Sodium 136 L Potassium Chloride Carbon Dioxide BUN 72 H Creatinine 2.2 H Glucose POC Glucose Calcium Magnesium NT-Pro-B Natriuret Pep Total Protein 6.2 L Albumin 3.2 L PTH Intact Urine WBC (Auto) 8.0 H 02/11/21 02/11/21 02/11/21 05:51 05:51 05:51 RBC RDW 20.0 H Metcalfe % (Auto) 10.8 H Metcalfe # (Auto) 1.0 H Seg Neutrophils % 73.3 H PT INR APTT Sodium 131 L Potassium 5.1 H Chloride 97.2 L Carbon Dioxide 21 L BUN 71 H Creatinine 2.0 H Glucose 113 H POC Glucose Calcium Magnesium NT-Pro-B Natriuret Pep Total Protein Albumin PTH Intact 75.78 H Urine WBC (Auto) 02/11/21 02/12/21 02/12/21 15:24 07:38 16:35 RBC RDW Metcalfe % (Auto) Metcalfe # (Auto) Seg Neutrophils % PT 29.2 H INR 2.74 H APTT 40.7 H Sodium 135 L Potassium Chloride 97.5 L Carbon Dioxide BUN 58 H Creatinine 1.7 H Glucose POC Glucose 139 H Calcium Magnesium NT-Pro-B Natriuret Pep Total Protein Albumin PTH Intact Urine WBC (Auto) 02/13/21 02/13/21 02/14/21 05:21 20:50 03:44 RBC RDW Metcalfe % (Auto) Metcalfe # (Auto) Seg Neutrophils % PT INR APTT Sodium 134 L Potassium 5.1 H 5.5 H Chloride Carbon Dioxide 21 L BUN 45 H 39 H Creatinine 1.4 H 1.3 H Glucose POC Glucose 112 H Calcium Magnesium NT-Pro-B Natriuret Pep Total Protein Albumin PTH Intact Urine WBC (Auto) 02/15/21 02/15/21 02/15/21 05:40 05:40 08:07 RBC RDW 20.4 H Metcalfe % (Auto) Metcalfe # (Auto) Seg Neutrophils % PT INR APTT Sodium Potassium Chloride 110.7 H Carbon Dioxide 13 L D BUN 33 H Creatinine 1.4 H Glucose POC Glucose 124 H Calcium Magnesium NT-Pro-B Natriuret Pep Total Protein Albumin PTH Intact Urine WBC (Auto) 02/15/21 02/15/21 02/16/21 11:41 15:50 14:44 RBC RDW Metcalfe % (Auto) Metcalfe # (Auto) Seg Neutrophils % PT INR APTT Sodium Potassium Chloride Carbon Dioxide BUN 27 H Creatinine Glucose 117 H POC Glucose 142 H 118 H Calcium Magnesium NT-Pro-B Natriuret Pep Total Protein Albumin PTH Intact Urine WBC (Auto) 02/18/21 02/19/21 02/19/21 05:12 05:50 11:33 RBC RDW Metcalfe % (Auto) Metcalfe # (Auto) Seg Neutrophils % PT INR APTT Sodium Potassium 3.1 L D 5.4 H D Chloride 108.1 H Carbon Dioxide BUN 32 H 33 H Creatinine 1.3 H 1.4 H Glucose 117 H POC Glucose 133 H Calcium 8.3 L Magnesium NT-Pro-B Natriuret Pep Total Protein Albumin PTH Intact Urine WBC (Auto) 02/20/21 02/20/21 02/20/21 05:07 11:54 16:33 RBC RDW Metcalfe % (Auto) Metcalfe # (Auto) Seg Neutrophils % PT INR APTT Sodium Potassium 3.4 L D Chloride Carbon Dioxide BUN 36 H Creatinine 1.3 H Glucose 113 H POC Glucose 148 H 132 H Calcium Magnesium NT-Pro-B Natriuret Pep Total Protein Albumin PTH Intact Urine WBC (Auto) 02/21/21 02/21/21 02/21/21 04:39 12:19 17:01 RBC RDW Metcalfe % (Auto) Metcalfe # (Auto) Seg Neutrophils % PT INR APTT Sodium Potassium Chloride 108.3 H Carbon Dioxide BUN 40 H Creatinine 1.7 H Glucose 148 H POC Glucose 180 H 164 H Calcium Magnesium NT-Pro-B Natriuret Pep Total Protein Albumin PTH Intact Urine WBC (Auto) 02/21/21 02/22/21 02/22/21 20:37 05:09 08:09 RBC RDW Metcalfe % (Auto) Metcalfe # (Auto) Seg Neutrophils % PT INR APTT Sodium Potassium Chloride 110.0 H Carbon Dioxide 18 L BUN 43 H Creatinine 1.9 H Glucose POC Glucose 126 H 110 H Calcium Magnesium NT-Pro-B Natriuret Pep Total Protein Albumin PTH Intact Urine WBC (Auto) 02/22/21 11:48 RBC RDW Metcalfe % (Auto) Metcalfe # (Auto) Seg Neutrophils % PT INR APTT Sodium Potassium Chloride Carbon Dioxide BUN Creatinine Glucose POC Glucose 141 H Calcium Magnesium NT-Pro-B Natriuret Pep Total Protein Albumin PTH Intact Urine WBC (Auto) Allied health notes reviewed: nursing
--- NOTE | 2021-02-22 14:09 | Progress Note ---
Assessment and Plan 1. Acute kidney injury: ARMIDA in the setting of CHF. CT abdomen negative for hydro. Urine studies ordered. Baseline renal function is unknown. Most likely background CKD. Monitor renal function. Creatinine level is now increasing. Avoid nephrotoxic agents. Meds dosage based on GFR. 2. FEN: Metabolic acidosis, monitor. Hyperkalemia, improved, monitor. Monitor lytes. 3. CHF: On Metoprolol. Followed by Cards. 4. Chronic A.fib // PPM // Transaortic valve replacement: On Metoprolol and Xarelto. Monitor. 5. Hypertension: BP is controlled. Adjust meds as needed. Monitor. Subjective: Patient was seen and examined at the bedside. Examination: General appearance: well-developed, appears stated age, not in distress HEENT: ATNC, pupils equal Neck: Trachea midline Respiratory: ctab Cardiology: S1S2, no murmur Gastrointestinal: soft, bowel sounds heard, not tender Integumentary: warm and dry Neurologic: lethargic, not following any command Ext: no edema Subjective Date of service: 02/22/21 Principal diagnosis: encephalopathy Objective - Vital Signs Vital signs: Vital Signs - 12hr 02/22/21 02/22/21 02/22/21 03:30 08:08 08:59 Temperature 98.0 F 98.2 F Pulse Rate 66 57 L 88 Respiratory 18 20 Rate Blood Pressure 131/71 125/73 125/73 O2 Sat by Pulse 79 L 88 Oximetry 02/22/21 02/22/21 09:12 11:00 Temperature Pulse Rate Respiratory 20 Rate Blood Pressure O2 Sat by Pulse 94 97 Oximetry - Lab 02/15/21 05:40 02/22/21 05:09 Most recent lab results Calcium 8.8 mg/dL (8.4-10.2) 02/22/21 05:09 Magnesium 2.60 mg/dL (1.7-2.3) H 02/09/21 15:50 Medications & Allergies - Medications Allergies/Adverse Reactions: Allergies codeine Allergy (Verified 02/09/21 16:11) Unknown morphine Allergy (Verified 02/09/21 16:11) Unknown Sulfa (Sulfonamide Antibiotics) Allergy (Verified 02/09/21 16:11) Unknown zolpidem [From Ambien] Allergy (Verified 02/09/21 16:11) Unknown Home Medications: Home Medications Medication Instructions Recorded Confirmed Last Taken Type Cyproheptadine HCl 4 mg PO Q8HR 02/09/21 02/09/21 Unknown History Furosemide [Lasix] 20 mg PO QDAY 02/09/21 02/09/21 Unknown History Hydromorphone HCl/0.9% NaCl/Pf 1 mg PO Q2HR PRN 02/09/21 02/09/21 Unknown History [Hydromorphone 1 mg/ml-Ns Syrng] Hyoscyamine Subl [Levsin Sl 0.125 0.125 mg SL Q6HR 02/09/21 02/09/21 Unknown History TAB] LORazepam [Ativan] 0.5 mg PO Q6H PRN 02/09/21 02/09/21 Unknown History Levothyroxine [Synthroid] 100 mcg PO QAM 02/09/21 02/09/21 Unknown History Loratadine 10 mg PO QAM 02/09/21 02/09/21 Unknown History Metoprolol Tartrate [Lopressor] 100 mg PO BID 02/09/21 02/09/21 Unknown History Ondansetron [Zofran Odt] 4 mg PO Q4HR PRN 02/09/21 02/09/21 Unknown History Pantoprazole Sodium 40 mg PO QAM 02/09/21 02/09/21 Unknown History Rivaroxaban [Xarelto] 15 mg PO QHS 02/09/21 02/09/21 Unknown History bisacodyL [Dulcolax suppos] 10 mg HI QDAY 02/09/21 02/09/21 Unknown History busPIRone [Buspar] 5 mg PO BID 02/09/21 02/09/21 Unknown History dilTIAZem CD [Cardizem Cd] 120 mg PO DAILY 02/09/21 02/09/21 Unknown History traMADoL [Ultram] 50 mg PO Q6HR PRN 02/09/21 02/09/21 Unknown History Active Medications: Generic Name Dose Route Start Last Admin Trade Name Freq PRN Reason Stop Dose Admin Acetaminophen 650 mg 02/10/21 00:03 02/18/21 10:58 Acetaminophen 325 Mg Tab PO 650 mg Q4H PRN Administration Pain MILD(1-3)/Fever >100.5/GABRIEL Bisacodyl 10 mg 02/10/21 10:00 02/22/21 08:59 Bisacodyl 10 Mg Rect Supp HI 10 mg QDAY GERRI Administration Buspirone HCl 5 mg 02/10/21 10:00 02/22/21 08:59 Buspirone 5 Mg Tab PO 5 mg BID GERRI Administration Cetirizine HCl 10 mg 02/10/21 10:00 02/22/21 08:59 Cetirizine 10 Mg Tab PO 10 mg QAM GERRI Administration Cyproheptadine HCl 4 mg 02/10/21 07:30 02/22/21 12:30 Cyproheptadine 4 Mg Tab PO 4 mg TIDAC GERRI Administration Fluticasone Propionate 50 mcg 02/17/21 22:00 02/22/21 09:01 Fluticasone Propionate Nasal Lerona 16 Gm NS 50 mcg BID GERRI Administration Gabapentin 100 mg 02/11/21 14:00 02/22/21 08:59 Gabapentin 100 Mg Cap PO 100 mg BID GERRI Administration Hyoscyamine 0.125 mg 02/10/21 00:00 02/22/21 12:30 Hyoscyamine Subl 0.125 Mg Tab SL 0.125 mg Q6HR GERRI Administration Dextrose/Sodium Chloride 1,000 mls @ 60 mls/hr 02/18/21 10:00 02/21/21 21:09 D5ns IV 60 mls/hr DIRECT GERRI Administration Levothyroxine Sodium 100 mcg 02/10/21 06:00 02/22/21 06:39 Levothyroxine 100 Mcg Tab PO 100 mcg QAM@0600 GERRI Administration Megestrol Acetate 400 mg 02/16/21 16:00 02/22/21 08:59 Megestrol 400 Mg/10 Ml Oral Liqd PO 400 mg QDAY GERRI Administration Metoclopramide HCl 5 mg 02/10/21 00:03 Metoclopramide 10 Mg/2 Ml Inj IV Q6H PRN Nausea And Vomiting Metoprolol Succinate 200 mg 02/21/21 10:00 02/22/21 08:59 Metoprolol Succinate Xl 100 Mg Tab PO 200 mg QDAY GERRI Administration Nystatin 1 applic 02/13/21 22:00 02/22/21 09:00 Nystatin Powder 15 Gm TP 1 applic BID GERRI Administration Ondansetron HCl 4 mg 02/10/21 00:00 Ondansetron 4 Mg Odt Tab PO Q4H PRN Nausea Ondansetron HCl 4 mg 02/10/21 00:03 02/21/21 13:58 Ondansetron 4 Mg/2 Ml Inj IV 4 mg Q8H PRN Administration Nausea And Vomiting Pantoprazole Sodium 40 mg 02/10/21 10:00 02/22/21 08:59 Pantoprazole 40 Mg Tab PO 40 mg QAM GERRI Administration Rivaroxaban 15 mg 02/10/21 22:00 02/21/21 21:11 Rivaroxaban 15 Mg Tab PO Not Given QHS GERRI Sertraline HCl 12.5 mg 02/17/21 22:00 02/21/21 21:11 Sertraline 25 Mg Tab PO Not Given QHS GERRI Sodium Chloride 10 ml 02/10/21 10:00 02/22/21 09:00 Sodium Chloride 0.9% 10 Ml Flush Syringe IV 10 ml BID GERRI Administration Sodium Chloride 10 ml 02/10/21 00:03 Sodium Chloride 0.9% 10 Ml Flush Syringe IV PRN PRN LINE FLUSH
[2021-02-22] MEDS ORDERED: SODIUM CHLORIDE 0.9% 500 ML IVPB ONE (14:30)
[2021-02-22] MEDS ORDERED: SODIUM CHLORIDE 0.9% 1000 ML IV SOLN ONE (14:30)
--- NOTE | 2021-02-22 16:55 | Progress Note ---
Assessment and Plan The patient is an 89 YO female with history significant for Hypertension, Aortic valve repair, Hypothyroidism and recent pacemaker placement who was brought in by EMS to PSYCHIATRIC ED 02/09 for evaluation of shortness of breath and altered sensorium. 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, pulmonary consulted --Acute respiratory failure, patient on supplemental O2 likely due to pulmonary hypertension, tricuspid valve regurgitation and underlying CHF: Corpulmonale Continue supplemental O2 as tolerated and Lasix as needed Pulmonary consulted and following -- Acute encephalopathy Etiology may be lorazepam Lorazepam discontinued Patient also has underlying dementia CT head is unremarkable --History of dementia, continue supportive care and follow clinically --Atrial fibrillation, chronic Cardiology following, patient on Xarelto -- ARMIDA (acute kidney injury) Possible ARMIDA superimposed on chronic kidney disease Nephrology consult requested, follow BMP -- Hyperkalemia, Continue to treat per protocol and follow BMP -- Hyponatremia Mild with sodium of 133 and improved --Hypothyroidism (acquired) Continue Synthroid -- Hypertension, chronic Continue antihypertensives and adjust BP meds as needed -- GERD (gastroesophageal reflux disease) Continue PPIs -- DVT prophylaxis Patient on Xarelto for valvuloplasty of aortic valve and GI prophylaxis Daily clinical course: 02/10/2021 -Patient was confused. She states she is unaware she is in the hospital. Neurology and nephrology consult appreciated. Need PT OT evaluation. Cardiology consulted. 02/11/2021 -Patient was confused and neurology is following. -Patient was seen by cardiology and recommend to continue anticoagulation and medical management. -Patient was seen by nephrology and recommend to continue current management, monitor BMP. -Patient came from halfway. -Blood pressure is well controlled. 02/12/2021 -Patient with ARMIDA, CHF. She is still confused. ARMIDA improving. Cr 1.7 today. She is followed by Nephrology and Cardiology. Continue Xarelto for aortic valve valvulopolasty. Follow labs in am 02/13/21 Patient with acute kidney injury, CHF. Cr improving 1.4 today. However she has mild hyperkalemia with Potassium 5.1. Nephrology following. Will repeat labs in am. Continue Xarelto. Cardiology following too. 02/14/21 Patient with acute kidney injury, congestive heart failure. She is followed by nephrology, Cardiology. Potassium 5.5 today, so Kayexalate ordered Cr 1.3 today improving On Xarelto for valvuloplasty of aortic valve SOB today Chest X ray ordered , pending 02/15/21; chest x-ray yesterday showed bibasilar atelectasis and chronic interstitial changes. 2D EHO SHOWED EF 40-45% with moderate to severe PHTN. lasix on hold as pt euvolumic. consult pulmonary for PHTN. discussed with patient's daughter at the bedside. 02/16/21: Repeat CT head obtained this morning showed no acute interval change. Patient remains intermittently confused with poor oral intake. Appreciate pulmonary recommendation. Renal function stable. Order for repeat speech eval, continue D5 normal saline. Need placement 02/17/21: Had repeat speech eval today and recommended to continue pured diet. Clinically remains unchanged with intermittent confusion and poor oral intake. Discussed with RN to assess patient during mealtime to improve oral intake. Pending placement. 02/18/21: Clinically unchanged, intermittently been confused but follow command. Tolerating pured diet. Pending placement 02/19/21; K elevated today, treat per protocol, follow BMP, pending placement. Patient remains on supplemental O2. Updated daughter with all clinical details. 02/20/21: Potassium 3.4 today, continue to follow BMP, creatinine 1.3. Patient remains on supplemental O2, pending placement. 02/21/21: Patient clinically remains unchanged, creatinine slightly trended up today -1.7. Remains on supplemental O2. Tolerating pured diet. Pending placement. Follow BMP. Nephrology following. Updated daughter and answered a ll questions. 02/22/21: Creatinine 1.9 today, continue to follow BMP and nephrology recommendation. Patient remains confused and clinically unchanged. Discussed with daughter in details. Pending placement. I explained to the daughter that patient has poor prognosis and high chance of recurrent admissions following discharge. She was offered for hospice during my earlier discussion but patient daughter wish to continue with full code. Subjective Date of service: 02/22/21 Principal diagnosis: encephalopathy Interval history: Patient seen and examined. Medical records and medication list reviewed. No acute event overnight noted by the RN. Patient remains confused but able to follow command. Patient is tolerating diet but appetite is poor. Discussed plan of care at bedside with patient;s RN and CM. Objective - Exam Narrative Exam: GENERAL: well-developed and well-nourished elderly white female lying on bed HEENT: Normocephalic. Atraumatic. No conjunctival congestion or icterus. Patient has moist mucous membranes. NECK: Supple. Trachea midline. CHEST/LUNGS: Patient on nasal cannula O2, did not appreciate any crackles, positive for few rhonchi HEART/CARDIOVASCULAR: Regular in rate and rhythm. S1 and S2 positive. ABDOMEN: Abdomen is soft, nontender. Patient has normal bowel sounds. SKIN: There is no rash. Warm and dry. NEURO: No focal motor deficit. Follows command but patient is pleasantly confu sed. MUSCULOSKELETAL: No joint effusion or tenderness. EXTRIMITY: No edema, no cyanosis or clubbing. PSYCH: Cooperative. - Constitutional Vitals: Vital Signs - 12hr 02/22/21 02/22/21 02/22/21 08:08 08:59 09:12 Temperature 98.2 F Pulse Rate 57 L 88 Respiratory 20 Rate Blood Pressure 125/73 125/73 O2 Sat by Pulse 88 94 Oximetry 02/22/21 11:00 Temperature Pulse Rate Respiratory 20 Rate Blood Pressure O2 Sat by Pulse 97 Oximetry - Labs CBC & Chem 7: 02/15/21 05:40 02/22/21 05:09 Labs: Abnormal lab results 02/21/21 02/21/21 02/22/21 Range/Units 17:01 20:37 05:09 Chloride 110.0 H (98-107) mmol/L Carbon Dioxide 18 L (22-30) mmol/L BUN 43 H (7-17) mg/dL Creatinine 1.9 H (0.6-1.2) mg/dL POC Glucose 164 H 126 H (70-105) mg/dL 02/22/21 02/22/21 Range/Units 08:09 11:48 Chloride (98-107) mmol/L Carbon Dioxide (22-30) mmol/L BUN (7-17) mg/dL Creatinine (0.6-1.2) mg/dL POC Glucose 110 H 141 H (70-105) mg/dL HEART Score - HEART Score Age: > 65 Risk factors: > 3 risk factors or hx of atherosclerotic disease Troponin: Troponin T < 0.010 ng/mL (0.00-0.029) 02/09/21 21:05 Troponin: < normal limit - Critical Actions Critical Actions: 0-3 pts:0.9-1.7%risk of adverse cardiac event.Candidate for discharge
[2021-02-22] MEDS ORDERED: SODIUM BICARB 8.4% 50 MEQ/50 ML SYRINGE IV ONE (17:45)
[2021-02-22] MEDS ORDERED: ATROPINE 0.1% (1 MG/10 ML) CARDIAC SYRINGE ONE (17:45)
[2021-02-22] MEDS ORDERED: EPINEPHrine 1 MG/10 ML SYRINGE ONE (17:45)
[2021-02-22 18:04] VITALS: BP 152/85
--- NOTE | 2021-02-23 10:31 | Death Summary ---
Summary - Providers Date of service: 02/23/21 Consults: 02/10/21 00:03 Consult to Physician [CONS] Routine Comment: Consulting Provider: BRITTANY MERRITT Physician Instructions: Reason For Exam: Altered mental status Physical Therapy Evaluation and Treat [CONS] Routine Comment: unsteady gait and lumber pain Reason For Exam: Debility 02/10/21 07:34 Consult to Physician [CONS] Routine Comment: Consulting Provider: JASON ABRAMS Physician Instructions: Reason For Exam: CHF/PPM Consult to Physician [CONS] Routine Comment: Consulting Provider: CORY WOLFE Physician Instructions: Reason For Exam: ARMIDA/CKD 02/11/21 11:19 Physical Therapy Evaluation and Treat [CONS] Routine Comment: for abnormal gait Reason For Exam: PT to eval and treat 02/11/21 11:20 Occupational Therapy Evaluate and Treat [CONS] Routine Comment: pt. needs assist with ADLs Reason For Exam: OT to eval and treat 02/15/21 16:25 Consult to Physician [CONS] Routine Comment: Consulting Provider: LOU PINON Physician Instructions: Reason For Exam: PHTN 02/17/21 09:44 Speech Therapy Evaluation and Treat [CONS] Routine Reason For Exam: aspiration Attending: MARTINEZ SOTO - summary Date of admission: 02/09/21 17:02 Date of : 02/22/21 Significant findings: Cause of : Cardiorespiratory arrest due to acute respiratory failure with cor pulmonale, congestive heart failure, chronic atrial fibrillation, acute renal failure and underlying progressive dementia. Brief history: The patient is an 89 YO female with history significant for Hypertension, Aortic valve repair, Hypothyroidism and recent pacemaker placement who was brought in by EMS to [facility] ED 02/09 for evaluation of shortness of breath and altered sensorium. Labs was significant for Creat 2.2, BUN 72, K 5.8 and BNP 17481. Patient was admitted for acute encephalopathy, CHF exacerbation, ARMIDA. CT head obtained x2 did not show any acute infarct. Patient had pacemaker in place so could not obtain MRI brain. 2D echo showed EF 40 to 45% with moderate pulmonary hypertension and tricuspid valve regurgitation. Neurology nephrology pulmonary and cardiology was consulted. Daily clinical course: 02/10/2021 -Patient was confused. She states she is unaware she is in the hospital. Neurology and nephrology consult appreciated. Need PT OT evaluation. Cardiology consulted. 02/11/2021 -Patient was confused and neurology is following. -Patient was seen by cardiology and recommend to continue anticoagulation and medical management. -Patient was seen by nephrology and recommend to continue current management, monitor BMP. -Patient came from halfway. -Blood pressure is well controlled. 02/12/2021 -Patient with ARMIDA, CHF. She is still confused. ARMIDA improving. Cr 1.7 today. She is followed by Nephrology and Cardiology. Continue Xarelto for aortic valve valvulopolasty. Follow labs in am 02/13/21 Patient with acute kidney injury, CHF. Cr improving 1.4 today. However she has mild hyperkalemia with Potassium 5.1. Nephrology following. Will repeat labs in am. Continue Xarelto. Cardiology following too. 02/14/21 Patient with acute kidney injury, congestive heart failure. She is followed by nephrology, Cardiology. Potassium 5.5 today, so Kayexalate ordered Cr 1.3 today improving On Xarelto for valvuloplasty of aortic valve SOB today Chest X ray ordered , pending 02/15/21; chest x-ray yesterday showed bibasilar atelectasis and chronic interstitial changes. 2D EHO SHOWED EF 40-45% with moderate to severe PHTN. lasix on hold as pt euvolumic. consult pulmonary for PHTN. discussed with patient's daughter at the bedside. 02/16/21: Repeat CT head obtained this morning showed no acute interval change. Patient remains intermittently confused with poor oral intake. Appreciate pulmonary recommendation. Renal function stable. Order for repeat speech eval, continue D5 normal saline. Need placement 02/17/21: Had repeat speech eval today and recommended to continue pured diet. Clinically remains unchanged with intermittent confusion and poor oral intake. Discussed with RN to assess patient during mealtime to improve oral intake. Pending placement. 02/18/21: Clinically unchanged, intermittently been confused but follow command. Tolerating pured diet. Pending placement 02/19/21; K elevated today, treat per protocol, follow BMP, pending placement. Patient remains on supplemental O2. Updated daughter with all clinical details. 02/20/21: Potassium 3.4 today, continue to follow BMP, creatinine 1.3. Patient remains on supplemental O2, pending placement. 02/21/21: Patient clinically remains unchanged, creatinine slightly trended up today -1.7. Remains on supplemental O2. Tolerating pured diet. Pending placement. Follow BMP. Nephrology following. Updated daughter and answered all questions. 02/22/21: Creatinine 1.9 today, continue to follow BMP and nephrology recommendation. Patient remains confused and clinically unchanged. Discussed with daughter in details. Pending placement. I explained to the daughter that patient has poor prognosis and high chance of recurrent admissions following discharge. She was offered for hospice during my earlier discussion but patient daughter wish to continue with full code. 6;30PM per RN she went to provide medications to the nurse and daughter was at the bedside the nurse that patient probably not breathing. Patient heart rate was at 80s on telemetry. Patient found to be obtunded and apneic. Code med was called and that was changed to CODE BLUE as patient was unresponsive. ACLS protocol initiated but was unsuccessful. Patient was pronounced by Dr. Covington, and family was updated. Problem list and Mx: -- Acute exacerbation of systolic CHF (congestive heart failure) s/p IV Lasix, 2d echo showed Ef 40-45% BNP was high--18,914, cardiology was consulted and following --PHTN, moderate with RSVP ~50 with moderate tricuspid valve regurgitation, pulmonary consulted --Acute respiratory failure, patient on supplemental O2 likely due to pulmonary hypertension, tricuspid valve regurgitation and underlying CHF: Corpulmonale Continue supplemental O2 as tolerated and Lasix as needed Pulmonary consulted and following -- Acute encephalopathy Etiology may be lorazepam Lorazepam discontinued Patient also has underlying dementia CT head x2 is unremarkable --History of dementia, provided supportive care and followed clinically --Atrial fibrillation, chronic Cardiology consulted, patient was rate controlled and on Xarelto -- ARMIDA (acute kidney injury) Possible ARMIDA superimposed on chronic kidney disease Nephrology consult requested, followed BMP -- Hyperkalemia, treated per protocol and followed BMP -- Hyponatremia Mild with sodium of 133 and improved --Hypothyroidism (acquired) Continued Synthroid -- Hypertension, chronic Continued antihypertensives and adjusted BP meds as needed -- GERD (gastroesophageal reflux disease) Continued PPIs -- DVT prophylaxis Patient was on Xarelto for valvuloplasty of aortic valve and GI prophylaxis
== END 2021-02-22 20:00 | DRG 291 ==
LOC: ED 14:31 → 4A 17:02
PROVIDERS: ADMIT Internal Medicine; ATTEND Internal Medicine
DX: I13.0 Hypertensive heart and chronic kidney disease with heart failure and stage 1 through stage 4 chronic kidney disease, or unspecified chronic kidney disease (principal); G92 Toxic encephalopathy; J96.01 Acute respiratory failure with hypoxia; I50.43 Acute on chronic combined systolic (congestive) and diastolic (congestive) heart failure; N39.0 Urinary tract infection, site not specified; N17.9 Acute kidney failure, unspecified; E87.1 Hypo-osmolality and hyponatremia; I48.19 Other persistent atrial fibrillation; E87.5 Hyperkalemia; N18.9 Chronic kidney disease, unspecified; F03.90 Unspecified dementia, unspecified severity, without behavioral disturbance, psychotic disturbance, mood disturbance, and anxiety; E03.9 Hypothyroidism, unspecified; K21.00 Gastro-esophageal reflux disease with esophagitis, without bleeding; T42.4X5A Adverse effect of benzodiazepines, initial encounter; I27.20 Pulmonary hypertension, unspecified; R62.7 Adult failure to thrive; Z88.5 Allergy status to narcotic agent; Z88.8 Allergy status to other drugs, medicaments and biological substances; Z88.2 Allergy status to sulfonamides; E11.22 Type 2 diabetes mellitus with diabetic chronic kidney disease; Z79.899 Other long term (current) drug therapy; Z20.822 Contact with and (suspected) exposure to COVID-19; Z79.01 Long term (current) use of anticoagulants; F41.9 Anxiety disorder, unspecified; Z95.0 Presence of cardiac pacemaker; I27.81 Cor pulmonale (chronic); I46.9 Cardiac arrest, cause unspecified
CPT/HCPCS: 36415; 70450; 71045; 71046; 72131; 74176; 80048; 80053; 80307; 81001; 82140; 82962; 83036; 83735; 83880; 83970; 84484; 85025; 85027; 85610; 85730; 87040; 87086; 87641; 93005; 93306; 96374; 96375; G0378; J0171; J0461; J0692; J0696; J1170; J1200; J1940; J2405; J7030; J7040; J7042; J7070; U0003